=== PATIENT | female | born 1935 | race Caucasian/White ===

== ENCOUNTER 2017-03-23 10:01 | Inpatient (IN) | payer MEDICARE, BC ==
[~2017-03-23] VITALS: Ht 152.4 cm; Wt 83.0 kg
[~2017-03-23 10:01] MED LIST: ACAI PO; ACET325 PO; ALBU90OI INH; ALBU90OI6; ALBU90OI6 INH; ALBU90OI61 INH; ALBUIS INH; ALLO100; ALLO100 PO; AMLO5 PO; ASPI325 PO; ASPI81CH; ASPI81EC PO; ATOR10 PO; AZTREONAM IV; BENA20; BENHYD1012 PO; BUME2 PO; CALCA500CH PO; CEPH250A PO; CEPH500 PO; CHOL10002 PO; CIPR500; CPAP; CRANBERRY PO; CYAN1000 PO; CYAN500 PO; CYCL10; CYCL10 PO; DESL5 PO; DOCU100 PO; DULO30 PO; DULO60 PO; ENDOCET; ERGO400 PO; ESTR1; Estrace PO; Estrace Vagin42.5 GM; FAMO20 PO; FEBU40TA PO; FEXO60; FEXO60 PO; FEXPSEER PO; FISH1000 PO; FLUC100 PO; FOLI400 PO; FURO20 PO; GABA100 PO; GABA300 PO; GABA300T24 PO; GABA600 PO; GAVILAX17 GM PO; GEMF600 PO; GLIM2 PO; GLIM4; Gas Relief 8080 MG PO; HYDACE5 PO; HYDACE5325 PO; HYDCHL12.5; INSUGL100V SC; INSULANI SC; INSULANPEN SC; IRON150C PO; LAVAP17G PO; LEVEMIR FL100 UNIT/1 SC; LIDO700A20 TOP; LINZESS145 MCG PO; Levaquin750 MG PO; MECL12.5 PO; MENTAX PO; METO25ER; MULVITMINF PO; NAPR500; NEBI5 PO; NYST100SU MT; OLME20 PO; OLME5TAB PO; OMEG1CAP30 PO; OMEP20ER; OMEP20ER PO; ONDA4ODT MM; OXYACE5T PO; Omeprazole20 M1 PO; PARI1 PO; POLY-IRON; POTA10T PO; PRED10 PO; PRED20 PO; PROM25 PO; Pedi-Dri 100,0060 GM TOP; Percocet 5-3251 EACH; Polysaccharide150 MG PO; Prilosec Otc20 MG PO; Q-Tussin100 MG/5 M PO; QUALAQUIN PO; QUIN324 PO; ROSU5; ROSU5 PO; RXCYCL10 PO; SEVEC800 PO; SOLI5; SOLI5 PO; Senna8.6 MG; Senna8.6 MG PO; TOCO400 PO; TRIA55OI; TRIM100; Tylenol325 MG PO; VITAMIN D PO; Ventolin Soln3 ML INH; Vitamin D2000 UNIT PO; WARF5 PO; ZINC LOZENGES; [UNRECOGNIZED DRUG - OTHER]; [UNRECOGNIZED DRUG - OTHER]; [UNRECOGNIZED DRUG - OTHER]; [UNRECOGNIZED DRUG - OTHER]; [UNRECOGNIZED DRUG - OTHER] PO; [UNRECOGNIZED DRUG - OTHER] PO
[2017-03-23 10:47] LABS: Bilirubin, Urine Neg (Neg); Blood, Urine 4+ (Neg); Glucose Qualitative, Urine Neg (Neg); Ketones, Urine Neg (Neg); Leukocyte Esterase, Urine 3+ (Neg); Nitrite, Urine Neg (Neg); Protein, Urine 3+ (Neg); Specific Gravity, Urine 1.015 (1.003-1.022); Urobilinogen, Urine NORM (Normal)
[2017-03-23] MEDS ORDERED: CONEST.625 PO (11:09)
[2017-03-23] MEDS ORDERED: ENDOCET 2.5-321 EACH PO (11:10)
[2017-03-23 11:12] LABS: Appearance, Urine Hazy (Clear); Color, Urine Yellow (P-Yellow)
[2017-03-23 11:13] LABS: White Blood Cells, Urine TNTC /hpf (0-5)
[2017-03-23 11:14] LABS: Bacteria Many /hpf; Red Blood Cells, Urine 0-2 /hpf (0-2); Squamous Epithelial Cells Rare /hpf (Few)
[2017-03-23 12:14] LABS: Bun/Creatinine Ratio 29.4 (12.0-20.0); Calcium, Blood 7.7 mg/dL (8.5-10.1); Creatinine, Blood 3.67 mg/dL (0.40-1.00); Troponin I 0.028 ng/mL (0.000-0.040)
[2017-03-23 12:15] LABS: Hemoglobin 11.8 g/dL (11.5-16.0); Mean Corpuscular HGB 31.1 pg (26.0-34.0); Mean Corpuscular HGB Conc 33.7 g/dL (31.5-36.5); Mean Corpuscular Volume 92 fL (80-100); Mean Platelet Volume 12.5 fL (9.1-12.4); NRBC ABSOLUTE 0.06 K/mm3 (0.00-0.02); NRBC Auto 0.1 /100 WBC (0.0-0.2); Platelet Count 152 K/mm3 (150-400); RDW Coefficient Variation 20.4 % (11.7-14.2); RDW Standard Deviation 68.3 fL (35.1-46.3); White Blood Cell Count 41.55 K/mm3 (4.00-11.30)
[2017-03-23 12:29] LABS: BAND PERCENT MAN 11 % (0-8); BASOPHILS PERCENT MAN 0 % (0-2); EOSINOPHILS PERCENT MAN 0 % (0-6); LYMPHOCYTES ABSOLUTE MAN 1.24 K/mm3 (0.84-5.20); LYMPHOCYTES PERCENT MAN 3 % (21-46); METAMYELOCYTE ABSOLUTE MAN 1.66 K/mm3 (0.00-0.00); METAMYELOCYTE PERCENT MAN 4 % (0-0); MONOCYTES ABSOLUTE MAN 3.32 K/mm3 (0.16-1.47); MONOCYTES PERCENT MAN 8 % (4-13); MYELOCYTE ABSOLUTE MAN 0.41 K/mm3 (0.00-0.00); MYELOCYTE PERCENT MAN 1 % (0-0); SEG NEUTROPHILS PERCENT MAN 73 % (41-73); TOTAL CELLS COUNTED 100
[2017-03-23 12:52] LABS: Influenza A Negative (NEGATIVE); Influenza B Negative (NEGATIVE)
[2017-03-24 04:11] LABS: Hemoglobin 10.7 g/dL (11.5-16.0); Mean Corpuscular HGB 30.5 pg (26.0-34.0); Mean Corpuscular HGB Conc 32.4 g/dL (31.5-36.5); Mean Corpuscular Volume 94 fL (80-100); Mean Platelet Volume 11.7 fL (9.1-12.4); NRBC ABSOLUTE 0.02 K/mm3 (0.00-0.02); NRBC Auto 0.1 /100 WBC (0.0-0.2); Platelet Count 147 K/mm3 (150-400); RDW Coefficient Variation 20.7 % (11.7-14.2); RDW Standard Deviation 72.1 fL (35.1-46.3); Red Blood Cell Count 3.51 M/mm3 (3.80-5.20); White Blood Cell Count 38.17 K/mm3 (4.00-11.30)
[2017-03-24 04:18] LABS: Albumin, Blood 2.7 g/dL (3.4-5.0); Anion Gap 15 mmol/L (6-16); Blood Urea Nitrogen 120 mg/dL (8-24); CO2, Blood 14 mmol/L (21-32); Calcium, Blood 7.1 mg/dL (8.5-10.1); Chloride, Blood 106 mmol/L (98-108); Creatinine, Blood 3.87 mg/dL (0.40-1.00); Glomerular Filtration Rate 12 (60-); Glucose, Blood 89 mg/dL (70-99); Magnesium, Blood 1.6 mg/dL (1.6-2.4); Phosphorus, Blood 7.2 mg/dL (2.5-4.9); Potassium, Blood 3.7 mmol/L (3.5-5.5); Sodium, Blood 135 mmol/L (136-145)
[2017-03-24 04:40] LABS: BAND PERCENT MAN 3 % (0-8); BASOPHILS PERCENT MAN 0 % (0-2); EOSINOPHILS PERCENT MAN 0 % (0-6); LYMPHOCYTES ABSOLUTE MAN 2.29 K/mm3 (0.84-5.20); LYMPHOCYTES PERCENT MAN 6 % (21-46); MONOCYTES ABSOLUTE MAN 1.14 K/mm3 (0.16-1.47); MONOCYTES PERCENT MAN 3 % (4-13); NEUTROPHILS ABSOLUTE MAN 34.73 K/mm3 (1.96-9.15); SEG NEUTROPHILS PERCENT MAN 88 % (41-73); TOTAL CELLS COUNTED 100
[2017-03-25 04:16] LABS: Hematocrit 28.5 % (33.0-51.0); Hemoglobin 9.6 g/dL (11.5-16.0)
[2017-03-25 04:41] LABS: Albumin, Blood 2.2 g/dL (3.4-5.0); Anion Gap 18 mmol/L (6-16); Blood Urea Nitrogen 122 mg/dL (8-24); Bun/Creatinine Ratio 30.7 (12.0-20.0); CO2, Blood 15 mmol/L (21-32); Calcium, Blood 6.7 mg/dL (8.5-10.1); Chloride, Blood 104 mmol/L (98-108); Creatinine, Blood 3.98 mg/dL (0.40-1.00); Glomerular Filtration Rate 11 (60-); Glucose, Blood 131 mg/dL (70-99); Magnesium, Blood 1.7 mg/dL (1.6-2.4); Potassium, Blood 3.6 mmol/L (3.5-5.5); Sodium, Blood 137 mmol/L (136-145)
[2017-03-25 05:19] LABS: Phosphorus, Blood 8.3 mg/dL (2.5-4.9)
[2017-03-25 15:30] LABS: BASOPHILS ABSOLUTE AUTO 0.01 K/mm3 (0.00-0.23); BASOPHILS PERCENT AUTO 0 % (0-2); EOSINOPHILS ABSOLUTE AUTO 0.02 K/mm3 (0.00-0.68); EOSINOPHILS PERCENT AUTO 0 % (0-6); Hematocrit 28.7 % (33.0-51.0); Hemoglobin 9.9 g/dL (11.5-16.0); IMMATURE GRAN ABSOLUTE AUTO 0.21 K/mm3 (0.00-0.10); IMMATURE GRAN PERCENT AUTO 1 % (0-1); LYMPHOCYTES ABSOLUTE AUTO 0.33 K/mm3 (0.84-5.20); LYMPHOCYTES PERCENT AUTO 1 % (21-46); MONOCYTES ABSOLUTE AUTO 0.57 K/mm3 (0.16-1.47); MONOCYTES PERCENT AUTO 2 % (4-13); Mean Corpuscular HGB 30.3 pg (26.0-34.0); Mean Corpuscular HGB Conc 34.5 g/dL (31.5-36.5); Mean Platelet Volume 11.5 fL (9.1-12.4); NEUTROPHILS ABSOLUTE AUTO 22.78 K/mm3 (1.96-9.15); NEUTROPHILS PERCENT AUTO 95 % (41-73); NRBC ABSOLUTE 0.04 K/mm3 (0.00-0.02); NRBC Auto 0.2 /100 WBC (0.0-0.2); Platelet Count 137 K/mm3 (150-400); RDW Coefficient Variation 19.9 % (11.7-14.2); RDW Standard Deviation 64.9 fL (35.1-46.3); Red Blood Cell Count 3.27 M/mm3 (3.80-5.20); White Blood Cell Count 23.92 K/mm3 (4.00-11.30)
[2017-03-25 15:42] LABS: Mean Corpuscular Volume 88 fL (80-100)
[2017-03-26 05:19] LABS: BASOPHILS ABSOLUTE AUTO 0.01 K/mm3 (0.00-0.23); BASOPHILS PERCENT AUTO 0 % (0-2); EOSINOPHILS ABSOLUTE AUTO 0.01 K/mm3 (0.00-0.68); EOSINOPHILS PERCENT AUTO 0 % (0-6); Hemoglobin 10.9 g/dL (11.5-16.0); IMMATURE GRAN PERCENT AUTO 1 % (0-1); LYMPHOCYTES PERCENT AUTO 1 % (21-46); MONOCYTES ABSOLUTE AUTO 0.56 K/mm3 (0.16-1.47); MONOCYTES PERCENT AUTO 3 % (4-13); Mean Corpuscular HGB 30.4 pg (26.0-34.0); Mean Corpuscular HGB Conc 34.1 g/dL (31.5-36.5); Mean Corpuscular Volume 89 fL (80-100); NEUTROPHILS ABSOLUTE AUTO 19.86 K/mm3 (1.96-9.15); NEUTROPHILS PERCENT AUTO 95 % (41-73); NRBC ABSOLUTE 0.04 K/mm3 (0.00-0.02); NRBC Auto 0.2 /100 WBC (0.0-0.2); Platelet Count 118 K/mm3 (150-400); RDW Coefficient Variation 20.3 % (11.7-14.2); RDW Standard Deviation 66.9 fL (35.1-46.3); Red Blood Cell Count 3.58 M/mm3 (3.80-5.20); White Blood Cell Count 20.94 K/mm3 (4.00-11.30)
[2017-03-26 05:54] LABS: Magnesium, Blood 1.8 mg/dL (1.6-2.4)
[2017-03-26 06:01] LABS: Alanine Aminotransfer (ALT/SGP 12 U/L (12-78); Albumin, Blood 2.3 g/dL (3.4-5.0); Albumin/Globulin Ratio 0.7 (0.8-1.8); Alk Phos 103 U/L (50-136); Anion Gap 14 mmol/L (6-16); Aspartate Aminotrans (AST/SGOT 11 U/L (12-37); Bilirubin, Total 0.4 mg/dL (0.1-1.0); Blood Urea Nitrogen 127 mg/dL (8-24); Bun/Creatinine Ratio 32.5 (12.0-20.0); CO2, Blood 21 mmol/L (21-32); Calcium, Blood 7.2 mg/dL (8.5-10.1); Chloride, Blood 106 mmol/L (98-108); Creatinine, Blood 3.91 mg/dL (0.40-1.00); Globulin, Blood 3.3 g/dL (2.2-4.0); Glomerular Filtration Rate 12 (60-); Glucose, Blood 195 mg/dL (70-99); Potassium, Blood 3.3 mmol/L (3.5-5.5); Sodium, Blood 141 mmol/L (136-145); Total Protein, Blood 5.6 g/dL (6.4-8.2)
[2017-03-26 06:27] LABS: Phosphorus, Blood 8.7 mg/dL (2.5-4.9)
[2017-03-26] MEDS ORDERED: Oxycodone-Apap1 EAC3 PO (13:48)
[2017-03-27 05:11] LABS: BASOPHILS ABSOLUTE AUTO 0.01 K/mm3 (0.00-0.23); BASOPHILS PERCENT AUTO 0 % (0-2); EOSINOPHILS PERCENT AUTO 1 % (0-6); Hematocrit 29.9 % (33.0-51.0); Hemoglobin 10.2 g/dL (11.5-16.0); IMMATURE GRAN ABSOLUTE AUTO 0.21 K/mm3 (0.00-0.10); IMMATURE GRAN PERCENT AUTO 1 % (0-1); LYMPHOCYTES ABSOLUTE AUTO 0.39 K/mm3 (0.84-5.20); LYMPHOCYTES PERCENT AUTO 3 % (21-46); MONOCYTES ABSOLUTE AUTO 0.64 K/mm3 (0.16-1.47); MONOCYTES PERCENT AUTO 4 % (4-13); Mean Corpuscular HGB 30.5 pg (26.0-34.0); Mean Corpuscular HGB Conc 34.1 g/dL (31.5-36.5); Mean Corpuscular Volume 90 fL (80-100); Mean Platelet Volume 12.3 fL (9.1-12.4); NEUTROPHILS ABSOLUTE AUTO 13.44 K/mm3 (1.96-9.15); NEUTROPHILS PERCENT AUTO 91 % (41-73); NRBC ABSOLUTE 0.06 K/mm3 (0.00-0.02); NRBC Auto 0.4 /100 WBC (0.0-0.2); Platelet Count 132 K/mm3 (150-400); RDW Coefficient Variation 20.4 % (11.7-14.2); RDW Standard Deviation 67.6 fL (35.1-46.3); Red Blood Cell Count 3.34 M/mm3 (3.80-5.20); White Blood Cell Count 14.79 K/mm3 (4.00-11.30)
[2017-03-27 05:40] LABS: Albumin, Blood 2.3 g/dL (3.4-5.0); Anion Gap 14 mmol/L (6-16); Blood Urea Nitrogen 118 mg/dL (8-24); Bun/Creatinine Ratio 34.7 (12.0-20.0); CO2, Blood 22 mmol/L (21-32); Calcium, Blood 7.8 mg/dL (8.5-10.1); Chloride, Blood 110 mmol/L (98-108); Glomerular Filtration Rate 14 (60-); Glucose, Blood 131 mg/dL (70-99); Magnesium, Blood 1.7 mg/dL (1.6-2.4); Phosphorus, Blood 6.3 mg/dL (2.5-4.9); Potassium, Blood 3.3 mmol/L (3.5-5.5); Sodium, Blood 146 mmol/L (136-145)
[2017-03-28 04:58] LABS: BASOPHILS ABSOLUTE AUTO 0.01 K/mm3 (0.00-0.23); BASOPHILS PERCENT AUTO 0 % (0-2); EOSINOPHILS ABSOLUTE AUTO 0.09 K/mm3 (0.00-0.68); EOSINOPHILS PERCENT AUTO 1 % (0-6); Hematocrit 27.3 % (33.0-51.0); Hemoglobin 9.3 g/dL (11.5-16.0); IMMATURE GRAN ABSOLUTE AUTO 0.26 K/mm3 (0.00-0.10); IMMATURE GRAN PERCENT AUTO 2 % (0-1); LYMPHOCYTES ABSOLUTE AUTO 0.47 K/mm3 (0.84-5.20); LYMPHOCYTES PERCENT AUTO 4 % (21-46); MONOCYTES ABSOLUTE AUTO 0.69 K/mm3 (0.16-1.47); MONOCYTES PERCENT AUTO 6 % (4-13); Mean Corpuscular HGB 30.1 pg (26.0-34.0); Mean Corpuscular HGB Conc 34.1 g/dL (31.5-36.5); Mean Corpuscular Volume 88 fL (80-100); Mean Platelet Volume 11.6 fL (9.1-12.4); NEUTROPHILS ABSOLUTE AUTO 10.54 K/mm3 (1.96-9.15); NEUTROPHILS PERCENT AUTO 87 % (41-73); NRBC ABSOLUTE 0.03 K/mm3 (0.00-0.02); NRBC Auto 0.3 /100 WBC (0.0-0.2); Platelet Count 122 K/mm3 (150-400); RDW Coefficient Variation 19.8 % (11.7-14.2); Red Blood Cell Count 3.09 M/mm3 (3.80-5.20); White Blood Cell Count 12.06 K/mm3 (4.00-11.30)
[2017-03-28 05:47] LABS: Albumin, Blood 2.1 g/dL (3.4-5.0); Anion Gap 9 mmol/L (6-16); Blood Urea Nitrogen 102 mg/dL (8-24); Bun/Creatinine Ratio 35.1 (12.0-20.0); CO2, Blood 26 mmol/L (21-32); Calcium, Blood 7.7 mg/dL (8.5-10.1); Chloride, Blood 113 mmol/L (98-108); Creatinine, Blood 2.91 mg/dL (0.40-1.00); Glomerular Filtration Rate 16 (60-); Glucose, Blood 145 mg/dL (70-99); Magnesium, Blood 1.5 mg/dL (1.6-2.4); Phosphorus, Blood 5.1 mg/dL (2.5-4.9); Potassium, Blood 3.3 mmol/L (3.5-5.5); Sodium, Blood 148 mmol/L (136-145)
[2017-03-29 08:30] LABS: BASOPHILS ABSOLUTE AUTO 0.01 K/mm3 (0.00-0.23); BASOPHILS PERCENT AUTO 0 % (0-2); EOSINOPHILS ABSOLUTE AUTO 0.24 K/mm3 (0.00-0.68); EOSINOPHILS PERCENT AUTO 2 % (0-6); Hematocrit 28.4 % (33.0-51.0); Hemoglobin 9.5 g/dL (11.5-16.0); IMMATURE GRAN ABSOLUTE AUTO 0.33 K/mm3 (0.00-0.10); IMMATURE GRAN PERCENT AUTO 2 % (0-1); LYMPHOCYTES ABSOLUTE AUTO 0.82 K/mm3 (0.84-5.20); LYMPHOCYTES PERCENT AUTO 6 % (21-46); MONOCYTES ABSOLUTE AUTO 0.88 K/mm3 (0.16-1.47); MONOCYTES PERCENT AUTO 6 % (4-13); Mean Corpuscular HGB 30.6 pg (26.0-34.0); Mean Corpuscular HGB Conc 33.5 g/dL (31.5-36.5); Mean Platelet Volume 11.8 fL (9.1-12.4); NEUTROPHILS ABSOLUTE AUTO 11.76 K/mm3 (1.96-9.15); NEUTROPHILS PERCENT AUTO 84 % (41-73); NRBC ABSOLUTE 0.02 K/mm3 (0.00-0.02); NRBC Auto 0.2 /100 WBC (0.0-0.2); Platelet Count 155 K/mm3 (150-400); RDW Coefficient Variation 19.8 % (11.7-14.2); RDW Standard Deviation 65.5 fL (35.1-46.3); White Blood Cell Count 14.04 K/mm3 (4.00-11.30)
[2017-03-29 08:31] LABS: Mean Corpuscular Volume 92 fL (80-100)
[2017-03-29 08:49] LABS: Albumin, Blood 2.1 g/dL (3.4-5.0); Anion Gap 7 mmol/L (6-16); Blood Urea Nitrogen 88 mg/dL (8-24); Bun/Creatinine Ratio 34.1 (12.0-20.0); CO2, Blood 27 mmol/L (21-32); Calcium, Blood 7.6 mg/dL (8.5-10.1); Chloride, Blood 110 mmol/L (98-108); Creatinine, Blood 2.58 mg/dL (0.40-1.00); Glomerular Filtration Rate 19 (60-); Glucose, Blood 188 mg/dL (70-99); Magnesium, Blood 1.3 mg/dL (1.6-2.4); Phosphorus, Blood 3.5 mg/dL (2.5-4.9); Potassium, Blood 3.1 mmol/L (3.5-5.5); Sodium, Blood 144 mmol/L (136-145)
[2017-03-29 18:38] LABS: Magnesium, Blood 1.6 mg/dL (1.6-2.4); Potassium, Blood 3.7 mmol/L (3.5-5.5)
[2017-03-30 04:17] LABS: Hematocrit 26.6 % (33.0-51.0)
[2017-03-30 04:37] LABS: Albumin, Blood 2.1 g/dL (3.4-5.0); Anion Gap 7 mmol/L (6-16); Blood Urea Nitrogen 87 mg/dL (8-24); Bun/Creatinine Ratio 35.8 (12.0-20.0); CO2, Blood 27 mmol/L (21-32); Calcium, Blood 7.9 mg/dL (8.5-10.1); Chloride, Blood 114 mmol/L (98-108); Creatinine, Blood 2.43 mg/dL (0.40-1.00); Glomerular Filtration Rate 20 (60-); Glucose, Blood 124 mg/dL (70-99); Magnesium, Blood 1.6 mg/dL (1.6-2.4); Phosphorus, Blood 2.8 mg/dL (2.5-4.9); Potassium, Blood 3.4 mmol/L (3.5-5.5); Sodium, Blood 148 mmol/L (136-145)
[2017-03-30] MEDS ORDERED: CLOT10 SS (11:53)
[2017-03-30] MEDS ORDERED: CEFU50SU PO (11:55)
== END 2017-03-30 13:14 | disposition home health service (06) | DRG 871 ==
LOC: ER 10:01 → PCU 12:52
PROVIDERS: Emergency Medicine; Hospitalist; Internal Medicine; Internal Medicine Nephrology
PROC: 02HV33Z Insertion of Infusion Device into Superior Vena Cava, Percutaneous Approach (ICD-10-PCS; principal; 2017-03-24)
DX: A41.51 Sepsis due to Escherichia coli [E. coli] (principal); G93.41 Metabolic encephalopathy; I95.9 Hypotension, unspecified; E11.22 Type 2 diabetes mellitus with diabetic chronic kidney disease; E11.40 Type 2 diabetes mellitus with diabetic neuropathy, unspecified; N17.9 Acute kidney failure, unspecified; E87.2 Acidosis; N18.4 Chronic kidney disease, stage 4 (severe); E88.09 Other disorders of plasma-protein metabolism, not elsewhere classified; E83.42 Hypomagnesemia; E87.1 Hypo-osmolality and hyponatremia; N39.0 Urinary tract infection, site not specified; D64.9 Anemia, unspecified; J44.9 Chronic obstructive pulmonary disease, unspecified; I12.9 Hypertensive chronic kidney disease with stage 1 through stage 4 chronic kidney disease, or unspecified chronic kidney disease; R65.20 Severe sepsis without septic shock; Z79.4 Long term (current) use of insulin; K21.9 Gastro-esophageal reflux disease without esophagitis; K59.09 Other constipation; E66.9 Obesity, unspecified; Z68.36 Body mass index [BMI] 36.0-36.9, adult; Z86.718 Personal history of other venous thrombosis and embolism; Z87.891 Personal history of nicotine dependence; Z90.710 Acquired absence of both cervix and uterus; Z96.653 Presence of artificial knee joint, bilateral; G47.33 Obstructive sleep apnea (adult) (pediatric); Z79.01 Long term (current) use of anticoagulants
CPT/HCPCS: 36415; 51702; 70450; 71045; 74220; 76770; 80048; 80053; 80069; 81001; 82947; 83605; 83735; 84100; 84132; 84484; 85014; 85018; 85025; 87040; 87077; 87086; 87186; 87804; 92610; 93005; 93010; 96361; 96365; 97110; 97116; 97162; 97530; 99285; C9113; G8978; G8979; G8996; G8997; J0696; J1815; J1956; J2001; J2185; J2405; J3475; J3480; J7030; J7050; J7070

== ENCOUNTER → 2017-04-01 | Outpatient (CLI) | payer MEDICARE, BC ==
[~2017-04-01] MED LIST changes: +ALBU2.5V5 INH; +ALBU3IS INH; +CEFEPIME 11 GM/50 ML IV; +CEFU50SU PO; +CLOT10 SS; +CONEST.625 PO; +CUBICIN500 MG IV; +ENDOCET 2.5-321 EACH PO; +ESTRACE CREAM; +Estrace Vagin42.5 GM TOP; +Estrace Vagin42.5 GM VAG; +FISH OIL 1,0001 EAC1 PO; +Invanz1 GM IV; +LINE600 PO; +LINZESS72 MCG PO; +NITR100 PO; +Neurontin 300300 MG PO; +OMEPRAZOLE MAGN20 MG PO; +ONDA4ODT SL; +Oxycodone-Apap1 EAC3 PO; +Pepcid20 MG PO; +Renvela800 MG PO; +SACC250C PO; +TRAM50 PO; +TRIM100 PO; +VITAMIN D31000 UNIT PO
[2017-04-01 14:34] LABS: BASOPHILS ABSOLUTE AUTO 0.07 K/mm3 (0.00-0.23); BASOPHILS PERCENT AUTO 0 % (0-2); EOSINOPHILS ABSOLUTE AUTO 0.26 K/mm3 (0.00-0.68); EOSINOPHILS PERCENT AUTO 1 % (0-6); Hematocrit 30.9 % (33.0-51.0); Hemoglobin 10.3 g/dL (11.5-16.0); IMMATURE GRAN ABSOLUTE AUTO 0.84 K/mm3 (0.00-0.10); IMMATURE GRAN PERCENT AUTO 4 % (0-1); LYMPHOCYTES ABSOLUTE AUTO 1.49 K/mm3 (0.84-5.20); LYMPHOCYTES PERCENT AUTO 7 % (21-46); MONOCYTES ABSOLUTE AUTO 0.73 K/mm3 (0.16-1.47); MONOCYTES PERCENT AUTO 3 % (4-13); Mean Corpuscular HGB Conc 33.3 g/dL (31.5-36.5); Mean Corpuscular Volume 90 fL (80-100); Mean Platelet Volume 12.9 fL (9.1-12.4); NEUTROPHILS ABSOLUTE AUTO 19.12 K/mm3 (1.96-9.15); NEUTROPHILS PERCENT AUTO 85 % (41-73); NRBC ABSOLUTE 0.02 K/mm3 (0.00-0.02); NRBC Auto 0.1 /100 WBC (0.0-0.2); Platelet Count 305 K/mm3 (150-400); RDW Coefficient Variation 18.3 % (11.7-14.2); RDW Standard Deviation 59.4 fL (35.1-46.3); Red Blood Cell Count 3.43 M/mm3 (3.80-5.20); White Blood Cell Count 22.51 K/mm3 (4.00-11.30)
[2017-04-01 15:49] LABS: Alanine Aminotransfer (ALT/SGP 13 U/L (12-78); Albumin, Blood 2.9 g/dL (3.4-5.0); Albumin/Globulin Ratio 0.7 (0.8-1.8); Alk Phos 111 U/L (50-136); Anion Gap 13 mmol/L (6-16); Aspartate Aminotrans (AST/SGOT 16 U/L (12-37); Bilirubin, Total 0.4 mg/dL (0.1-1.0); Blood Urea Nitrogen 71 mg/dL (8-24); Bun/Creatinine Ratio 29.5 (12.0-20.0); CHOL/HDL RATIO 2.2; CO2, Blood 20 mmol/L (21-32); Calcium, Blood 8.5 mg/dL (8.5-10.1); Chloride, Blood 105 mmol/L (98-108); Cholesterol 104 mg/dL (50-200); Creatinine, Blood 2.41 mg/dL (0.40-1.00); Globulin, Blood 3.9 g/dL (2.2-4.0); Glomerular Filtration Rate 20 (60-); Glucose, Blood 140 mg/dL (70-99); HDL Cholesterol 48 mg/dL (>39); LDL/HDL RATIO 0.3; Low Density Lipoprotein Chol 13 mg/dL (0-110); Potassium, Blood 4.2 mmol/L (3.5-5.5); Sodium, Blood 138 mmol/L (136-145); Total Protein, Blood 6.8 g/dL (6.4-8.2); Triglycerides 215 mg/dL (30-160); Very Low Density Lipoprot Chol 43 mg/dL (6-32)
== END | disposition home or self-care (01) ==
LOC: LAB 14:18
DX: N39.0 Urinary tract infection, site not specified (principal); E11.42 Type 2 diabetes mellitus with diabetic polyneuropathy; I10 Essential (primary) hypertension
CPT/HCPCS: 80053; 80061; 83036; 85025

== ENCOUNTER → 2017-04-02 | Outpatient (CLI) | payer MEDICARE, BC | END | disposition home or self-care (01) | LOC: LAB 16:55 | DX: R33.9 Retention of urine, unspecified (principal) | CPT/HCPCS: 87077; 87086; 87186 ==

== ENCOUNTER 2017-04-05 11:31 | Emergency (ER) | payer MEDICARE, BC ==
[~2017-04-05] VITALS: Ht 152.4 cm; Wt 82.1 kg
[~2017-04-05 11:31] MED LIST changes: -ALBU2.5V5 INH; -ALBU3IS INH; -CEFEPIME 11 GM/50 ML IV; -CUBICIN500 MG IV; -ESTRACE CREAM; -Estrace Vagin42.5 GM TOP; -Estrace Vagin42.5 GM VAG; -FISH OIL 1,0001 EAC1 PO; -Invanz1 GM IV; -LINE600 PO; -LINZESS72 MCG PO; -NITR100 PO; -Neurontin 300300 MG PO; -OMEPRAZOLE MAGN20 MG PO; -ONDA4ODT SL; -Pepcid20 MG PO; -Renvela800 MG PO; -SACC250C PO; -TRAM50 PO; -TRIM100 PO; -VITAMIN D31000 UNIT PO
[2017-04-05 12:53] LABS: Source, Urine Catheter
[2017-04-05 12:57] LABS: BASOPHILS ABSOLUTE AUTO 0.13 K/mm3 (0.00-0.23); BASOPHILS PERCENT AUTO 1 % (0-2); EOSINOPHILS ABSOLUTE AUTO 0.34 K/mm3 (0.00-0.68); EOSINOPHILS PERCENT AUTO 2 % (0-6); Hematocrit 27.3 % (33.0-51.0); IMMATURE GRAN ABSOLUTE AUTO 0.35 K/mm3 (0.00-0.10); IMMATURE GRAN PERCENT AUTO 2 % (0-1); LYMPHOCYTES ABSOLUTE AUTO 1.35 K/mm3 (0.84-5.20); LYMPHOCYTES PERCENT AUTO 8 % (21-46); MONOCYTES ABSOLUTE AUTO 1.04 K/mm3 (0.16-1.47); MONOCYTES PERCENT AUTO 6 % (4-13); Mean Corpuscular HGB 30.8 pg (26.0-34.0); Mean Platelet Volume 11.3 fL (9.1-12.4); NEUTROPHILS ABSOLUTE AUTO 13.96 K/mm3 (1.96-9.15); NEUTROPHILS PERCENT AUTO 81 % (41-73); NRBC ABSOLUTE 0.15 K/mm3 (0.00-0.02); NRBC Auto 0.9 /100 WBC (0.0-0.2); Platelet Count 411 K/mm3 (150-400); RDW Coefficient Variation 19.2 % (11.7-14.2); RDW Standard Deviation 63.8 fL (35.1-46.3); Red Blood Cell Count 2.92 M/mm3 (3.80-5.20); White Blood Cell Count 17.17 K/mm3 (4.00-11.30)
[2017-04-05 12:59] LABS: Mean Corpuscular Volume 94 fL (80-100)
[2017-04-05 13:07] LABS: Appearance, Urine Clear (Clear); Bilirubin, Urine Neg (Neg); Blood, Urine 1+ (Neg); Color, Urine Yellow (P-Yellow); Glucose Qualitative, Urine Neg (Neg); Ketones, Urine Neg (Neg); Leukocyte Esterase, Urine 1+ (Neg); Nitrite, Urine Neg (Neg); Protein, Urine 1+ (Neg); Specific Gravity, Urine 1.015 (1.003-1.022); Urobilinogen, Urine NORM (Normal)
[2017-04-05 13:15] LABS: Albumin, Blood 2.7 g/dL (3.4-5.0); Albumin/Globulin Ratio 0.8 (0.8-1.8); Bilirubin, Total 0.4 mg/dL (0.1-1.0); Bun/Creatinine Ratio 22.9 (12.0-20.0); Calcium, Blood 8.2 mg/dL (8.5-10.1); Creatinine, Blood 3.41 mg/dL (0.40-1.00); Globulin, Blood 3.6 g/dL (2.2-4.0); Potassium, Blood 5.4 mmol/L (3.5-5.5); Total Protein, Blood 6.3 g/dL (6.4-8.2)
[2017-04-05 14:08] LABS: Bacteria Rare /hpf; Red Blood Cells, Urine 0-2 /hpf (0-2); Squamous Epithelial Cells Rare /hpf (Few)
== END 2017-04-05 15:00 | disposition home or self-care (01) ==
LOC: ER 11:31
PROVIDERS: Emergency Medicine
DX: R25.1 Tremor, unspecified (principal); R53.1 Weakness; E11.40 Type 2 diabetes mellitus with diabetic neuropathy, unspecified; N18.9 Chronic kidney disease, unspecified; D63.1 Anemia in chronic kidney disease; J44.9 Chronic obstructive pulmonary disease, unspecified; Z88.8 Allergy status to other drugs, medicaments and biological substances; Z88.0 Allergy status to penicillin; Z88.5 Allergy status to narcotic agent; Z79.899 Other long term (current) drug therapy; Z79.82 Long term (current) use of aspirin; Z79.4 Long term (current) use of insulin; Z86.718 Personal history of other venous thrombosis and embolism; Z90.710 Acquired absence of both cervix and uterus; Z90.49 Acquired absence of other specified parts of digestive tract; Z96.653 Presence of artificial knee joint, bilateral; Z87.891 Personal history of nicotine dependence
CPT/HCPCS: 36415; 71045; 80053; 81001; 82947; 85025; 87077; 87086; 87186; 99283

== ENCOUNTER 2017-04-11 19:16 | Inpatient (IN) | payer MEDICARE, BC ==
[~2017-04-11] VITALS: Ht 152.4 cm; Wt 84.1 kg
[2017-04-11 20:38] LABS: Source, Urine Catheter
[2017-04-11 20:42] LABS: Bilirubin, Urine Neg (Neg); Blood, Urine Neg (Neg); Glucose Qualitative, Urine Neg (Neg); Ketones, Urine Neg (Neg); Leukocyte Esterase, Urine 1+ (Neg); Nitrite, Urine Neg (Neg); Protein, Urine 2+ (Neg); Specific Gravity, Urine 1.015 (1.003-1.022); Urobilinogen, Urine NORM (Normal)
[2017-04-11 20:45] LABS: Appearance, Urine Hazy (Clear); Color, Urine Yellow (P-Yellow)
[2017-04-11 20:48] LABS: Amorphous Mod (0-Heavy); Bacteria Few /hpf; Red Blood Cells, Urine Not Seen /hpf (0-2); Squamous Epithelial Cells Few /hpf (Few); White Blood Cells, Urine 0-2 /hpf (0-5)
[2017-04-11 20:48] LABS: Albumin, Blood 3.2 g/dL (3.4-5.0); Albumin/Globulin Ratio 0.7 (0.8-1.8); Bilirubin, Total 0.4 mg/dL (0.1-1.0); Bun/Creatinine Ratio 19.8 (12.0-20.0); Calcium, Blood 8.4 mg/dL (8.5-10.1); Creatinine, Blood 3.28 mg/dL (0.40-1.00); Globulin, Blood 4.6 g/dL (2.2-4.0); Potassium, Blood 4.5 mmol/L (3.5-5.5); Total Protein, Blood 7.8 g/dL (6.4-8.2)
[2017-04-11 20:58] LABS: Influenza A Negative (NEGATIVE); Influenza B Negative (NEGATIVE)
[2017-04-12 00:10] LABS: Hematocrit 32.5 % (33.0-51.0); Hemoglobin 10.4 g/dL (11.5-16.0); Mean Platelet Volume 10.8 fL (9.1-12.4); NRBC Auto 2.3 /100 WBC (0.0-0.2); Platelet Count 287 K/mm3 (150-400); RDW Coefficient Variation 21.9 % (11.7-14.2); RDW Standard Deviation 70.5 fL (35.1-46.3); Red Blood Cell Count 3.35 M/mm3 (3.80-5.20); White Blood Cell Count 21.75 K/mm3 (4.00-11.30)
[2017-04-12 00:12] LABS: Mean Corpuscular Volume 97 fL (80-100)
[2017-04-12 00:28] LABS: BAND PERCENT MAN 21 % (0-8); BASOPHILS ABSOLUTE MAN 0.43 K/mm3 (0.00-0.23); BASOPHILS PERCENT MAN 2 % (0-2); EOSINOPHILS ABSOLUTE MAN 0.21 K/mm3 (0.00-0.68); EOSINOPHILS PERCENT MAN 1 % (0-6); LYMPHOCYTES ABSOLUTE MAN 0.65 K/mm3 (0.84-5.20); LYMPHOCYTES PERCENT MAN 3 % (21-46); MONOCYTES PERCENT MAN 0 % (4-13); MYELOCYTE ABSOLUTE MAN 0.21 K/mm3 (0.00-0.00); MYELOCYTE PERCENT MAN 1 % (0-0); NEUTROPHILS ABSOLUTE MAN 20.22 K/mm3 (1.96-9.15); SEG NEUTROPHILS PERCENT MAN 72 % (41-73); TOTAL CELLS COUNTED 100
[2017-04-12 04:23] LABS: BASOPHILS ABSOLUTE AUTO 0.08 K/mm3 (0.00-0.23); BASOPHILS PERCENT AUTO 0 % (0-2); EOSINOPHILS ABSOLUTE AUTO 0.03 K/mm3 (0.00-0.68); EOSINOPHILS PERCENT AUTO 0 % (0-6); Hematocrit 28.6 % (33.0-51.0); Hemoglobin 9.2 g/dL (11.5-16.0); IMMATURE GRAN ABSOLUTE AUTO 0.38 K/mm3 (0.00-0.10); IMMATURE GRAN PERCENT AUTO 2 % (0-1); LYMPHOCYTES ABSOLUTE AUTO 0.52 K/mm3 (0.84-5.20); LYMPHOCYTES PERCENT AUTO 2 % (21-46); MONOCYTES PERCENT AUTO 3 % (4-13); Mean Corpuscular HGB 31.1 pg (26.0-34.0); Mean Corpuscular HGB Conc 32.2 g/dL (31.5-36.5); Mean Corpuscular Volume 97 fL (80-100); Mean Platelet Volume 11.4 fL (9.1-12.4); NEUTROPHILS ABSOLUTE AUTO 22.41 K/mm3 (1.96-9.15); NEUTROPHILS PERCENT AUTO 93 % (41-73); NRBC ABSOLUTE 0.22 K/mm3 (0.00-0.02); NRBC Auto 0.9 /100 WBC (0.0-0.2); Platelet Count 272 K/mm3 (150-400); RDW Coefficient Variation 21.7 % (11.7-14.2); RDW Standard Deviation 70.4 fL (35.1-46.3); Red Blood Cell Count 2.96 M/mm3 (3.80-5.20); White Blood Cell Count 24.02 K/mm3 (4.00-11.30)
[2017-04-12 04:46] LABS: Albumin, Blood 2.5 g/dL (3.4-5.0); Albumin/Globulin Ratio 0.7 (0.8-1.8); Bilirubin, Total 0.3 mg/dL (0.1-1.0); Bun/Creatinine Ratio 19.6 (12.0-20.0); Calcium, Blood 7.6 mg/dL (8.5-10.1); Creatinine, Blood 3.47 mg/dL (0.40-1.00); Globulin, Blood 3.5 g/dL (2.2-4.0); Potassium, Blood 4.1 mmol/L (3.5-5.5)
[2017-04-13 03:41] LABS: BASOPHILS ABSOLUTE AUTO 0.04 K/mm3 (0.00-0.23); BASOPHILS PERCENT AUTO 0 % (0-2); EOSINOPHILS PERCENT AUTO 1 % (0-6); Hematocrit 26.2 % (33.0-51.0); Hemoglobin 8.3 g/dL (11.5-16.0); IMMATURE GRAN ABSOLUTE AUTO 0.15 K/mm3 (0.00-0.10); IMMATURE GRAN PERCENT AUTO 1 % (0-1); LYMPHOCYTES PERCENT AUTO 9 % (21-46); MONOCYTES ABSOLUTE AUTO 0.63 K/mm3 (0.16-1.47); MONOCYTES PERCENT AUTO 4 % (4-13); Mean Corpuscular HGB 30.7 pg (26.0-34.0); Mean Corpuscular HGB Conc 31.7 g/dL (31.5-36.5); Mean Corpuscular Volume 97 fL (80-100); NEUTROPHILS ABSOLUTE AUTO 13.51 K/mm3 (1.96-9.15); NEUTROPHILS PERCENT AUTO 85 % (41-73); NRBC ABSOLUTE 0.09 K/mm3 (0.00-0.02); NRBC Auto 0.6 /100 WBC (0.0-0.2); Platelet Count 237 K/mm3 (150-400); RDW Coefficient Variation 22.2 % (11.7-14.2); RDW Standard Deviation 73.4 fL (35.1-46.3); White Blood Cell Count 15.93 K/mm3 (4.00-11.30)
[2017-04-13 03:56] LABS: Bun/Creatinine Ratio 19.3 (12.0-20.0); Calcium, Blood 7.1 mg/dL (8.5-10.1); Creatinine, Blood 3.79 mg/dL (0.40-1.00)
[2017-04-14 05:31] LABS: BASOPHILS ABSOLUTE AUTO 0.05 K/mm3 (0.00-0.23); BASOPHILS PERCENT AUTO 1 % (0-2); EOSINOPHILS ABSOLUTE AUTO 0.29 K/mm3 (0.00-0.68); EOSINOPHILS PERCENT AUTO 3 % (0-6); Hematocrit 26.3 % (33.0-51.0); Hemoglobin 8.2 g/dL (11.5-16.0); IMMATURE GRAN ABSOLUTE AUTO 0.06 K/mm3 (0.00-0.10); IMMATURE GRAN PERCENT AUTO 1 % (0-1); LYMPHOCYTES ABSOLUTE AUTO 1.49 K/mm3 (0.84-5.20); LYMPHOCYTES PERCENT AUTO 14 % (21-46); MONOCYTES ABSOLUTE AUTO 0.55 K/mm3 (0.16-1.47); MONOCYTES PERCENT AUTO 5 % (4-13); Mean Corpuscular HGB 30.3 pg (26.0-34.0); Mean Corpuscular HGB Conc 31.2 g/dL (31.5-36.5); Mean Corpuscular Volume 97 fL (80-100); Mean Platelet Volume 10.6 fL (9.1-12.4); NEUTROPHILS ABSOLUTE AUTO 8.63 K/mm3 (1.96-9.15); NEUTROPHILS PERCENT AUTO 78 % (41-73); NRBC ABSOLUTE 0.08 K/mm3 (0.00-0.02); NRBC Auto 0.7 /100 WBC (0.0-0.2); Platelet Count 199 K/mm3 (150-400); RDW Coefficient Variation 21.9 % (11.7-14.2); RDW Standard Deviation 75.7 fL (35.1-46.3); Red Blood Cell Count 2.71 M/mm3 (3.80-5.20); White Blood Cell Count 11.07 K/mm3 (4.00-11.30)
[2017-04-14 05:57] LABS: Albumin, Blood 2.3 g/dL (3.4-5.0); Anion Gap 12 mmol/L (6-16); Blood Urea Nitrogen 72 mg/dL (8-24); Bun/Creatinine Ratio 18.4 (12.0-20.0); CO2, Blood 19 mmol/L (21-32); Calcium, Blood 7.2 mg/dL (8.5-10.1); Chloride, Blood 109 mmol/L (98-108); Creatinine, Blood 3.91 mg/dL (0.40-1.00); Glomerular Filtration Rate 12 (60-); Glucose, Blood 97 mg/dL (70-99); Magnesium, Blood 1.5 mg/dL (1.6-2.4); Potassium, Blood 3.8 mmol/L (3.5-5.5); Sodium, Blood 140 mmol/L (136-145)
[2017-04-14 06:04] LABS: Phosphorus, Blood 8.4 mg/dL (2.5-4.9)
[2017-04-14 20:57] LABS: Source, Urine Catheter
[2017-04-14 20:59] LABS: Bilirubin, Urine Neg (Neg); Blood, Urine Neg (Neg); Glucose Qualitative, Urine Neg (Neg); Ketones, Urine Neg (Neg); Leukocyte Esterase, Urine 1+ (Neg); Nitrite, Urine Neg (Neg); Protein, Urine 1+ (Neg); Urobilinogen, Urine NORM (Normal)
[2017-04-14 21:00] LABS: Appearance, Urine Clear (Clear); Color, Urine Yellow (P-Yellow)
[2017-04-14 21:06] LABS: Bacteria Few /hpf; Red Blood Cells, Urine Not Seen /hpf (0-2); Squamous Epithelial Cells Rare /hpf (Few)
[2017-04-15 03:52] LABS: Hematocrit 25.9 % (33.0-51.0); Hemoglobin 8.1 g/dL (11.5-16.0)
[2017-04-15 04:14] LABS: Albumin, Blood 2.2 g/dL (3.4-5.0); Anion Gap 11 mmol/L (6-16); Blood Urea Nitrogen 71 mg/dL (8-24); Bun/Creatinine Ratio 18.7 (12.0-20.0); CO2, Blood 20 mmol/L (21-32); Calcium, Blood 7.4 mg/dL (8.5-10.1); Chloride, Blood 111 mmol/L (98-108); Creatinine, Blood 3.79 mg/dL (0.40-1.00); Glomerular Filtration Rate 12 (60-); Glucose, Blood 95 mg/dL (70-99); Potassium, Blood 3.9 mmol/L (3.5-5.5); Sodium, Blood 142 mmol/L (136-145)
[2017-04-15 04:22] LABS: Phosphorus, Blood 8.5 mg/dL (2.5-4.9)
[2017-04-16 04:39] LABS: Hematocrit 26.5 % (33.0-51.0); Hemoglobin 8.4 g/dL (11.5-16.0)
[2017-04-16 05:03] LABS: Albumin, Blood 2.2 g/dL (3.4-5.0); Anion Gap 9 mmol/L (6-16); Blood Urea Nitrogen 71 mg/dL (8-24); CO2, Blood 20 mmol/L (21-32); Calcium, Blood 7.6 mg/dL (8.5-10.1); Chloride, Blood 115 mmol/L (98-108); Creatinine, Blood 3.23 mg/dL (0.40-1.00); Glomerular Filtration Rate 15 (60-); Glucose, Blood 144 mg/dL (70-99); Magnesium, Blood 1.9 mg/dL (1.6-2.4); Sodium, Blood 144 mmol/L (136-145)
[2017-04-17 05:46] LABS: BASOPHILS ABSOLUTE AUTO 0.03 K/mm3 (0.00-0.23); BASOPHILS PERCENT AUTO 1 % (0-2); EOSINOPHILS ABSOLUTE AUTO 0.15 K/mm3 (0.00-0.68); EOSINOPHILS PERCENT AUTO 3 % (0-6); Hematocrit 26.1 % (33.0-51.0); Hemoglobin 8.2 g/dL (11.5-16.0); IMMATURE GRAN ABSOLUTE AUTO 0.02 K/mm3 (0.00-0.10); IMMATURE GRAN PERCENT AUTO 0 % (0-1); LYMPHOCYTES ABSOLUTE AUTO 1.48 K/mm3 (0.84-5.20); LYMPHOCYTES PERCENT AUTO 28 % (21-46); MONOCYTES ABSOLUTE AUTO 0.37 K/mm3 (0.16-1.47); MONOCYTES PERCENT AUTO 7 % (4-13); Mean Corpuscular HGB 29.9 pg (26.0-34.0); Mean Corpuscular HGB Conc 31.4 g/dL (31.5-36.5); Mean Corpuscular Volume 95 fL (80-100); Mean Platelet Volume 11.6 fL (9.1-12.4); NEUTROPHILS ABSOLUTE AUTO 3.17 K/mm3 (1.96-9.15); NEUTROPHILS PERCENT AUTO 61 % (41-73); NRBC ABSOLUTE 0.04 K/mm3 (0.00-0.02); NRBC Auto 0.8 /100 WBC (0.0-0.2); Platelet Count 176 K/mm3 (150-400); RDW Coefficient Variation 20.7 % (11.7-14.2); RDW Standard Deviation 70.6 fL (35.1-46.3); Red Blood Cell Count 2.74 M/mm3 (3.80-5.20); White Blood Cell Count 5.22 K/mm3 (4.00-11.30)
[2017-04-17 06:04] LABS: Albumin, Blood 2.3 g/dL (3.4-5.0); Anion Gap 7 mmol/L (6-16); Blood Urea Nitrogen 70 mg/dL (8-24); Bun/Creatinine Ratio 25.7 (12.0-20.0); CO2, Blood 20 mmol/L (21-32); Calcium, Blood 7.9 mg/dL (8.5-10.1); Chloride, Blood 117 mmol/L (98-108); Creatinine, Blood 2.72 mg/dL (0.40-1.00); Glomerular Filtration Rate 18 (60-); Glucose, Blood 97 mg/dL (70-99); Magnesium, Blood 1.7 mg/dL (1.6-2.4); Phosphorus, Blood 6.4 mg/dL (2.5-4.9); Potassium, Blood 3.4 mmol/L (3.5-5.5); Sodium, Blood 144 mmol/L (136-145)
[2017-04-17] MEDS ORDERED: GABA100 PO (11:45)
[2017-04-17] MEDS ORDERED: CEPH250A PO (11:46)
[2017-04-17] MEDS ORDERED: SACC250C PO (11:46)
== END 2017-04-17 14:56 | disposition home or self-care (01) | DRG 871 ==
LOC: ER 19:16 → MEDS 23:15 → ICUW 23:15 → ICUE 23:15 → ICUW 04-13 18:55 → MEDS 04-16 18:24 → ENPENDDIS 04-17 10:00 → MEDS 04-17 14:56
PROVIDERS: Internal Medicine; Internal Medicine Nephrology; Physician Assistant; Urology
PROC: 02HV33Z Insertion of Infusion Device into Superior Vena Cava, Percutaneous Approach (ICD-10-PCS; 2017-04-12)
PROC: 0T778DZ Dilation of Left Ureter with Intraluminal Device, Via Natural or Artificial Opening Endoscopic (ICD-10-PCS; principal; 2017-04-15 07:30)
DX: A41.51 Sepsis due to Escherichia coli [E. coli] (principal); G93.41 Metabolic encephalopathy; N17.0 Acute kidney failure with tubular necrosis; I13.2 Hypertensive heart and chronic kidney disease with heart failure and with stage 5 chronic kidney disease, or end stage renal disease; E87.2 Acidosis; N18.5 Chronic kidney disease, stage 5; N13.6 Pyonephrosis; E88.09 Other disorders of plasma-protein metabolism, not elsewhere classified; E11.22 Type 2 diabetes mellitus with diabetic chronic kidney disease; E11.21 Type 2 diabetes mellitus with diabetic nephropathy; J44.9 Chronic obstructive pulmonary disease, unspecified; R65.20 Severe sepsis without septic shock; G47.33 Obstructive sleep apnea (adult) (pediatric); B96.20 Unspecified Escherichia coli [E. coli] as the cause of diseases classified elsewhere; E86.0 Dehydration; E21.3 Hyperparathyroidism, unspecified; Z16.23 Resistance to quinolones and fluoroquinolones; E83.39 Other disorders of phosphorus metabolism; I50.9 Heart failure, unspecified; I05.0 Rheumatic mitral stenosis; E87.6 Hypokalemia; Z16.29 Resistance to other single specified antibiotic; Z79.82 Long term (current) use of aspirin; Z79.890 Hormone replacement therapy; Z79.4 Long term (current) use of insulin; Z79.899 Other long term (current) drug therapy; Z88.5 Allergy status to narcotic agent; Z91.09 Other allergy status, other than to drugs and biological substances; Z88.0 Allergy status to penicillin; Z87.440 Personal history of urinary (tract) infections
CPT/HCPCS: 36415; 36556; 71046; 74176; 80048; 80053; 80069; 81001; 82947; 83605; 83735; 83880; 85014; 85018; 85025; 87040; 87077; 87086; 87186; 87493; 87804; 92610; 94660; 94762; 96361; 96374; 96375; 97162; 97165; 97530; 99285; C1751; C1769; C2617; G8978; G8979; G8987; G8988; G8996; G8997; G8998; J0696; J0881; J1100; J1644; J1815; J2001; J2020; J2185; J2405; J3475; J3480; J7030; J7042; J7050; J7120; P9041; P9612

== ENCOUNTER → 2017-04-30 | Outpatient (CLI) | payer MEDICARE, BC ==
[~2017-04-30] MED LIST changes: +ALBU2.5V5 INH; +ALBU3IS INH; +CEFEPIME 11 GM/50 ML IV; +CUBICIN500 MG IV; +ESTRACE CREAM; +Estrace Vagin42.5 GM TOP; +Estrace Vagin42.5 GM VAG; +FISH OIL 1,0001 EAC1 PO; +Invanz1 GM IV; +LINE600 PO; +LINZESS72 MCG PO; +NITR100 PO; +Neurontin 300300 MG PO; +OMEPRAZOLE MAGN20 MG PO; +ONDA4ODT SL; +Pepcid20 MG PO; +Renvela800 MG PO; +SACC250C PO; +TRAM50 PO; +TRIM100 PO; +VITAMIN D31000 UNIT PO
== END | disposition home or self-care (01) ==
LOC: LAB 17:31
DX: N39.0 Urinary tract infection, site not specified (principal); R33.9 Retention of urine, unspecified; R10.9 Unspecified abdominal pain
CPT/HCPCS: 87077; 87086; 87186

== ENCOUNTER 2017-05-01 19:56 | Observation (INO) | payer MEDICARE, BC ==
[~2017-05-01] VITALS: Ht 152.4 cm; Wt 79.0 kg
[~2017-05-01 19:56] MED LIST changes: -ALBU2.5V5 INH; -ALBU3IS INH; -CEFEPIME 11 GM/50 ML IV; -CUBICIN500 MG IV; -ESTRACE CREAM; -Estrace Vagin42.5 GM TOP; -Estrace Vagin42.5 GM VAG; -FISH OIL 1,0001 EAC1 PO; -Invanz1 GM IV; -LINE600 PO; -LINZESS72 MCG PO; -NITR100 PO; -Neurontin 300300 MG PO; -OMEPRAZOLE MAGN20 MG PO; -ONDA4ODT SL; -Pepcid20 MG PO; -Renvela800 MG PO; -TRAM50 PO; -TRIM100 PO; -VITAMIN D31000 UNIT PO
[2017-05-01 21:59] LABS: BASOPHILS PERCENT AUTO 1 % (0-2); EOSINOPHILS ABSOLUTE AUTO 0.29 K/mm3 (0.00-0.68); EOSINOPHILS PERCENT AUTO 3 % (0-6); Hematocrit 32.5 % (33.0-51.0); Hemoglobin 9.9 g/dL (11.5-16.0); IMMATURE GRAN ABSOLUTE AUTO 0.04 K/mm3 (0.00-0.10); IMMATURE GRAN PERCENT AUTO 1 % (0-1); LYMPHOCYTES PERCENT AUTO 14 % (21-46); MONOCYTES PERCENT AUTO 9 % (4-13); Mean Corpuscular HGB 29.6 pg (26.0-34.0); Mean Corpuscular HGB Conc 30.5 g/dL (31.5-36.5); Mean Corpuscular Volume 97 fL (80-100); Mean Platelet Volume 11.2 fL (9.1-12.4); NEUTROPHILS ABSOLUTE AUTO 6.34 K/mm3 (1.96-9.15); NEUTROPHILS PERCENT AUTO 72 % (41-73); NRBC ABSOLUTE 0.02 K/mm3 (0.00-0.02); NRBC Auto 0.2 /100 WBC (0.0-0.2); Platelet Count 402 K/mm3 (150-400); RDW Coefficient Variation 18.9 % (11.7-14.2); RDW Standard Deviation 67.7 fL (35.1-46.3); Red Blood Cell Count 3.34 M/mm3 (3.80-5.20); White Blood Cell Count 8.77 K/mm3 (4.00-11.30)
[2017-05-01 22:18] LABS: Albumin, Blood 3.2 g/dL (3.4-5.0); Albumin/Globulin Ratio 0.8 (0.8-1.8); Bilirubin, Total 0.2 mg/dL (0.1-1.0); Bun/Creatinine Ratio 34.4 (12.0-20.0); Calcium, Blood 8.6 mg/dL (8.5-10.1); Creatinine, Blood 2.99 mg/dL (0.40-1.00); Potassium, Blood 5.1 mmol/L (3.5-5.5); Total Protein, Blood 7.2 g/dL (6.4-8.2)
[2017-05-01 23:14] LABS: Source, Urine Clean Catch
[2017-05-01 23:17] LABS: Bilirubin, Urine Neg (Neg); Blood, Urine 5+ (Neg); Glucose Qualitative, Urine Neg (Neg); Ketones, Urine Neg (Neg); Leukocyte Esterase, Urine 3+ (Neg); Nitrite, Urine Neg (Neg); Protein, Urine 3+ (Neg); Specific Gravity, Urine 1.015 (1.003-1.022); Urobilinogen, Urine NORM (Normal)
[2017-05-01 23:22] LABS: Appearance, Urine Cloudy (Clear); Color, Urine Yellow (P-Yellow)
[2017-05-01 23:27] LABS: Bacteria Many /hpf; Squamous Epithelial Cells Not Seen /hpf (Few); White Blood Cells, Urine TNTC /hpf (0-5)
[2017-05-02] MEDS ORDERED: ASPI325 PO (00:23)
[2017-05-02] MEDS ORDERED: DULO30 PO (00:24)
[2017-05-02] MEDS ORDERED: Polysaccharide150 MG PO (00:26)
[2017-05-02] MEDS ORDERED: BUME2 PO (00:27)
[2017-05-02] MEDS ORDERED: ATOR10 PO (00:27)
[2017-05-02] MEDS ORDERED: FISH OIL 1,0001 EAC1 PO (00:28)
[2017-05-02] MEDS ORDERED: ALBU2.5V5 INH (00:29)
[2017-05-02] MEDS ORDERED: LINZESS72 MCG PO (00:30)
[2017-05-02] MEDS ORDERED: Oxycodone-Apap1 EAC3 PO (00:31)
[2017-05-02] MEDS ORDERED: ALBU90OI INH (00:32)
[2017-05-02] MEDS ORDERED: TRIM100 PO (00:33)
[2017-05-02] MEDS ORDERED: GEMF600 PO (00:33)
[2017-05-02] MEDS ORDERED: ESTRACE CREAM (00:36)
[2017-05-02] MEDS ORDERED: CEFU50SU PO (00:37)
[2017-05-02] MEDS ORDERED: CLOT10 SS (00:38)
[2017-05-02] MEDS ORDERED: DESL5 PO (00:38)
[2017-05-02] MEDS ORDERED: OMEPRAZOLE MAGN20 MG PO (05:12)
[2017-05-02 05:48] LABS: BASOPHILS PERCENT AUTO 1 % (0-2); EOSINOPHILS ABSOLUTE AUTO 0.27 K/mm3 (0.00-0.68); EOSINOPHILS PERCENT AUTO 4 % (0-6); Hematocrit 28.5 % (33.0-51.0); Hemoglobin 8.7 g/dL (11.5-16.0); IMMATURE GRAN ABSOLUTE AUTO 0.04 K/mm3 (0.00-0.10); IMMATURE GRAN PERCENT AUTO 1 % (0-1); LYMPHOCYTES ABSOLUTE AUTO 1.36 K/mm3 (0.84-5.20); LYMPHOCYTES PERCENT AUTO 19 % (21-46); MONOCYTES PERCENT AUTO 13 % (4-13); Mean Corpuscular HGB 29.8 pg (26.0-34.0); Mean Corpuscular HGB Conc 30.5 g/dL (31.5-36.5); Mean Corpuscular Volume 98 fL (80-100); Mean Platelet Volume 11.5 fL (9.1-12.4); NEUTROPHILS ABSOLUTE AUTO 4.35 K/mm3 (1.96-9.15); NEUTROPHILS PERCENT AUTO 62 % (41-73); NRBC ABSOLUTE 0.03 K/mm3 (0.00-0.02); NRBC Auto 0.4 /100 WBC (0.0-0.2); Platelet Count 343 K/mm3 (150-400); RDW Coefficient Variation 18.8 % (11.7-14.2); RDW Standard Deviation 65.9 fL (35.1-46.3); Red Blood Cell Count 2.92 M/mm3 (3.80-5.20); White Blood Cell Count 7.02 K/mm3 (4.00-11.30)
[2017-05-02 06:14] LABS: Albumin, Blood 2.6 g/dL (3.4-5.0); Anion Gap 12 mmol/L (6-16); Blood Urea Nitrogen 98 mg/dL (8-24); Bun/Creatinine Ratio 33.9 (12.0-20.0); CO2, Blood 19 mmol/L (21-32); Calcium, Blood 7.8 mg/dL (8.5-10.1); Chloride, Blood 108 mmol/L (98-108); Creatinine, Blood 2.89 mg/dL (0.40-1.00); Glomerular Filtration Rate 16 (60-); Glucose, Blood 141 mg/dL (70-99); Phosphorus, Blood 6.3 mg/dL (2.5-4.9); Potassium, Blood 4.7 mmol/L (3.5-5.5); Sodium, Blood 139 mmol/L (136-145)
[2017-05-03 05:24] LABS: BASOPHILS ABSOLUTE AUTO 0.08 K/mm3 (0.00-0.23); BASOPHILS PERCENT AUTO 1 % (0-2); EOSINOPHILS ABSOLUTE AUTO 0.24 K/mm3 (0.00-0.68); EOSINOPHILS PERCENT AUTO 4 % (0-6); Hematocrit 29.2 % (33.0-51.0); Hemoglobin 8.7 g/dL (11.5-16.0); IMMATURE GRAN ABSOLUTE AUTO 0.04 K/mm3 (0.00-0.10); IMMATURE GRAN PERCENT AUTO 1 % (0-1); LYMPHOCYTES ABSOLUTE AUTO 1.53 K/mm3 (0.84-5.20); LYMPHOCYTES PERCENT AUTO 23 % (21-46); MONOCYTES ABSOLUTE AUTO 0.72 K/mm3 (0.16-1.47); MONOCYTES PERCENT AUTO 11 % (4-13); Mean Corpuscular HGB 29.3 pg (26.0-34.0); Mean Corpuscular HGB Conc 29.8 g/dL (31.5-36.5); Mean Corpuscular Volume 98 fL (80-100); Mean Platelet Volume 11.7 fL (9.1-12.4); NEUTROPHILS ABSOLUTE AUTO 4.07 K/mm3 (1.96-9.15); NEUTROPHILS PERCENT AUTO 61 % (41-73); NRBC ABSOLUTE 0.05 K/mm3 (0.00-0.02); NRBC Auto 0.7 /100 WBC (0.0-0.2); Platelet Count 334 K/mm3 (150-400); RDW Coefficient Variation 19.2 % (11.7-14.2); Red Blood Cell Count 2.97 M/mm3 (3.80-5.20); White Blood Cell Count 6.68 K/mm3 (4.00-11.30)
[2017-05-03 05:47] LABS: Alanine Aminotransfer (ALT/SGP 9 U/L (12-78); Albumin, Blood 2.5 g/dL (3.4-5.0); Anion Gap 12 mmol/L (6-16); Aspartate Aminotrans (AST/SGOT 10 U/L (12-37); Blood Urea Nitrogen 94 mg/dL (8-24); Bun/Creatinine Ratio 32.4 (12.0-20.0); CO2, Blood 19 mmol/L (21-32); Calcium, Blood 8.4 mg/dL (8.5-10.1); Chloride, Blood 110 mmol/L (98-108); Glomerular Filtration Rate 16 (60-); Glucose, Blood 114 mg/dL (70-99); Magnesium, Blood 1.7 mg/dL (1.6-2.4); Phosphorus, Blood 7.1 mg/dL (2.5-4.9); Potassium, Blood 4.8 mmol/L (3.5-5.5); Sodium, Blood 141 mmol/L (136-145)
[2017-05-03 05:49] LABS: Albumin/Globulin Ratio 0.7 (0.8-1.8); Alk Phos 66 U/L (50-136); Bilirubin, Total 0.4 mg/dL (0.1-1.0); Globulin, Blood 3.6 g/dL (2.2-4.0); Total Protein, Blood 6.1 g/dL (6.4-8.2)
[2017-05-04 05:23] LABS: Hematocrit 28.7 % (33.0-51.0); Hemoglobin 8.6 g/dL (11.5-16.0)
[2017-05-04 06:06] LABS: Albumin, Blood 2.4 g/dL (3.4-5.0); Anion Gap 12 mmol/L (6-16); Blood Urea Nitrogen 89 mg/dL (8-24); Bun/Creatinine Ratio 33.7 (12.0-20.0); CO2, Blood 18 mmol/L (21-32); Calcium, Blood 8.5 mg/dL (8.5-10.1); Chloride, Blood 110 mmol/L (98-108); Creatinine, Blood 2.64 mg/dL (0.40-1.00); Glomerular Filtration Rate 18 (60-); Glucose, Blood 138 mg/dL (70-99); Magnesium, Blood 1.7 mg/dL (1.6-2.4); Potassium, Blood 5.1 mmol/L (3.5-5.5); Sodium, Blood 140 mmol/L (136-145)
[2017-05-04] MEDS ORDERED: DULO30 PO (14:46)
[2017-05-04] MEDS ORDERED: VITAMIN D31000 UNIT PO (14:48)
[2017-05-04] MEDS ORDERED: Estrace Vagin42.5 GM VAG (14:51)
[2017-05-04] MEDS ORDERED: ALBU2.5V5 INH (14:55)
[2017-05-04] MEDS ORDERED: Renvela800 MG PO (14:56)
[2017-05-04] MEDS ORDERED: LINE600 PO (14:58)
[2017-05-04] MEDS ORDERED: Pedi-Dri 100,0060 GM TOP (15:02)
[2017-05-04] MEDS ORDERED: Neurontin 300300 MG PO (15:04)
[2017-05-05 05:17] LABS: Hematocrit 30.7 % (33.0-51.0); Hemoglobin 9.3 g/dL (11.5-16.0)
[2017-05-05 05:34] LABS: Albumin, Blood 2.6 g/dL (3.4-5.0); Anion Gap 9 mmol/L (6-16); Blood Urea Nitrogen 79 mg/dL (8-24); Bun/Creatinine Ratio 32.6 (12.0-20.0); CO2, Blood 24 mmol/L (21-32); Calcium, Blood 8.7 mg/dL (8.5-10.1); Chloride, Blood 108 mmol/L (98-108); Creatinine, Blood 2.42 mg/dL (0.40-1.00); Glomerular Filtration Rate 20 (60-); Glucose, Blood 122 mg/dL (70-99); Magnesium, Blood 1.7 mg/dL (1.6-2.4); Phosphorus, Blood 3.7 mg/dL (2.5-4.9); Potassium, Blood 5.1 mmol/L (3.5-5.5); Sodium, Blood 141 mmol/L (136-145)
== END 2017-05-05 10:20 | disposition home or self-care (01) ==
LOC: ER 19:56 → MEDS 19:57 → ENPENDDIS 05-04 13:11 → EDPENDDIS 05-04 13:11 → MEDS 05-05 10:20
PROVIDERS: Emergency Medicine; Family Medicine; Internal Medicine Nephrology; Physician Assistant
DX: N17.9 Acute kidney failure, unspecified (principal); E11.22 Type 2 diabetes mellitus with diabetic chronic kidney disease; N18.4 Chronic kidney disease, stage 4 (severe); D63.1 Anemia in chronic kidney disease; J44.1 Chronic obstructive pulmonary disease with (acute) exacerbation; K21.9 Gastro-esophageal reflux disease without esophagitis; G47.33 Obstructive sleep apnea (adult) (pediatric); N20.1 Calculus of ureter; N39.0 Urinary tract infection, site not specified; E11.40 Type 2 diabetes mellitus with diabetic neuropathy, unspecified; N13.9 Obstructive and reflux uropathy, unspecified; N20.0 Calculus of kidney; D47.3 Essential (hemorrhagic) thrombocythemia; N25.81 Secondary hyperparathyroidism of renal origin; E21.3 Hyperparathyroidism, unspecified; E87.2 Acidosis; E88.09 Other disorders of plasma-protein metabolism, not elsewhere classified; Z86.19 Personal history of other infectious and parasitic diseases; Z79.82 Long term (current) use of aspirin; Z79.899 Other long term (current) drug therapy; Z88.0 Allergy status to penicillin; Z88.5 Allergy status to narcotic agent; Z88.8 Allergy status to other drugs, medicaments and biological substances; Z90.710 Acquired absence of both cervix and uterus; Z96.653 Presence of artificial knee joint, bilateral; Z90.722 Acquired absence of ovaries, bilateral; Z90.79 Acquired absence of other genital organ(s); Z98.49 Cataract extraction status, unspecified eye; Z98.890 Other specified postprocedural states; Z96.0 Presence of urogenital implants
CPT/HCPCS: 36415; 80053; 80069; 81001; 82947; 83735; 83970; 84100; 85014; 85018; 85025; 86850; 86900; 86901; 86923; 87077; 87086; 87186; 94660; 94762; 96361; 96372; 96374; 96375; 99285; G0378; J0696; J0881; J1815; J7030

== ENCOUNTER → 2017-05-06 | Outpatient (CLI) | payer MEDICARE, BC ==
[~2017-05-06] MED LIST changes: +ALBU2.5V5 INH; +ALBU3IS INH; +CEFEPIME 11 GM/50 ML IV; +CUBICIN500 MG IV; +ESTRACE CREAM; +Estrace Vagin42.5 GM TOP; +Estrace Vagin42.5 GM VAG; +FISH OIL 1,0001 EAC1 PO; +Invanz1 GM IV; +LINE600 PO; +LINZESS72 MCG PO; +NITR100 PO; +Neurontin 300300 MG PO; +OMEPRAZOLE MAGN20 MG PO; +ONDA4ODT SL; +Pepcid20 MG PO; +Renvela800 MG PO; +TRAM50 PO; +TRIM100 PO; +VITAMIN D31000 UNIT PO
== END | disposition home or self-care (01) ==
LOC: LAB 17:37
DX: Z53.8 Procedure and treatment not carried out for other reasons (principal)
CPT/HCPCS: 87077; 87086; 87186

== ENCOUNTER → 2017-05-07 | Outpatient (CLI) | payer MEDICARE, BC ==
[~2017-05-07] MED LIST changes: -TRAM50 PO
== END ==
LOC: LAB 12:49 → LAB SHORT 12:49
PROVIDERS: Internal Medicine Hematology & Oncology
DX: N18.4 Chronic kidney disease, stage 4 (severe) (principal); D63.1 Anemia in chronic kidney disease
CPT/HCPCS: 82728; 83540; 83550

== ENCOUNTER 2017-05-08 11:00 | Day surgery (SDC) | payer MEDICARE, BC ==
[~2017-05-08] VITALS: Ht 152.4 cm; Wt 79.7 kg
[~2017-05-08 11:00] MED LIST changes: -ALBU3IS INH; -CEFEPIME 11 GM/50 ML IV; -CUBICIN500 MG IV; -Estrace Vagin42.5 GM TOP; -Invanz1 GM IV; -NITR100 PO; -ONDA4ODT SL; -Pepcid20 MG PO
[2017-05-08] MEDS ORDERED: BUME2 PO (11:48)
[2017-05-08] MEDS ORDERED: NITR100 PO (17:08)
== END 2017-05-08 14:44 | disposition home or self-care (01) ==
LOC: ORSCSDS 11:00
PROVIDERS: Urology
PROC: 0TF78ZZ Fragmentation in Left Ureter, Via Natural or Artificial Opening Endoscopic (ICD-10-PCS; principal; 2017-05-08 15:15)
DX: N20.1 Calculus of ureter (principal); F41.9 Anxiety disorder, unspecified; E11.22 Type 2 diabetes mellitus with diabetic chronic kidney disease; I12.9 Hypertensive chronic kidney disease with stage 1 through stage 4 chronic kidney disease, or unspecified chronic kidney disease; N18.9 Chronic kidney disease, unspecified; J44.9 Chronic obstructive pulmonary disease, unspecified; G47.33 Obstructive sleep apnea (adult) (pediatric); I25.2 Old myocardial infarction; E66.01 Morbid (severe) obesity due to excess calories; Z68.34 Body mass index [BMI] 34.0-34.9, adult; Z87.891 Personal history of nicotine dependence; Z79.82 Long term (current) use of aspirin; Z79.4 Long term (current) use of insulin; Z79.899 Other long term (current) drug therapy
CPT/HCPCS: 82360; 82947; C1769; C1889; J0744; J3010; J7120

== ENCOUNTER 2017-05-08 16:08 | Emergency (ER) | payer MEDICARE, BC ==
[~2017-05-08] VITALS: Ht 152.4 cm; Wt 76.2 kg
[2017-05-08] MEDS ORDERED: NITR100 PO (17:08)
[2017-05-08 17:20] LABS: BASOPHILS ABSOLUTE AUTO 0.03 K/mm3 (0.00-0.23); BASOPHILS PERCENT AUTO 0 % (0-2); EOSINOPHILS ABSOLUTE AUTO 0.13 K/mm3 (0.00-0.68); EOSINOPHILS PERCENT AUTO 1 % (0-6); Hematocrit 34.8 % (33.0-51.0); Hemoglobin 10.5 g/dL (11.5-16.0); IMMATURE GRAN PERCENT AUTO 1 % (0-1); LYMPHOCYTES ABSOLUTE AUTO 1.17 K/mm3 (0.84-5.20); LYMPHOCYTES PERCENT AUTO 9 % (21-46); MONOCYTES ABSOLUTE AUTO 0.24 K/mm3 (0.16-1.47); MONOCYTES PERCENT AUTO 2 % (4-13); Mean Corpuscular HGB 29.4 pg (26.0-34.0); Mean Corpuscular HGB Conc 30.2 g/dL (31.5-36.5); Mean Corpuscular Volume 98 fL (80-100); Mean Platelet Volume 10.9 fL (9.1-12.4); NEUTROPHILS ABSOLUTE AUTO 11.36 K/mm3 (1.96-9.15); NEUTROPHILS PERCENT AUTO 87 % (41-73); NRBC ABSOLUTE 0.12 K/mm3 (0.00-0.02); NRBC Auto 0.9 /100 WBC (0.0-0.2); Platelet Count 288 K/mm3 (150-400); RDW Coefficient Variation 18.3 % (11.7-14.2); RDW Standard Deviation 65.7 fL (35.1-46.3); Red Blood Cell Count 3.57 M/mm3 (3.80-5.20); White Blood Cell Count 13.03 K/mm3 (4.00-11.30)
[2017-05-08 17:49] LABS: Albumin/Globulin Ratio 0.7 (0.8-1.8); Bilirubin, Total 0.3 mg/dL (0.1-1.0); Bun/Creatinine Ratio 29.9 (12.0-20.0); Calcium, Blood 9.2 mg/dL (8.5-10.1); Creatinine, Blood 2.21 mg/dL (0.40-1.00); Globulin, Blood 4.4 g/dL (2.2-4.0); Potassium, Blood 5.4 mmol/L (3.5-5.5); Total Protein, Blood 7.4 g/dL (6.4-8.2)
[2017-05-08 18:54] LABS: Influenza A Negative (NEGATIVE); Influenza B Negative (NEGATIVE)
== END 2017-05-08 19:04 | disposition home or self-care (01) ==
LOC: ER 16:08
PROVIDERS: Emergency Medicine
DX: R10.13 Epigastric pain (principal); R50.9 Fever, unspecified; R11.0 Nausea; Z88.8 Allergy status to other drugs, medicaments and biological substances; Z88.0 Allergy status to penicillin; Z88.5 Allergy status to narcotic agent; Z79.899 Other long term (current) drug therapy; Z79.4 Long term (current) use of insulin; Z79.82 Long term (current) use of aspirin; Z79.891 Long term (current) use of opiate analgesic; E11.40 Type 2 diabetes mellitus with diabetic neuropathy, unspecified; E11.22 Type 2 diabetes mellitus with diabetic chronic kidney disease; N18.9 Chronic kidney disease, unspecified; K21.9 Gastro-esophageal reflux disease without esophagitis; J44.9 Chronic obstructive pulmonary disease, unspecified
CPT/HCPCS: 36415; 71046; 74176; 80053; 83690; 85025; 87804; 93005; 93010; 96374; 99284; J2405

== ENCOUNTER 2017-05-09 12:04 | Inpatient (IN) | payer MEDICARE, BC ==
[~2017-05-09] VITALS: Ht 152.4 cm; Wt 98.7 kg
[~2017-05-09 12:04] MED LIST changes: +NITR100 PO
[2017-05-09 12:34] LABS: BASOPHILS ABSOLUTE AUTO 0.09 K/mm3 (0.00-0.23); BASOPHILS PERCENT AUTO 0 % (0-2); EOSINOPHILS ABSOLUTE AUTO 0.05 K/mm3 (0.00-0.68); EOSINOPHILS PERCENT AUTO 0 % (0-6); Hematocrit 28.4 % (33.0-51.0); Hemoglobin 8.8 g/dL (11.5-16.0); IMMATURE GRAN ABSOLUTE AUTO 0.31 K/mm3 (0.00-0.10); IMMATURE GRAN PERCENT AUTO 1 % (0-1); LYMPHOCYTES ABSOLUTE AUTO 0.27 K/mm3 (0.84-5.20); LYMPHOCYTES PERCENT AUTO 1 % (21-46); MONOCYTES ABSOLUTE AUTO 0.56 K/mm3 (0.16-1.47); MONOCYTES PERCENT AUTO 2 % (4-13); Mean Corpuscular HGB 29.5 pg (26.0-34.0); Mean Platelet Volume 11.5 fL (9.1-12.4); NEUTROPHILS ABSOLUTE AUTO 23.09 K/mm3 (1.96-9.15); NEUTROPHILS PERCENT AUTO 95 % (41-73); NRBC ABSOLUTE 0.06 K/mm3 (0.00-0.02); NRBC Auto 0.2 /100 WBC (0.0-0.2); Platelet Count 230 K/mm3 (150-400); RDW Standard Deviation 62.1 fL (35.1-46.3); Red Blood Cell Count 2.98 M/mm3 (3.80-5.20); White Blood Cell Count 24.37 K/mm3 (4.00-11.30)
[2017-05-09 12:40] LABS: Mean Corpuscular Volume 95 fL (80-100)
[2017-05-09 12:57] LABS: Albumin, Blood 2.4 g/dL (3.4-5.0); Albumin/Globulin Ratio 0.7 (0.8-1.8); Bilirubin, Total 0.3 mg/dL (0.1-1.0); Bun/Creatinine Ratio 25.1 (12.0-20.0); Calcium, Blood 7.9 mg/dL (8.5-10.1); Creatinine, Blood 2.95 mg/dL (0.40-1.00); Globulin, Blood 3.6 g/dL (2.2-4.0)
[2017-05-10 02:14] LABS: BASOPHILS ABSOLUTE AUTO 0.06 K/mm3 (0.00-0.23); BASOPHILS PERCENT AUTO 0 % (0-2); EOSINOPHILS ABSOLUTE AUTO 0.02 K/mm3 (0.00-0.68); EOSINOPHILS PERCENT AUTO 0 % (0-6); Hematocrit 25.7 % (33.0-51.0); Hemoglobin 7.9 g/dL (11.5-16.0); IMMATURE GRAN ABSOLUTE AUTO 0.24 K/mm3 (0.00-0.10); IMMATURE GRAN PERCENT AUTO 1 % (0-1); LYMPHOCYTES ABSOLUTE AUTO 0.64 K/mm3 (0.84-5.20); LYMPHOCYTES PERCENT AUTO 4 % (21-46); MONOCYTES PERCENT AUTO 2 % (4-13); Mean Corpuscular HGB 29.5 pg (26.0-34.0); Mean Corpuscular HGB Conc 30.7 g/dL (31.5-36.5); Mean Corpuscular Volume 96 fL (80-100); Mean Platelet Volume 11.1 fL (9.1-12.4); NEUTROPHILS PERCENT AUTO 93 % (41-73); NRBC ABSOLUTE 0.03 K/mm3 (0.00-0.02); NRBC Auto 0.2 /100 WBC (0.0-0.2); Platelet Count 182 K/mm3 (150-400); RDW Coefficient Variation 18.1 % (11.7-14.2); RDW Standard Deviation 63.3 fL (35.1-46.3); Red Blood Cell Count 2.68 M/mm3 (3.80-5.20); White Blood Cell Count 18.06 K/mm3 (4.00-11.30)
[2017-05-10 02:32] LABS: Alanine Aminotransfer (ALT/SGP 14 U/L (12-78); Albumin, Blood 2.1 g/dL (3.4-5.0); Albumin/Globulin Ratio 0.7 (0.8-1.8); Alk Phos 53 U/L (50-136); Anion Gap 10 mmol/L (6-16); Aspartate Aminotrans (AST/SGOT 23 U/L (12-37); Bilirubin, Total 0.2 mg/dL (0.1-1.0); Blood Urea Nitrogen 67 mg/dL (8-24); Bun/Creatinine Ratio 24.7 (12.0-20.0); CO2, Blood 19 mmol/L (21-32); Chloride, Blood 110 mmol/L (98-108); Creatinine, Blood 2.71 mg/dL (0.40-1.00); Globulin, Blood 3.1 g/dL (2.2-4.0); Glomerular Filtration Rate 18 (60-); Glucose, Blood 107 mg/dL (70-99); Magnesium, Blood 1.7 mg/dL (1.6-2.4); Phosphorus, Blood 4.3 mg/dL (2.5-4.9); Potassium, Blood 5.4 mmol/L (3.5-5.5); Sodium, Blood 139 mmol/L (136-145); Total Protein, Blood 5.2 g/dL (6.4-8.2)
[2017-05-11 04:21] LABS: Hematocrit 27.3 % (33.0-51.0); Hemoglobin 8.2 g/dL (11.5-16.0)
[2017-05-11 04:42] LABS: Albumin, Blood 2.1 g/dL (3.4-5.0); Anion Gap 9 mmol/L (6-16); Blood Urea Nitrogen 69 mg/dL (8-24); Bun/Creatinine Ratio 23.2 (12.0-20.0); CO2, Blood 24 mmol/L (21-32); Calcium, Blood 7.5 mg/dL (8.5-10.1); Chloride, Blood 102 mmol/L (98-108); Creatinine, Blood 2.98 mg/dL (0.40-1.00); Glomerular Filtration Rate 16 (60-); Glucose, Blood 122 mg/dL (70-99); Magnesium, Blood 1.9 mg/dL (1.6-2.4); Phosphorus, Blood 5.1 mg/dL (2.5-4.9); Potassium, Blood 4.8 mmol/L (3.5-5.5); Sodium, Blood 135 mmol/L (136-145)
[2017-05-12 05:46] LABS: BASOPHILS ABSOLUTE AUTO 0.04 K/mm3 (0.00-0.23); BASOPHILS PERCENT AUTO 0 % (0-2); EOSINOPHILS PERCENT AUTO 3 % (0-6); Hematocrit 28.5 % (33.0-51.0); Hemoglobin 8.8 g/dL (11.5-16.0); IMMATURE GRAN ABSOLUTE AUTO 0.05 K/mm3 (0.00-0.10); IMMATURE GRAN PERCENT AUTO 1 % (0-1); LYMPHOCYTES ABSOLUTE AUTO 0.96 K/mm3 (0.84-5.20); LYMPHOCYTES PERCENT AUTO 10 % (21-46); MONOCYTES ABSOLUTE AUTO 0.55 K/mm3 (0.16-1.47); MONOCYTES PERCENT AUTO 6 % (4-13); Mean Corpuscular HGB 28.9 pg (26.0-34.0); Mean Corpuscular HGB Conc 30.9 g/dL (31.5-36.5); Mean Corpuscular Volume 94 fL (80-100); Mean Platelet Volume 11.2 fL (9.1-12.4); NEUTROPHILS PERCENT AUTO 79 % (41-73); NRBC ABSOLUTE 0.04 K/mm3 (0.00-0.02); NRBC Auto 0.4 /100 WBC (0.0-0.2); Platelet Count 158 K/mm3 (150-400); RDW Coefficient Variation 18.2 % (11.7-14.2); RDW Standard Deviation 62.7 fL (35.1-46.3); Red Blood Cell Count 3.04 M/mm3 (3.80-5.20)
[2017-05-12 06:04] LABS: Albumin, Blood 2.4 g/dL (3.4-5.0); Anion Gap 11 mmol/L (6-16); Blood Urea Nitrogen 64 mg/dL (8-24); Bun/Creatinine Ratio 22.9 (12.0-20.0); CO2, Blood 22 mmol/L (21-32); Calcium, Blood 8.1 mg/dL (8.5-10.1); Chloride, Blood 104 mmol/L (98-108); Creatinine, Blood 2.79 mg/dL (0.40-1.00); Glomerular Filtration Rate 17 (60-); Glucose, Blood 126 mg/dL (70-99); Magnesium, Blood 1.8 mg/dL (1.6-2.4); Potassium, Blood 4.4 mmol/L (3.5-5.5); Sodium, Blood 137 mmol/L (136-145)
[2017-05-12 18:21] LABS: Source, Urine Clean Catch
[2017-05-12 18:50] LABS: Bilirubin, Urine Neg (Neg); Blood, Urine 3+ (Neg); Glucose Qualitative, Urine Neg (Neg); Ketones, Urine Neg (Neg); Leukocyte Esterase, Urine 3+ (Neg); Nitrite, Urine Neg (Neg); Protein, Urine 2+ (Neg); Urobilinogen, Urine NORM (Normal)
[2017-05-12 19:06] LABS: Appearance, Urine Hazy (Clear); Color, Urine No Color (P-Yellow)
[2017-05-12 19:07] LABS: Bacteria Mod /hpf; Red Blood Cells, Urine 0-2 /hpf (0-2); Squamous Epithelial Cells Not Seen /hpf (Few); White Blood Cells, Urine 25-50 /hpf (0-5)
[2017-05-13 04:50] LABS: Hematocrit 26.7 % (33.0-51.0); Hemoglobin 8.2 g/dL (11.5-16.0)
[2017-05-13 05:07] LABS: Albumin, Blood 2.2 g/dL (3.4-5.0); Anion Gap 10 mmol/L (6-16); Blood Urea Nitrogen 64 mg/dL (8-24); Bun/Creatinine Ratio 22.3 (12.0-20.0); CO2, Blood 23 mmol/L (21-32); Chloride, Blood 105 mmol/L (98-108); Creatinine, Blood 2.87 mg/dL (0.40-1.00); Glomerular Filtration Rate 17 (60-); Glucose, Blood 115 mg/dL (70-99); Magnesium, Blood 1.6 mg/dL (1.6-2.4); Phosphorus, Blood 5.2 mg/dL (2.5-4.9); Potassium, Blood 4.3 mmol/L (3.5-5.5); Sodium, Blood 138 mmol/L (136-145)
[2017-05-14 05:29] LABS: Hematocrit 25.5 % (33.0-51.0)
[2017-05-14 05:52] LABS: Albumin, Blood 2.1 g/dL (3.4-5.0); Anion Gap 8 mmol/L (6-16); Blood Urea Nitrogen 65 mg/dL (8-24); Bun/Creatinine Ratio 22.6 (12.0-20.0); CO2, Blood 25 mmol/L (21-32); Calcium, Blood 8.2 mg/dL (8.5-10.1); Chloride, Blood 105 mmol/L (98-108); Creatinine, Blood 2.87 mg/dL (0.40-1.00); Glomerular Filtration Rate 17 (60-); Glucose, Blood 114 mg/dL (70-99); Magnesium, Blood 1.7 mg/dL (1.6-2.4); Phosphorus, Blood 5.9 mg/dL (2.5-4.9); Potassium, Blood 4.4 mmol/L (3.5-5.5); Sodium, Blood 138 mmol/L (136-145)
[2017-05-15 05:21] LABS: Hematocrit 26.4 % (33.0-51.0)
[2017-05-15 05:48] LABS: Albumin, Blood 2.2 g/dL (3.4-5.0); Anion Gap 10 mmol/L (6-16); Blood Urea Nitrogen 64 mg/dL (8-24); Bun/Creatinine Ratio 23.8 (12.0-20.0); CO2, Blood 25 mmol/L (21-32); Calcium, Blood 8.3 mg/dL (8.5-10.1); Chloride, Blood 106 mmol/L (98-108); Creatinine, Blood 2.69 mg/dL (0.40-1.00); Glomerular Filtration Rate 18 (60-); Glucose, Blood 111 mg/dL (70-99); Magnesium, Blood 1.6 mg/dL (1.6-2.4); Phosphorus, Blood 5.2 mg/dL (2.5-4.9); Potassium, Blood 4.6 mmol/L (3.5-5.5); Sodium, Blood 141 mmol/L (136-145)
[2017-05-15] MEDS ORDERED: CUBICIN500 MG IV (11:31)
[2017-05-16 05:31] LABS: Hematocrit 29.2 % (33.0-51.0); Hemoglobin 8.9 g/dL (11.5-16.0)
[2017-05-16 05:58] LABS: Albumin, Blood 2.6 g/dL (3.4-5.0); Anion Gap 9 mmol/L (6-16); Blood Urea Nitrogen 63 mg/dL (8-24); Bun/Creatinine Ratio 25.2 (12.0-20.0); CO2, Blood 26 mmol/L (21-32); Calcium, Blood 8.7 mg/dL (8.5-10.1); Chloride, Blood 105 mmol/L (98-108); Glomerular Filtration Rate 19 (60-); Glucose, Blood 103 mg/dL (70-99); Magnesium, Blood 1.7 mg/dL (1.6-2.4); Potassium, Blood 4.9 mmol/L (3.5-5.5); Sodium, Blood 140 mmol/L (136-145)
== END 2017-05-16 14:48 | disposition home health service (06) | DRG 871 ==
LOC: DELPENDDIS → ER 12:04 → ICUW 12:54 → MEDS 12:54 → PCU 12:54 → ICUW 15:30 → PCU 05-10 16:00 → MEDS 05-11 12:44 → ENPENDDIS 05-15 09:30 → MEDS 05-16 14:48
PROVIDERS: Emergency Medicine; Internal Medicine; Internal Medicine Infectious Disease; Internal Medicine Nephrology
PROC: 02HV33Z Insertion of Infusion Device into Superior Vena Cava, Percutaneous Approach (ICD-10-PCS; principal; 2017-05-09)
PROC: 5A09357 Assistance with Respiratory Ventilation, Less than 24 Consecutive Hours, Continuous Positive Airway Pressure (ICD-10-PCS; 2017-05-11)
DX: A41.81 Sepsis due to Enterococcus (principal); R65.21 Severe sepsis with septic shock; G93.41 Metabolic encephalopathy; N17.9 Acute kidney failure, unspecified; K22.2 Esophageal obstruction; N39.0 Urinary tract infection, site not specified; E87.2 Acidosis; N13.30 Unspecified hydronephrosis; E87.1 Hypo-osmolality and hyponatremia; I13.0 Hypertensive heart and chronic kidney disease with heart failure and stage 1 through stage 4 chronic kidney disease, or unspecified chronic kidney disease; Z16.21 Resistance to vancomycin; M54.5 Low back pain; G89.29 Other chronic pain; N31.9 Neuromuscular dysfunction of bladder, unspecified; E21.3 Hyperparathyroidism, unspecified; F41.9 Anxiety disorder, unspecified; I05.0 Rheumatic mitral stenosis; E87.5 Hyperkalemia; N20.0 Calculus of kidney; M19.90 Unspecified osteoarthritis, unspecified site; M48.00 Spinal stenosis, site unspecified; N18.3 Chronic kidney disease, stage 3 (moderate); D63.1 Anemia in chronic kidney disease; E83.39 Other disorders of phosphorus metabolism; H40.9 Unspecified glaucoma; I25.10 Atherosclerotic heart disease of native coronary artery without angina pectoris; E86.9 Volume depletion, unspecified; E87.70 Fluid overload, unspecified; K57.90 Diverticulosis of intestine, part unspecified, without perforation or abscess without bleeding; E88.09 Other disorders of plasma-protein metabolism, not elsewhere classified; R13.10 Dysphagia, unspecified; E78.5 Hyperlipidemia, unspecified; I25.2 Old myocardial infarction; G47.33 Obstructive sleep apnea (adult) (pediatric); M10.9 Gout, unspecified; F32.9 Major depressive disorder, single episode, unspecified; K21.9 Gastro-esophageal reflux disease without esophagitis; J44.9 Chronic obstructive pulmonary disease, unspecified; E11.42 Type 2 diabetes mellitus with diabetic polyneuropathy; I50.9 Heart failure, unspecified; E11.22 Type 2 diabetes mellitus with diabetic chronic kidney disease; E66.9 Obesity, unspecified; I77.89 Other specified disorders of arteries and arterioles; Z86.718 Personal history of other venous thrombosis and embolism; Z79.2 Long term (current) use of antibiotics; Z79.82 Long term (current) use of aspirin; Z88.5 Allergy status to narcotic agent; Z88.0 Allergy status to penicillin; Z88.8 Allergy status to other drugs, medicaments and biological substances; Z79.890 Hormone replacement therapy; Z79.4 Long term (current) use of insulin; Z99.81 Dependence on supplemental oxygen; Z87.891 Personal history of nicotine dependence; Z79.891 Long term (current) use of opiate analgesic; Z79.899 Other long term (current) drug therapy
CPT/HCPCS: 36415; 36569; 71046; 74176; 76770; 80053; 80069; 81001; 82360; 82550; 82728; 82947; 83540; 83550; 83605; 83690; 83735; 84100; 84132; 84145; 85014; 85018; 85025; 87040; 87077; 87086; 87186; 87804; 93005; 93010; 93308; 93321; 94660; 94664; 94667; 94760; 94761; 94762; 96361; 96365; 96374; 96375; 97110; 97116; 97162; 97530; 98960; 99284; 99285; C1751; C1769; C1889; C9113; G8978; G8979; J0696; J0744; J0878; J0881; J1170; J2020; J2248; J2405; J2997; J3010; J7030; J7060; J7120

== ENCOUNTER 2017-06-14 16:28 | Inpatient (IN) | payer MEDICARE, BC ==
[~2017-06-14] VITALS: Ht 154.9 cm; Wt 83.1 kg
[~2017-06-14 16:28] MED LIST changes: +CUBICIN500 MG IV
[2017-06-14 16:55] LABS: Source, Urine Catheter
[2017-06-14 17:01] LABS: Appearance, Urine Hazy (Clear); Bilirubin, Urine Neg (Neg); Blood, Urine 2+ (Neg); Color, Urine Yellow (P-Yellow); Glucose Qualitative, Urine Neg (Neg); Ketones, Urine Neg (Neg); Leukocyte Esterase, Urine 2+ (Neg); Nitrite, Urine Neg (Neg); Protein, Urine 2+ (Neg); Specific Gravity, Urine 1.015 (1.003-1.022); Urobilinogen, Urine NORM (Normal)
[2017-06-14 17:02] LABS: BASOPHILS ABSOLUTE AUTO 0.08 K/mm3 (0.00-0.23); BASOPHILS PERCENT AUTO 1 % (0-2); EOSINOPHILS ABSOLUTE AUTO 0.22 K/mm3 (0.00-0.68); EOSINOPHILS PERCENT AUTO 1 % (0-6); Hematocrit 37.1 % (33.0-51.0); Hemoglobin 10.9 g/dL (11.5-16.0); IMMATURE GRAN ABSOLUTE AUTO 0.11 K/mm3 (0.00-0.10); IMMATURE GRAN PERCENT AUTO 1 % (0-1); LYMPHOCYTES ABSOLUTE AUTO 1.25 K/mm3 (0.84-5.20); LYMPHOCYTES PERCENT AUTO 7 % (21-46); MONOCYTES ABSOLUTE AUTO 1.23 K/mm3 (0.16-1.47); MONOCYTES PERCENT AUTO 7 % (4-13); Mean Corpuscular HGB 28.2 pg (26.0-34.0); Mean Corpuscular HGB Conc 29.4 g/dL (31.5-36.5); Mean Corpuscular Volume 96 fL (80-100); NEUTROPHILS ABSOLUTE AUTO 14.58 K/mm3 (1.96-9.15); NEUTROPHILS PERCENT AUTO 83 % (41-73); NRBC ABSOLUTE 0.04 K/mm3 (0.00-0.02); NRBC Auto 0.2 /100 WBC (0.0-0.2); RDW Coefficient Variation 21.1 % (11.7-14.2); RDW Standard Deviation 72.6 fL (35.1-46.3); Red Blood Cell Count 3.87 M/mm3 (3.80-5.20); White Blood Cell Count 17.47 K/mm3 (4.00-11.30)
[2017-06-14 17:10] LABS: Mean Platelet Volume 11.9 fL (9.1-12.4); Platelet Count 204 K/mm3 (150-400)
[2017-06-14 17:13] LABS: Amorphous Heavy (0-Heavy); White Blood Cells, Urine 25-50 /hpf (0-5)
[2017-06-14 17:14] LABS: Bacteria Mod /hpf; Red Blood Cells, Urine 0-2 /hpf (0-2); Squamous Epithelial Cells Not Seen /hpf (Few)
[2017-06-14 17:19] LABS: Alanine Aminotransfer (ALT/SGP 11 U/L (12-78); Albumin, Blood 3.2 g/dL (3.4-5.0); Albumin/Globulin Ratio 0.8 (0.8-1.8); Alk Phos 74 U/L (50-136); Anion Gap 14 mmol/L (6-16); Aspartate Aminotrans (AST/SGOT 18 U/L (12-37); Bilirubin, Total 0.3 mg/dL (0.1-1.0); Blood Urea Nitrogen 92 mg/dL (8-24); Bun/Creatinine Ratio 25.1 (12.0-20.0); CO2, Blood 13 mmol/L (21-32); Calcium, Blood 8.6 mg/dL (8.5-10.1); Chloride, Blood 109 mmol/L (98-108); Creatinine, Blood 3.66 mg/dL (0.40-1.00); Globulin, Blood 3.8 g/dL (2.2-4.0); Glomerular Filtration Rate 13 (60-); Glucose, Blood 150 mg/dL (70-99); Potassium, Blood 4.8 mmol/L (3.5-5.5); Sodium, Blood 136 mmol/L (136-145)
[2017-06-14 18:32] LABS: PCO2 Arterial 36.1 mmHg (35-45); PO2 Arterial 67.1 mmHg (80-100); pH Blood Arterial 7.18 (7.35-7.45)
[2017-06-14 20:30] LABS: CPK Creatine Kinase 23 U/L (26-193); Creatine Kinase MB 0.6 ng/mL (0.0-3.6); Creatine Kinase MB Index 2.6 (0.0-4.0); Troponin I <0.015 ng/mL (0.000-0.040)
[2017-06-14 20:36] LABS: Albumin, Blood 2.6 g/dL (3.4-5.0); Anion Gap 12 mmol/L (6-16); Blood Urea Nitrogen 87 mg/dL (8-24); Bun/Creatinine Ratio 24.7 (12.0-20.0); CO2, Blood 13 mmol/L (21-32); Calcium, Blood 7.8 mg/dL (8.5-10.1); Chloride, Blood 114 mmol/L (98-108); Creatinine, Blood 3.52 mg/dL (0.40-1.00); Glomerular Filtration Rate 13 (60-); Glucose, Blood 121 mg/dL (70-99); Phosphorus, Blood 6.6 mg/dL (2.5-4.9); Potassium, Blood 4.3 mmol/L (3.5-5.5); Sodium, Blood 139 mmol/L (136-145)
[2017-06-14 21:10] LABS: U Amphetamine Screen Not Detected; U Barbituate Screen Not Detected; U Benzodiazapine Screen Not Detected; U Buprenorphine Screen Not Detected; U Cannabinoids Screen Not Detected; U Cocaine Screen Not Detected; U Methadone Screen Not Detected; U Methamphetamine Screen Not Detected; U Opiates Screen Not Detected; U Oxycodone Screen DETECTED; U Phencyclidine Screen Not Detected; U Propoxyphene Screen Not Detected
[2017-06-14 22:03] LABS: PCO2 Arterial 37.5 mmHg (35-45); PO2 Arterial 78.6 mmHg (80-100); pH Blood Arterial 7.17 (7.35-7.45)
[2017-06-15 02:56] LABS: BASOPHILS ABSOLUTE AUTO 0.07 K/mm3 (0.00-0.23); BASOPHILS PERCENT AUTO 0 % (0-2); EOSINOPHILS ABSOLUTE AUTO 0.25 K/mm3 (0.00-0.68); EOSINOPHILS PERCENT AUTO 2 % (0-6); Hematocrit 33.8 % (33.0-51.0); Hemoglobin 10.1 g/dL (11.5-16.0); IMMATURE GRAN ABSOLUTE AUTO 0.09 K/mm3 (0.00-0.10); IMMATURE GRAN PERCENT AUTO 1 % (0-1); LYMPHOCYTES ABSOLUTE AUTO 1.01 K/mm3 (0.84-5.20); LYMPHOCYTES PERCENT AUTO 6 % (21-46); MONOCYTES PERCENT AUTO 7 % (4-13); Mean Corpuscular HGB 27.9 pg (26.0-34.0); Mean Corpuscular HGB Conc 29.9 g/dL (31.5-36.5); Mean Platelet Volume 12.2 fL (9.1-12.4); NEUTROPHILS ABSOLUTE AUTO 13.78 K/mm3 (1.96-9.15); NEUTROPHILS PERCENT AUTO 84 % (41-73); NRBC ABSOLUTE 0.03 K/mm3 (0.00-0.02); NRBC Auto 0.2 /100 WBC (0.0-0.2); Platelet Count 229 K/mm3 (150-400); RDW Coefficient Variation 21.2 % (11.7-14.2); RDW Standard Deviation 70.5 fL (35.1-46.3); Red Blood Cell Count 3.62 M/mm3 (3.80-5.20)
[2017-06-15 02:58] LABS: Mean Corpuscular Volume 93 fL (80-100)
[2017-06-15 03:19] LABS: Alanine Aminotransfer (ALT/SGP 10 U/L (12-78); Albumin, Blood 2.8 g/dL (3.4-5.0); Albumin/Globulin Ratio 0.8 (0.8-1.8); Alk Phos 67 U/L (50-136); Anion Gap 13 mmol/L (6-16); Aspartate Aminotrans (AST/SGOT 14 U/L (12-37); Bilirubin, Total 0.3 mg/dL (0.1-1.0); Blood Urea Nitrogen 89 mg/dL (8-24); Bun/Creatinine Ratio 25.4 (12.0-20.0); CO2, Blood 16 mmol/L (21-32); Chloride, Blood 108 mmol/L (98-108); Creatinine, Blood 3.51 mg/dL (0.40-1.00); Globulin, Blood 3.6 g/dL (2.2-4.0); Glomerular Filtration Rate 13 (60-); Glucose, Blood 196 mg/dL (70-99); Magnesium, Blood 2.1 mg/dL (1.6-2.4); Phosphorus, Blood 6.8 mg/dL (2.5-4.9); Potassium, Blood 4.1 mmol/L (3.5-5.5); Sodium, Blood 137 mmol/L (136-145); Total Protein, Blood 6.4 g/dL (6.4-8.2)
[2017-06-15 03:22] LABS: CPK Creatine Kinase 21 U/L (26-193); Creatine Kinase MB 0.8 ng/mL (0.0-3.6); Creatine Kinase MB Index 3.8 (0.0-4.0); Troponin I <0.015 ng/mL (0.000-0.040)
[2017-06-15 05:13] LABS: PCO2 Arterial 37.5 mmHg (35-45); PO2 Arterial 72.2 mmHg (80-100); pH Blood Arterial 7.24 (7.35-7.45)
[2017-06-16 04:50] LABS: BASOPHILS ABSOLUTE AUTO 0.07 K/mm3 (0.00-0.23); BASOPHILS PERCENT AUTO 1 % (0-2); EOSINOPHILS ABSOLUTE AUTO 0.28 K/mm3 (0.00-0.68); EOSINOPHILS PERCENT AUTO 2 % (0-6); Hematocrit 29.8 % (33.0-51.0); Hemoglobin 9.5 g/dL (11.5-16.0); IMMATURE GRAN ABSOLUTE AUTO 0.06 K/mm3 (0.00-0.10); IMMATURE GRAN PERCENT AUTO 0 % (0-1); LYMPHOCYTES ABSOLUTE AUTO 0.97 K/mm3 (0.84-5.20); LYMPHOCYTES PERCENT AUTO 7 % (21-46); MONOCYTES ABSOLUTE AUTO 1.28 K/mm3 (0.16-1.47); MONOCYTES PERCENT AUTO 9 % (4-13); Mean Corpuscular HGB 27.9 pg (26.0-34.0); Mean Corpuscular HGB Conc 31.9 g/dL (31.5-36.5); Mean Platelet Volume 11.8 fL (9.1-12.4); NEUTROPHILS ABSOLUTE AUTO 11.86 K/mm3 (1.96-9.15); NEUTROPHILS PERCENT AUTO 82 % (41-73); Platelet Count 204 K/mm3 (150-400); RDW Coefficient Variation 20.8 % (11.7-14.2); RDW Standard Deviation 65.4 fL (35.1-46.3); White Blood Cell Count 14.52 K/mm3 (4.00-11.30)
[2017-06-16 04:52] LABS: Mean Corpuscular Volume 88 fL (80-100)
[2017-06-16 05:11] LABS: Albumin, Blood 2.4 g/dL (3.4-5.0); Anion Gap 11 mmol/L (6-16); Blood Urea Nitrogen 61 mg/dL (8-24); CO2, Blood 25 mmol/L (21-32); Calcium, Blood 7.8 mg/dL (8.5-10.1); Chloride, Blood 101 mmol/L (98-108); Creatinine, Blood 2.77 mg/dL (0.40-1.00); Glomerular Filtration Rate 17 (60-); Glucose, Blood 135 mg/dL (70-99); Magnesium, Blood 1.8 mg/dL (1.6-2.4); Phosphorus, Blood 4.1 mg/dL (2.5-4.9); Potassium, Blood 3.3 mmol/L (3.5-5.5); Sodium, Blood 137 mmol/L (136-145)
[2017-06-17 05:48] LABS: Hematocrit 28.7 % (33.0-51.0)
[2017-06-17 06:09] LABS: Albumin, Blood 2.1 g/dL (3.4-5.0); Anion Gap 10 mmol/L (6-16); Blood Urea Nitrogen 39 mg/dL (8-24); Bun/Creatinine Ratio 19.5 (12.0-20.0); CO2, Blood 26 mmol/L (21-32); Calcium, Blood 7.8 mg/dL (8.5-10.1); Chloride, Blood 100 mmol/L (98-108); Glomerular Filtration Rate 25 (60-); Glucose, Blood 102 mg/dL (70-99); Magnesium, Blood 1.8 mg/dL (1.6-2.4); Phosphorus, Blood 3.3 mg/dL (2.5-4.9); Potassium, Blood 3.6 mmol/L (3.5-5.5); Sodium, Blood 136 mmol/L (136-145)
[2017-06-18 05:26] LABS: BASOPHILS PERCENT AUTO 1 % (0-2); EOSINOPHILS ABSOLUTE AUTO 0.43 K/mm3 (0.00-0.68); EOSINOPHILS PERCENT AUTO 4 % (0-6); Hemoglobin 9.2 g/dL (11.5-16.0); IMMATURE GRAN ABSOLUTE AUTO 0.04 K/mm3 (0.00-0.10); IMMATURE GRAN PERCENT AUTO 0 % (0-1); LYMPHOCYTES ABSOLUTE AUTO 1.65 K/mm3 (0.84-5.20); LYMPHOCYTES PERCENT AUTO 17 % (21-46); MONOCYTES ABSOLUTE AUTO 0.84 K/mm3 (0.16-1.47); MONOCYTES PERCENT AUTO 9 % (4-13); Mean Corpuscular HGB 27.4 pg (26.0-34.0); Mean Corpuscular HGB Conc 30.7 g/dL (31.5-36.5); Mean Corpuscular Volume 89 fL (80-100); Mean Platelet Volume 12.4 fL (9.1-12.4); NEUTROPHILS ABSOLUTE AUTO 6.71 K/mm3 (1.96-9.15); NEUTROPHILS PERCENT AUTO 69 % (41-73); Platelet Count 202 K/mm3 (150-400); RDW Coefficient Variation 20.9 % (11.7-14.2); RDW Standard Deviation 67.3 fL (35.1-46.3); Red Blood Cell Count 3.36 M/mm3 (3.80-5.20); White Blood Cell Count 9.77 K/mm3 (4.00-11.30)
[2017-06-18 05:50] LABS: Albumin, Blood 2.1 g/dL (3.4-5.0); Anion Gap 7 mmol/L (6-16); Blood Urea Nitrogen 37 mg/dL (8-24); Bun/Creatinine Ratio 18.9 (12.0-20.0); CO2, Blood 29 mmol/L (21-32); Calcium, Blood 8.3 mg/dL (8.5-10.1); Chloride, Blood 101 mmol/L (98-108); Creatinine, Blood 1.96 mg/dL (0.40-1.00); Glomerular Filtration Rate 26 (60-); Glucose, Blood 100 mg/dL (70-99); Phosphorus, Blood 3.2 mg/dL (2.5-4.9); Potassium, Blood 3.9 mmol/L (3.5-5.5); Sodium, Blood 137 mmol/L (136-145)
[2017-06-18 09:25] LABS: HCV Non Reactive (NR)
[2017-06-19 05:56] LABS: Hematocrit 31.9 % (33.0-51.0); Hemoglobin 9.5 g/dL (11.5-16.0)
[2017-06-19 06:16] LABS: Albumin, Blood 2.4 g/dL (3.4-5.0); Anion Gap 8 mmol/L (6-16); Blood Urea Nitrogen 43 mg/dL (8-24); Bun/Creatinine Ratio 18.9 (12.0-20.0); CO2, Blood 28 mmol/L (21-32); Calcium, Blood 8.5 mg/dL (8.5-10.1); Chloride, Blood 101 mmol/L (98-108); Creatinine, Blood 2.27 mg/dL (0.40-1.00); Glomerular Filtration Rate 22 (60-); Glucose, Blood 131 mg/dL (70-99); Phosphorus, Blood 3.2 mg/dL (2.5-4.9); Potassium, Blood 4.2 mmol/L (3.5-5.5); Sodium, Blood 137 mmol/L (136-145)
[2017-06-20 06:06] LABS: Hemoglobin 8.8 g/dL (11.5-16.0)
[2017-06-20 06:28] LABS: Albumin, Blood 2.3 g/dL (3.4-5.0); Anion Gap 7 mmol/L (6-16); Blood Urea Nitrogen 53 mg/dL (8-24); CO2, Blood 28 mmol/L (21-32); Calcium, Blood 8.7 mg/dL (8.5-10.1); Chloride, Blood 98 mmol/L (98-108); Creatinine, Blood 2.79 mg/dL (0.40-1.00); Glomerular Filtration Rate 17 (60-); Glucose, Blood 110 mg/dL (70-99); Magnesium, Blood 1.8 mg/dL (1.6-2.4); Phosphorus, Blood 3.4 mg/dL (2.5-4.9); Potassium, Blood 5.1 mmol/L (3.5-5.5); Sodium, Blood 133 mmol/L (136-145)
[2017-06-21 05:46] LABS: BASOPHILS ABSOLUTE AUTO 0.08 K/mm3 (0.00-0.23); BASOPHILS PERCENT AUTO 1 % (0-2); EOSINOPHILS ABSOLUTE AUTO 0.32 K/mm3 (0.00-0.68); EOSINOPHILS PERCENT AUTO 3 % (0-6); Hematocrit 34.1 % (33.0-51.0); Hemoglobin 10.2 g/dL (11.5-16.0); IMMATURE GRAN ABSOLUTE AUTO 0.08 K/mm3 (0.00-0.10); IMMATURE GRAN PERCENT AUTO 1 % (0-1); LYMPHOCYTES ABSOLUTE AUTO 1.51 K/mm3 (0.84-5.20); LYMPHOCYTES PERCENT AUTO 14 % (21-46); MONOCYTES ABSOLUTE AUTO 1.28 K/mm3 (0.16-1.47); MONOCYTES PERCENT AUTO 12 % (4-13); Mean Corpuscular HGB 27.8 pg (26.0-34.0); Mean Corpuscular HGB Conc 29.9 g/dL (31.5-36.5); Mean Platelet Volume 10.7 fL (9.1-12.4); NEUTROPHILS ABSOLUTE AUTO 7.75 K/mm3 (1.96-9.15); NEUTROPHILS PERCENT AUTO 70 % (41-73); Platelet Count 200 K/mm3 (150-400); RDW Standard Deviation 67.7 fL (35.1-46.3); Red Blood Cell Count 3.67 M/mm3 (3.80-5.20); White Blood Cell Count 11.02 K/mm3 (4.00-11.30)
[2017-06-21 05:47] LABS: Mean Corpuscular Volume 93 fL (80-100)
[2017-06-21 06:03] LABS: Albumin, Blood 2.4 g/dL (3.4-5.0); Anion Gap 8 mmol/L (6-16); Blood Urea Nitrogen 57 mg/dL (8-24); Bun/Creatinine Ratio 19.7 (12.0-20.0); CO2, Blood 24 mmol/L (21-32); Calcium, Blood 8.8 mg/dL (8.5-10.1); Chloride, Blood 99 mmol/L (98-108); Creatinine, Blood 2.89 mg/dL (0.40-1.00); Glomerular Filtration Rate 16 (60-); Glucose, Blood 129 mg/dL (70-99); Magnesium, Blood 1.9 mg/dL (1.6-2.4); Phosphorus, Blood 3.9 mg/dL (2.5-4.9); Potassium, Blood 5.2 mmol/L (3.5-5.5); Sodium, Blood 131 mmol/L (136-145)
[2017-06-22 05:59] LABS: BASOPHILS ABSOLUTE AUTO 0.07 K/mm3 (0.00-0.23); BASOPHILS PERCENT AUTO 1 % (0-2); EOSINOPHILS ABSOLUTE AUTO 0.26 K/mm3 (0.00-0.68); EOSINOPHILS PERCENT AUTO 3 % (0-6); Hematocrit 30.9 % (33.0-51.0); Hemoglobin 9.4 g/dL (11.5-16.0); IMMATURE GRAN ABSOLUTE AUTO 0.07 K/mm3 (0.00-0.10); IMMATURE GRAN PERCENT AUTO 1 % (0-1); LYMPHOCYTES ABSOLUTE AUTO 1.32 K/mm3 (0.84-5.20); LYMPHOCYTES PERCENT AUTO 14 % (21-46); MONOCYTES ABSOLUTE AUTO 1.28 K/mm3 (0.16-1.47); MONOCYTES PERCENT AUTO 13 % (4-13); Mean Corpuscular HGB 27.8 pg (26.0-34.0); Mean Corpuscular HGB Conc 30.4 g/dL (31.5-36.5); Mean Corpuscular Volume 91 fL (80-100); Mean Platelet Volume 10.9 fL (9.1-12.4); NEUTROPHILS ABSOLUTE AUTO 6.75 K/mm3 (1.96-9.15); NEUTROPHILS PERCENT AUTO 69 % (41-73); Platelet Count 205 K/mm3 (150-400); RDW Coefficient Variation 19.7 % (11.7-14.2); RDW Standard Deviation 64.9 fL (35.1-46.3); Red Blood Cell Count 3.38 M/mm3 (3.80-5.20); White Blood Cell Count 9.75 K/mm3 (4.00-11.30)
[2017-06-22 06:19] LABS: Albumin, Blood 2.3 g/dL (3.4-5.0); Anion Gap 10 mmol/L (6-16); Blood Urea Nitrogen 63 mg/dL (8-24); Bun/Creatinine Ratio 20.5 (12.0-20.0); CO2, Blood 25 mmol/L (21-32); Calcium, Blood 8.7 mg/dL (8.5-10.1); Chloride, Blood 97 mmol/L (98-108); Creatinine, Blood 3.08 mg/dL (0.40-1.00); Glomerular Filtration Rate 15 (60-); Glucose, Blood 123 mg/dL (70-99); Magnesium, Blood 1.9 mg/dL (1.6-2.4); Phosphorus, Blood 4.7 mg/dL (2.5-4.9); Potassium, Blood 5.6 mmol/L (3.5-5.5); Sodium, Blood 132 mmol/L (136-145)
[2017-06-23 05:59] LABS: BASOPHILS ABSOLUTE AUTO 0.09 K/mm3 (0.00-0.23); BASOPHILS PERCENT AUTO 1 % (0-2); EOSINOPHILS ABSOLUTE AUTO 0.26 K/mm3 (0.00-0.68); EOSINOPHILS PERCENT AUTO 4 % (0-6); Hemoglobin 9.4 g/dL (11.5-16.0); IMMATURE GRAN ABSOLUTE AUTO 0.05 K/mm3 (0.00-0.10); IMMATURE GRAN PERCENT AUTO 1 % (0-1); LYMPHOCYTES ABSOLUTE AUTO 1.54 K/mm3 (0.84-5.20); LYMPHOCYTES PERCENT AUTO 21 % (21-46); MONOCYTES ABSOLUTE AUTO 0.87 K/mm3 (0.16-1.47); MONOCYTES PERCENT AUTO 12 % (4-13); Mean Corpuscular HGB 27.4 pg (26.0-34.0); Mean Corpuscular HGB Conc 30.3 g/dL (31.5-36.5); Mean Corpuscular Volume 90 fL (80-100); Mean Platelet Volume 10.1 fL (9.1-12.4); NEUTROPHILS ABSOLUTE AUTO 4.46 K/mm3 (1.96-9.15); NEUTROPHILS PERCENT AUTO 61 % (41-73); Platelet Count 220 K/mm3 (150-400); RDW Coefficient Variation 19.4 % (11.7-14.2); RDW Standard Deviation 63.8 fL (35.1-46.3); Red Blood Cell Count 3.43 M/mm3 (3.80-5.20); White Blood Cell Count 7.27 K/mm3 (4.00-11.30)
[2017-06-23 06:14] LABS: Albumin, Blood 2.4 g/dL (3.4-5.0); Anion Gap 8 mmol/L (6-16); Blood Urea Nitrogen 50 mg/dL (8-24); Bun/Creatinine Ratio 18.9 (12.0-20.0); CO2, Blood 27 mmol/L (21-32); Calcium, Blood 8.5 mg/dL (8.5-10.1); Chloride, Blood 97 mmol/L (98-108); Creatinine, Blood 2.65 mg/dL (0.40-1.00); Glomerular Filtration Rate 18 (60-); Glucose, Blood 120 mg/dL (70-99); Magnesium, Blood 2.1 mg/dL (1.6-2.4); Phosphorus, Blood 5.1 mg/dL (2.5-4.9); Potassium, Blood 4.8 mmol/L (3.5-5.5); Sodium, Blood 132 mmol/L (136-145)
[2017-06-24 05:47] LABS: BASOPHILS ABSOLUTE AUTO 0.06 K/mm3 (0.00-0.23); BASOPHILS PERCENT AUTO 1 % (0-2); EOSINOPHILS ABSOLUTE AUTO 0.14 K/mm3 (0.00-0.68); EOSINOPHILS PERCENT AUTO 2 % (0-6); Hematocrit 30.7 % (33.0-51.0); Hemoglobin 9.2 g/dL (11.5-16.0); IMMATURE GRAN ABSOLUTE AUTO 0.03 K/mm3 (0.00-0.10); IMMATURE GRAN PERCENT AUTO 1 % (0-1); LYMPHOCYTES ABSOLUTE AUTO 1.55 K/mm3 (0.84-5.20); LYMPHOCYTES PERCENT AUTO 24 % (21-46); MONOCYTES ABSOLUTE AUTO 0.59 K/mm3 (0.16-1.47); MONOCYTES PERCENT AUTO 9 % (4-13); Mean Corpuscular HGB 27.5 pg (26.0-34.0); Mean Corpuscular Volume 92 fL (80-100); Mean Platelet Volume 10.2 fL (9.1-12.4); NEUTROPHILS PERCENT AUTO 64 % (41-73); Platelet Count 218 K/mm3 (150-400); RDW Coefficient Variation 19.3 % (11.7-14.2); RDW Standard Deviation 63.9 fL (35.1-46.3); Red Blood Cell Count 3.35 M/mm3 (3.80-5.20); White Blood Cell Count 6.57 K/mm3 (4.00-11.30)
[2017-06-24 06:00] LABS: Albumin, Blood 2.2 g/dL (3.4-5.0); Anion Gap 7 mmol/L (6-16); Blood Urea Nitrogen 39 mg/dL (8-24); Bun/Creatinine Ratio 17.3 (12.0-20.0); CO2, Blood 31 mmol/L (21-32); Calcium, Blood 8.3 mg/dL (8.5-10.1); Chloride, Blood 98 mmol/L (98-108); Creatinine, Blood 2.25 mg/dL (0.40-1.00); Glomerular Filtration Rate 22 (60-); Glucose, Blood 111 mg/dL (70-99); Phosphorus, Blood 3.8 mg/dL (2.5-4.9); Potassium, Blood 4.5 mmol/L (3.5-5.5); Sodium, Blood 136 mmol/L (136-145)
[2017-06-24] MEDS ORDERED: SACC250C PO (13:21)
[2017-06-24] MEDS ORDERED: ONDA4ODT SL (13:22)
[2017-06-24] MEDS ORDERED: FLUC100 PO (13:23)
[2017-06-24] MEDS ORDERED: LINE600 PO (13:24)
== END 2017-06-24 14:45 | disposition home health service (06) | DRG 871 ==
LOC: DELPENDDIS → ER 16:28 → MEDS 19:37 → ICUE 19:37 → ICUW 19:37 → ICUE 20:04 → MEDS 06-17 05:54 → EDPENDDIS 06-20 10:53 → ENPENDDIS 06-20 10:53 → MEDS 06-22 10:30
PROVIDERS: Emergency Medicine; Family Medicine; Internal Medicine; Internal Medicine Critical Care Medicine; Internal Medicine Nephrology
PROC: 5A1D70Z Performance of Urinary Filtration, Intermittent, Less than 6 Hours Per Day (ICD-10-PCS; principal; 2017-06-15)
PROC: 02HV33Z Insertion of Infusion Device into Superior Vena Cava, Percutaneous Approach (ICD-10-PCS; 2017-06-15)
PROC: 5A1D70Z Performance of Urinary Filtration, Intermittent, Less than 6 Hours Per Day (ICD-10-PCS; 2017-06-16)
PROC: 5A1D70Z Performance of Urinary Filtration, Intermittent, Less than 6 Hours Per Day (ICD-10-PCS; 2017-06-17)
PROC: 5A1D70Z Performance of Urinary Filtration, Intermittent, Less than 6 Hours Per Day (ICD-10-PCS; 2017-06-20)
PROC: 5A1D70Z Performance of Urinary Filtration, Intermittent, Less than 6 Hours Per Day (ICD-10-PCS; 2017-06-21)
PROC: 5A1D70Z Performance of Urinary Filtration, Intermittent, Less than 6 Hours Per Day (ICD-10-PCS; 2017-06-22)
PROC: 5A1D70Z Performance of Urinary Filtration, Intermittent, Less than 6 Hours Per Day (ICD-10-PCS; 2017-06-23)
PROC: 02HV33Z Insertion of Infusion Device into Superior Vena Cava, Percutaneous Approach (ICD-10-PCS; 2017-06-23)
DX: A41.9 Sepsis, unspecified organism (principal); G92 Toxic encephalopathy; N17.0 Acute kidney failure with tubular necrosis; N39.0 Urinary tract infection, site not specified; E87.2 Acidosis; N18.4 Chronic kidney disease, stage 4 (severe); N25.81 Secondary hyperparathyroidism of renal origin; E87.1 Hypo-osmolality and hyponatremia; B95.2 Enterococcus as the cause of diseases classified elsewhere; Z16.21 Resistance to vancomycin; E83.39 Other disorders of phosphorus metabolism; E87.70 Fluid overload, unspecified; E11.42 Type 2 diabetes mellitus with diabetic polyneuropathy; E11.22 Type 2 diabetes mellitus with diabetic chronic kidney disease; I12.9 Hypertensive chronic kidney disease with stage 1 through stage 4 chronic kidney disease, or unspecified chronic kidney disease; Z99.2 Dependence on renal dialysis; J44.9 Chronic obstructive pulmonary disease, unspecified; K21.9 Gastro-esophageal reflux disease without esophagitis; G47.33 Obstructive sleep apnea (adult) (pediatric); D63.1 Anemia in chronic kidney disease; G89.29 Other chronic pain; M48.00 Spinal stenosis, site unspecified; M10.9 Gout, unspecified; M19.90 Unspecified osteoarthritis, unspecified site; Z99.81 Dependence on supplemental oxygen; I05.2 Rheumatic mitral stenosis with insufficiency; N13.9 Obstructive and reflux uropathy, unspecified; E87.6 Hypokalemia; B37.3 Candidiasis of vulva and vagina; T36.95XA Adverse effect of unspecified systemic antibiotic, initial encounter; E88.09 Other disorders of plasma-protein metabolism, not elsewhere classified; N31.9 Neuromuscular dysfunction of bladder, unspecified; K22.2 Esophageal obstruction; E78.5 Hyperlipidemia, unspecified; E86.1 Hypovolemia; E66.9 Obesity, unspecified; I25.10 Atherosclerotic heart disease of native coronary artery without angina pectoris; I25.2 Old myocardial infarction; E87.5 Hyperkalemia; M62.81 Muscle weakness (generalized); N20.0 Calculus of kidney; Y92.239 Unspecified place in hospital as the place of occurrence of the external cause; Z87.442 Personal history of urinary calculi; Z79.82 Long term (current) use of aspirin; Z79.890 Hormone replacement therapy; Z87.891 Personal history of nicotine dependence; Z79.4 Long term (current) use of insulin; Z68.31 Body mass index [BMI] 31.0-31.9, adult; Z79.891 Long term (current) use of opiate analgesic; Z79.899 Other long term (current) drug therapy; Z86.718 Personal history of other venous thrombosis and embolism; Z88.5 Allergy status to narcotic agent; Z88.0 Allergy status to penicillin; Z88.8 Allergy status to other drugs, medicaments and biological substances
CPT/HCPCS: 36415; 36430; 36556; 36593; 36600; 51702; 70450; 71046; 74018; 74176; 76770; 77001; 80053; 80069; 80074; 81001; 82140; 82550; 82553; 82803; 82947; 83605; 83735; 84100; 84484; 85014; 85018; 85025; 86706; 86850; 86900; 86901; 86923; 87040; 87077; 87086; 87186; 92610; 93005; 93010; 94010; 94664; 94667; 94760; 96374; 97162; 97165; 97530; 98960; 99285; C1750; C1751; C1752; C9113; G8978; G8979; G8980; G8987; G8988; G8989; G8996; G8997; G8998; J0360; J0692; J0878; J0881; J1644; J2001; J2020; J2370; J2405; J2997; J3010; J3480; J7030; J7050; J7070; J7120; P9016; P9612

== ENCOUNTER 2017-07-04 12:00 | Day surgery (SDC) | payer MEDICARE, BC ==
[~2017-07-04 12:00] MED LIST changes: +ONDA4ODT SL
[2017-07-04] MEDS ORDERED: Invanz1 GM IV (15:46)
== END 2017-07-04 16:06 | disposition home or self-care (01) ==
LOC: ATC 12:00
DX: A41.9 Sepsis, unspecified organism (principal); N39.0 Urinary tract infection, site not specified; N17.9 Acute kidney failure, unspecified; I25.2 Old myocardial infarction; G47.33 Obstructive sleep apnea (adult) (pediatric); E11.22 Type 2 diabetes mellitus with diabetic chronic kidney disease; I12.9 Hypertensive chronic kidney disease with stage 1 through stage 4 chronic kidney disease, or unspecified chronic kidney disease; N18.4 Chronic kidney disease, stage 4 (severe); J44.9 Chronic obstructive pulmonary disease, unspecified; E11.42 Type 2 diabetes mellitus with diabetic polyneuropathy; J45.909 Unspecified asthma, uncomplicated
CPT/HCPCS: 96374; J1335

== ENCOUNTER 2017-07-08 00:30 | Day surgery (SDC) | payer MEDICARE, BC ==
[~2017-07-08 00:30] MED LIST changes: +Invanz1 GM IV
[2017-07-08] MEDS ORDERED: ATOR10 PO (11:39)
[2017-07-08] MEDS ORDERED: Estrace Vagin42.5 GM TOP (11:41)
[2017-07-08] MEDS ORDERED: GEMF600 PO (11:42)
[2017-07-08] MEDS ORDERED: Polysaccharide150 MG PO (11:43)
[2017-07-08] MEDS ORDERED: LINZESS72 MCG PO (11:44)
[2017-07-08] MEDS ORDERED: NEBI5 PO (11:45)
[2017-07-08] MEDS ORDERED: SACC250C PO (11:46)
== END 2017-07-08 22:57 | disposition home or self-care (01) ==
LOC: ATC 00:30
DX: A41.9 Sepsis, unspecified organism (principal); N39.0 Urinary tract infection, site not specified; G93.40 Encephalopathy, unspecified; N17.9 Acute kidney failure, unspecified
CPT/HCPCS: J1335

== ENCOUNTER 2017-07-08 09:29 | Inpatient (IN) | payer MEDICARE, BC ==
[~2017-07-08] VITALS: Ht 162.6 cm; Wt 74.8 kg
[2017-07-08] MEDS ORDERED: ATOR10 PO (11:39)
[2017-07-08 11:40] LABS: BASOPHILS ABSOLUTE AUTO 0.04 K/mm3 (0.00-0.23); BASOPHILS PERCENT AUTO 1 % (0-2); EOSINOPHILS ABSOLUTE AUTO 0.06 K/mm3 (0.00-0.68); EOSINOPHILS PERCENT AUTO 1 % (0-6); Hematocrit 28.1 % (33.0-51.0); Hemoglobin 8.6 g/dL (11.5-16.0); IMMATURE GRAN ABSOLUTE AUTO 0.02 K/mm3 (0.00-0.10); IMMATURE GRAN PERCENT AUTO 0 % (0-1); LYMPHOCYTES ABSOLUTE AUTO 0.96 K/mm3 (0.84-5.20); LYMPHOCYTES PERCENT AUTO 20 % (21-46); MONOCYTES ABSOLUTE AUTO 0.61 K/mm3 (0.16-1.47); MONOCYTES PERCENT AUTO 13 % (4-13); Mean Corpuscular HGB 27.8 pg (26.0-34.0); Mean Corpuscular HGB Conc 30.6 g/dL (31.5-36.5); Mean Corpuscular Volume 91 fL (80-100); Mean Platelet Volume 11.9 fL (9.1-12.4); NEUTROPHILS ABSOLUTE AUTO 3.15 K/mm3 (1.96-9.15); NEUTROPHILS PERCENT AUTO 65 % (41-73); Platelet Count 161 K/mm3 (150-400); RDW Coefficient Variation 20.5 % (11.7-14.2); RDW Standard Deviation 65.9 fL (35.1-46.3); Red Blood Cell Count 3.09 M/mm3 (3.80-5.20); White Blood Cell Count 4.84 K/mm3 (4.00-11.30)
[2017-07-08] MEDS ORDERED: Estrace Vagin42.5 GM TOP (11:41)
[2017-07-08] MEDS ORDERED: GEMF600 PO (11:42)
[2017-07-08] MEDS ORDERED: Polysaccharide150 MG PO (11:43)
[2017-07-08] MEDS ORDERED: LINZESS72 MCG PO (11:44)
[2017-07-08] MEDS ORDERED: NEBI5 PO (11:45)
[2017-07-08] MEDS ORDERED: SACC250C PO (11:46)
[2017-07-08 11:54] LABS: Albumin, Blood 2.7 g/dL (3.4-5.0); Albumin/Globulin Ratio 0.7 (0.8-1.8); Bilirubin, Total 0.2 mg/dL (0.1-1.0); Bun/Creatinine Ratio 16.6 (12.0-20.0); Calcium, Blood 8.4 mg/dL (8.5-10.1); Creatinine, Blood 2.41 mg/dL (0.40-1.00); Globulin, Blood 3.8 g/dL (2.2-4.0); Potassium, Blood 3.9 mmol/L (3.5-5.5); Total Protein, Blood 6.5 g/dL (6.4-8.2)
[2017-07-09 05:28] LABS: BASOPHILS ABSOLUTE AUTO 0.06 K/mm3 (0.00-0.23); BASOPHILS PERCENT AUTO 1 % (0-2); EOSINOPHILS ABSOLUTE AUTO 0.04 K/mm3 (0.00-0.68); EOSINOPHILS PERCENT AUTO 1 % (0-6); Hematocrit 30.4 % (33.0-51.0); Hemoglobin 9.3 g/dL (11.5-16.0); IMMATURE GRAN ABSOLUTE AUTO 0.04 K/mm3 (0.00-0.10); IMMATURE GRAN PERCENT AUTO 1 % (0-1); LYMPHOCYTES ABSOLUTE AUTO 1.11 K/mm3 (0.84-5.20); LYMPHOCYTES PERCENT AUTO 17 % (21-46); MONOCYTES ABSOLUTE AUTO 0.59 K/mm3 (0.16-1.47); MONOCYTES PERCENT AUTO 9 % (4-13); Mean Corpuscular HGB 27.8 pg (26.0-34.0); Mean Corpuscular HGB Conc 30.6 g/dL (31.5-36.5); Mean Corpuscular Volume 91 fL (80-100); Mean Platelet Volume 11.1 fL (9.1-12.4); NEUTROPHILS ABSOLUTE AUTO 4.84 K/mm3 (1.96-9.15); NEUTROPHILS PERCENT AUTO 73 % (41-73); Platelet Count 175 K/mm3 (150-400); RDW Coefficient Variation 20.6 % (11.7-14.2); RDW Standard Deviation 66.6 fL (35.1-46.3); Red Blood Cell Count 3.34 M/mm3 (3.80-5.20); White Blood Cell Count 6.68 K/mm3 (4.00-11.30)
[2017-07-09 05:53] LABS: Alanine Aminotransfer (ALT/SGP 13 U/L (12-78); Albumin, Blood 2.8 g/dL (3.4-5.0); Albumin/Globulin Ratio 0.7 (0.8-1.8); Alk Phos 66 U/L (50-136); Anion Gap 7 mmol/L (6-16); Aspartate Aminotrans (AST/SGOT 19 U/L (12-37); Bilirubin, Total 0.3 mg/dL (0.1-1.0); Blood Urea Nitrogen 26 mg/dL (8-24); Bun/Creatinine Ratio 13.8 (12.0-20.0); CO2, Blood 31 mmol/L (21-32); Calcium, Blood 8.4 mg/dL (8.5-10.1); Chloride, Blood 98 mmol/L (98-108); Creatinine, Blood 1.88 mg/dL (0.40-1.00); Glomerular Filtration Rate 27 (60-); Glucose, Blood 136 mg/dL (70-99); Phosphorus, Blood 3.9 mg/dL (2.5-4.9); Sodium, Blood 136 mmol/L (136-145); Total Protein, Blood 6.8 g/dL (6.4-8.2)
[2017-07-10 06:58] LABS: Albumin, Blood 3.3 g/dL (3.4-5.0); Anion Gap 10 mmol/L (6-16); Blood Urea Nitrogen 45 mg/dL (8-24); Bun/Creatinine Ratio 15.7 (12.0-20.0); CO2, Blood 27 mmol/L (21-32); Calcium, Blood 8.6 mg/dL (8.5-10.1); Chloride, Blood 97 mmol/L (98-108); Creatinine, Blood 2.87 mg/dL (0.40-1.00); Glomerular Filtration Rate 17 (60-); Glucose, Blood 200 mg/dL (70-99); Magnesium, Blood 2.1 mg/dL (1.6-2.4); Phosphorus, Blood 5.9 mg/dL (2.5-4.9); Sodium, Blood 134 mmol/L (136-145)
[2017-07-11 05:01] LABS: Mean Corpuscular HGB 27.2 pg (26.0-34.0); Mean Corpuscular HGB Conc 31.3 g/dL (31.5-36.5); Mean Corpuscular Volume 87 fL (80-100); Mean Platelet Volume 11.9 fL (9.1-12.4); Platelet Count 233 K/mm3 (150-400); RDW Coefficient Variation 20.6 % (11.7-14.2); RDW Standard Deviation 63.1 fL (35.1-46.3); Red Blood Cell Count 3.68 M/mm3 (3.80-5.20); White Blood Cell Count 6.62 K/mm3 (4.00-11.30)
[2017-07-11 05:25] LABS: Albumin, Blood 3.1 g/dL (3.4-5.0); Anion Gap 7 mmol/L (6-16); Blood Urea Nitrogen 45 mg/dL (8-24); Bun/Creatinine Ratio 17.5 (12.0-20.0); CO2, Blood 30 mmol/L (21-32); Calcium, Blood 8.6 mg/dL (8.5-10.1); Chloride, Blood 97 mmol/L (98-108); Creatinine, Blood 2.57 mg/dL (0.40-1.00); Glomerular Filtration Rate 19 (60-); Glucose, Blood 139 mg/dL (70-99); Phosphorus, Blood 3.5 mg/dL (2.5-4.9); Potassium, Blood 3.8 mmol/L (3.5-5.5); Sodium, Blood 134 mmol/L (136-145)
[2017-07-12 07:05] LABS: Anion Gap 9 mmol/L (6-16); Blood Urea Nitrogen 56 mg/dL (8-24); Bun/Creatinine Ratio 20.9 (12.0-20.0); CO2, Blood 31 mmol/L (21-32); Calcium, Blood 8.9 mg/dL (8.5-10.1); Chloride, Blood 97 mmol/L (98-108); Creatinine, Blood 2.68 mg/dL (0.40-1.00); Glomerular Filtration Rate 18 (60-); Glucose, Blood 133 mg/dL (70-99); Magnesium, Blood 2.2 mg/dL (1.6-2.4); Phosphorus, Blood 4.3 mg/dL (2.5-4.9); Potassium, Blood 3.9 mmol/L (3.5-5.5); Sodium, Blood 137 mmol/L (136-145)
[2017-07-13 04:01] LABS: Hematocrit 33.7 % (33.0-51.0); Hemoglobin 10.7 g/dL (11.5-16.0)
[2017-07-13 04:21] LABS: Albumin, Blood 3.1 g/dL (3.4-5.0); Anion Gap 11 mmol/L (6-16); Blood Urea Nitrogen 80 mg/dL (8-24); Bun/Creatinine Ratio 26.8 (12.0-20.0); CO2, Blood 25 mmol/L (21-32); Calcium, Blood 8.8 mg/dL (8.5-10.1); Chloride, Blood 97 mmol/L (98-108); Creatinine, Blood 2.99 mg/dL (0.40-1.00); Glomerular Filtration Rate 16 (60-); Glucose, Blood 168 mg/dL (70-99); Phosphorus, Blood 4.9 mg/dL (2.5-4.9); Sodium, Blood 133 mmol/L (136-145)
[2017-07-14 05:10] LABS: Hematocrit 34.8 % (33.0-51.0); Hemoglobin 10.9 g/dL (11.5-16.0)
[2017-07-14 05:29] LABS: Albumin, Blood 3.3 g/dL (3.4-5.0); Anion Gap 8 mmol/L (6-16); Blood Urea Nitrogen 54 mg/dL (8-24); CO2, Blood 30 mmol/L (21-32); Chloride, Blood 98 mmol/L (98-108); Creatinine, Blood 2.35 mg/dL (0.40-1.00); Glomerular Filtration Rate 21 (60-); Glucose, Blood 136 mg/dL (70-99); Magnesium, Blood 2.3 mg/dL (1.6-2.4); Phosphorus, Blood 5.2 mg/dL (2.5-4.9); Potassium, Blood 5.8 mmol/L (3.5-5.5); Sodium, Blood 136 mmol/L (136-145)
[2017-07-14] MEDS ORDERED: ALBU3IS INH (12:20)
[2017-07-14] MEDS ORDERED: PRED20 PO (12:23)
[2017-07-15 05:21] LABS: Hemoglobin 11.8 g/dL (11.5-16.0)
[2017-07-15 05:37] LABS: Albumin, Blood 3.3 g/dL (3.4-5.0); Anion Gap 11 mmol/L (6-16); Blood Urea Nitrogen 59 mg/dL (8-24); CO2, Blood 26 mmol/L (21-32); Calcium, Blood 8.7 mg/dL (8.5-10.1); Chloride, Blood 99 mmol/L (98-108); Creatinine, Blood 2.46 mg/dL (0.40-1.00); Glomerular Filtration Rate 20 (60-); Glucose, Blood 113 mg/dL (70-99); Magnesium, Blood 2.2 mg/dL (1.6-2.4); Phosphorus, Blood 5.4 mg/dL (2.5-4.9); Potassium, Blood 4.5 mmol/L (3.5-5.5); Sodium, Blood 136 mmol/L (136-145)
[2017-07-15] MEDS ORDERED: CEFEPIME 11 GM/50 ML IV (11:56)
[2017-07-15] MEDS ORDERED: Pepcid20 MG PO (11:57)
== END 2017-07-15 14:07 | disposition home health service (06) | DRG 177 ==
LOC: ER 09:29 → MEDS 13:51 → PCU 13:51 → MEDS 14:58 → PCU 07-09 08:13 → MEDS 07-09 08:13 → PCU 07-12 17:22 → MEDS 07-13 14:00 → ENPENDDIS 07-14 10:00 → MEDS 07-15 14:07
PROVIDERS: Emergency Medicine; Internal Medicine; Internal Medicine Nephrology
PROC: 5A1D70Z Performance of Urinary Filtration, Intermittent, Less than 6 Hours Per Day (ICD-10-PCS; principal; 2017-07-09)
PROC: 5A1D70Z Performance of Urinary Filtration, Intermittent, Less than 6 Hours Per Day (ICD-10-PCS; 2017-07-10)
PROC: 5A1D70Z Performance of Urinary Filtration, Intermittent, Less than 6 Hours Per Day (ICD-10-PCS; 2017-07-12)
PROC: 30233N1 Transfusion of Nonautologous Red Blood Cells into Peripheral Vein, Percutaneous Approach (ICD-10-PCS; 2017-07-12)
DX: J15.1 Pneumonia due to Pseudomonas (principal); N18.6 End stage renal disease; J96.21 Acute and chronic respiratory failure with hypoxia; I12.0 Hypertensive chronic kidney disease with stage 5 chronic kidney disease or end stage renal disease; J44.1 Chronic obstructive pulmonary disease with (acute) exacerbation; E87.1 Hypo-osmolality and hyponatremia; Z99.2 Dependence on renal dialysis; G47.33 Obstructive sleep apnea (adult) (pediatric); Z87.440 Personal history of urinary (tract) infections; E11.42 Type 2 diabetes mellitus with diabetic polyneuropathy; K21.9 Gastro-esophageal reflux disease without esophagitis; M54.5 Low back pain; K58.9 Irritable bowel syndrome, unspecified; D63.1 Anemia in chronic kidney disease
CPT/HCPCS: 36415; 36430; 71045; 71046; 74176; 80053; 80069; 82947; 83605; 83735; 84100; 84145; 85014; 85018; 85025; 85027; 86850; 86900; 86901; 86923; 87040; 87070; 87077; 87186; 87205; 87449; 87493; 93005; 93010; 94640; 94660; 94664; 94667; 94762; 96365; 97110; 97116; 97162; 97166; 97530; 97535; 98960; 99285; G8978; G8979; G8987; G8988; J0456; J0692; J0881; J1335; J1940; J2920; J2930; J7050; P9016; P9041

== ENCOUNTER 2017-07-19 17:10 | Inpatient (IN) | payer MEDICARE, BC ==
[~2017-07-19] VITALS: Ht 152.4 cm; Wt 68.2 kg
[~2017-07-19 17:10] MED LIST changes: +ALBU3IS INH; +CEFEPIME 11 GM/50 ML IV; +Estrace Vagin42.5 GM TOP; +Pepcid20 MG PO
[2017-07-19 17:34] LABS: BASOPHILS ABSOLUTE AUTO 0.01 K/mm3 (0.00-0.23); BASOPHILS PERCENT AUTO 0 % (0-2); EOSINOPHILS ABSOLUTE AUTO 0.01 K/mm3 (0.00-0.68); EOSINOPHILS PERCENT AUTO 0 % (0-6); Hematocrit 38.4 % (33.0-51.0); Hemoglobin 12.4 g/dL (11.5-16.0); IMMATURE GRAN ABSOLUTE AUTO 0.11 K/mm3 (0.00-0.10); IMMATURE GRAN PERCENT AUTO 1 % (0-1); LYMPHOCYTES ABSOLUTE AUTO 0.52 K/mm3 (0.84-5.20); LYMPHOCYTES PERCENT AUTO 5 % (21-46); MONOCYTES ABSOLUTE AUTO 0.43 K/mm3 (0.16-1.47); MONOCYTES PERCENT AUTO 4 % (4-13); Mean Corpuscular HGB Conc 32.3 g/dL (31.5-36.5); Mean Corpuscular Volume 87 fL (80-100); Mean Platelet Volume 10.6 fL (9.1-12.4); NEUTROPHILS ABSOLUTE AUTO 9.74 K/mm3 (1.96-9.15); NEUTROPHILS PERCENT AUTO 90 % (41-73); NRBC ABSOLUTE 0.02 K/mm3 (0.00-0.02); NRBC Auto 0.2 /100 WBC (0.0-0.2); Platelet Count 260 K/mm3 (150-400); RDW Coefficient Variation 21.1 % (11.7-14.2); Red Blood Cell Count 4.43 M/mm3 (3.80-5.20); White Blood Cell Count 10.82 K/mm3 (4.00-11.30)
[2017-07-19] MEDS ORDERED: FLUC100 PO (17:39)
[2017-07-19] MEDS ORDERED: ATOR10 PO (17:39)
[2017-07-19] MEDS ORDERED: LINE600 PO (17:40)
[2017-07-19 18:09] LABS: Alanine Aminotransfer (ALT/SGP 9 U/L (12-78); Albumin, Blood 3.7 g/dL (3.4-5.0); Alk Phos 80 U/L (50-136); Anion Gap 11 mmol/L (6-16); Aspartate Aminotrans (AST/SGOT 17 U/L (12-37); Bilirubin, Total 0.8 mg/dL (0.1-1.0); Blood Urea Nitrogen 45 mg/dL (8-24); CO2, Blood 31 mmol/L (21-32); Calcium, Blood 9.1 mg/dL (8.5-10.1); Chloride, Blood 95 mmol/L (98-108); Globulin, Blood 3.8 g/dL (2.2-4.0); Glomerular Filtration Rate 35 (60-); Glucose, Blood 142 mg/dL (70-99); Magnesium, Blood 2.2 mg/dL (1.6-2.4); Phosphorus, Blood 3.4 mg/dL (2.5-4.9); Potassium, Blood 3.9 mmol/L (3.5-5.5); Sodium, Blood 137 mmol/L (136-145); Total Protein, Blood 7.5 g/dL (6.4-8.2); Troponin I <0.015 ng/mL (0.000-0.040)
[2017-07-19 18:26] LABS: Source, Urine Catheter
[2017-07-19 18:29] LABS: Appearance, Urine Cloudy (Clear); Bilirubin, Urine Neg (Neg); Blood, Urine 4+ (Neg); Color, Urine Yellow (P-Yellow); Glucose Qualitative, Urine Neg (Neg); Ketones, Urine Neg (Neg); Leukocyte Esterase, Urine 3+ (Neg); Nitrite, Urine Neg (Neg); Protein, Urine 3+ (Neg); Specific Gravity, Urine 1.015 (1.003-1.022); Urobilinogen, Urine NORM (Normal)
[2017-07-19 18:38] LABS: White Blood Cells, Urine TNTC /hpf (0-5)
[2017-07-19 18:39] LABS: Transitional Epithelial Cells Few /hpf (0-Rare); Yeast/Fungi Urine Few /hpf
[2017-07-19 18:40] LABS: Bacteria Few /hpf; Squamous Epithelial Cells Rare /hpf (Few)
[2017-07-19 18:56] LABS: Base Excess Venous 6.8 mmol/L; Bicarbonate Venous 29.5 mmol/L (24.0-30.0); PO2 Venous 60.6 mmHg (38-42); pH Blood Venous 7.42 (7.34-7.37)
[2017-07-20 05:13] LABS: Hematocrit 37.6 % (33.0-51.0); Hemoglobin 11.9 g/dL (11.5-16.0); Mean Corpuscular HGB 27.9 pg (26.0-34.0); Mean Corpuscular HGB Conc 31.6 g/dL (31.5-36.5); Mean Corpuscular Volume 88 fL (80-100); Mean Platelet Volume 10.6 fL (9.1-12.4); Platelet Count 243 K/mm3 (150-400); RDW Coefficient Variation 21.1 % (11.7-14.2); RDW Standard Deviation 63.8 fL (35.1-46.3); Red Blood Cell Count 4.27 M/mm3 (3.80-5.20); White Blood Cell Count 8.86 K/mm3 (4.00-11.30)
[2017-07-20 05:33] LABS: Bun/Creatinine Ratio 24.3 (12.0-20.0); Calcium, Blood 8.8 mg/dL (8.5-10.1); Creatinine, Blood 2.22 mg/dL (0.40-1.00); Potassium, Blood 4.1 mmol/L (3.5-5.5)
[2017-07-21 05:01] LABS: BASOPHILS ABSOLUTE AUTO 0.02 K/mm3 (0.00-0.23); BASOPHILS PERCENT AUTO 0 % (0-2); EOSINOPHILS ABSOLUTE AUTO 0.12 K/mm3 (0.00-0.68); EOSINOPHILS PERCENT AUTO 1 % (0-6); Hematocrit 34.1 % (33.0-51.0); Hemoglobin 10.9 g/dL (11.5-16.0); IMMATURE GRAN ABSOLUTE AUTO 0.06 K/mm3 (0.00-0.10); IMMATURE GRAN PERCENT AUTO 1 % (0-1); LYMPHOCYTES PERCENT AUTO 15 % (21-46); MONOCYTES ABSOLUTE AUTO 1.13 K/mm3 (0.16-1.47); MONOCYTES PERCENT AUTO 13 % (4-13); Mean Corpuscular HGB 28.1 pg (26.0-34.0); Mean Corpuscular Volume 88 fL (80-100); NEUTROPHILS ABSOLUTE AUTO 6.13 K/mm3 (1.96-9.15); NEUTROPHILS PERCENT AUTO 70 % (41-73); Platelet Count 202 K/mm3 (150-400); RDW Standard Deviation 64.8 fL (35.1-46.3); Red Blood Cell Count 3.88 M/mm3 (3.80-5.20); White Blood Cell Count 8.76 K/mm3 (4.00-11.30)
[2017-07-21 05:22] LABS: Albumin, Blood 2.9 g/dL (3.4-5.0); Anion Gap 10 mmol/L (6-16); Blood Urea Nitrogen 63 mg/dL (8-24); CO2, Blood 28 mmol/L (21-32); Calcium, Blood 8.5 mg/dL (8.5-10.1); Chloride, Blood 94 mmol/L (98-108); Glomerular Filtration Rate 16 (60-); Glucose, Blood 115 mg/dL (70-99); Magnesium, Blood 2.1 mg/dL (1.6-2.4); Potassium, Blood 4.1 mmol/L (3.5-5.5); Sodium, Blood 132 mmol/L (136-145)
[2017-07-21 05:25] LABS: Phosphorus, Blood 7.5 mg/dL (2.5-4.9)
[2017-07-22 02:00] LABS: Source, Urine Catheter
[2017-07-22 02:02] LABS: Appearance, Urine Hazy (Clear); Bilirubin, Urine Neg (Neg); Blood, Urine 4+ (Neg); Color, Urine Yellow (P-Yellow); Glucose Qualitative, Urine Neg (Neg); Ketones, Urine 1+ (Neg); Leukocyte Esterase, Urine 3+ (Neg); Nitrite, Urine Neg (Neg); Protein, Urine 3+ (Neg); Specific Gravity, Urine 1.015 (1.003-1.022); Urobilinogen, Urine NORM (Normal)
[2017-07-22 02:09] LABS: Bacteria Many /hpf; Red Blood Cells, Urine 0-2 /hpf (0-2); Squamous Epithelial Cells Not Seen /hpf (Few); White Blood Cells, Urine TNTC /hpf (0-5)
[2017-07-22 02:10] LABS: Transitional Epithelial Cells Few /hpf (0-Rare); Yeast/Fungi Urine Few /hpf
[2017-07-22 05:00] LABS: BASOPHILS ABSOLUTE AUTO 0.03 K/mm3 (0.00-0.23); BASOPHILS PERCENT AUTO 0 % (0-2); EOSINOPHILS ABSOLUTE AUTO 0.12 K/mm3 (0.00-0.68); EOSINOPHILS PERCENT AUTO 1 % (0-6); Hematocrit 38.3 % (33.0-51.0); IMMATURE GRAN ABSOLUTE AUTO 0.09 K/mm3 (0.00-0.10); IMMATURE GRAN PERCENT AUTO 1 % (0-1); LYMPHOCYTES PERCENT AUTO 10 % (21-46); MONOCYTES ABSOLUTE AUTO 1.35 K/mm3 (0.16-1.47); MONOCYTES PERCENT AUTO 12 % (4-13); Mean Corpuscular HGB 27.4 pg (26.0-34.0); Mean Corpuscular HGB Conc 31.3 g/dL (31.5-36.5); Mean Corpuscular Volume 87 fL (80-100); Mean Platelet Volume 11.1 fL (9.1-12.4); NEUTROPHILS ABSOLUTE AUTO 8.81 K/mm3 (1.96-9.15); NEUTROPHILS PERCENT AUTO 76 % (41-73); Platelet Count 227 K/mm3 (150-400); RDW Standard Deviation 64.6 fL (35.1-46.3); Red Blood Cell Count 4.38 M/mm3 (3.80-5.20)
[2017-07-22 05:16] LABS: Albumin, Blood 3.1 g/dL (3.4-5.0); Anion Gap 11 mmol/L (6-16); Blood Urea Nitrogen 37 mg/dL (8-24); Bun/Creatinine Ratio 14.7 (12.0-20.0); CO2, Blood 25 mmol/L (21-32); Calcium, Blood 9.1 mg/dL (8.5-10.1); Chloride, Blood 98 mmol/L (98-108); Creatinine, Blood 2.52 mg/dL (0.40-1.00); Glomerular Filtration Rate 19 (60-); Glucose, Blood 140 mg/dL (70-99); Magnesium, Blood 2.2 mg/dL (1.6-2.4); Phosphorus, Blood 5.1 mg/dL (2.5-4.9); Potassium, Blood 3.8 mmol/L (3.5-5.5); Sodium, Blood 134 mmol/L (136-145)
[2017-07-23 05:23] LABS: BASOPHILS ABSOLUTE AUTO 0.05 K/mm3 (0.00-0.23); BASOPHILS PERCENT AUTO 1 % (0-2); EOSINOPHILS ABSOLUTE AUTO 0.14 K/mm3 (0.00-0.68); EOSINOPHILS PERCENT AUTO 1 % (0-6); Hematocrit 37.4 % (33.0-51.0); Hemoglobin 11.6 g/dL (11.5-16.0); IMMATURE GRAN ABSOLUTE AUTO 0.08 K/mm3 (0.00-0.10); IMMATURE GRAN PERCENT AUTO 1 % (0-1); LYMPHOCYTES ABSOLUTE AUTO 1.01 K/mm3 (0.84-5.20); LYMPHOCYTES PERCENT AUTO 9 % (21-46); MONOCYTES ABSOLUTE AUTO 1.21 K/mm3 (0.16-1.47); MONOCYTES PERCENT AUTO 11 % (4-13); Mean Corpuscular HGB 27.8 pg (26.0-34.0); Mean Platelet Volume 12.1 fL (9.1-12.4); NEUTROPHILS ABSOLUTE AUTO 8.56 K/mm3 (1.96-9.15); NEUTROPHILS PERCENT AUTO 77 % (41-73); Platelet Count 218 K/mm3 (150-400); RDW Coefficient Variation 22.1 % (11.7-14.2); RDW Standard Deviation 66.7 fL (35.1-46.3); Red Blood Cell Count 4.17 M/mm3 (3.80-5.20); White Blood Cell Count 11.05 K/mm3 (4.00-11.30)
[2017-07-23 05:27] LABS: Mean Corpuscular Volume 90 fL (80-100)
[2017-07-23 05:38] LABS: Albumin, Blood 2.9 g/dL (3.4-5.0); Anion Gap 9 mmol/L (6-16); Blood Urea Nitrogen 36 mg/dL (8-24); CO2, Blood 27 mmol/L (21-32); Calcium, Blood 8.8 mg/dL (8.5-10.1); Chloride, Blood 102 mmol/L (98-108); Creatinine, Blood 2.58 mg/dL (0.40-1.00); Glomerular Filtration Rate 19 (60-); Glucose, Blood 158 mg/dL (70-99); Magnesium, Blood 2.3 mg/dL (1.6-2.4); Phosphorus, Blood 4.2 mg/dL (2.5-4.9); Sodium, Blood 138 mmol/L (136-145)
[2017-07-24 05:58] LABS: BASOPHILS ABSOLUTE AUTO 0.08 K/mm3 (0.00-0.23); BASOPHILS PERCENT AUTO 1 % (0-2); EOSINOPHILS ABSOLUTE AUTO 0.31 K/mm3 (0.00-0.68); EOSINOPHILS PERCENT AUTO 3 % (0-6); Hematocrit 37.7 % (33.0-51.0); Hemoglobin 11.6 g/dL (11.5-16.0); IMMATURE GRAN ABSOLUTE AUTO 0.08 K/mm3 (0.00-0.10); IMMATURE GRAN PERCENT AUTO 1 % (0-1); LYMPHOCYTES ABSOLUTE AUTO 1.43 K/mm3 (0.84-5.20); LYMPHOCYTES PERCENT AUTO 13 % (21-46); MONOCYTES ABSOLUTE AUTO 1.13 K/mm3 (0.16-1.47); MONOCYTES PERCENT AUTO 10 % (4-13); Mean Corpuscular HGB 28.2 pg (26.0-34.0); Mean Corpuscular HGB Conc 30.8 g/dL (31.5-36.5); Mean Corpuscular Volume 92 fL (80-100); Mean Platelet Volume 12.1 fL (9.1-12.4); NEUTROPHILS ABSOLUTE AUTO 7.81 K/mm3 (1.96-9.15); NEUTROPHILS PERCENT AUTO 72 % (41-73); Platelet Count 218 K/mm3 (150-400); RDW Coefficient Variation 22.7 % (11.7-14.2); Red Blood Cell Count 4.11 M/mm3 (3.80-5.20); White Blood Cell Count 10.84 K/mm3 (4.00-11.30)
[2017-07-24 06:23] LABS: Anion Gap 9 mmol/L (6-16); Blood Urea Nitrogen 34 mg/dL (8-24); Bun/Creatinine Ratio 12.4 (12.0-20.0); CO2, Blood 28 mmol/L (21-32); Calcium, Blood 8.9 mg/dL (8.5-10.1); Chloride, Blood 101 mmol/L (98-108); Creatinine, Blood 2.75 mg/dL (0.40-1.00); Glomerular Filtration Rate 17 (60-); Glucose, Blood 124 mg/dL (70-99); Phosphorus, Blood 3.5 mg/dL (2.5-4.9); Potassium, Blood 4.8 mmol/L (3.5-5.5); Sodium, Blood 138 mmol/L (136-145)
[2017-07-24] MEDS ORDERED: FLUC100 PO (13:58)
[2017-07-24] MEDS ORDERED: TRAM50 PO (13:59)
== END 2017-07-24 15:53 | disposition home or self-care (01) | DRG 70 ==
LOC: ER 17:10 → MEDS 19:52
PROVIDERS: Emergency Medicine; Family Medicine; Internal Medicine; Internal Medicine Nephrology
PROC: 5A1D70Z Performance of Urinary Filtration, Intermittent, Less than 6 Hours Per Day (ICD-10-PCS; principal; 2017-07-21)
PROC: 5A1D70Z Performance of Urinary Filtration, Intermittent, Less than 6 Hours Per Day (ICD-10-PCS; 2017-07-22)
PROC: 5A1D70Z Performance of Urinary Filtration, Intermittent, Less than 6 Hours Per Day (ICD-10-PCS; 2017-07-23)
PROC: 5A1D70Z Performance of Urinary Filtration, Intermittent, Less than 6 Hours Per Day (ICD-10-PCS; 2017-07-24)
DX: G93.40 Encephalopathy, unspecified (principal); N18.6 End stage renal disease; J15.1 Pneumonia due to Pseudomonas; E87.1 Hypo-osmolality and hyponatremia; I12.0 Hypertensive chronic kidney disease with stage 5 chronic kidney disease or end stage renal disease; B37.49 Other urogenital candidiasis; J44.0 Chronic obstructive pulmonary disease with (acute) lower respiratory infection; N25.81 Secondary hyperparathyroidism of renal origin; E11.22 Type 2 diabetes mellitus with diabetic chronic kidney disease; Z99.2 Dependence on renal dialysis; G47.33 Obstructive sleep apnea (adult) (pediatric); G92 Toxic encephalopathy; K21.9 Gastro-esophageal reflux disease without esophagitis; E11.42 Type 2 diabetes mellitus with diabetic polyneuropathy; Z99.81 Dependence on supplemental oxygen; I25.10 Atherosclerotic heart disease of native coronary artery without angina pectoris
CPT/HCPCS: 36415; 51702; 70450; 70551; 71045; 80048; 80053; 80069; 81001; 82140; 82803; 82947; 83735; 84100; 84443; 84484; 85014; 85018; 85025; 85027; 87086; 92526; 92610; 93005; 93010; 94640; 94660; 94760; 94762; 95819; 96365; 97162; 97166; 97530; 97535; 99285; C1751; G8978; G8979; G8987; G8988; G8989; G8996; G8997; G8998; J0692; J2020; J2060; J2405; J3010; J7030; J7070; J7131; P9612

== ENCOUNTER → 2017-08-10 | Outpatient (CLI) | payer MEDICARE, BC ==
[~2017-08-10] MED LIST changes: +TRAM50 PO
[2017-08-10 12:05] LABS: Bilirubin, Urine Neg (Neg); Blood, Urine 3+ (Neg); Glucose Qualitative, Urine Neg (Neg); Ketones, Urine Neg (Neg); Leukocyte Esterase, Urine 3+ (Neg); Nitrite, Urine Neg (Neg); Protein, Urine 3+ (Neg); Specific Gravity, Urine 1.005 (1.003-1.022); Urobilinogen, Urine NORM (Normal)
[2017-08-10 12:16] LABS: Appearance, Urine Turbid (Clear); Color, Urine Yellow (P-Yellow)
[2017-08-10 12:21] LABS: Red Blood Cells, Urine TNTC /hpf (0-2)
[2017-08-10 12:22] LABS: Bacteria Many /hpf; Squamous Epithelial Cells Few /hpf (Few); White Blood Cells, Urine 25-50 /hpf (0-5)
[2017-08-10 12:23] LABS: Renal Epithelial Few /hpf (0-Rare)
== END | disposition home or self-care (01) ==
LOC: LAB 11:46
PROVIDERS: Internal Medicine Nephrology
DX: N39.0 Urinary tract infection, site not specified (principal)
CPT/HCPCS: 81001; 87077; 87086; 87186

== ENCOUNTER → 2017-11-25 | Outpatient (CLI) | payer MEDICARE, BC | LOC: LAB SHORT 07:52 → PLD 07:52 | DX: D04.39 Carcinoma in situ of skin of other parts of face (principal) | CPT/HCPCS: 88305 ==

== ENCOUNTER → 2018-03-11 | Outpatient (CLI) | payer MEDICARE, BC ==
[2018-03-11 15:49] LABS: Hematocrit 28.4 % (33.0-51.0); Hemoglobin 9.4 g/dL (11.5-16.0)
== END | disposition home or self-care (01) ==
LOC: LAB DAV 15:41
PROVIDERS: Internal Medicine Nephrology
DX: N18.6 End stage renal disease (principal); D63.1 Anemia in chronic kidney disease
CPT/HCPCS: 85014; 85018

== ENCOUNTER → 2018-03-12 | Outpatient (CLI) | payer MEDICARE, BC ==
[2018-03-13 13:35] LABS: Stool Occult Bld Immuno 1 Positive (NEGATIVE)
== END | disposition home or self-care (01) ==
LOC: LAB 09:14 → LAB SHORT 09:14
PROVIDERS: Internal Medicine Nephrology
DX: D64.9 Anemia, unspecified (principal)
CPT/HCPCS: 82274

== ENCOUNTER 2018-03-18 15:11 | Inpatient (IN) | payer MEDICARE, BC ==
[~2018-03-18] VITALS: Ht 149.9 cm; Wt 75.0 kg
[2018-03-18] MEDS ORDERED: Midodrine HCl5 MG PO (16:15)
[2018-03-18] MEDS ORDERED: ATORVASTATIN CA10 MG PO (16:15)
[2018-03-18 16:35] LABS: BASOPHILS ABSOLUTE AUTO 0.06 K/mm3 (0.00-0.23); BASOPHILS PERCENT AUTO 1 % (0-2); EOSINOPHILS ABSOLUTE AUTO 0.33 K/mm3 (0.00-0.68); EOSINOPHILS PERCENT AUTO 5 % (0-6); Hematocrit 24.7 % (33.0-51.0); IMMATURE GRAN ABSOLUTE AUTO 0.04 K/mm3 (0.00-0.10); IMMATURE GRAN PERCENT AUTO 1 % (0-1); LYMPHOCYTES ABSOLUTE AUTO 1.34 K/mm3 (0.84-5.20); LYMPHOCYTES PERCENT AUTO 20 % (21-46); MONOCYTES ABSOLUTE AUTO 0.38 K/mm3 (0.16-1.47); MONOCYTES PERCENT AUTO 6 % (4-13); Mean Corpuscular HGB 35.4 pg (26.0-34.0); Mean Corpuscular HGB Conc 32.4 g/dL (31.5-36.5); Mean Corpuscular Volume 109 fL (80-100); Mean Platelet Volume 11.2 fL (9.1-12.4); NEUTROPHILS ABSOLUTE AUTO 4.41 K/mm3 (1.96-9.15); NEUTROPHILS PERCENT AUTO 67 % (41-73); Platelet Count 306 K/mm3 (150-400); RDW Standard Deviation 63.2 fL (35.1-46.3); Red Blood Cell Count 2.26 M/mm3 (3.80-5.20); White Blood Cell Count 6.56 K/mm3 (4.00-11.30)
[2018-03-18 16:53] LABS: Percent Saturation 31.6 % (15.0-50.0)
[2018-03-18 16:55] LABS: International Normalized Ratio 0.96; Prothrombin Time Results 9.9 Sec (9.7-11.5)
[2018-03-18 17:04] LABS: Albumin, Blood 4.1 g/dL (3.4-5.0); Albumin/Globulin Ratio 1.1 (0.8-1.8); Bilirubin, Total 0.2 mg/dL (0.1-1.0); Bun/Creatinine Ratio 9.4 (12.0-20.0); Calcium, Blood 8.8 mg/dL (8.5-10.1); Creatinine, Blood 1.71 mg/dL (0.40-1.00); Globulin, Blood 3.6 g/dL (2.2-4.0); Potassium, Blood 3.2 mmol/L (3.5-5.5); Total Protein, Blood 7.7 g/dL (6.4-8.2)
[2018-03-18 17:12] LABS: Magnesium, Blood 1.8 mg/dL (1.6-2.4); Phosphorus, Blood 2.8 mg/dL (2.5-4.9)
--- NOTE | 2018-03-18 19:12 | NUR ---
SHIFT SUMMARY PT ARRIVED TO UNIT APPROX. 181. A&OX4, ASSESSMENT COMPLETED. VITAL SIGNS STABLE. PT ORIENTED TO ROOM, UNIT AND PROTOCOLS. PT ABLE TO TRANSFER FROM GURNEY TO BED WITH USE OF CANE AND TOLERATED WELL. PRB'S CURRENLTY RUNNING AT THIS TIME. MEDICATIONS REVIEWED WITH PT. FAMILY AT BEDSIDE AT THIS TIME. BED IN LOW POSITION, CALL LIGHT IN REACH AND PT DENIES ANY NEEDS AT THIS TIME. WILL CONTINUE TO MONITOR UNTIL HANDOFF TO NIGHTSHIFT RN.
--- NOTE | 2018-03-18 22:24 | NUR ---
DR. VERA IN ROOM.
--- NOTE | 2018-03-19 00:01 | NUR ---
PT SLEEPING, CPAP IN PLACE WITH 2L O2 PLUMBED IN. SATS WNL ON CONTINOUS BIOX. CALL LIGHT WITHIN REACH. BED IN LOW POSITION. FLUIDS AT BEDSIDE. SON SLEEPING OVER TONIGHT. HELD MIDNIGHT CBG CHECK - PT HAD STATED EARLIER SHE WAS CONCERNED BECAUSE OF MINIMAL INTAKE DURING THE DAY TODAY, HOWEVER DR. GRIMES CAME IN, AND ORDERS WERE CHANGED TO FULL LIQUID DIET - PT ATE TWO YOGURTS. I CALLED AND ASKED FOR A CBG ORDER EARLIER, DUE TO PT'S CONCERN OF POOR PO INTAKE.
--- NOTE | 2018-03-19 00:26 | NUR ---
LAB IN DRAWING 0500 LABS NOW - REVIEWED ALL AM LABS WITH ELISE REED - KEEPING 0900 [facility] LAB.
[2018-03-19 00:50] LABS: Hematocrit 27.6 % (33.0-51.0); Mean Corpuscular HGB 34.4 pg (26.0-34.0); Mean Corpuscular HGB Conc 32.6 g/dL (31.5-36.5); Mean Corpuscular Volume 105 fL (80-100); Mean Platelet Volume 10.6 fL (9.1-12.4); Platelet Count 231 K/mm3 (150-400); RDW Coefficient Variation 17.2 % (11.7-14.2); RDW Standard Deviation 64.6 fL (35.1-46.3); Red Blood Cell Count 2.62 M/mm3 (3.80-5.20); White Blood Cell Count 5.06 K/mm3 (4.00-11.30)
--- NOTE | 2018-03-19 00:56 | NUR ---
PT HAS AN ADVANCE DIRECTIVE ON FILE, BUT NO POLST ON FILE.
[2018-03-19 01:05] LABS: Albumin, Blood 3.3 g/dL (3.4-5.0); Anion Gap 11 mmol/L (6-16); Blood Urea Nitrogen 24 mg/dL (8-24); Bun/Creatinine Ratio 9.5 (12.0-20.0); CO2, Blood 32 mmol/L (21-32); Calcium, Blood 8.3 mg/dL (8.5-10.1); Chloride, Blood 96 mmol/L (98-108); Creatinine, Blood 2.52 mg/dL (0.40-1.00); Glomerular Filtration Rate 19 (60-); Glucose, Blood 206 mg/dL (70-99); Magnesium, Blood 1.7 mg/dL (1.6-2.4); Phosphorus, Blood 5.1 mg/dL (2.5-4.9); Potassium, Blood 3.3 mmol/L (3.5-5.5); Sodium, Blood 139 mmol/L (136-145)
--- NOTE | 2018-03-19 04:53 | NUR ---
SHIFT SUMMARY - NO ACUTE CHANGES THROUGHOUT THE NIGHT. PT RECEIVED 2 UNITS PRBC'S WITHOUT COMPLICATIONS. PROTONIX DRIP CONTINUES INFUSING. PT UP TO BSC WITH SBA - MEDIUM FORMED BM THIS AM - MOSTLY [place] IN COLOR WITH SMALL AMOUNT OF BLACK MIXED IN. PT DENIED FEELING DIZZY OR LIGHTHEADED WITH AMBULATION TO BSC. FLUIDS AT BEDSIDE. CALL LIGHT WITHIN REACH. BED IN LOW POSITION. WILL CONTINUE TO MONITOR UNTIL AM SHIFT.
--- NOTE | 2018-03-19 06:13 | NUR ---
POTASSIUM INFUSING, SLOWED INFUSION DOWN, DUE TO PT COMPLAINING OF RIGHT ARM PAIN.
--- NOTE | 2018-03-19 07:44 | NUR ---
PCU DAYSHIFT ASSUMED CARE OF PT APPROX 0700. PT A&O X4. ASSESSMENT COMPLETED. VITAL SIGNS STABLE. OXYGEN IN 90'S ON ROOM AIR. PT REPORTS WEARING CPAP AT NIGHT WHILE SLEEPING. DIALYSIS PORT ON RIGHT UPPER CHEST. DRESSING CLEAN, DRY AND INTACT. TELEMETRY IN PLACE. PT CURRENLTY LAYING IN BED RESTING AT THIS TIME. BED IN LOW POSTION, BED ALARM ON, CALL LIGHT IN REACH AND PT DENIES ANY NEEDS AT THIS TIME.
[2018-03-19 09:19] LABS: Hematocrit 27.4 % (33.0-51.0)
--- NOTE | 2018-03-19 10:39 | NUR ---
ESCORTED PT VIA WHEELCHAIR TO DIALYSIS APPROX. 929. JERONIMO MILLER TO COMPLETED DIALYSIS ON PT.
--- NOTE | 2018-03-19 12:41 | NUR ---
ESCORTED PT VIA WHEEL CHAIR BACK TO UNIT FROM DIALYSIS. NO S/SX OF ACUTE DISTERSS. VITAL SIGNS STABLE UPON RETURN TO UNIT.
--- NOTE | 2018-03-19 14:55 | NUR ---
I ask permission to come into see the patient and it was granted. Patient's room was full of family and friends. Everyone, including the patient was warm and welcoming. Patient stated an uneasiness over her possible diagnosis and was eager to complete all the tests that would determine the cause of the internal bleeding. I normalized her experince and provided anxiety containment. I also reaffirmed her arlin and God's care over her. Patient expressed that she had a reduction in stress and a taoist in her arlin. She said I would be welcomed to come visit any time.
--- NOTE | 2018-03-19 15:19 | NUR ---
APPROX 1500 PT TRANSFERS TO [facility] FROM BED. PT TRANSPORTED FROM UNIT BY PEER STAFF MEMBER FOR EGD.
--- NOTE | 2018-03-19 15:22 | NUR ---
UP TO SAMANTHA, WEAK, NEEDS STANDBY ASSIST. History, Chart, Medications and Allergies reviewed before start of procedure.Lungs clear T/O to Auscultation. Patient confirms NPO status and agrees with scheduled surgery. FAMILY AT BEDSIDE.
--- NOTE | 2018-03-19 16:24 | NUR ---
PT ARRIVED BACK TO UNIT FROM EGD PROCEDURE APPROX 1605. PT AWAKE AND ALERT AND ORIENTED AT THIS TIME. PT SLID OVER FROM GURNERY TO BED. VITAL SIGNS DONE AND STABLE AT THIS TIME. WILL CONTINUE TO MONITOR PT PER POST OP PROTOCOLS.
--- NOTE | 2018-03-19 17:52 | NUR ---
SHIFT SUMMARY PT PLEASANT, COOEPRATIVE AND USES CALL LIGHT APPROPRIATELY. CONTINUING TO MONITOR PT PER POST OP PROTOCOL. BLOOD PRESSURE SLIGHTLY ELEVATED UPON RETURN TO UNIT BUT HAS BEEN TRENDING DOWN SINCE THEN. ALL OTHER VITAL SIGNS STABLE. PT REPORTS THROAT SORE, OTHERWISE NO S/SX OF ACUTE DISTRESS. PT ADVANCING DIET TOLERATED AT THIS TIME. ALL OTHER ASSESSMENT FINDINGS REMAIN UNCHANGED. FAMILY AT BEDSIDE. BED IN LOW POSITION, BED ALARM ON, CALL LIGHT IN REACH AND PT DENIES ANY NEEDS AT THIS TIME. WILL CONTINUE TO MONITOR UNTIL HANDOFF TO NIGHTSHIFT RN.
--- NOTE | 2018-03-20 05:06 | NUR ---
SHIFT SUMMARY - NO ACUTE CHANGES THROUGHOUT THIS SHIFT. PT HAS OCCASIONALLY BEEN ON THE NEEDY SIDE, BUT HAS BEEN PLEASANT AND COOPERATIVE WITH CARE. PT HASN'T COMPLAINED OF ANY ABDOMINAL COMFORT THROUGHOUT THE NIGHT. PT DID REPORT HER THROAT BEING SORE - PT HAS HARD CANDY AT BEDSIDE TO HELP WITH THIS - PT HAD AN UPPER ENDOSCOPY YESTERDAY. PT TOLERATED PO FOOD/FLUIDS DURING THE NIGHT. PT HAS BEEN SLEEPING THE LAST SEVERAL HOURS WITH HER HOME CPAP IN PLACE - CONTINUOUS BIOX ON - SATS WNL. FLUIDS AT BEDSIDE. BED IN LOW POSITION. CALL LIGHT WITHIN REACH. PT HAS BEEN APPROPRIATE WITH USE OF THE CALL LIGHT THROUGHOUT THE NIGHT.
[2018-03-20 05:53] LABS: Hematocrit 28.1 % (33.0-51.0); Hemoglobin 9.1 g/dL (11.5-16.0)
[2018-03-20 06:18] LABS: Albumin, Blood 3.3 g/dL (3.4-5.0); Anion Gap 10 mmol/L (6-16); Blood Urea Nitrogen 26 mg/dL (8-24); CO2, Blood 30 mmol/L (21-32); Calcium, Blood 8.7 mg/dL (8.5-10.1); Chloride, Blood 93 mmol/L (98-108); Creatinine, Blood 2.89 mg/dL (0.40-1.00); Glomerular Filtration Rate 16 (60-); Glucose, Blood 104 mg/dL (70-99); Magnesium, Blood 1.9 mg/dL (1.6-2.4); Phosphorus, Blood 7.3 mg/dL (2.5-4.9); Potassium, Blood 3.8 mmol/L (3.5-5.5); Sodium, Blood 133 mmol/L (136-145)
--- NOTE | 2018-03-20 11:03 | NUR ---
Assumed Care: Assumed care of pt at approx 0700. VSS. In no apparent sign of distress. Pt is A&Ox4. Calls appropriately and repositions self. C/o pain - medicated per emar. Pt states that she also takes 300mg gabapentin bid - will update Dr. Killian. Pt due for dialysis at 0915 this AM. Likely will DC home today. Pt denies any acute complaints or questions at this time. Will continue to thea.
--- NOTE | 2018-03-20 11:56 | NUR ---
PATIENT FINISHED DIALYSIS. TRANSPORTED BACK TO ROOM PCU 11 IN HER BED.
[2018-03-20] MEDS ORDERED: ATORVASTATIN CA10 MG PO (12:54)
--- NOTE | 2018-03-20 13:43 | NUR ---
Discharge Pt being discharged at this time. Accompanied by family and PCU GROCERY STORE BAGGER via wheelchair and belongings in hand. Educated and provided with DC instructions. Pt in no apparent sign of distress at time of transfer. Pt denies any further questions, complaints or requests at this time.
--- NOTE | 2018-03-20 16:35 | NUR ---
Deena was checking out but stopped me and ask for a few minutes. I listened empthically as the patient shared family unit complications. I gave pastoral aids counselor and agreed to follow up on giving spiritual care to a family member who was visiting with her. Patient thanked me repeatedly.
[2018-05-05] MEDS ORDERED: CVS DISPOSABLE399 ML (10:41)
== END 2018-03-20 13:55 | disposition home or self-care (01) | DRG 302 ==
LOC: ER 15:11 → PCU 17:10
PROVIDERS: Internal Medicine Gastroenterology; Internal Medicine Nephrology; Nurse Practitioner Acute Care; Physician Assistant; ADMIT Internal Medicine
PROC: 0DJ08ZZ Inspection of Upper Intestinal Tract, Via Natural or Artificial Opening Endoscopic (ICD-10-PCS; principal; 2018-03-19 15:30)
DX: I99.8 Other disorder of circulatory system (principal); N18.6 End stage renal disease; D62 Acute posthemorrhagic anemia; E87.1 Hypo-osmolality and hyponatremia; E11.40 Type 2 diabetes mellitus with diabetic neuropathy, unspecified; K21.9 Gastro-esophageal reflux disease without esophagitis; J44.9 Chronic obstructive pulmonary disease, unspecified; I25.10 Atherosclerotic heart disease of native coronary artery without angina pectoris; Z99.81 Dependence on supplemental oxygen; M19.90 Unspecified osteoarthritis, unspecified site; Z99.2 Dependence on renal dialysis; Z86.010 Personal history of colon polyps; G47.33 Obstructive sleep apnea (adult) (pediatric); Z79.82 Long term (current) use of aspirin; E11.22 Type 2 diabetes mellitus with diabetic chronic kidney disease; E86.1 Hypovolemia; E87.6 Hypokalemia; E61.1 Iron deficiency; I25.2 Old myocardial infarction; I05.0 Rheumatic mitral stenosis; I12.0 Hypertensive chronic kidney disease with stage 5 chronic kidney disease or end stage renal disease
CPT/HCPCS: 36415; 36430; 80048; 80053; 80069; 82272; 82607; 82746; 82947; 83540; 83550; 83735; 84100; 85014; 85018; 85025; 85027; 85610; 86850; 86900; 86901; 86923; 93005; 93010; 94660; 94762; 96360; 96361; 99285-25; C9113; J0881; J3480; J7030; P9016

== ENCOUNTER 2018-04-07 21:58 | Emergency (ER) | payer MEDICARE, BC ==
[~2018-04-07] VITALS: Ht 149.9 cm; Wt 106.6 kg
[~2018-04-07 21:58] MED LIST changes: +ATORVASTATIN CA10 MG PO; +Midodrine HCl5 MG PO
[2018-04-07 22:25] LABS: Chloride (POC) 93 mmol/L (98-108); Creatinine (POC) 5.1 mg/dL (0.6-1.0); Glucose (ISTAT POC) 161 mg/dL (70-99); Hemoglobin (POC) 10.9 g/dL (12.0-16.0); Potassium (POC) 4.8 mmol/L (3.5-5.5); Sodium (POC) 132 mmol/L (135-148); Total CO2 (POC) 29 mmol/L (21-32)
[2018-04-07 22:30] LABS: Source, Urine Catheter
[2018-04-07 22:35] LABS: BASOPHILS ABSOLUTE AUTO 0.02 K/mm3 (0.00-0.23); BASOPHILS PERCENT AUTO 0 % (0-2); EOSINOPHILS ABSOLUTE AUTO 0.58 K/mm3 (0.00-0.68); EOSINOPHILS PERCENT AUTO 12 % (0-6); Hematocrit 32.7 % (33.0-51.0); Hemoglobin 10.4 g/dL (11.5-16.0); IMMATURE GRAN ABSOLUTE AUTO 0.03 K/mm3 (0.00-0.10); IMMATURE GRAN PERCENT AUTO 1 % (0-1); LYMPHOCYTES ABSOLUTE AUTO 0.29 K/mm3 (0.84-5.20); LYMPHOCYTES PERCENT AUTO 6 % (21-46); MONOCYTES PERCENT AUTO 6 % (4-13); Mean Corpuscular HGB 34.2 pg (26.0-34.0); Mean Corpuscular HGB Conc 31.8 g/dL (31.5-36.5); Mean Corpuscular Volume 108 fL (80-100); Mean Platelet Volume 11.5 fL (9.1-12.4); NEUTROPHILS ABSOLUTE AUTO 3.45 K/mm3 (1.96-9.15); NEUTROPHILS PERCENT AUTO 74 % (41-73); Platelet Count 149 K/mm3 (150-400); RDW Coefficient Variation 15.2 % (11.7-14.2); RDW Standard Deviation 60.9 fL (35.1-46.3); Red Blood Cell Count 3.04 M/mm3 (3.80-5.20); White Blood Cell Count 4.67 K/mm3 (4.00-11.30)
[2018-04-07 22:37] LABS: Appearance, Urine Cloudy (Clear); Bilirubin, Urine Neg (Neg); Blood, Urine 4+ (Neg); Color, Urine Yellow (P-Yellow); Glucose Qualitative, Urine Neg (Neg); Ketones, Urine Neg (Neg); Leukocyte Esterase, Urine 3+ (Neg); Nitrite, Urine Neg (Neg); Protein, Urine 4+ (Neg); Urobilinogen, Urine NORM (Normal)
[2018-04-07 22:45] LABS: Bacteria Many /hpf; Squamous Epithelial Cells Not Seen /hpf (Few); White Blood Cells, Urine TNTC /hpf (0-5)
[2018-04-07 22:52] LABS: Alanine Aminotransfer (ALT/SGP 39 U/L (12-78); Albumin, Blood 3.2 g/dL (3.4-5.0); Albumin/Globulin Ratio 0.9 (0.8-1.8); Alk Phos 139 U/L (50-136); Anion Gap 15 mmol/L (6-16); Aspartate Aminotrans (AST/SGOT 91 U/L (12-37); Bilirubin, Total 0.8 mg/dL (0.1-1.0); Blood Urea Nitrogen 51 mg/dL (8-24); Bun/Creatinine Ratio 10.3 (12.0-20.0); CO2, Blood 26 mmol/L (21-32); Calcium, Blood 7.9 mg/dL (8.5-10.1); Chloride, Blood 94 mmol/L (98-108); Creatinine, Blood 4.96 mg/dL (0.40-1.00); Globulin, Blood 3.5 g/dL (2.2-4.0); Glomerular Filtration Rate 9 (60-); Glucose, Blood 159 mg/dL (70-99); Sodium, Blood 135 mmol/L (136-145); Total Protein, Blood 6.7 g/dL (6.4-8.2); Troponin I <0.015 ng/mL (0.000-0.040)
[2018-04-07] MEDS ORDERED: CEPH500 PO (23:15)
[2018-05-05] MEDS ORDERED: CVS DISPOSABLE399 ML (10:41)
== END 2018-04-08 01:01 | disposition home or self-care (01) ==
LOC: ER 21:58
PROVIDERS: Emergency Medicine
DX: N39.0 Urinary tract infection, site not specified (principal); Z88.8 Allergy status to other drugs, medicaments and biological substances; Z88.0 Allergy status to penicillin; Z88.5 Allergy status to narcotic agent; Z79.899 Other long term (current) drug therapy; E11.22 Type 2 diabetes mellitus with diabetic chronic kidney disease; N18.9 Chronic kidney disease, unspecified; D64.9 Anemia, unspecified; K21.9 Gastro-esophageal reflux disease without esophagitis; J44.9 Chronic obstructive pulmonary disease, unspecified; Z87.891 Personal history of nicotine dependence
CPT/HCPCS: 36415; 80047; 80053; 81001; 83690; 84484; 85014; 85025; 87086; 87147; 93005; 93010; 96361; 96374; 99285-25; J0696; J7030; P9612

== ENCOUNTER 2018-04-08 14:41 | Inpatient (IN) | payer MEDICARE, BC ==
[~2018-04-08] VITALS: Ht 132.1 cm; Wt 80.0 kg
[2018-04-08 16:33] LABS: BASOPHILS ABSOLUTE AUTO 0.03 K/mm3 (0.00-0.23); BASOPHILS PERCENT AUTO 1 % (0-2); EOSINOPHILS ABSOLUTE AUTO 0.46 K/mm3 (0.00-0.68); EOSINOPHILS PERCENT AUTO 9 % (0-6); Hemoglobin 9.9 g/dL (11.5-16.0); IMMATURE GRAN ABSOLUTE AUTO 0.03 K/mm3 (0.00-0.10); IMMATURE GRAN PERCENT AUTO 1 % (0-1); LYMPHOCYTES ABSOLUTE AUTO 0.39 K/mm3 (0.84-5.20); LYMPHOCYTES PERCENT AUTO 7 % (21-46); MONOCYTES PERCENT AUTO 6 % (4-13); Mean Corpuscular HGB 33.2 pg (26.0-34.0); Mean Corpuscular HGB Conc 31.9 g/dL (31.5-36.5); Mean Platelet Volume 11.3 fL (9.1-12.4); NEUTROPHILS ABSOLUTE AUTO 4.07 K/mm3 (1.96-9.15); NEUTROPHILS PERCENT AUTO 77 % (41-73); Platelet Count 109 K/mm3 (150-400); RDW Standard Deviation 57.5 fL (35.1-46.3); Red Blood Cell Count 2.98 M/mm3 (3.80-5.20); White Blood Cell Count 5.28 K/mm3 (4.00-11.30)
[2018-04-08 16:34] LABS: Mean Corpuscular Volume 104 fL (80-100)
[2018-04-08 16:47] LABS: Source, Urine Catheter
[2018-04-08 16:52] LABS: International Normalized Ratio 1.08; Prothrombin Time Results 11.4 Sec (9.7-11.5)
[2018-04-08 16:54] LABS: Bilirubin, Urine Neg (Neg); Blood, Urine 2+ (Neg); Glucose Qualitative, Urine Neg (Neg); Ketones, Urine 1+ (Neg); Leukocyte Esterase, Urine 3+ (Neg); Nitrite, Urine Neg (Neg); Protein, Urine 3+ (Neg); Urobilinogen, Urine NORM (Normal)
[2018-04-08 17:06] LABS: Color, Urine Yellow (P-Yellow)
[2018-04-08 17:07] LABS: Appearance, Urine Hazy (Clear)
[2018-04-08 17:08] LABS: White Blood Cells, Urine 50-100 /hpf (0-5)
[2018-04-08 17:09] LABS: Bacteria Mod /hpf; Squamous Epithelial Cells Rare /hpf (Few)
[2018-04-08 17:15] LABS: Albumin, Blood 3.1 g/dL (3.4-5.0); Albumin/Globulin Ratio 0.9 (0.8-1.8); Bilirubin, Total 0.7 mg/dL (0.1-1.0); Bun/Creatinine Ratio 8.6 (12.0-20.0); Calcium, Blood 7.9 mg/dL (8.5-10.1); Creatinine, Blood 3.48 mg/dL (0.40-1.00); Globulin, Blood 3.5 g/dL (2.2-4.0); Potassium, Blood 3.3 mmol/L (3.5-5.5); Total Protein, Blood 6.6 g/dL (6.4-8.2)
[2018-04-09 05:13] LABS: BASOPHILS ABSOLUTE AUTO 0.04 K/mm3 (0.00-0.23); BASOPHILS PERCENT AUTO 1 % (0-2); EOSINOPHILS ABSOLUTE AUTO 0.58 K/mm3 (0.00-0.68); EOSINOPHILS PERCENT AUTO 10 % (0-6); Hematocrit 31.9 % (33.0-51.0); Hemoglobin 9.9 g/dL (11.5-16.0); IMMATURE GRAN ABSOLUTE AUTO 0.02 K/mm3 (0.00-0.10); IMMATURE GRAN PERCENT AUTO 0 % (0-1); LYMPHOCYTES ABSOLUTE AUTO 0.44 K/mm3 (0.84-5.20); LYMPHOCYTES PERCENT AUTO 8 % (21-46); MONOCYTES ABSOLUTE AUTO 0.22 K/mm3 (0.16-1.47); MONOCYTES PERCENT AUTO 4 % (4-13); Mean Corpuscular HGB 32.9 pg (26.0-34.0); Mean Corpuscular Volume 106 fL (80-100); Mean Platelet Volume 11.5 fL (9.1-12.4); NEUTROPHILS PERCENT AUTO 77 % (41-73); Platelet Count 113 K/mm3 (150-400); RDW Standard Deviation 58.7 fL (35.1-46.3); Red Blood Cell Count 3.01 M/mm3 (3.80-5.20)
[2018-04-09 05:40] LABS: Albumin, Blood 2.9 g/dL (3.4-5.0); Anion Gap 12 mmol/L (6-16); Blood Urea Nitrogen 40 mg/dL (8-24); Bun/Creatinine Ratio 9.6 (12.0-20.0); CO2, Blood 30 mmol/L (21-32); Calcium, Blood 7.9 mg/dL (8.5-10.1); Chloride, Blood 97 mmol/L (98-108); Creatinine, Blood 4.16 mg/dL (0.40-1.00); Glomerular Filtration Rate 11 (60-); Glucose, Blood 134 mg/dL (70-99); Phosphorus, Blood 6.2 mg/dL (2.5-4.9); Potassium, Blood 3.7 mmol/L (3.5-5.5); Sodium, Blood 139 mmol/L (136-145)
--- NOTE | 2018-04-09 06:16 | NUR ---
SHIFT SUMMARY PT WAS A NEW ADMIT AT THE END OF THE PREVIOUS SHIFT. SHE IS AN 83 Y/O W, ADMITTED FOR SEPSIS AND UTI. SHE IS A&O X 3, THOUGH OCCASIONALLY FORGETFUL, AND ABLE TO MOVE 1PA TO A BSC. SHE REPORTED CHRONIC PAIN IN HER LEGS, FOR WHICH SHE WAS MEDICATED X 2 WITH PRN OXYCODONE. SHE DENIED ANY NAUSEA OR ACUTE SOB. VITAL SIGNS REMAINED STABLE. NO OTHER ACUTE CHANGES IN PT CONDITION NOTED. WILL CONTINUE TO MONITOR AND TREAT PER EMAR UNTIL HAND OFF TO DAY SHIFT.
--- NOTE | 2018-04-09 10:28 | NUR ---
Initial Visit: Palliative Care Consult for AD/POLST. Pt is A&O x 4 and reports 7/10 pain in her legs. Pt's nurse notified. Pt reports dyspnea as well. Engaged in therapeutic conversation of Pt's family and goals of treatment. Difficult to stay on topic due to Pt answering cell phone continuously. Pt reported she is of tenriism arlin and has 10 children between her and her current and many grandchildren and great grandchildren. She reports that she has adequate support at home. Attempted to discuss Pt's goals including advance directive and code status with no success due to distraction of phone calls. Spoke with Pt's nurse Robb and discussed Pt's gabapentin. Pt reports that she take 300mg twice a day and emar shows 300mg at bed time. She reports that she will discuss this with hospitalist. Plan is to have further discussion with Pt about goals of care and code status at a later date or time. Will remain available.
--- NOTE | 2018-04-09 14:20 | NUR ---
I entered room to find patient sitting up in bed with several family members and friends bedside. Patient and family are known to me from prior spiritual care visits. Patient easily told stories of family life, loss of loved ones and relationship complications. I listened empathically, conducted a life review, normalized patient's experince and provided prayer. Patient and family voiced appreciation and and showed signs of elevated hope and peace.
--- NOTE | 2018-04-09 17:28 | NUR ---
Pt visit this evening. Pt requested to be DNR and she added adendum to her advanced directive. Pt and report no other concerns. Placed DNR order in [facility] per V/O from Dr Addison. Spoke with Pt's nurse Hyacinth and she agrees with plan.
--- NOTE | 2018-04-09 18:38 | NUR ---
SHIFT SUMMARY NO ACUTE CHANGES. PATIENT MEDICATED FOR PAIN X 2 THIS SHIFT. PATIENT MET WITH PALLIATIVE CARE NURSE. PATIENT CODE STATUS CHANGED TO DNR. CALL LIGHT IN REACH, WILL CONTINUE TO MONITOR.
[2018-04-10 05:03] LABS: Hematocrit 31.8 % (33.0-51.0); Hemoglobin 10.3 g/dL (11.5-16.0)
[2018-04-10 05:33] LABS: Albumin, Blood 2.9 g/dL (3.4-5.0); Anion Gap 14 mmol/L (6-16); Blood Urea Nitrogen 57 mg/dL (8-24); Bun/Creatinine Ratio 10.5 (12.0-20.0); CO2, Blood 26 mmol/L (21-32); Calcium, Blood 8.1 mg/dL (8.5-10.1); Chloride, Blood 94 mmol/L (98-108); Creatinine, Blood 5.45 mg/dL (0.40-1.00); Glomerular Filtration Rate 8 (60-); Glucose, Blood 93 mg/dL (70-99); Magnesium, Blood 1.9 mg/dL (1.6-2.4); Phosphorus, Blood 6.2 mg/dL (2.5-4.9); Potassium, Blood 4.2 mmol/L (3.5-5.5); Sodium, Blood 134 mmol/L (136-145)
--- NOTE | 2018-04-10 06:01 | NUR ---
*SHIFT SUMMARY* PT IS ALERT AND ABLE TO ANSWER QUESTIONS, DOES HAVE INTERMITTEN CONFUSION AT TIMES. PATIENT WEARS CPAP AT NIGHT. PATIENT WOKE UP DURING THE NIGHT COMPLAINING OF PAIN, MEDICATED FOR PAIN- SEE EMAR. PATIENT'S OXYGEN SATURATIONS DID DECREASE INTO THE MID 80'S THROUGHOUT THE NIGHT WITH CPAP ON AND INCREASED WITH DEEP BREATHS. NO ACUTE CHANGES IN PATIENT STATUS. CALL LIGHT WITHIN REACH, BED LOWERED AND LOCKED.
--- NOTE | 2018-04-10 06:32 | NUR ---
PT IS CONCERNED THAT SHE HAS THRUSH AND WOULD LIKE THE [facility] DOCTOR TO KNOW ABOUT IT. SHE STATES IT IS PAINFUL AND SHE HAS HAD IT BEFORE. WILL NOTIFY [facility] PAUL.
--- NOTE | 2018-04-10 17:42 | NUR ---
SHIFT SUMMARY PT HAS HAD NO ACUTE CHANGES THIS SHIFT, MEDICATED 3X FOR PAIN. SPOUSE AT BEDSIDE AT THIS TIME, PT APPEARS TO BE SLEEPING AT THIS TIME, WILL CONT TO MONITOR UNTIL REPORT GIVEN TO NOC RN.
--- NOTE | 2018-04-11 05:24 | NUR ---
SHIFT SUMMARY PT UP TO BS FOR BM DURING SHIFT REPORT. VERY WEAK, 2P HEAVY ASSIST. PT SEEMED VERY MISERABLE AND NEEDY AT HS. C/O MID-EPIGASTRIC PAIN AFTER VS TAKEN. REPORTED PT DOES HAVE HX OF GERD. PT ALSO C/O NERVE PAIN IN HER LEGS. VS RECHECK'D; UNCHANGED. HS MEDS GIVEN PER EMAR. PT CALMED, BUT THEN SPILLED WATER ON GOWN AND LINENS. PT CLEANED AND CHANGED AND THEN FINALLY WENT TO SLEEP. PT HAS RESTED WELL, ONCE GOING TO SLEEP, BUT VERY NEEDY WHILE AWAKE. DIALYSIS YESTERDAY. PT REPORTED THAT SHE ONLY VOIDS A COUPLE OF TIMES A DAY R/T ESRD. 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 LUNGS T/O WITH CRACKLES IN THE BASES. CALL LT IN REACH.
[2018-04-11 05:34] LABS: Hematocrit 28.8 % (33.0-51.0); Hemoglobin 9.1 g/dL (11.5-16.0)
[2018-04-11 06:03] LABS: Albumin, Blood 2.5 g/dL (3.4-5.0); Anion Gap 11 mmol/L (6-16); Blood Urea Nitrogen 47 mg/dL (8-24); Bun/Creatinine Ratio 10.1 (12.0-20.0); CO2, Blood 28 mmol/L (21-32); Calcium, Blood 8.2 mg/dL (8.5-10.1); Chloride, Blood 99 mmol/L (98-108); Creatinine, Blood 4.65 mg/dL (0.40-1.00); Glomerular Filtration Rate 10 (60-); Glucose, Blood 124 mg/dL (70-99); Phosphorus, Blood 5.4 mg/dL (2.5-4.9); Sodium, Blood 138 mmol/L (136-145)
[2018-04-11 17:09] LABS: Source, Urine Catheter
[2018-04-11 17:14] LABS: Appearance, Urine Cloudy (Clear); Bilirubin, Urine Neg (Neg); Blood, Urine 4+ (Neg); Color, Urine Yellow (P-Yellow); Glucose Qualitative, Urine Neg (Neg); Ketones, Urine Neg (Neg); Leukocyte Esterase, Urine 3+ (Neg); Nitrite, Urine Neg (Neg); Protein, Urine 3+ (Neg); Specific Gravity, Urine 1.015 (1.003-1.022); Urobilinogen, Urine NORM (Normal)
--- NOTE | 2018-04-11 17:31 | NUR ---
PT AOX3 TO 4 AT TIME. PT WAS LETHARGIC IN THE AM AND PERKED UP LATER IN THE MORING. PT WAS THEN ABLE TO ANSWER QUESTIONS BETTER. PT RESTING IN BED MOST OF THE DAY AND TREATED FOR PAIN PER EMAR. PT WAS GOTTEN UP IN A CHAIR BY PHYSICAL THERAPY AND THIS HELPED PT DEAL WITH HER NEUROPATHY. NO DITSTRESS NOTED AT THIS TIME. UA WAS COLLECTED WITH A STRAIGHT CATH AND PT TOLERATED WELL.
[2018-04-11 17:42] LABS: White Blood Cells, Urine TNTC /hpf (0-5)
[2018-04-11 17:43] LABS: Bacteria Few /hpf; Squamous Epithelial Cells Few /hpf (Few)
--- NOTE | 2018-04-11 23:01 | NUR ---
*LATE ENTRY 2114 HRS* PT WILL NOT SWALLOW PILLS, POCKETS OR HOLDS THEM IN MOUTH. OFFERED WATER AND PUDDING TO NO EFFECT. PT WILL NOT FOLLOW INSTRUCTION TO SWALLOW. NOTIFIED CHARGE. WILL HOLD 0600 MEDICATION AND PASS THIS INFORMATION ALONG TO DAYSHIFT NURSE FOR FOLLOW-THRU.
--- NOTE | 2018-04-12 00:23 | NUR ---
BLADDER SCAN COMPLETE BLADDER SCAN COMPLETED - 0 (ZERO) CC'S OF URINE REMAIN IN THE BLADDER. THIS RESULT WAS VERIFIED TWICE BY DIFFERENT NURSING STAFF.
--- NOTE | 2018-04-12 04:37 | NUR ---
SHIFT SUMMARY PT ADMITTED FOR PNEUMONIA/SEPSIS/UTI. SHE IS ON DROPLET/CONTACT PRECAUTIONS FOR MDRO - SPUTUM, AND VRE - URINE. SHE IS ON 2 LPM O2 VIA NC. SHE USES CPAP AT NIGHT. SHE IS ON TELEMETRY: NSR PAC'S/PVC'S @92 BPM PER PCU CLIENT TECHNICAL SUPPORT ASSOCIATE. A SPUTUM CULTURE IS STILL NEEDED. FOR ME SHE DID NOT SWALLOW HER PO MEDICATIONS, BUT INSTEAD HELD THEM IN HER MOUTH. SHE WOULD NOT SWALLOW WATER OR PUDDING TO SWISH THEM DOWN, SHE WOULD NOT OPEN HER MOUTH. HER FAMILY STATED THAT HER MENTATION WAS WORSE THAN EVER. SHE DID NOT RESPOND TO ME OR NURSING STAFF THROUGHOUT SHIFT. SCD'S ARE IN PLACE. SHE HAS A HX OF ESRD/ANEMIA, NEUROPATHY, DIABETES, COPD, CAD, SLEEP APNEA, AND HYPERLIPIDEMIA. ACHS-LOW SS. PT/OT RECOMMEND DC TO A SNF.
[2018-04-12 05:28] LABS: BASOPHILS ABSOLUTE AUTO 0.03 K/mm3 (0.00-0.23); BASOPHILS PERCENT AUTO 0 % (0-2); EOSINOPHILS ABSOLUTE AUTO 0.47 K/mm3 (0.00-0.68); EOSINOPHILS PERCENT AUTO 5 % (0-6); IMMATURE GRAN ABSOLUTE AUTO 0.04 K/mm3 (0.00-0.10); IMMATURE GRAN PERCENT AUTO 0 % (0-1); LYMPHOCYTES ABSOLUTE AUTO 0.81 K/mm3 (0.84-5.20); LYMPHOCYTES PERCENT AUTO 9 % (21-46); MONOCYTES PERCENT AUTO 6 % (4-13); Mean Corpuscular HGB 33.6 pg (26.0-34.0); Mean Corpuscular HGB Conc 32.1 g/dL (31.5-36.5); Mean Corpuscular Volume 105 fL (80-100); Mean Platelet Volume 11.9 fL (9.1-12.4); NEUTROPHILS ABSOLUTE AUTO 7.31 K/mm3 (1.96-9.15); NEUTROPHILS PERCENT AUTO 80 % (41-73); Platelet Count 185 K/mm3 (150-400); RDW Coefficient Variation 15.4 % (11.7-14.2); RDW Standard Deviation 59.5 fL (35.1-46.3); Red Blood Cell Count 2.68 M/mm3 (3.80-5.20); White Blood Cell Count 9.16 K/mm3 (4.00-11.30)
[2018-04-12 05:54] LABS: Albumin, Blood 2.3 g/dL (3.4-5.0); Anion Gap 12 mmol/L (6-16); Blood Urea Nitrogen 63 mg/dL (8-24); Bun/Creatinine Ratio 10.6 (12.0-20.0); CO2, Blood 27 mmol/L (21-32); Calcium, Blood 8.3 mg/dL (8.5-10.1); Chloride, Blood 99 mmol/L (98-108); Creatinine, Blood 5.95 mg/dL (0.40-1.00); Glomerular Filtration Rate 7 (60-); Glucose, Blood 105 mg/dL (70-99); Magnesium, Blood 2.2 mg/dL (1.6-2.4); Phosphorus, Blood 7.1 mg/dL (2.5-4.9); Potassium, Blood 4.5 mmol/L (3.5-5.5); Sodium, Blood 138 mmol/L (136-145)
[2018-04-12 14:29] LABS: PCO2 Arterial 47.7 mmHg (35-45); PO2 Arterial 73.2 mmHg (80-100); pH Blood Arterial 7.37 (7.35-7.45)
--- NOTE | 2018-04-12 19:54 | NUR ---
NEW ONSET AFIB/SVT AT 1840 PATIENT'S CONT. PULSE OX WAS ALARMING HEART RATE OF 170 BPM. RN CALLED U DIAZO TECHNICIAN WHO CONFIRMED HR SUSTAINED 160-170 BPM IRREGULAR SVT. OTHER VITAL SIGNS WERE WNL. I CALLED DR. Agusto TINSLEY WHO GAVE ME PHONE ORDER 5 MG IVP METOPROLOL NOW. AFTER DOSE OF IVT METOPROLOL PATIENTS HEART RATE IS ABOUT 140 BPM IN AFIB PER DIAZO TECHNICIAN. PATIENTS FAMILY DENIES ANY HISTORY OF IRREGULAR HEART BEAT.
--- NOTE | 2018-04-12 19:58 | NUR ---
SHIFT SUMMARY DAYS 04/12/18 PATIENT VERY SOMNOLENT AT 0700 04/12/18. WONT OPEN EYES, RESPONDS SLIGHLY TO PAINFUL STIMULI ONLY. DELIVERY REPRESENTATIVE NURSE WHO GAVE ME REPORT REPORTED PATIENT HAD BEEN SOMNOLENT DURING ENTIRE DELIVERY REPRESENTATIVE 04/11-04/12. DR. Soco EASON SAW PATIENT AND AWARE OF THIS NEW AMS. DR. Wesly EASON STATED TO ME THAT HE THOUGHT THE DOSES OF PERCOCET 04/11/18 WERE TO BLAME. HE WANTED HER TO HAVE DIALYSIS HOPING IT WOULD HELP MENTATION. PATIENT RETURNED TO MEDICAL FLOOR FROM DIALYSIS ABOUT 1300 04/12/18 WITH UNCHANGED AMS. EYES CLOSED, UNABLE TO FOLLOW COMMANDS RESPONDS ONLY TO PAINFUL STIMULI. I CALLED DR. Agusto TINSLEY AT ABOUT 1330 TO SEE PATIENT AND CONCERNED FAMILY MEMBERS. ORDERED NARCAN AND DEXTROSE D/T A CONCERN ABOUT DECREASING BLOOD SUGAR AND NPO STATUS. PATIENT WOKE UP ABOUT 1800 04/12/18. SHE IS AMERT TO SELF, FAMILY AND PLACE. EYES OPEN AND MAINTAINING EYE CONTACT. FOLLOWING COMMANDS. ABLE TO EXPRESS NEEDS AND CONCERNS.
--- NOTE | 2018-04-12 20:06 | NUR ---
NARCAN RESPONSE- I GAVE NARCAN ORDERED AT ABOUT 1400. PATIENT QUICKLY WOKE UP A LITTLE EVIDENCED BY OPENING EYES, EXPRESSING PAIN SEVERITY AND LOCATION. HOWEVER, PATIENT WAS YELLING, CRYING AND TRYING TO JUMP OUT OF BED D/T SEVERE PAIN IN LEGS. PATIENT ABLE TO RESPOND WITH ONE WORD APPROPRIATE RESPONSES AFTER ADMINISTRATION OF NARCAN- SHE WAS UNABLE TO REPOSND AT ALL PREVIOUS TO ADMINISTRATION. DR. Agusto TINSLEY CALLED CONCERNING SEVERE PAIN AND TO UPDATE HER ON NARCAN REPOSNSE. ORDERED PAIN RELIEF CREAM TO TRY ON LEGS BEFORE TRYING MORE NARCOTICS. THE PAIN RELIEF CREAM ACTUALLY WORKED VERY WELL. AFTER BEING IN SEVERE PAIN FOR ABOUT 1.5 HOURS PATIENT WAS ABLE TO SETTLE BACK DOWN WITH ADEQUATE PAIN CONTROL WITHOUT NARCOTICS. MENTAL STATUS STAYED AT-RESPONDING TO VERBAL WITH ONE WORD ANSWERS APPROPRIATE ANSWERS. OPENS EYES WHEN ASKED. BUT UNABLE TO KEEP EYES OPEN OR FOLLOW COMMANDS. PATIENT WOULD FALL BACK ASLEEP AFTER ABOUT 30 SECONDS AWAKE.
--- NOTE | 2018-04-12 23:03 | NUR ---
*LATE ENTRY* CALLED PT'S . APPROX 1939 DURING HANDOFF FROM [facility] NURSE WAS TOLD PT HAD TACHYCARDIA TO 170 BPM. SHE GAVE PT IV METOPROLOL 5MG, WHICH DROPPED PT'S HR TO 130'S. PT SYMPTOMATIC WITH CHEST PAIN AND DIAPHORESIS APPROX 1929. VS: BP 114/86, TEMP 97.8, 96-98% O2 SAT ON 3 LPM O2 VIA NC. CALLED PCU TECHNICAL ASSISTANCE CONSULTANT - PCU BRAND MARKETING INTERN INFORMED ME THAT HR WAS 138-140 WITH DEFINITE NEW ONSET OF AFIB. CALLED AND HE ORDERED IV METOPROLOL, CARDIZEM DRIP W/TRANSFER OF CARE TO PCU. * GAVE HANDOFF REPORT TO PCU NURSE, MIGDALIA. GAVE PT HX, MEDICATIONS, DX, SYMPTOMS, AND THE DETAIL OF EVENTS LEADING TO THE NEED FOR A TRANSFER (SEE ABOVE). PCU NURSE MIGDALIA HAD NO FURTHER QUESTIONS. PT WAS TRANSFERED WITHOUT INCIDENT. PT MEDICATIONS, HOME CPAP DEVICE, AND PERSONAL EFFECTS WERE SENT WITH HER. FAMILY WAS PRESENT AND ACCOMPANIED THE PT TO PCU.
[2018-04-13 05:34] LABS: BASOPHILS ABSOLUTE AUTO 0.02 K/mm3 (0.00-0.23); BASOPHILS PERCENT AUTO 0 % (0-2); EOSINOPHILS ABSOLUTE AUTO 0.62 K/mm3 (0.00-0.68); EOSINOPHILS PERCENT AUTO 6 % (0-6); Hematocrit 29.4 % (33.0-51.0); Hemoglobin 9.6 g/dL (11.5-16.0); IMMATURE GRAN ABSOLUTE AUTO 0.05 K/mm3 (0.00-0.10); IMMATURE GRAN PERCENT AUTO 1 % (0-1); LYMPHOCYTES ABSOLUTE AUTO 0.91 K/mm3 (0.84-5.20); LYMPHOCYTES PERCENT AUTO 9 % (21-46); MONOCYTES ABSOLUTE AUTO 0.66 K/mm3 (0.16-1.47); MONOCYTES PERCENT AUTO 7 % (4-13); Mean Corpuscular HGB 32.5 pg (26.0-34.0); Mean Corpuscular HGB Conc 32.7 g/dL (31.5-36.5); Mean Platelet Volume 11.5 fL (9.1-12.4); NEUTROPHILS ABSOLUTE AUTO 7.69 K/mm3 (1.96-9.15); NEUTROPHILS PERCENT AUTO 77 % (41-73); Platelet Count 202 K/mm3 (150-400); RDW Coefficient Variation 15.1 % (11.7-14.2); RDW Standard Deviation 55.2 fL (35.1-46.3); Red Blood Cell Count 2.95 M/mm3 (3.80-5.20); White Blood Cell Count 9.95 K/mm3 (4.00-11.30)
[2018-04-13 05:35] LABS: Mean Corpuscular Volume 100 fL (80-100)
[2018-04-13 05:54] LABS: Albumin, Blood 2.3 g/dL (3.4-5.0); Anion Gap 14 mmol/L (6-16); Blood Urea Nitrogen 55 mg/dL (8-24); Bun/Creatinine Ratio 11.1 (12.0-20.0); CO2, Blood 28 mmol/L (21-32); Calcium, Blood 8.9 mg/dL (8.5-10.1); Chloride, Blood 95 mmol/L (98-108); Creatinine, Blood 4.97 mg/dL (0.40-1.00); Glomerular Filtration Rate 9 (60-); Glucose, Blood 131 mg/dL (70-99); Magnesium, Blood 2.1 mg/dL (1.6-2.4); Phosphorus, Blood 5.8 mg/dL (2.5-4.9); Sodium, Blood 137 mmol/L (136-145)
--- NOTE | 2018-04-13 06:00 | NUR ---
SHIFT SUMMARY. RECEIVED PT FROM MED 340 TO POCU 11. AWAKE AND FORGETFUL OR A LITTLE DISORIENTED. MANY FAMILY MEMBERS THERE TO COAX HER W/ ALL STATEMENTS AND ANSWER FOR HER . FAMILY FEEDING PT CHUNKS OF FRUIT AND ENC NOT TO GIVE HER THIS WHILE STAFF EVALUATES HER MENTATION AND SWALLOWING ISSUES. PT AND FAMILY ALL EXPRESSED UNDERSTANDING OF IV MED TO BE GIVEN FOR IRREGULAR HR AND NOTED TO BE 140. BP WNL AND STARTED CARDIZEM AT 10 THEN SOON TO 15 MG HR. LEFT AT 15 ALL NOC BUT DID TURN DOWN TO 10 AT ABOUT 0430. REPOSITIONING EXTREMELY PAINFUL DUE TO REPORT OF BILAT ROTATOR CUFF INJURYS. YELLS OUT THROUGH MOST OF TURN. REASSURED. ACTIVE ROM UPPER EXT VERY POOR TO NONE, RARELY MOVES LEGS ALSO DUE TO PAIN W/ REPORT OF NEUROPATHY. AGREES TO WEAR HOME CPAP. CONSTANTLY REPORTS NOT RIGHT AND RT DOESNT KNOW WHAT THEY ARE DOING. YELLS OUT A LOT AND CONFUSED STATEMENTS AND CALLS OUT AND DAUGHTERS NAME TO THE [facility]. THEN PT WANT THEM CALLED . THEN FORGETS SHE ASKED STAFF TO DO THIS. CONFUSED MOST OF NOC. REORIENTED CONSTANTLY AND CLEAR MENTATION FOR SHORT TIME. DENIES CP OR ACUTE DISCOMFORT. CHRONIC ONLY AND AWARE SHE WILL BE OFFERED ASPIRCREAM FOR PAIN AND AGREES WHEN EXPLAINED PAIN MED ISSUES. STAYS AWAKE ALL NOC. LOOKING AROUND AND SOMETIMES TALKS TO SELF. AF RATE MAINTAINED ON 10 MG SINCE ABOUT 0430.
--- NOTE | 2018-04-13 20:02 | NUR ---
Shift Summary No acute changes since initial shift assessment. VSS. In no apparent sign of distress. Pt is A&Ox2-3. C/o pain t/o the day. Pt has been repositioned approx Q2H. Pt has had an uneventful day. Currently resting in bed with call light within reach. Denies any further questions, complaints or requests at this time. Report given to ginger MILLER.
[2018-04-14 04:34] LABS: BASOPHILS ABSOLUTE AUTO 0.03 K/mm3 (0.00-0.23); BASOPHILS PERCENT AUTO 0 % (0-2); EOSINOPHILS ABSOLUTE AUTO 0.67 K/mm3 (0.00-0.68); EOSINOPHILS PERCENT AUTO 8 % (0-6); Hematocrit 31.6 % (33.0-51.0); Hemoglobin 10.3 g/dL (11.5-16.0); IMMATURE GRAN ABSOLUTE AUTO 0.04 K/mm3 (0.00-0.10); IMMATURE GRAN PERCENT AUTO 1 % (0-1); LYMPHOCYTES ABSOLUTE AUTO 0.88 K/mm3 (0.84-5.20); LYMPHOCYTES PERCENT AUTO 11 % (21-46); MONOCYTES ABSOLUTE AUTO 0.61 K/mm3 (0.16-1.47); MONOCYTES PERCENT AUTO 8 % (4-13); Mean Corpuscular HGB 32.4 pg (26.0-34.0); Mean Corpuscular HGB Conc 32.6 g/dL (31.5-36.5); Mean Corpuscular Volume 99 fL (80-100); Mean Platelet Volume 11.5 fL (9.1-12.4); NEUTROPHILS ABSOLUTE AUTO 5.91 K/mm3 (1.96-9.15); NEUTROPHILS PERCENT AUTO 73 % (41-73); Platelet Count 231 K/mm3 (150-400); RDW Coefficient Variation 15.4 % (11.7-14.2); RDW Standard Deviation 56.3 fL (35.1-46.3); Red Blood Cell Count 3.18 M/mm3 (3.80-5.20); White Blood Cell Count 8.14 K/mm3 (4.00-11.30)
[2018-04-14 04:54] LABS: Albumin, Blood 2.3 g/dL (3.4-5.0); Anion Gap 12 mmol/L (6-16); Blood Urea Nitrogen 71 mg/dL (8-24); Bun/Creatinine Ratio 11.8 (12.0-20.0); CO2, Blood 28 mmol/L (21-32); Calcium, Blood 9.2 mg/dL (8.5-10.1); Chloride, Blood 97 mmol/L (98-108); Glomerular Filtration Rate 7 (60-); Glucose, Blood 131 mg/dL (70-99); Magnesium, Blood 2.3 mg/dL (1.6-2.4); Potassium, Blood 4.3 mmol/L (3.5-5.5); Sodium, Blood 137 mmol/L (136-145)
--- NOTE | 2018-04-14 05:27 | NUR ---
ASSUMED CARE OF PATIENT AT APPROXIMATELY 1905 FROM KLAUS Liz RN. PATIENT ALERT AND ORIENTED TO SELF AND FAMILY. PATIENT CONFUSED ABOUT DATE. DROWSY AT TIMES. AFIB ON TELE W/ A RATE IN 90'S; OXYGEN SATURATION ABOVE 90% ON 2LPM VIA NC OR ON HOME CPAP; PATIENT WORE CPAP FOR APPROXIMATLEY 6 HOURS LAST NIGHT. Q2H TURN; INCONTINENT OF URINE; ATTENDS IN PLACE; PATIENT REPORT REPOSISTIONING IS PAINFUL AT TIMES; MOANS. PATIENT IS VERY WEAK; ASSISTS MINIMALLY DURING REPOSISTIONING. PIV S/L IN KAREN; DIALYSIS CATH TO R UPPER CHEST WNL. SON STAYED THE NIGHT IN ROOM. PATIENT CURRENTLY SLEEPING IN BED; CALL LIGHT IN REACH; BED IN LOWEST POSISTION; BED ALARM ON; WILL CONTINUE TO MONITOR AND ASSESS UNTIL END OF SHIFT.
--- NOTE | 2018-04-14 06:31 | NUR ---
DR. EASON BEDSIDE WITH PATIENT.
[2018-04-14 09:18] LABS: PCO2 Arterial 48.5 mmHg (35-45); PO2 Arterial 94.3 mmHg (80-100); pH Blood Arterial 7.34 (7.35-7.45)
--- NOTE | 2018-04-14 09:58 | NUR ---
The pt was taken to dialysis at approx 0930.
--- NOTE | 2018-04-14 12:50 | NUR ---
the pt returned from dialysis, and was promptly taken for a CT of her head at this time.
--- NOTE | 2018-04-14 14:24 | NUR ---
Spiritual care visit conducted. I entered the room and and greet the family members who were there (patient and family are known to me from prior visits). Patient was in bed and talking to herself and making no sense. Patient was fairly active in bed and appeared to be aggitated. Family said she is not doing well and seems to be declining and they are not sure why. They hope to be able to talk to a doctor, next day, for clarification concerning patient's prognosis. I rub patient's forhead and spoke quietly to her about God's love and the amazing love and support that she has from her family. I also provided prayer. I listened empathically to different family members share their struggles with patient's current decline in health. They all said that she has bounced back from similar situations but they all have concerns this time. I normalized their experience, provided anxiety containment and gave some inspirational quotes from the Bible. Family thanked me for the visit and stated that my time had been heplful.
--- NOTE | 2018-04-14 14:33 | NUR ---
Call to Dr. Márquez regarding results of the CT scan; she states she will come to see the patient and her family who are presently in the room.
--- NOTE | 2018-04-14 18:50 | NUR ---
This morning at 0930 while the hospitalist was also rounding the pt was noted on initial assessment to have left sided flaccidity of the arm, to be lethargic, and falling asleep without completing her sentences. Pupils were equal and reactive, but sluggish. No facial droop was noted at that time. She was also very confused. ABG was ordered and the pt was taken to dialysis. After dialysis a repeat CT of her head was done. After dialysis the pt was more alert, talkative, but still sleepy. Results of CT were read and Dr. Márquez notified. Dr. Márquez spoke with family regarding CVA. The pt was noted this afternoon to still be lethargic, confused, but more conversant after wearing her bipap. Left facial droop was noted without lateral tongue deviation. Pupils equal, but left pupil is not noted reactive. Left arm is flaccid and numb, and the left leg noticeably weaker than the right. Neurology consult was called to Dr. Dawson.
--- NOTE | 2018-04-14 19:28 | NUR ---
Primarily met with pt's spouse, Edilberto, at bedside. Pranav drifted in and out of sleep, but awakened when I prayed for her. Edilberto tends to want to keep focus on the positive. He tells me that the family is hoping Pranav will recover. They are devout Christianity, and I offered to call for a certified pediatric nurse practitioner to visit. Edilberto said this would be helpful. I will contact tomorrow per family request.
[2018-04-15 04:09] LABS: BASOPHILS ABSOLUTE AUTO 0.02 K/mm3 (0.00-0.23); BASOPHILS PERCENT AUTO 0 % (0-2); EOSINOPHILS ABSOLUTE AUTO 0.14 K/mm3 (0.00-0.68); EOSINOPHILS PERCENT AUTO 2 % (0-6); Hematocrit 29.9 % (33.0-51.0); Hemoglobin 9.9 g/dL (11.5-16.0); IMMATURE GRAN ABSOLUTE AUTO 0.07 K/mm3 (0.00-0.10); IMMATURE GRAN PERCENT AUTO 1 % (0-1); LYMPHOCYTES ABSOLUTE AUTO 0.59 K/mm3 (0.84-5.20); LYMPHOCYTES PERCENT AUTO 7 % (21-46); MONOCYTES ABSOLUTE AUTO 0.73 K/mm3 (0.16-1.47); MONOCYTES PERCENT AUTO 8 % (4-13); Mean Corpuscular HGB 32.9 pg (26.0-34.0); Mean Corpuscular HGB Conc 33.1 g/dL (31.5-36.5); Mean Corpuscular Volume 99 fL (80-100); Mean Platelet Volume 11.5 fL (9.1-12.4); NEUTROPHILS ABSOLUTE AUTO 7.37 K/mm3 (1.96-9.15); NEUTROPHILS PERCENT AUTO 83 % (41-73); Platelet Count 216 K/mm3 (150-400); RDW Coefficient Variation 15.6 % (11.7-14.2); RDW Standard Deviation 56.5 fL (35.1-46.3); Red Blood Cell Count 3.01 M/mm3 (3.80-5.20); White Blood Cell Count 8.92 K/mm3 (4.00-11.30)
[2018-04-15 04:26] LABS: Albumin, Blood 2.5 g/dL (3.4-5.0); Anion Gap 20 mmol/L (6-16); Blood Urea Nitrogen 51 mg/dL (8-24); Bun/Creatinine Ratio 11.3 (12.0-20.0); CO2, Blood 22 mmol/L (21-32); Calcium, Blood 9.1 mg/dL (8.5-10.1); Chloride, Blood 103 mmol/L (98-108); Creatinine, Blood 4.52 mg/dL (0.40-1.00); Glomerular Filtration Rate 10 (60-); Glucose, Blood 161 mg/dL (70-99); Magnesium, Blood 2.4 mg/dL (1.6-2.4); Phosphorus, Blood 5.4 mg/dL (2.5-4.9); Potassium, Blood 4.1 mmol/L (3.5-5.5); Sodium, Blood 145 mmol/L (136-145)
--- NOTE | 2018-04-15 05:56 | NUR ---
SHIFT SUMMARY PT SLEEPING IN ROOM COMFORTABLY. PT HEART RATE BECAME TACHY AT APROX 2300. PT AVERAGE HR WAS 130'S-160'S. PROVIDER WAS CALLED AND ORDERS WERE GIVEN FOR IV MEDS. PT CONTINUED TO HAVE TACHYCARDIA. PROVIDER CALLED AGAIN. PT STARTED ON CARDIZEM DRIP SEE EMAR. PT ALSO GIVEN IV PAIN MEDS FOR PAIN. PT NOW SLEEPING WELL ON BIPAP, VISIBLY MORE RELAXED AND CONFORTABLE. RESP EVEN UNLABORED W/ SATS >93%. PT HAS BEEN TURNED Q2 HOURS. ATTENDS CHANGED AND C/D/I. POWERGLIDE IV ATTEMPTED, UNSUCESSFUL. NEW IV PLACED. CALL LIGHT IN REACH. BED ALARM ON FOR SAFETY, FAMILY AT BEDSIDE.
--- NOTE | 2018-04-15 08:09 | NUR ---
BEGINNING OF SHIFT Assumed care at 0700. Bedside report recieved from Codie MILLER. Family in room at time of report. Shift assessment completed. Pt able to state name and date of with slurred speech. Pt was able to state "yes" when asked if she was in pain, but could not tell this RN where the pain was located. Some movement noted to LUE. Family states this is "encouraging". This RN discussed with family changes that occur after CVA with family. Bed in lowest position. Call light in reach. Family denies need at this time. Pt sleeping in bed.
--- NOTE | 2018-04-15 10:39 | NUR ---
Pt visit this AM. Pt is resting in bed with her eyes closed and appears comfortable. Pt's sons are present during visit. Engaged in therapeutic conversation about goals of care for Pt. Listened as son Desmond expressed frustration of Pt's care and altered mentation. He feels that the Dr's involved are not on the same page when it comes to her pain management. After summarizing family's goals they would like the Dr's to include in their notes for other Dr's that may assume care specific plans when it comes to her pain management and altered mentation. Family would like Pt to be alert enough to work with therapy. Reassured family the Dr's doing what they can and finding the happy medium is in process. Family report no other concerns at this time. Will remain available for symptom management and therapeutic visits.
--- NOTE | 2018-04-15 13:01 | NUR ---
Echocardiogram completed.
--- NOTE | 2018-04-15 14:32 | NUR ---
UPDATE This RN spoke to [facility]. Strict NPO at this time. This RN placed call to Dr Márquez to notify of results of eval and to notify that pt was not successfully titrated off diltiazem drip. Current BP discussed with Dr Márquez. Okay to keep pt on diltiazem drip until able to successfullly titrate off.
--- NOTE | 2018-04-15 16:19 | NUR ---
Spiritual care visit conducted. Patient had a room full of family and friends when I attempted to enter the room. I couldn't get into the room because the discussion that was going on with the room nurse and the door way being blocked with people. Patient's son, Peewee, came out of the room and talked with me in the hallway. He explained some of the family unit complications. He also shared about his caregiver fatigue, his arlin and the medical history of patient (more days in the hospital than at home over the last year). I listened empathically, encouraged self-care, and quoted a few Bible verses that line up with the patient's belief system. Peewee displayed signs of restored arlin.
--- NOTE | 2018-04-15 17:53 | NUR ---
SHIFT SUMMARY Since noon, pt has been restless. Constantly repositioning in bed and stating that she is uncomfortable. When asked about location of her pain, she repeatedly states "everywhere". Pt often moans, groans, and yells to express comfort. Pt maintained NPO. Swabs at bedside. Meaningful movement noted to LUE and LLE, weakness noted when compared to right side. Pt able to follow directions. Oral care performed Q4H. Oral cavity is dry with some bleeding noted. Pt also had a nosebleed this shift. O2 humidified. Pt's family has made "joking" comments about pt needed "a shot of whisky". They state that pt uses whisky daily to "help her swallow" and "her doctor told her to do it". When asked how much whisky the pt consumes, family answers "1-2 shots". Family educated about potential for alochol withdrawal as well as signs and symptoms. Several conversations with family today regarding pt's pain control. Family repeatedly states that pt takes oxycodone at home and asks why she isn't getting it here. Family educated about action of narcotics and how they can affect LOC. Family was also educated that NSAIDS are not appropriate for the pt due to her renal disease that requires dialysis. One tramadol pill given per rectum, as ordered by Dr Márquez. This RN spoke to pharmacist Isacc, who stated this was an appropriate delivery method for this medication. Will continue to closely monitor until care handoff and bedside report with oncoming RN.
--- NOTE | 2018-04-15 18:05 | NUR ---
Met with pt's son, I beleive it was Ramakrishna, outside of room at his request. This is the son who provides hand-on care for both his parents 07/10. Ramakrishna states that he "hates" seeing his mom suffer. He beleives her body is nearing end-of-life, and wishes the rest of his family would allow her to pass peacefully. I provided emotional affirmation and comfort through hugs and prayer. This son and I have had a good relationship from years of hospitalizations with his mom. We have an easy rapport. I will remain available.
[2018-04-16 05:14] LABS: BASOPHILS ABSOLUTE AUTO 0.01 K/mm3 (0.00-0.23); BASOPHILS PERCENT AUTO 0 % (0-2); EOSINOPHILS ABSOLUTE AUTO 0.13 K/mm3 (0.00-0.68); EOSINOPHILS PERCENT AUTO 1 % (0-6); Hemoglobin 9.3 g/dL (11.5-16.0); IMMATURE GRAN ABSOLUTE AUTO 0.06 K/mm3 (0.00-0.10); IMMATURE GRAN PERCENT AUTO 1 % (0-1); LYMPHOCYTES ABSOLUTE AUTO 0.84 K/mm3 (0.84-5.20); LYMPHOCYTES PERCENT AUTO 9 % (21-46); MONOCYTES ABSOLUTE AUTO 0.92 K/mm3 (0.16-1.47); MONOCYTES PERCENT AUTO 10 % (4-13); Mean Corpuscular HGB 33.2 pg (26.0-34.0); Mean Corpuscular HGB Conc 33.2 g/dL (31.5-36.5); Mean Corpuscular Volume 100 fL (80-100); Mean Platelet Volume 11.4 fL (9.1-12.4); NEUTROPHILS ABSOLUTE AUTO 7.13 K/mm3 (1.96-9.15); NEUTROPHILS PERCENT AUTO 79 % (41-73); Platelet Count 241 K/mm3 (150-400); RDW Coefficient Variation 15.8 % (11.7-14.2); White Blood Cell Count 9.09 K/mm3 (4.00-11.30)
[2018-04-16 05:44] LABS: Albumin, Blood 2.6 g/dL (3.4-5.0); Anion Gap 13 mmol/L (6-16); Blood Urea Nitrogen 72 mg/dL (8-24); Bun/Creatinine Ratio 12.9 (12.0-20.0); CO2, Blood 27 mmol/L (21-32); Calcium, Blood 9.3 mg/dL (8.5-10.1); Chloride, Blood 103 mmol/L (98-108); Glomerular Filtration Rate 8 (60-); Glucose, Blood 214 mg/dL (70-99); Magnesium, Blood 2.4 mg/dL (1.6-2.4); Phosphorus, Blood 5.9 mg/dL (2.5-4.9); Sodium, Blood 143 mmol/L (136-145)
--- NOTE | 2018-04-16 06:27 | NUR ---
SHIFT SUMMARY PT IS SLEEPING IN ROOM. OCCASIONALLY CALLS OUT. PT HAS HAD NO ACUTE CHANGES IN STATUS SINCE ASSESSMENT. PT CONTINUES TO BE CONFUSED AND CALLS OUT. PT WAS REORIENTED MULTIPLE TIMES T/O SHIFT. REMINDED OF NPO STATUS. PT WAS PROVIDED WITH LEMON MOUTH SWABS D/T USING SPONGES TO DRINK WATER BY ASKING FAMILY MEMBERS TO CONTINUOUSLY DIP THEM BACK INTO WATER. PT WORE CPAP T/O NIGHT. TOLERATED FAIR. CALL LIGHT IS IN REACH. BED ALARM ON FOR SAFETY. FAMILY AT BEDSIDE
--- NOTE | 2018-04-16 11:16 | NUR ---
PCU DAYSHIFT ASSUMED CARE OF PT APPROX. 0700. PT CURRENTLY SLEEPING AT THIS TIME. PT AWOKE AND IN TO SEE PT THIS MORNING APPROX. 0845. ASSESSMENT COMPLETED. VITALS SIGNS STABLE AT THIS TIME. HEART RHYTHM A. FIB WITH HEART RATE AVERAGING IN 120'S AT THIS TIME. PMD IN TO SEE PT AT THIS TIME AND AWARE OF THIS. CARDIZEM DRIP REMAISN RUNNING AT 5ML/HR AT THIS TIME. PT ABLE TO AWAKEN AND HOLD CONVERSATION. PT SLOW TO RESPOND A TIMES BUT ABLE TO ANSWERS QUESTIONS AND FOLLOW DIRECTIONS. PT ALERT TO PLACE, SELF. LEFT SIDED WEAKNESS REMAINS, ALTHOUGH AHS SOME MOVEMENT OF THE LEFT UPPPER EXTREMITIY. PT ABLE TO FOLLOW COMMANDS AND MOVE RIGHT SIDE NEEDED. PT CURRENLTY REPORT PAIN MANAGD AT THIS TIME WITH NO S/SX OF PAIN. PLACED CREAM ON JOINTS, AND HEATING PAD TO HELP KEEP PT COMFORTABLE. PT TAKEN TO DIALYSIS VIA BED APPROX. 0930 NO S/SX ACUTE DISTRESS. FAMILY AT BEDSIDE AT THIS TIME. BED IN LOW POSITION, CALL LIGHT IN REACH AND PT DENIES ANY NEEDS AT THIS TIME.
--- NOTE | 2018-04-16 12:10 | NUR ---
DIALYSIS PT HAS LABORED BREATHING WHICH WAS INCREASING THE VENOUS PRESSURE AMD CAUSING VENOUS ALARMS. DIALYZER STARTING TO CLOTT. TX DC'ED 15 EARLY
--- NOTE | 2018-04-16 12:38 | NUR ---
PT ESCORTED BACK TO UNIT VIT BED MY PEER STAFF AND SELF. PT VITAL SIGNS STABLE AT THIS TIME. NO S/SX OF ACUTE DISTRESS. JUAN F SOUNDS MORE CLEAR FROM MORNING ASSESSMENT.
--- NOTE | 2018-04-16 19:53 | NUR ---
SHIFT SUMMARY PT VITALS SIGNS REMAIN STABLE T/O SHIFT. PT MENTATION IMPROVED FROM MORNING. SPEECH BECAME MORE CLEAR THE SHIFT PROGRESSED AND PT WAS ABLE TO HOLD LONGER CONVERSATION AND ABLE TO FOLLOW CONVERSATION FOR THE DURATION. ABOUT HALF WAY THROUGH THE SHIFT PT WAS ABLE TO MOVE LEFT SIDE EXTREMITIES ON COMMAND. PT WORKED WITH PHYSICAL THERAPY TODAY AND WAS ABLE TO USE WALKER, GAIT BELT AND ONE PERSON ASSIST TO CHAIR AND ABLE TO SPEND A COUPLE OF HOURS SITTING UP IN THE CHAIR. AFTER RETURNING TO BED PT WAS SLEEPY AND HAS RESTED SINCE THEN. PT HAD INCREASED PAIN INTERMITENTLY MAD EUSE OF NON PHARMILOGICAL INTERVENTIONS TOLERABLE AND GAVE PRN PAIN TRAMADOL PER EMAR. WAS ABLE TO MAKE USE OF CONVERSATION, REPOSTIONING, HEAT, ICE AND PRESCRIBED CREAM FOR JOINT PER EMAR TO HELP DECREASE PAIN. THESE COMBINAITON OF INTERVENTIONS HELPED. ORAL CARE COMPLETED REGULARLY T/O SHIFT. PT FAMILY AT BEDSIDE T/O SHIFT. PT CURRENLTY IN BED AT THIS TIME. BED IN LOW POSITION, BED ALARM ON, CALL LIGHT IN REACH AND PT DENIES ANY NEEDS AT THIS TIME. WILL CONTINUE TO MONITOR UNTIL HANDOFF TO NIGHTSHIFT RN.
--- NOTE | 2018-04-17 04:09 | NUR ---
SHIFT SUMMARY PT A&O X4, COMMUNICATING CLEARLY. LEFT SIDED DEFICIT IMPROVING. PT FREQUENTLY CALLING OUT "NURSE!" T/O SHIFT TO COMMUNICATE NEEDS. FAMILY INTERMITTENTLY AT BEDSIDE T/O SHIFT ASSISTING PT W/ NEEDS PT STRUGGLES TO GRASP ITEMS IN HER HANDS. PT REMAINS NPO D/T FAILED SWALLOW EVAL ON 04/16/18. CLINIMIX INFUSING PER ORDERS. PT C/O DRY MOUTH T/O SHIFT, ORAL CARE AND MOUTH MOISTURIZER APPLIED ROUTINELY T/O SHIFT PER PT REQUEST. Q2H REPOSITIONING DONE FROM L SIDE TO SUPINE ONLY PER PT PREFERENCE D/T R SHOULDER PAIN. PT ALSO C/O PAIN T/O "ENTIRE BACK". RECTAL TRAMADOL GIVEN FOR PAIN PER EMAR X1 THIS SHIFT. PT STATES MEDICATION NOT TO HAVE HELPED. WHEN OFFERING AVAILABLE FENTANYL PT REFRAINS AND STATES "I'LL HOLD OFF." ICE PACK APPLIED TO MID BACK PER PT REQUEST. WILL CONTINUE TO MONITOR AND TREAT PER ORDERS AND PT REQUEST. LUNG SOUNDS COARSE T/O. SPO2 > 92% ON 2L NC OR CPAP. PT TOLERATING CPAP WELL T/O NIGHT. MONITOR SHOWS AFIB, HR 90'S-110. CARDIZEM GTT INFUSING @ 5 ML/HR. SCD'S TO BLE WORN T/O MAJORITY OF SHIFT. PT LYING IN BED, ASSISTED W/ BED DAVIES USE W/ NO OUTPUT, BUT WET ATTENDS. PRN HENRIETTA CARE/ATTENDS CHANGES PROVIDED. WILL CONTINUE TO MONITOR AND PROVIDE CARE UNTIL REPORT OFF TO DAY SHIFT RN.
[2018-04-17 04:13] LABS: BASOPHILS ABSOLUTE AUTO 0.02 K/mm3 (0.00-0.23); BASOPHILS PERCENT AUTO 0 % (0-2); EOSINOPHILS ABSOLUTE AUTO 0.27 K/mm3 (0.00-0.68); EOSINOPHILS PERCENT AUTO 3 % (0-6); Hematocrit 29.1 % (33.0-51.0); Hemoglobin 9.4 g/dL (11.5-16.0); IMMATURE GRAN ABSOLUTE AUTO 0.13 K/mm3 (0.00-0.10); IMMATURE GRAN PERCENT AUTO 2 % (0-1); LYMPHOCYTES PERCENT AUTO 10 % (21-46); MONOCYTES ABSOLUTE AUTO 0.85 K/mm3 (0.16-1.47); MONOCYTES PERCENT AUTO 10 % (4-13); Mean Corpuscular HGB Conc 32.3 g/dL (31.5-36.5); Mean Corpuscular Volume 102 fL (80-100); Mean Platelet Volume 11.1 fL (9.1-12.4); NEUTROPHILS ABSOLUTE AUTO 6.72 K/mm3 (1.96-9.15); NEUTROPHILS PERCENT AUTO 76 % (41-73); Platelet Count 218 K/mm3 (150-400); RDW Standard Deviation 59.4 fL (35.1-46.3); Red Blood Cell Count 2.85 M/mm3 (3.80-5.20); White Blood Cell Count 8.89 K/mm3 (4.00-11.30)
[2018-04-17 04:26] LABS: Albumin, Blood 2.6 g/dL (3.4-5.0); Anion Gap 12 mmol/L (6-16); Blood Urea Nitrogen 65 mg/dL (8-24); Bun/Creatinine Ratio 13.9 (12.0-20.0); CO2, Blood 29 mmol/L (21-32); Calcium, Blood 9.1 mg/dL (8.5-10.1); Chloride, Blood 104 mmol/L (98-108); Creatinine, Blood 4.66 mg/dL (0.40-1.00); Glomerular Filtration Rate 9 (60-); Glucose, Blood 200 mg/dL (70-99); Magnesium, Blood 2.3 mg/dL (1.6-2.4); Phosphorus, Blood 5.7 mg/dL (2.5-4.9); Potassium, Blood 4.1 mmol/L (3.5-5.5); Sodium, Blood 145 mmol/L (136-145)
--- NOTE | 2018-04-17 14:12 | NUR ---
Spiritual care visit conducted. Patient was sitting up in a chair and alert when I entered the room. Patient and family are known to me. I was greeted warmly. Patient expressed rebeca about her recent increase in strength and gratitude for the care she has received. I conducted a life review, reinforced helpful attitudes and practices and rejoiced with her and the family over her health improvements. Patient and famliy seemed genuinely grateful for my visit.
--- NOTE | 2018-04-17 18:11 | NUR ---
PT MORE ALERT AND IS ORIENTED TODAY. SOME SLURRING OF WORDS BUT ABLE TO EXPRESS HER NEEDS/WANTS AND BE UNDERSTOOD. PHYSICAL THERAPY ASSISTED PT TO BEDSIDE CHAIR WHERE SHE SPENT SEVERAL HOURS VISITING WITH FAMILY AND FRIENDS. TOLERATED WELL. ASSISTED BACK TO BED AT APPROX 1500. SPEECH THERAPY CLEARED PT TO HAVE HONEY THICK LIQUIDS BY SPOON WITH MEDS TO BE CRUSHED AND GIVEN WITH HONEY THICK LIQUIDS. PT HAS TOLERATED WELL. WILL CONTINUE TO MONITOR AND REPORT TO ONCOMING RN.
[2018-04-18 04:15] LABS: Albumin, Blood 2.7 g/dL (3.4-5.0); Anion Gap 15 mmol/L (6-16); Blood Urea Nitrogen 85 mg/dL (8-24); Bun/Creatinine Ratio 16.1 (12.0-20.0); CO2, Blood 24 mmol/L (21-32); Calcium, Blood 8.9 mg/dL (8.5-10.1); Chloride, Blood 101 mmol/L (98-108); Creatinine, Blood 5.28 mg/dL (0.40-1.00); Glomerular Filtration Rate 8 (60-); Glucose, Blood 217 mg/dL (70-99); Magnesium, Blood 2.3 mg/dL (1.6-2.4); Phosphorus, Blood 6.9 mg/dL (2.5-4.9); Potassium, Blood 4.5 mmol/L (3.5-5.5); Sodium, Blood 140 mmol/L (136-145)
--- NOTE | 2018-04-18 04:15 | NUR ---
SHIFT SUMMARY PT ALERT AND ORIENTED W/ EPISODES OF CONFUSION. PT STRENGTH IMPROVING, PT FOUND INDEPENDENTLY SITTING UP AT EDGE OF BED TRYING TO GET UP TO USE THE RESTROOM THIS SHIFT. PT ASSISTED W/ RESTROOM USE AND BED ALARM TURNED ON FROM THAT MOMENT ON. PT FREQUENTLY CALLING OUT VARIOUS STAFF MEMBERS NAMES THAT SHE'S LEARNED T/O THE SHIFT. PT REQUESTING HONEY THICK WATER AND MOUTH MOISTURIZER T/O SHIFT, BACK RUBS AND WARM BLANKETS W/ SUCH THINGS PROVIDED. DESPITE FREQUENT ROUNDING AND QUICK RESPONSES TO PT CALL OUTS, PT STATES "THIS IS THE WORST HOSPITAL I'VE EVER BEEN IN." PT STATES "I'VE BEEN WAITING AN HOUR" AFTER THIS NURSE RETURNED W/IN 5 MINUTES W/ PAIN MEDICATION FOR PT, AFTER ROUNDING ON PT AND LEARNING OF PT PAIN MED REQUEST. PT COMFORTED AND REDIRECTED. PT OFF AND ON OVERLY APPRECIATIVE OF CARE AND EXPRESSED DISSATISFACTION W/ "THIS HOSPITAL." PT TOLERATING HONEY LIKE WATER SPOON FED TO PT. CLINIMIX GTT INFUSING PER EMAR. CARDIZEM GTT INFUSING @ 5 ML/HR. MONITOR SHOWS AFIB, HR 100-110. WILL CONTINUE TO MONITOR AND PROVIDE CARE UNTIL REPORT OFF TO DAY SHIFT RN. RECTAL TRAMADOL GIVEN X1 THIS SHIFT.
[2018-04-18 05:22] LABS: BASOPHILS ABSOLUTE AUTO 0.03 K/mm3 (0.00-0.23); BASOPHILS PERCENT AUTO 0 % (0-2); EOSINOPHILS ABSOLUTE AUTO 0.32 K/mm3 (0.00-0.68); EOSINOPHILS PERCENT AUTO 3 % (0-6); Hematocrit 28.7 % (33.0-51.0); Hemoglobin 9.4 g/dL (11.5-16.0); IMMATURE GRAN ABSOLUTE AUTO 0.12 K/mm3 (0.00-0.10); IMMATURE GRAN PERCENT AUTO 1 % (0-1); LYMPHOCYTES ABSOLUTE AUTO 0.94 K/mm3 (0.84-5.20); LYMPHOCYTES PERCENT AUTO 10 % (21-46); MONOCYTES ABSOLUTE AUTO 0.86 K/mm3 (0.16-1.47); MONOCYTES PERCENT AUTO 9 % (4-13); Mean Corpuscular HGB 33.2 pg (26.0-34.0); Mean Corpuscular HGB Conc 32.8 g/dL (31.5-36.5); Mean Corpuscular Volume 101 fL (80-100); Mean Platelet Volume 11.4 fL (9.1-12.4); NEUTROPHILS ABSOLUTE AUTO 7.01 K/mm3 (1.96-9.15); NEUTROPHILS PERCENT AUTO 76 % (41-73); Platelet Count 219 K/mm3 (150-400); RDW Coefficient Variation 16.2 % (11.7-14.2); RDW Standard Deviation 59.1 fL (35.1-46.3); Red Blood Cell Count 2.83 M/mm3 (3.80-5.20); White Blood Cell Count 9.28 K/mm3 (4.00-11.30)
--- NOTE | 2018-04-18 18:24 | NUR ---
SHE HAS HER AT THE BEDSIDE AND HER SONS HAVE BEEN IN AND OUT. VSS. SHE HAD DIALYSIS THIS AFTERNOON IN HER ROOM. SHE HAS BEEN OOB X2 TODAY TO THE BSC AND CHAIR. SHE HAD A BM EACH TIME. LITTLE URINE OUTPUT. SHE HAD A BEDBATH THIS EVENING. LINENS WERE CHANGED TODAY EARLIER. SHE HAS MILD L-SIDED WEAKNESS. SHE HAS BEEN WEARING 2L NC O2. NO RESPIRATORY COMPLAINTS. SHE IS TOLERATING PUREE DIET WELL.
--- NOTE | 2018-04-19 04:39 | NUR ---
SHIFT SUMMARY PT A&O X4, CALM AND COOPERATIVE W/ EPISODES OF IRRITABILITY. PT MANAGING TO SLEEP MUCH OF NIGHT. 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 PT TOLERATING SWALLOWING NECTAR THICK LIQUIDS. LUNG SOUNDS COARSE T/O, SPO2 > 92% ON 2L NC OR CPAP W/ OCCASSIONAL DESATS 85% D/T PT REMOVAL OF O2. O2 REAPPLIED W/ INSTRUCTION FOR BREATHING, PT IGNORING COACHING ON 1 OCCASSION, TALKING DESPITE INSTRUCTION TO PAUSE CONVERSATION AND BREATHE. MONITOR SHOWS AFIB, HR 90'S-120. WILL CONTINUE TO MONITOR AND PROVIDE CARE UNTIL REPORT OFF TO DAY SHIFT RN.
[2018-04-19 04:45] LABS: BASOPHILS ABSOLUTE AUTO 0.02 K/mm3 (0.00-0.23); BASOPHILS PERCENT AUTO 0 % (0-2); EOSINOPHILS ABSOLUTE AUTO 0.28 K/mm3 (0.00-0.68); EOSINOPHILS PERCENT AUTO 3 % (0-6); Hematocrit 31.4 % (33.0-51.0); Hemoglobin 9.9 g/dL (11.5-16.0); IMMATURE GRAN ABSOLUTE AUTO 0.16 K/mm3 (0.00-0.10); IMMATURE GRAN PERCENT AUTO 2 % (0-1); LYMPHOCYTES ABSOLUTE AUTO 1.02 K/mm3 (0.84-5.20); LYMPHOCYTES PERCENT AUTO 13 % (21-46); MONOCYTES ABSOLUTE AUTO 0.85 K/mm3 (0.16-1.47); MONOCYTES PERCENT AUTO 10 % (4-13); Mean Corpuscular HGB 32.8 pg (26.0-34.0); Mean Corpuscular HGB Conc 31.5 g/dL (31.5-36.5); Mean Platelet Volume 11.6 fL (9.1-12.4); NEUTROPHILS ABSOLUTE AUTO 5.84 K/mm3 (1.96-9.15); NEUTROPHILS PERCENT AUTO 72 % (41-73); NRBC ABSOLUTE 0.02 K/mm3 (0.00-0.02); NRBC Auto 0.2 /100 WBC (0.0-0.2); Platelet Count 184 K/mm3 (150-400); RDW Coefficient Variation 16.5 % (11.7-14.2); RDW Standard Deviation 62.3 fL (35.1-46.3); Red Blood Cell Count 3.02 M/mm3 (3.80-5.20); White Blood Cell Count 8.17 K/mm3 (4.00-11.30)
[2018-04-19 04:48] LABS: Mean Corpuscular Volume 104 fL (80-100)
[2018-04-19 04:59] LABS: Albumin, Blood 2.5 g/dL (3.4-5.0); Anion Gap 10 mmol/L (6-16); Blood Urea Nitrogen 64 mg/dL (8-24); Bun/Creatinine Ratio 15.9 (12.0-20.0); CO2, Blood 27 mmol/L (21-32); Calcium, Blood 8.7 mg/dL (8.5-10.1); Chloride, Blood 103 mmol/L (98-108); Creatinine, Blood 4.02 mg/dL (0.40-1.00); Glomerular Filtration Rate 11 (60-); Glucose, Blood 192 mg/dL (70-99); Magnesium, Blood 2.3 mg/dL (1.6-2.4); Phosphorus, Blood 5.8 mg/dL (2.5-4.9); Potassium, Blood 4.8 mmol/L (3.5-5.5); Sodium, Blood 140 mmol/L (136-145)
--- NOTE | 2018-04-19 17:11 | NUR ---
SHIFT SUMMARY PT RESTING IN BED THROUGHOUT THE DAY. VSS. ALERT AND ORIENTED X3. C/O RIGHT SHOULDER AND BILATERAL LEG PAIN, MEDICATED WITH PRN PAIN MEDS, SEE EMAR. LUNG SOUNDS CLEAR, DIMINISHED BASES. AFIB WITH BBB RATE 90s-120s THROUGHOUT THE DAY. LEFT ARM WEAKNESS NOTED, BUT INDEPENDENT MOVEMENT AND ABLE TO USE FWW FOR TRANSFER FROM BED TO CHAIR. UP IN CHAIR FOR MEALS, PT CONTINUE TO TOLERATE PUREE FOOD WITH NECTAR THICK LIQUIDS, PT FED BY STAFF AND FAMILY. WLL CONTINUE TO MONITOR.
[2018-04-20 04:15] LABS: BASOPHILS ABSOLUTE AUTO 0.04 K/mm3 (0.00-0.23); BASOPHILS PERCENT AUTO 1 % (0-2); EOSINOPHILS ABSOLUTE AUTO 0.46 K/mm3 (0.00-0.68); EOSINOPHILS PERCENT AUTO 6 % (0-6); Hematocrit 29.1 % (33.0-51.0); Hemoglobin 9.1 g/dL (11.5-16.0); IMMATURE GRAN ABSOLUTE AUTO 0.13 K/mm3 (0.00-0.10); IMMATURE GRAN PERCENT AUTO 2 % (0-1); LYMPHOCYTES ABSOLUTE AUTO 1.13 K/mm3 (0.84-5.20); LYMPHOCYTES PERCENT AUTO 14 % (21-46); MONOCYTES ABSOLUTE AUTO 0.81 K/mm3 (0.16-1.47); MONOCYTES PERCENT AUTO 10 % (4-13); Mean Corpuscular HGB 32.4 pg (26.0-34.0); Mean Corpuscular HGB Conc 31.3 g/dL (31.5-36.5); Mean Corpuscular Volume 104 fL (80-100); Mean Platelet Volume 11.6 fL (9.1-12.4); NEUTROPHILS ABSOLUTE AUTO 5.69 K/mm3 (1.96-9.15); NEUTROPHILS PERCENT AUTO 69 % (41-73); Platelet Count 188 K/mm3 (150-400); RDW Coefficient Variation 16.7 % (11.7-14.2); RDW Standard Deviation 63.9 fL (35.1-46.3); Red Blood Cell Count 2.81 M/mm3 (3.80-5.20); White Blood Cell Count 8.26 K/mm3 (4.00-11.30)
[2018-04-20 04:30] LABS: Albumin, Blood 2.4 g/dL (3.4-5.0); Anion Gap 12 mmol/L (6-16); Blood Urea Nitrogen 89 mg/dL (8-24); Bun/Creatinine Ratio 17.6 (12.0-20.0); CO2, Blood 26 mmol/L (21-32); Calcium, Blood 8.3 mg/dL (8.5-10.1); Chloride, Blood 100 mmol/L (98-108); Creatinine, Blood 5.06 mg/dL (0.40-1.00); Glomerular Filtration Rate 9 (60-); Glucose, Blood 168 mg/dL (70-99); Magnesium, Blood 2.5 mg/dL (1.6-2.4); Potassium, Blood 5.1 mmol/L (3.5-5.5); Sodium, Blood 138 mmol/L (136-145)
[2018-04-20 05:11] LABS: Phosphorus, Blood 8.4 mg/dL (2.5-4.9)
--- NOTE | 2018-04-20 07:41 | NUR ---
SHIFT SUMMARY PT A&O X4, SLEEPING MUCH OF SHIFT. NO C/O PAIN TO THIS NURSE. 1 C/O PAIN REPORTED TO FLATTENING MACHINE OPERATOR W/ PT F/U BY THIS NURSE W/IN 10 MIN OF PAIN MED REQUEST BUT PT FOUND TO BE SLEEPING. NO REQUESTS FOR PAIN MEDICATION UPON PT WAKING. LUNG SOUNDS CLEAR, SPO2 > 92% ON 2L NC. MONITOR SHOWS AFIB, HR 90-120. REPORT GIVEN TO DAY SHIFT RN.
[2018-04-20] MEDS ORDERED: ASPI81CH PO (15:38)
[2018-04-20] MEDS ORDERED: CLOT10 PO (15:42)
[2018-04-20] MEDS ORDERED: LIDO700A20 TOP (15:44)
[2018-04-20] MEDS ORDERED: METO25 PO (15:45)
[2018-04-20] MEDS ORDERED: LIDOCAINE PLUS120 GM TOP (15:53)
[2018-04-20] MEDS ORDERED: Aspercreme 1035.4 GM TOP (15:54)
[2018-04-20] MEDS ORDERED: TRAM50 PO (15:55)
--- NOTE | 2018-04-20 18:44 | NUR ---
DISCHARGE NOTE PT STABLE FOR DISCHARGE TO [facility]. DISCHARGE INSTRUCTIONS AND DISCHARGE MEDICATION SENT WITH TRANSPORT TO [facility]. POWERGLIDE REMOVED. PT BELONGINGS SENT WITH FAMILY TO [facility]. PT DISCHARGED VIA [facility] WHEELCHAIR TO [facility]. REPORT CALLED TO [place] AT [facility].
[2018-05-05] MEDS ORDERED: CVS DISPOSABLE399 ML (10:41)
== END 2018-04-20 18:37 | DRG 871 ==
LOC: ER 14:41 → MEDS 17:13 → PCU 17:13 → MEDS 18:40 → PCU 04-12 20:56
PROVIDERS: Family Medicine; Internal Medicine Nephrology; Physician Assistant; ADMIT Internal Medicine
PROC: 5A09357 Assistance with Respiratory Ventilation, Less than 24 Consecutive Hours, Continuous Positive Airway Pressure (ICD-10-PCS; 2018-04-08)
PROC: 5A09457 Assistance with Respiratory Ventilation, 24-96 Consecutive Hours, Continuous Positive Airway Pressure (ICD-10-PCS; 2018-04-08)
PROC: 5A1D70Z Performance of Urinary Filtration, Intermittent, Less than 6 Hours Per Day (ICD-10-PCS; principal; 2018-04-10)
DX: A41.9 Sepsis, unspecified organism (principal); I63.311 Cerebral infarction due to thrombosis of right middle cerebral artery; G92 Toxic encephalopathy; J18.1 Lobar pneumonia, unspecified organism; N18.6 End stage renal disease; E87.2 Acidosis; E87.1 Hypo-osmolality and hyponatremia; J98.11 Atelectasis; B37.49 Other urogenital candidiasis; N25.81 Secondary hyperparathyroidism of renal origin; E11.22 Type 2 diabetes mellitus with diabetic chronic kidney disease; E11.40 Type 2 diabetes mellitus with diabetic neuropathy, unspecified; I95.3 Hypotension of hemodialysis; E88.09 Other disorders of plasma-protein metabolism, not elsewhere classified; I48.91 Unspecified atrial fibrillation; E87.70 Fluid overload, unspecified; E83.39 Other disorders of phosphorus metabolism; E66.01 Morbid (severe) obesity due to excess calories; D63.1 Anemia in chronic kidney disease; R06.89 Other abnormalities of breathing; N20.0 Calculus of kidney; K21.9 Gastro-esophageal reflux disease without esophagitis; B95.1 Streptococcus, group B, as the cause of diseases classified elsewhere; I12.9 Hypertensive chronic kidney disease with stage 1 through stage 4 chronic kidney disease, or unspecified chronic kidney disease; G47.33 Obstructive sleep apnea (adult) (pediatric); R79.89 Other specified abnormal findings of blood chemistry; E78.5 Hyperlipidemia, unspecified; R29.810 Facial weakness; G83.14 Monoplegia of lower limb affecting left nondominant side; R47.1 Dysarthria and anarthria; E87.6 Hypokalemia; R60.0 Localized edema; R53.1 Weakness; T40.605A Adverse effect of unspecified narcotics, initial encounter; Y92.230 Patient room in hospital as the place of occurrence of the external cause; M79.7 Fibromyalgia; Z96.659 Presence of unspecified artificial knee joint; Z87.891 Personal history of nicotine dependence; Z79.899 Other long term (current) drug therapy; Z79.890 Hormone replacement therapy; Z79.4 Long term (current) use of insulin; Z99.2 Dependence on renal dialysis; Z86.718 Personal history of other venous thrombosis and embolism; Z88.5 Allergy status to narcotic agent; Z88.0 Allergy status to penicillin; Z88.8 Allergy status to other drugs, medicaments and biological substances
CPT/HCPCS: 36415; 36600; 70450; 71045; 71046; 73130; 73502; 74150; 76705; 80048; 80053; 80069; 81001; 82803; 82947; 83605; 83735; 83880; 84145; 85014; 85018; 85025; 85610; 85730; 87040; 87086; 92526; 92610; 93005; 93010; 93306; 93880; 94660; 94762; 96365; 96367; 97110; 97162; 97164; 97166; 97530; 99284-25; C1751; C9113; J0456; J0696; J0881; J1956; J2310; J3010; J7050; J7120; P9612

== ENCOUNTER 2018-05-05 10:02 | Emergency (ER) | payer MEDICARE, BC ==
[~2018-05-05] VITALS: Ht 149.9 cm; Wt 74.8 kg
[~2018-05-05 10:02] MED LIST changes: +ASPI81CH PO; +Aspercreme 1035.4 GM TOP; +CLOT10 PO; +LIDOCAINE PLUS120 GM TOP; +METO25 PO
[2018-05-05] MEDS ORDERED: HYDR25SUP PR (10:40)
[2018-05-05] MEDS ORDERED: DESL5 PO (10:41)
[2018-05-05] MEDS ORDERED: CVS DISPOSABLE399 ML PR (10:41)
[2018-05-05] MEDS ORDERED: BISA10S PR (10:42)
[2018-05-05] MEDS ORDERED: ACET325 PO (10:42)
[2018-05-05] MEDS ORDERED: ACET120S PR (10:42)
[2018-05-05] MEDS ORDERED: PROHEAL (10:44)
[2018-05-05] MEDS ORDERED: GEMF600 PO (10:44)
[2018-05-24] MEDS ORDERED: SACC250C (08:27)
[2018-05-24] MEDS ORDERED: GABA300 PO (08:27)
[2018-05-24] MEDS ORDERED: GEMF600 PO (08:27)
[2018-05-24] MEDS ORDERED: ATOR10 PO (08:28)
[2018-05-24] MEDS ORDERED: METO25ER PO (08:28)
[2018-05-24] MEDS ORDERED: MIDO5 PO (08:28)
[2018-05-24] MEDS ORDERED: FAMO20 PO (08:29)
[2018-05-24] MEDS ORDERED: Pedi-Dri 100,0060 GM (08:29)
[2018-05-24] MEDS ORDERED: Milk Of Ma400 MG/5 M (08:29)
[2018-05-24] MEDS ORDERED: OMEPRAZOLE MAGN20 MG PO (08:29)
[2018-05-24] MEDS ORDERED: VELPHORO500 MG PO (08:30)
[2018-05-24] MEDS ORDERED: SEVE800 PO (08:30)
[2018-05-24] MEDS ORDERED: Percocet 5-3251 EACH (08:30)
[2018-05-24] MEDS ORDERED: CHOL10002 (08:31)
[2018-05-24] MEDS ORDERED: CYAN500 PO (08:31)
[2018-05-27] MEDS ORDERED: Tamiflu30 MG PO (10:47)
== END 2018-05-05 13:59 | disposition home or self-care (01) ==
LOC: ER 10:02
DX: S12.031A Nondisplaced posterior arch fracture of first cervical vertebra, initial encounter for closed fracture (principal); I12.9 Hypertensive chronic kidney disease with stage 1 through stage 4 chronic kidney disease, or unspecified chronic kidney disease; E11.22 Type 2 diabetes mellitus with diabetic chronic kidney disease; E11.42 Type 2 diabetes mellitus with diabetic polyneuropathy; N18.9 Chronic kidney disease, unspecified; J44.9 Chronic obstructive pulmonary disease, unspecified; I25.10 Atherosclerotic heart disease of native coronary artery without angina pectoris; Z86.73 Personal history of transient ischemic attack (TIA), and cerebral infarction without residual deficits; Z88.0 Allergy status to penicillin; Z88.5 Allergy status to narcotic agent; Z88.8 Allergy status to other drugs, medicaments and biological substances; Z79.82 Long term (current) use of aspirin; Z79.899 Other long term (current) drug therapy; X58.XXXA Exposure to other specified factors, initial encounter
CPT/HCPCS: 70450; 72125; 96374; 96375; 99284-25; J2405; J3010

== ENCOUNTER 2018-05-07 10:10 | Emergency (ER) | payer MEDICARE, BC ==
[~2018-05-07] VITALS: Ht 149.9 cm; Wt 74.8 kg
[~2018-05-07 10:10] MED LIST changes: +ACET120S PR; +BISA10S PR; +CVS DISPOSABLE399 ML; +HYDR25SUP PR; +PROHEAL
[2018-05-07] MEDS ORDERED: Percocet 5-3251 EACH PO (14:27)
[2018-05-08] MEDS ORDERED: HYDR1TAB94 PO (09:57)
[2018-05-08] MEDS ORDERED: FERRIC CITRATE210 MG PO (13:59)
[2018-05-08] MEDS ORDERED: BUME2 PO (14:01)
[2018-05-08] MEDS ORDERED: SACC250C PO (14:03)
[2018-05-08] MEDS ORDERED: SEVE800 PO (14:07)
[2018-05-08] MEDS ORDERED: ALBU4 PO (14:07)
[2018-05-08] MEDS ORDERED: VELPHORO500 MG PO (14:08)
== END 2018-05-07 16:03 | disposition home or self-care (01) ==
LOC: ER 10:10
DX: M50.30 Other cervical disc degeneration, unspecified cervical region (principal); I10 Essential (primary) hypertension; E11.9 Type 2 diabetes mellitus without complications; J44.9 Chronic obstructive pulmonary disease, unspecified; K21.9 Gastro-esophageal reflux disease without esophagitis; Z88.0 Allergy status to penicillin; Z88.5 Allergy status to narcotic agent; Z79.899 Other long term (current) drug therapy
CPT/HCPCS: 72141; 96374; 96375; 99284-25; J2405; J3010

== ENCOUNTER 2018-05-08 00:36 | Day surgery (SDC) | payer MEDICARE, BC ==
[~2018-05-08 00:36] MED LIST changes: +Percocet 5-3251 EACH PO
--- NOTE | 2018-05-08 08:41 | NUR ---
20 GA IV PRESENT ON NEDA ADMIT
[2018-05-08] MEDS ORDERED: HYDR1TAB94 PO (09:57)
[2018-05-08] MEDS ORDERED: FERRIC CITRATE210 MG PO (13:59)
[2018-05-08] MEDS ORDERED: BUME2 PO (14:01)
[2018-05-08] MEDS ORDERED: SACC250C PO (14:03)
[2018-05-08] MEDS ORDERED: SEVE800 PO (14:07)
[2018-05-08] MEDS ORDERED: ALBU4 PO (14:07)
[2018-05-08] MEDS ORDERED: VELPHORO500 MG PO (14:08)
== END 2018-05-08 11:56 | disposition home or self-care (01) ==
LOC: ATC 00:36
DX: D64.9 Anemia, unspecified (principal); N18.6 End stage renal disease; I63.411 Cerebral infarction due to embolism of right middle cerebral artery
CPT/HCPCS: 86850; 86900; 86901; 86923; J7050; P9016

== ENCOUNTER 2018-05-08 13:19 | Inpatient (IN) | payer MEDICARE, BC ==
[~2018-05-08] VITALS: Ht 149.9 cm; Wt 76.7 kg
[~2018-05-08 13:19] MED LIST changes: -CVS DISPOSABLE399 ML; +CVS DISPOSABLE399 ML PR; +HYDR1TAB94 PO
[2018-05-08] MEDS ORDERED: FERRIC CITRATE210 MG PO (13:59)
[2018-05-08] MEDS ORDERED: BUME2 PO (14:01)
[2018-05-08] MEDS ORDERED: SACC250C PO (14:03)
[2018-05-08] MEDS ORDERED: SEVE800 PO (14:07)
[2018-05-08] MEDS ORDERED: ALBU4 PO (14:07)
[2018-05-08] MEDS ORDERED: VELPHORO500 MG PO (14:08)
[2018-05-08 15:07] LABS: BASOPHILS ABSOLUTE AUTO 0.04 K/mm3 (0.00-0.23); BASOPHILS PERCENT AUTO 1 % (0-2); EOSINOPHILS ABSOLUTE AUTO 0.19 K/mm3 (0.00-0.68); EOSINOPHILS PERCENT AUTO 3 % (0-6); Hematocrit 32.5 % (33.0-51.0); Hemoglobin 10.1 g/dL (11.5-16.0); IMMATURE GRAN ABSOLUTE AUTO 0.04 K/mm3 (0.00-0.10); IMMATURE GRAN PERCENT AUTO 1 % (0-1); LYMPHOCYTES ABSOLUTE AUTO 0.53 K/mm3 (0.84-5.20); LYMPHOCYTES PERCENT AUTO 7 % (21-46); MONOCYTES ABSOLUTE AUTO 0.23 K/mm3 (0.16-1.47); MONOCYTES PERCENT AUTO 3 % (4-13); Mean Corpuscular HGB 31.2 pg (26.0-34.0); Mean Corpuscular HGB Conc 31.1 g/dL (31.5-36.5); Mean Platelet Volume 11.3 fL (9.1-12.4); NEUTROPHILS ABSOLUTE AUTO 6.34 K/mm3 (1.96-9.15); NEUTROPHILS PERCENT AUTO 86 % (41-73); NRBC ABSOLUTE 0.02 K/mm3 (0.00-0.02); NRBC Auto 0.3 /100 WBC (0.0-0.2); Platelet Count 167 K/mm3 (150-400); RDW Coefficient Variation 18.6 % (11.7-14.2); RDW Standard Deviation 66.2 fL (35.1-46.3); Red Blood Cell Count 3.24 M/mm3 (3.80-5.20); White Blood Cell Count 7.37 K/mm3 (4.00-11.30)
[2018-05-08 15:10] LABS: Mean Corpuscular Volume 100 fL (80-100)
[2018-05-08 15:22] LABS: International Normalized Ratio 1.06; Prothrombin Time Results 11.2 Sec (9.7-11.5)
[2018-05-08 15:31] LABS: Source, Urine Catheter
[2018-05-08 15:42] LABS: Albumin, Blood 2.8 g/dL (3.4-5.0); Albumin/Globulin Ratio 0.8 (0.8-1.8); Bilirubin, Total 0.6 mg/dL (0.1-1.0); Bun/Creatinine Ratio 10.5 (12.0-20.0); Creatinine, Blood 4.78 mg/dL (0.40-1.00); Globulin, Blood 3.6 g/dL (2.2-4.0); Potassium, Blood 5.3 mmol/L (3.5-5.5); Total Protein, Blood 6.4 g/dL (6.4-8.2)
[2018-05-08 15:52] LABS: Appearance, Urine Turbid (Clear); Bilirubin, Urine Neg (Neg); Blood, Urine 5+ (Neg); Color, Urine Yellow (P-Yellow); Glucose Qualitative, Urine 1+ (Neg); Ketones, Urine Neg (Neg); Leukocyte Esterase, Urine 3+ (Neg); Nitrite, Urine Neg (Neg); Protein, Urine 3+ (Neg); Urobilinogen, Urine NORM (Normal)
[2018-05-08 16:00] LABS: Squamous Epithelial Cells Many /hpf (Few)
[2018-05-08 16:01] LABS: White Blood Cells, Urine TNTC /hpf (0-5)
[2018-05-08 16:02] LABS: Bacteria Mod /hpf
[2018-05-08 16:35] LABS: Influenza A Negative (NEGATIVE); Influenza B Negative (NEGATIVE)
--- NOTE | 2018-05-08 21:28 | NUR ---
PATIENT IS A NEW ADMIT FROM THE ED. AXO X 3 AND BEDFAST. FAMILY PRESENT ON ADMIT. ON 2L O2 NC AND O2 BASELINE AT NIGHT. SPEECH SLURRED FROM REPORTED CVA TWO WEEKS AGO PER FAMILY W/ LS WEAKNESS. CABLE ASSEMBLER REPORTS AFIB 102. TAKES HER MEDS WHOLE WITH YOGURT. FAMILY AND PATIENT ORIENTED TO ROOM AND CALL LIGHT SYSTEM. PATIENT DENIES PAIN, SOB, AND N.V. DIALYSIS PATIENT. CALL LIGHT IN REACH. WILL CONTINUE TO MONITOR.
--- NOTE | 2018-05-09 02:57 | NUR ---
PATIENT REPORTED NECK/BACK PAIN AND RECEIVED PERCOCET 5 MG PO PER EMAR. PATIENT ABLE TO USE BSC WITH TWO ASSIST/FWW/GAIT BELT. PATIENT REPORTS BEING TIRED AND WANTING TO SLEEP. REPORTS OTHER FAMILY WILL BE IN IN A.M. NO VISUAL HALLUCINATIONS NOTED. ON 2L O2 NC. BED ALARM ACTIVATED. CALL LIGHT IN REACH.
--- NOTE | 2018-05-09 03:57 | NUR ---
SHIFT SUMMARY PATIENT HAD NO ACUTE CHANGES OBSERVED THIS SHIFT. FLIGHT CONTROL TOWER OPERATOR REPORTS AFIB 102. AXO 3 AND TWO ASSIST STAND PIVOT TO [facility] [place]. ON 2L O2 NC AND BASELINE O2 2L AT NIGHT. PATIENT HAS SLURRED SPEECH FROM REPORTED CVA FROM FAMILY TWO WEEKS AGO. LS WEAKNESS. TAKES MEDS 3-4 W/YOGURT.PIV REMAINS INTACT. IV BUMEX GIVEN X ONE PER EMAR. DAUGHTER/SON PRESENT ON ADMIT. REPORTED NECK PAIN AND RECEIVED PERCOCET PER EMAR. VSS/AFEBRILE. DENIES SOB AND N/V. PATIENT REPORTED BEING TIRED AND WANTING TO SLEEP. FALLING ASLEEP WHEN ASKING QUESTIONS. CALL LIGHT IN REACH. BED IN LOWEST POSITION. WILL CONTINUE TO MONITOR UNTIL DAY SHIFT NURSE ASSUMES CARE.
[2018-05-09 05:02] LABS: BASOPHILS ABSOLUTE AUTO 0.04 K/mm3 (0.00-0.23); BASOPHILS PERCENT AUTO 1 % (0-2); EOSINOPHILS ABSOLUTE AUTO 0.28 K/mm3 (0.00-0.68); EOSINOPHILS PERCENT AUTO 5 % (0-6); Hemoglobin 10.3 g/dL (11.5-16.0); IMMATURE GRAN ABSOLUTE AUTO 0.02 K/mm3 (0.00-0.10); IMMATURE GRAN PERCENT AUTO 0 % (0-1); LYMPHOCYTES ABSOLUTE AUTO 1.44 K/mm3 (0.84-5.20); LYMPHOCYTES PERCENT AUTO 28 % (21-46); MONOCYTES ABSOLUTE AUTO 0.36 K/mm3 (0.16-1.47); MONOCYTES PERCENT AUTO 7 % (4-13); Mean Corpuscular HGB 31.6 pg (26.0-34.0); Mean Corpuscular HGB Conc 31.2 g/dL (31.5-36.5); Mean Corpuscular Volume 101 fL (80-100); Mean Platelet Volume 11.4 fL (9.1-12.4); NEUTROPHILS ABSOLUTE AUTO 3.06 K/mm3 (1.96-9.15); NEUTROPHILS PERCENT AUTO 59 % (41-73); NRBC ABSOLUTE 0.03 K/mm3 (0.00-0.02); NRBC Auto 0.6 /100 WBC (0.0-0.2); Platelet Count 168 K/mm3 (150-400); RDW Coefficient Variation 18.5 % (11.7-14.2); RDW Standard Deviation 65.9 fL (35.1-46.3); Red Blood Cell Count 3.26 M/mm3 (3.80-5.20)
[2018-05-09 05:41] LABS: Alanine Aminotransfer (ALT/SGP 11 U/L (12-78); Albumin, Blood 2.9 g/dL (3.4-5.0); Albumin/Globulin Ratio 0.8 (0.8-1.8); Alk Phos 148 U/L (50-136); Anion Gap 10 mmol/L (6-16); Aspartate Aminotrans (AST/SGOT 12 U/L (12-37); Bilirubin, Total 0.3 mg/dL (0.1-1.0); Blood Urea Nitrogen 58 mg/dL (8-24); Bun/Creatinine Ratio 10.9 (12.0-20.0); CO2, Blood 28 mmol/L (21-32); Calcium, Blood 8.2 mg/dL (8.5-10.1); Chloride, Blood 99 mmol/L (98-108); Creatinine, Blood 5.31 mg/dL (0.40-1.00); Globulin, Blood 3.8 g/dL (2.2-4.0); Glomerular Filtration Rate 8 (60-); Glucose, Blood 115 mg/dL (70-99); Magnesium, Blood 2.2 mg/dL (1.6-2.4); Potassium, Blood 5.6 mmol/L (3.5-5.5); Sodium, Blood 137 mmol/L (136-145); Total Protein, Blood 6.7 g/dL (6.4-8.2)
[2018-05-09 05:45] LABS: Phosphorus, Blood 8.9 mg/dL (2.5-4.9)
--- NOTE | 2018-05-09 06:18 | NUR ---
[facility] PHOSPHOROUS 8.9. HOSPITALIST DR JOSHI NOTIFIED AND REPORTS TO CALL DR EASON. DR EASON CALLED AND REPORTS TO TALK TO FAMILY AND REPORT TO HIM WHAT BINDERS THE PATIENT IS ON. WILL NOTIFY DAY SHIFT NURSE AND HAVE THEM CALL BACK.
--- NOTE | 2018-05-09 10:10 | NUR ---
Echocardiogram performed.
--- NOTE | 2018-05-09 12:49 | NUR ---
CALLED DR. BRIGGS MIDODRINE WAS SCHEDULED TID, I CALLED DR BRIGGS TO REQUEST THIS MEDICATION BE CHANGED TO PRN - HYPOTENSION TO AVOID ANY POTENTIAL FUTURE MED ERRORS. DR BRIGGS AGREED AND MADE THE PARAMETER: PRN FOR SYSTOLIC BP OF LESS THAN 90 MMHG.
--- NOTE | 2018-05-09 16:41 | NUR ---
SHIFT SUMMARY PT ADMITTED FOR NEW ONSET A-FIB, HX OF RECENT STROKE IN PAST FEW WEEKS (LEFT SIDE WEAKNESS) . SHE IS A&O X3, PLEASANTLY SLIGHTLY CONFUSED PERIODICALLY. SHE IS ON 2 LPM AT HOME AT NIGHT. SHE HAD A CRITICAL HIGH PHOSPHORUS THIS MORNING. SHE WAS PUT ON RENVELLA PHOSPHATE BINDER WITH MEALS TODAY. SHE HAD A SPEECH/SWALLOW RE-EVAL: DYSPHAGIA PRECAUTIONS, ADVANCED TO MECH-SOFT DIET, UP IN CHAIR FOR MEALS, NO STRAWS. SHE TAKES HER MEDS WHOLE IN YOGURT. SHE IS REFUSING LIDODERM PATCHES SHE STATES THEY DO NOT WORK. SHE HAD DIALYSIS TODAY. SHE IS A 2 PERSON STANDBY PIVOT ASSIST TO BSC.
--- NOTE | 2018-05-09 23:32 | NUR ---
PATIENT REPORTS THEIR SON WILL STAY THE NIGHT IN THE ROOM. HE IS A CAREGIVER. LEFT AND SON IN THE ROOM. SON REPORTS HE IS FRUSTRATED WITH HIS MOM NOT LISTENING TO HIM AND CHOOSE TO LEAVE FOR THE NIGHT. CALL LIGHT IN REACH.
--- NOTE | 2018-05-10 03:41 | NUR ---
SHIFT SUMMARY PATIENT HAD NO ACUTE CHANGES OBSERVED DURING THE SHIFT. AXO X 3 W/SLURRED SPEECH AND LS WEAKNESS FROM PREVIOUS CVA THIS MONTH. ON 2L O2 NC. PATIENT IN CHAIR AT SHIFT CHANGE. REPORTS SON WILL STAY THE WHOLE NIGHT. SON REPORTS HE WAS FRUSTRATED WITH PATIENT. SON'S JOB IS A CAREGIVER. HE LEFT FOR HOME AND DID NOT STAY THE SHIFT. PATIENT UPSET WITH SON. PATIENT 1-2 PERSON ASSIST W/FWW/GAIT BELT TO BSC. ON DYSPHAGIA PRECAUTIONS. TAKES MEDS WHOLE WITH YOGURT. DENIES PAIN, SOB, AND N/V. VSS/AFEBRILE. PIV REMAINS INTACT. IV ABX INFUSED. DROPLET PRECAUTION. CALL LIGHT IN REACH. BED IN LOWEST POSITION. WILL CONTINUE TO MONITOR UNTIL DAY SHIFT NURSE ASSUMES CARE.
--- NOTE | 2018-05-10 05:09 | NUR ---
PATIENT REPORTS SHE IS STILL AGITATED WITH HER SON LEAVING LAST NIGHT WHEN HE SAID HE WOULD STAY. PATIENT WANTS TO SLEEP AT THIS TIME. BED ALARM ACITVATED.
[2018-05-10 05:31] LABS: Hematocrit 34.8 % (33.0-51.0); Hemoglobin 10.7 g/dL (11.5-16.0)
[2018-05-10 05:50] LABS: Anion Gap 11 mmol/L (6-16); Blood Urea Nitrogen 38 mg/dL (8-24); Bun/Creatinine Ratio 9.5 (12.0-20.0); CO2, Blood 27 mmol/L (21-32); Calcium, Blood 8.5 mg/dL (8.5-10.1); Chloride, Blood 93 mmol/L (98-108); Creatinine, Blood 3.99 mg/dL (0.40-1.00); Glomerular Filtration Rate 11 (60-); Glucose, Blood 100 mg/dL (70-99); Magnesium, Blood 2.1 mg/dL (1.6-2.4); Phosphorus, Blood 6.8 mg/dL (2.5-4.9); Potassium, Blood 5.4 mmol/L (3.5-5.5); Sodium, Blood 131 mmol/L (136-145)
--- NOTE | 2018-05-10 09:31 | NUR ---
DR EASON ROUNDED ON PT STATED POTASSIUM ON THE HIGH SIDE, PT SENT TO DIALYSIS AT APPROX 0900
--- NOTE | 2018-05-10 16:44 | NUR ---
SHIFT SUMMARY PT RECEIVED DIALYSIS TODAY. IF DIALYSIS CAN HAPPEN IN THE MORNING THE PT CAN BE DISCHARGED AFTER THAT. IF DIALYSIS IS DELAYED, THE PT CAN BE DC'D AND COMPLETE DIALYSIS OUTPATIENT ON WAY HOME. PT WISHES TO BE DC'D TO HER HOME INSTEAD OF REHAB FACILITY, HER SON STATES HE IS A LICENSED CAREGIVER. HAS ORDERED PT EVALUATION TO SEE WHERE WOULD BE SAFEST FOR HER TO DC TO. PT'S PHOSPHORUS LEVELS ARE IMPROVING. HER POTASSIUM IS ON THE HIGH SIDE OF THE NORMAL RANGE. PT DID REFUSE METAMUCIL TODAY, DENIES CONSTIPATION.
--- NOTE | 2018-05-10 22:27 | NUR ---
PATIENT REPORTS NECK/SHOULDER PAIN. PERCOCET 5 MG PO GIVEN PER EMAR. PATIENT ABLE TO GO TO SLEEP. IV ABX INFUSING X ONE. SON REPORTS HE WILL STAY THE NIGHT THIS SHIFT. BED ALARM ACTIVATED. CALL LIGHT IN REACH.
--- NOTE | 2018-05-11 02:44 | NUR ---
SHIFT SUMMARY PATIENT HAD NO ACUTE CHANGE OBSERVED THIS SHIFT. AXO X3 AND 1-2 PERSON ASSIST TO BSC. SLURRED SPEECH AND LS WEAKNESS FROM CVA THIS MONTH. DIALYSIS PATIENT [id number]. REPORTS NECK/SHOULDER PAIN AND RECEIVED PERCOCET X ONE. PIV REMAINS INTACT. IV ABX INFUSED. SON, LICENSED CAREGIVER STAYED FOR THE MIGHT. DROPLET PRECAUTIONS. TAKES MEDS WHOLE IN YOGURT/PUDDING. ON 2L 02 NC. CALL LIGHT IN REACH. BED IN LOWEST POSITION. WILL CONTINUE TO MONITOR UNTIL DAY SHIFT NURSE ASSUMES CARE.
[2018-05-11 06:17] LABS: Hematocrit 32.9 % (33.0-51.0); Hemoglobin 10.2 g/dL (11.5-16.0)
[2018-05-11 07:12] LABS: Anion Gap 10 mmol/L (6-16); Blood Urea Nitrogen 31 mg/dL (8-24); Bun/Creatinine Ratio 8.6 (12.0-20.0); CO2, Blood 27 mmol/L (21-32); Chloride, Blood 92 mmol/L (98-108); Creatinine, Blood 3.62 mg/dL (0.40-1.00); Glomerular Filtration Rate 12 (60-); Glucose, Blood 118 mg/dL (70-99); Potassium, Blood 4.9 mmol/L (3.5-5.5); Sodium, Blood 129 mmol/L (136-145)
[2018-05-11 07:13] LABS: Albumin, Blood 2.9 g/dL (3.4-5.0); Calcium, Blood 8.4 mg/dL (8.5-10.1); Phosphorus, Blood 5.6 mg/dL (2.5-4.9)
--- NOTE | 2018-05-11 10:13 | NUR ---
"DAY SURGERY RN | THIS RN HELPING PRIMARY RN The patient was complaining of pain that went behind ear and went down back. Patiet family in room discussed potentially getting prescription for migraine medication. Advised patient and family to discuss concerns with provider."
--- NOTE | 2018-05-11 15:58 | NUR ---
PATIENT A/OX4, UP WITH FWW AND 1 ASSIST TO BSC. PATIENT HAD PERSISTENT HEADACHE WITH NECK AND UPPER BACK PAIN. TREATING WITH PERCOCET, TYLENOL AND VALIUM X1. VSS. UP TO BSC WITH FWW AND 1 ASSIST. HR ELEVATED IN THE 130'S THIS AM, DR. ROMERO INCREASED METOPROLOL AND A SECOND DOSE WAS GIVEN. LUNGS CLEAR/DIM, 2LO2 TO MAINTAIN SATS. CALM AND COOPERATIVE WITH CARE, CALLS APPROPRIATELY FOR ASSISTANCE.
--- NOTE | 2018-05-12 04:54 | NUR ---
SENIOR CLINICAL PROJECT MANAGER SUMMARY NO ACUTE CHANGES THIS SHIFT. PT AAOX4 AND COOPERATIVE WITH CARE. TREATED FOR PAIN X1 WITH PERCOCET. BED ALARM REMAINS ON DUE TO PT NOT ALWAYS CALLING FOR ASSISTANCE. 1 PERSON ASSIST TO BSC, PT HAS URINATED X2 TONIGHT. PT STILL COMPLAINS OF OFF/ON HEADACHE SHE HAS HAD FOR SEVERAL MONTHS. VSS, WILL CONTINUE TO MONITOR.
[2018-05-12 06:25] LABS: Hemoglobin 10.5 g/dL (11.5-16.0)
[2018-05-12 06:35] LABS: Albumin, Blood 2.9 g/dL (3.4-5.0); Anion Gap 10 mmol/L (6-16); Blood Urea Nitrogen 42 mg/dL (8-24); Bun/Creatinine Ratio 9.6 (12.0-20.0); CO2, Blood 26 mmol/L (21-32); Calcium, Blood 8.7 mg/dL (8.5-10.1); Chloride, Blood 95 mmol/L (98-108); Creatinine, Blood 4.39 mg/dL (0.40-1.00); Glomerular Filtration Rate 10 (60-); Glucose, Blood 108 mg/dL (70-99); Magnesium, Blood 2.1 mg/dL (1.6-2.4); Phosphorus, Blood 6.9 mg/dL (2.5-4.9); Potassium, Blood 5.6 mmol/L (3.5-5.5); Sodium, Blood 131 mmol/L (136-145)
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
--- NOTE | 2018-05-12 19:30 | NUR ---
SHIFT SUMMARY SHAINA COMPLAINED OF PAIN TODAY AND WAS TREATED PER EMAR. HAD HEMO DIALYSIS THIS SHIFT. LOST IV ACCESS AND UNABLE TO GET NEW LINE SO FAR, SHE RECEIVED HER IV VANCO IN HD. DYSPHAGIA PRECAUTIONS FOLLOWED, TOOK MEDS WITH APPLESAUCE VERY WELL. AO1 WITH WALKER TO BR. ON ROOM AIR THIS SHIFT. HAD BM THIS SHIFT. HANDED OVER TO NIGHT NURSE
--- NOTE | 2018-05-13 05:52 | NUR ---
SHIFT SUMMARY PT HAS SLEPT WELL DURING THE NIGHT. MEDICATED FOR PAIN AT BEDTIME. NO ACUTE CHANGES NOTED. SON STAYED IN ROOM WITH PT. WILL CONTINUE TO MONITOR.
[2018-05-13 07:28] LABS: Anion Gap 8 mmol/L (6-16); Blood Urea Nitrogen 26 mg/dL (8-24); Bun/Creatinine Ratio 7.7 (12.0-20.0); CO2, Blood 30 mmol/L (21-32); Calcium, Blood 8.3 mg/dL (8.5-10.1); Chloride, Blood 99 mmol/L (98-108); Creatinine, Blood 3.36 mg/dL (0.40-1.00); Glomerular Filtration Rate 14 (60-); Glucose, Blood 90 mg/dL (70-99); Potassium, Blood 4.6 mmol/L (3.5-5.5); Sodium, Blood 137 mmol/L (136-145)
[2018-05-13 07:44] LABS: Vancomycin, Random 14.8 ug/mL
[2018-05-13] MEDS ORDERED: METO25 PO (12:54)
--- NOTE | 2018-05-13 13:50 | NUR ---
Met pt sitting in a chair and has her yo. phone on .pt. reports doing well, prayed for her.
--- NOTE | 2018-05-13 15:31 | NUR ---
PATIENT TO DISCHARGE TO [facility]. DAUGHTER AT BEDSIDE. THIS RN REMOVED HER IV. PATIENT SITTING IN CHAIR READY TO DISCHARGE.
--- NOTE | 2018-05-13 15:35 | NUR ---
Met with Edilberto, pt's son and caregiver. He is always appreciaitve of prayer and spiritual support. He also understands "my mom is suffering." However, it has always been the pt's wishes to recieve all medical interventions to sustain life. Son, Edilberto is trying to follow his mom's wishes. Pt is being transferred back to SNF this afternoon. No needs presented. Prayer appreciaited.
--- NOTE | 2018-05-13 16:44 | NUR ---
PATIENT DISCHARGED WITH [facility]. TRANSPORTED VIA W/C AND OXYGEN. [facility]PORT [facility] TO [facility].
== END 2018-05-13 16:36 | DRG 871 ==
LOC: ER 13:19 → MEDS 18:15
PROVIDERS: Emergency Medicine; Internal Medicine Nephrology; Pharmacist; ADMIT Internal Medicine
PROC: 5A1D70Z Performance of Urinary Filtration, Intermittent, Less than 6 Hours Per Day (ICD-10-PCS; principal; 2018-05-08)
PROC: 5A1D70Z Performance of Urinary Filtration, Intermittent, Less than 6 Hours Per Day (ICD-10-PCS; 2018-05-11)
PROC: 5A1D70Z Performance of Urinary Filtration, Intermittent, Less than 6 Hours Per Day (ICD-10-PCS; 2018-05-13)
DX: A41.9 Sepsis, unspecified organism (principal); N18.6 End stage renal disease; N39.0 Urinary tract infection, site not specified; I13.2 Hypertensive heart and chronic kidney disease with heart failure and with stage 5 chronic kidney disease, or end stage renal disease; E87.1 Hypo-osmolality and hyponatremia; A49.02 Methicillin resistant Staphylococcus aureus infection, unspecified site; E11.22 Type 2 diabetes mellitus with diabetic chronic kidney disease; I50.9 Heart failure, unspecified; Z99.2 Dependence on renal dialysis; D63.1 Anemia in chronic kidney disease; M47.9 Spondylosis, unspecified; J44.9 Chronic obstructive pulmonary disease, unspecified; E78.5 Hyperlipidemia, unspecified; E87.5 Hyperkalemia; G47.30 Sleep apnea, unspecified; I25.2 Old myocardial infarction; E87.70 Fluid overload, unspecified; I69.334 Monoplegia of upper limb following cerebral infarction affecting left non-dominant side; I69.392 Facial weakness following cerebral infarction; I25.10 Atherosclerotic heart disease of native coronary artery without angina pectoris; K21.9 Gastro-esophageal reflux disease without esophagitis; I48.0 Paroxysmal atrial fibrillation; G89.29 Other chronic pain; Z66 Do not resuscitate
CPT/HCPCS: 36415; 71046; 80053; 80069; 80202; 81001; 83605; 83735; 84100; 84145; 84484; 85014; 85018; 85025; 85610; 85730; 87040; 87077; 87086; 87147; 87186; 87804; 92526; 92610; 93005; 93010; 93308; 93321; 96365; 97124; 97161; 97530; 99285-25; J0696; J1885; J3370; J7050

== ENCOUNTER 2018-05-24 07:12 | Inpatient (IN) | payer MEDICARE, BC ==
[~2018-05-24] VITALS: Ht 149.9 cm; Wt 78.3 kg
[~2018-05-24 07:12] MED LIST changes: +ALBU4 PO; +FERRIC CITRATE210 MG PO; +SEVE800 PO; +VELPHORO500 MG PO
[2018-05-24 08:10] LABS: BASOPHILS ABSOLUTE AUTO 0.03 K/mm3 (0.00-0.23); BASOPHILS PERCENT AUTO 1 % (0-2); EOSINOPHILS ABSOLUTE AUTO 0.05 K/mm3 (0.00-0.68); EOSINOPHILS PERCENT AUTO 1 % (0-6); Hematocrit 33.1 % (33.0-51.0); IMMATURE GRAN ABSOLUTE AUTO 0.03 K/mm3 (0.00-0.10); IMMATURE GRAN PERCENT AUTO 1 % (0-1); LYMPHOCYTES ABSOLUTE AUTO 0.39 K/mm3 (0.84-5.20); LYMPHOCYTES PERCENT AUTO 6 % (21-46); MONOCYTES ABSOLUTE AUTO 0.35 K/mm3 (0.16-1.47); MONOCYTES PERCENT AUTO 5 % (4-13); Mean Corpuscular HGB 32.3 pg (26.0-34.0); Mean Corpuscular HGB Conc 30.2 g/dL (31.5-36.5); Mean Corpuscular Volume 107 fL (80-100); Mean Platelet Volume 11.2 fL (9.1-12.4); NEUTROPHILS ABSOLUTE AUTO 5.66 K/mm3 (1.96-9.15); NEUTROPHILS PERCENT AUTO 87 % (41-73); NRBC ABSOLUTE 0.02 K/mm3 (0.00-0.02); NRBC Auto 0.3 /100 WBC (0.0-0.2); Platelet Count 188 K/mm3 (150-400); RDW Standard Deviation 68.2 fL (35.1-46.3); White Blood Cell Count 6.51 K/mm3 (4.00-11.30)
[2018-05-24] MEDS ORDERED: GEMF600 PO ×2 (08:27)
[2018-05-24] MEDS ORDERED: GABA300 PO ×2 (08:27)
[2018-05-24] MEDS ORDERED: SACC250C ×2 (08:27)
[2018-05-24] MEDS ORDERED: MIDO5 PO ×2 (08:28)
[2018-05-24] MEDS ORDERED: ATOR10 PO ×2 (08:28)
[2018-05-24] MEDS ORDERED: METO25ER PO ×2 (08:28)
[2018-05-24] MEDS ORDERED: OMEPRAZOLE MAGN20 MG PO ×2 (08:29)
[2018-05-24] MEDS ORDERED: Milk Of Ma400 MG/5 M ×2 (08:29)
[2018-05-24] MEDS ORDERED: FAMO20 PO ×2 (08:29)
[2018-05-24] MEDS ORDERED: Pedi-Dri 100,0060 GM ×2 (08:29)
[2018-05-24] MEDS ORDERED: Percocet 5-3251 EACH ×2 (08:30)
[2018-05-24] MEDS ORDERED: SEVE800 PO ×2 (08:30)
[2018-05-24] MEDS ORDERED: VELPHORO500 MG PO ×2 (08:30)
[2018-05-24 08:31] LABS: Albumin, Blood 3.1 g/dL (3.4-5.0); Albumin/Globulin Ratio 0.8 (0.8-1.8); Bilirubin, Total 0.3 mg/dL (0.1-1.0); Bun/Creatinine Ratio 9.2 (12.0-20.0); Calcium, Blood 8.7 mg/dL (8.5-10.1); Creatinine, Blood 4.14 mg/dL (0.40-1.00); Globulin, Blood 3.7 g/dL (2.2-4.0); Potassium, Blood 4.7 mmol/L (3.5-5.5); Total Protein, Blood 6.8 g/dL (6.4-8.2)
[2018-05-24] MEDS ORDERED: CYAN500 PO ×2 (08:31)
[2018-05-24] MEDS ORDERED: CHOL10002 ×2 (08:31)
[2018-05-24 08:49] LABS: Source, Urine Catheter
[2018-05-24 09:00] LABS: Appearance, Urine Clear (Clear); Bilirubin, Urine Neg (Neg); Blood, Urine 1+ (Neg); Color, Urine Yellow (P-Yellow); Glucose Qualitative, Urine 1+ (Neg); Ketones, Urine Neg (Neg); Leukocyte Esterase, Urine 2+ (Neg); Nitrite, Urine Neg (Neg); Protein, Urine 3+ (Neg); Specific Gravity, Urine 1.015 (1.003-1.022); Urobilinogen, Urine NORM (Normal)
[2018-05-24 09:03] LABS: Vancomycin, Random 7.3 ug/mL
[2018-05-24 09:16] LABS: Bacteria Few /hpf; Squamous Epithelial Cells Few /hpf (Few)
[2018-05-24 09:18] LABS: Influenza A Positive (NEGATIVE); Influenza B Negative (NEGATIVE)
[2018-05-25 04:36] LABS: Hematocrit 32.7 % (33.0-51.0); Hemoglobin 9.9 g/dL (11.5-16.0); Mean Corpuscular HGB 31.6 pg (26.0-34.0); Mean Corpuscular HGB Conc 30.3 g/dL (31.5-36.5); Mean Corpuscular Volume 105 fL (80-100); Mean Platelet Volume 11.1 fL (9.1-12.4); Platelet Count 151 K/mm3 (150-400); RDW Coefficient Variation 18.5 % (11.7-14.2); RDW Standard Deviation 68.8 fL (35.1-46.3); Red Blood Cell Count 3.13 M/mm3 (3.80-5.20); White Blood Cell Count 7.61 K/mm3 (4.00-11.30)
[2018-05-25 04:53] LABS: Albumin, Blood 2.8 g/dL (3.4-5.0); Anion Gap 9 mmol/L (6-16); Blood Urea Nitrogen 29 mg/dL (8-24); Bun/Creatinine Ratio 9.9 (12.0-20.0); CO2, Blood 29 mmol/L (21-32); Calcium, Blood 8.2 mg/dL (8.5-10.1); Chloride, Blood 100 mmol/L (98-108); Creatinine, Blood 2.92 mg/dL (0.40-1.00); Glomerular Filtration Rate 16 (60-); Glucose, Blood 215 mg/dL (70-99); Magnesium, Blood 2.1 mg/dL (1.6-2.4); Sodium, Blood 138 mmol/L (136-145)
--- NOTE | 2018-05-25 06:37 | NUR ---
SOLAR MANAGER SUMMARY NEW ADMIT AT START OF SHIFT. PT ADMITTED WITH FLU WELL DECREASED KIDNEY FUNCTION AND PNA/FLUID OVERLOAD. DR EASON IN TO SEE PT AT START OF SHIFT AND ORDERED PT TO BE STARTED ON CLINDAMICIN AND VANCO WELL A 1X DOSE OF SOLUMEDROL. PT WAS DIALYZED TONIGHT WELL. DIALYSIS NURSE REPORTED SHE WAS ABLE TO PULL 1.5L OF FLUID OFF PT. PT LUNG SOUNDS COARSE AND CRACKLY, IMPROVED A BIT WITH DIALYSIS AND SOLUMEDROL. CRACKLES MORE FINE AT THIS POINT. O2 SATS REMAIN IN HIGH 90'S ON NORMAL 2L O2 VIA NC. PT AAOX2, KNOWS WHERE SHE IS AND WHY BUT IS FORGETFUL AT TIMES. PLEASANT AND FOLLOWS DIRECTION. TACHY AT START OF SHIFT BUT HR HAS IMPROVED TO 90'S AFTER DIALYSIS. GAVE TYLENOL FOR FEVER 101.1, NOW IN 97 RANGE. OTHER VSS, WILL CONTINUE TO MONITOR.
--- NOTE | 2018-05-25 16:41 | NUR ---
SHE HAS HAD A GOOD DAY. HER SON WAS AT BEDSIDE THIS MORNING AND HER IS AT BEDSIDE THIS AFTERNOON. SHE WAS DIALYSED TODAY. 1500 MLS REMOVED. VELPHORO ORDER CLARIFIED. SON BROUGHT THE BOTTLE IN AND PHARMACY VERIFIED IT. DROPLET CONTACT ISOLATION CONTINUES FOR FLU AND HX OF MRSA, VRE AND MDR PSEUDAMONAS. KNEE HIGH TEDS PLACED THIS AFTERNOON. SHE DOESN'T LIKE THEM BUT SAYS SHE WILL TRY TO WEAR THEM UNTIL HS. VSS. 1 LOW BP AT BEGINNING OF DIALYSIS TODAY, BUT REST OF BP'S STABLE. SHE HAS BEEN TACHY BETWEEN 98 AND 128. METOPROLOL GIVEN AFTER DIALYSIS. SHE KNOWS PERSON, PLACE AND TIME BUT HAS CONFUSION OVER LITTLE THINGS.
--- NOTE | 2018-05-26 05:25 | NUR ---
TRUCK JUMPER SUMMARY PT AAOX3 AND PLEASANT. LUNG SOUNDS IMPROVED AFTER 2ND DAY OF DIALYSIS, STILL COARSE IN BASES BUT CRACKLES GONE. PT HAS BEEN ON CONTINUOUS PULSE OX, O2 SATS REMAIN IN HIGH 90'S. PER CONT PULSE OX, HR HAS RANGED FROM 90-110'S. HR OCCASIONALLY GOES UP TO 130-140'S FOR A FEW SECONDS AND THEN BACK DOWN. CHRONIC PAIN WELL CONTROLLED WITH SCHEDULED PERCOCET. PT REPORTS THAT SHE HAS A SWALLOW EVALUATION SCHEDULED FOR TODAY OUTPATIENT AND IS CURIOUS IF IT COULD BE COMPLETED WHILE INPATIENT. WILL PASS ALONG INFORMATION TO DAY RN TO FOLLOW UP WITH HOSPITALIST REGARDING SWALLOW EVAL. NO OTHER COMPLAINTS FROM PT. VSS, WILL CONTINUE TO MONITOR.
[2018-05-26 05:31] LABS: Hematocrit 35.4 % (33.0-51.0); Hemoglobin 10.3 g/dL (11.5-16.0)
[2018-05-26 05:46] LABS: Albumin, Blood 2.8 g/dL (3.4-5.0); Anion Gap 11 mmol/L (6-16); Blood Urea Nitrogen 38 mg/dL (8-24); Bun/Creatinine Ratio 13.9 (12.0-20.0); CO2, Blood 25 mmol/L (21-32); Calcium, Blood 8.4 mg/dL (8.5-10.1); Chloride, Blood 100 mmol/L (98-108); Creatinine, Blood 2.73 mg/dL (0.40-1.00); Glomerular Filtration Rate 18 (60-); Glucose, Blood 131 mg/dL (70-99); Magnesium, Blood 2.2 mg/dL (1.6-2.4); Phosphorus, Blood 4.7 mg/dL (2.5-4.9); Potassium, Blood 4.8 mmol/L (3.5-5.5); Sodium, Blood 136 mmol/L (136-145)
--- NOTE | 2018-05-26 11:55 | NUR ---
Pt. is doing well sitting on a chaior and talking with her son in the room on visit offered prayer for the pt.
--- NOTE | 2018-05-26 14:55 | NUR ---
Spiritual care visit conducted. Patient was sitting on a chair eating lunch when I stood in the doorway to talk with the patient. Patient's , Edilberto and sons, Orlando and Peewee were bedside. Patient and family talked about patient current condition and their desire to bring her home after her stay in the hospital (instead of a nursing/rehabilitation facility). They also told stories about growing up with their mother and what she was like. There was much laughter as the stories unfolded. Patient was incredibly sharp, witty and warm. She appeared to be strengthened as she told stories. I listened empathically, provided companionship and a calming presence. Patient responded well and showed sings of an elevated mood.
--- NOTE | 2018-05-26 18:22 | NUR ---
SUMMARY PT SITTING UP IN THE CHAIR AT THE BEDSIDE EATING HER DINNER, PT HAS BEEN UP IN THE CHAIR FOR MOST OF THE DAY, DID NOT HAVE DIALYSIS TODAY, PT DID HAVE LOTS AND LOTS OF FAMILY IN TO VISIT T/O THE DAY, PT DID HAVE A SHOWER AND WORKED WITH PT/OT, PT ABLE TO WALK IN THE HALLS WITH ASSISTANCE, PT HAS BEEN PLEASANT AND COOPERATIVE WITH CARE, VSS, NO ACUTE CHANGES, WILL CONT TO MONITOR
[2018-05-27 05:34] LABS: Hematocrit 32.7 % (33.0-51.0); Hemoglobin 9.9 g/dL (11.5-16.0)
[2018-05-27 05:52] LABS: Anion Gap 11 mmol/L (6-16); Blood Urea Nitrogen 55 mg/dL (8-24); Bun/Creatinine Ratio 13.8 (12.0-20.0); CO2, Blood 29 mmol/L (21-32); Calcium, Blood 8.2 mg/dL (8.5-10.1); Chloride, Blood 97 mmol/L (98-108); Creatinine, Blood 3.99 mg/dL (0.40-1.00); Glomerular Filtration Rate 11 (60-); Glucose, Blood 89 mg/dL (70-99); Magnesium, Blood 2.3 mg/dL (1.6-2.4); Phosphorus, Blood 4.5 mg/dL (2.5-4.9); Potassium, Blood 4.7 mmol/L (3.5-5.5); Sodium, Blood 137 mmol/L (136-145)
--- NOTE | 2018-05-27 07:18 | NUR ---
SHIFT SUMMARY PT IS AN 83 Y/O FEMALE ADMITTED FOR THE FLU. SHE IS A&O X 2-3, THOUGH FORGETFUL AT TIMES. SHE REPORTED CHRONIC NECK PAIN, FOR WHICH SHE WAS MEDICATED ONCE WITH SCHEDULED OXYCODONE. SHE REPORTED THAT SHE NORMALLY TAKES FLEXERIL AT HOME FOR NECK PAIN. NONE WAS ORDERED, A HEATING PAD WAS TRIED, WHICH GREATLY HELPED WITH THE PT'S NECK PAIN, AND SHE WAS ABLE TO SLEEP THROUGH THE MORNING. PT'S HEART RATE WAS ELEVATED DURING THE NIGHT IN THE 110 TO 120S. ALL OTHER VITALS STABLE. NO OTHER ACUTE CHANGES IN PT CONDITION NOTED. WILL CONTINUE TO MONITOR AND TREAT PER EMAR.
[2018-05-27] MEDS ORDERED: Tamiflu30 MG PO ×2 (10:47)
--- NOTE | 2018-05-27 11:49 | NUR ---
Pt. is in dialysis and is doing well,pt may go home today or [place]ell offered prayers for pt.
--- NOTE | 2018-05-27 13:52 | NUR ---
SUMMARY/DISCHARGE PT DISCHARGED TO HOME WITH HOME HEALTH AFTER DIALYSIS TODAY, PT'S SON AND OTHER FAMILY MEMBERS VERBALIZED UNDERSTANDING OF DISCHARGE ORDERS AND FOLLOW UP APPOINTMENTS, PT TAKEN OUT SAFELY VIA WHEELCHAIR
== END 2018-05-27 13:34 | disposition home or self-care (01) | DRG 871 ==
LOC: ER 07:12 → MEDS 10:03 → ERHOLD 10:03 → MEDS 18:47 → ENPENDDIS 05-27 10:32 → MEDS 05-27 13:34
PROVIDERS: Emergency Medicine; Internal Medicine Nephrology; Pharmacist; ADMIT Hospitalist
DX: A41.9 Sepsis, unspecified organism (principal); J96.01 Acute respiratory failure with hypoxia; N18.6 End stage renal disease; G93.41 Metabolic encephalopathy; N25.81 Secondary hyperparathyroidism of renal origin; R65.20 Severe sepsis without septic shock; J10.1 Influenza due to other identified influenza virus with other respiratory manifestations; D63.1 Anemia in chronic kidney disease; I48.91 Unspecified atrial fibrillation; K21.9 Gastro-esophageal reflux disease without esophagitis; G47.30 Sleep apnea, unspecified; E11.40 Type 2 diabetes mellitus with diabetic neuropathy, unspecified; E11.22 Type 2 diabetes mellitus with diabetic chronic kidney disease; I95.9 Hypotension, unspecified; I10 Essential (primary) hypertension; E88.09 Other disorders of plasma-protein metabolism, not elsewhere classified; Z86.73 Personal history of transient ischemic attack (TIA), and cerebral infarction without residual deficits; Z99.2 Dependence on renal dialysis; Z88.5 Allergy status to narcotic agent; Z88.0 Allergy status to penicillin; Z88.8 Allergy status to other drugs, medicaments and biological substances; Z79.82 Long term (current) use of aspirin; Z79.899 Other long term (current) drug therapy
CPT/HCPCS: 36415; 71046; 80048; 80053; 80069; 80202; 81001; 83605; 83735; 84145; 85014; 85018; 85025; 85027; 87086; 87804; 93005; 93010; 94640; 94762; 96365; 97162; 97530; 99285-25; J0692; J1580; J2930; J3370; J7030; J7050; P9612

== ENCOUNTER 2018-06-06 13:04 | Emergency (ER) | payer MEDICARE, BC ==
[~2018-06-06] VITALS: Ht 149.9 cm; Wt 72.6 kg
[~2018-06-06 13:04] MED LIST changes: +CHOL10002; +METO25ER PO; +MIDO5 PO; +Milk Of Ma400 MG/5 M; +Pedi-Dri 100,0060 GM; +SACC250C; +Tamiflu30 MG PO
== END 2018-06-06 14:21 | disposition home or self-care (01) ==
LOC: ER 13:04
DX: S09.90XA Unspecified injury of head, initial encounter (principal); W18.30XA Fall on same level, unspecified, initial encounter; Z88.8 Allergy status to other drugs, medicaments and biological substances; Z88.5 Allergy status to narcotic agent; Z79.899 Other long term (current) drug therapy; Z79.891 Long term (current) use of opiate analgesic; E11.22 Type 2 diabetes mellitus with diabetic chronic kidney disease; D64.9 Anemia, unspecified; N18.9 Chronic kidney disease, unspecified; J44.9 Chronic obstructive pulmonary disease, unspecified; Z87.891 Personal history of nicotine dependence
CPT/HCPCS: 70450; 99284-25

== ENCOUNTER 2018-06-26 13:15 | Inpatient (IN) | payer MEDICARE, BC ==
[~2018-06-26] VITALS: Ht 149.9 cm; Wt 76.5 kg
[~2018-06-26 13:15] MED LIST changes: -Pedi-Dri 100,0060 GM; -SACC250C
[2018-06-26 13:56] LABS: BASOPHILS ABSOLUTE AUTO 0.06 K/mm3 (0.00-0.23); BASOPHILS PERCENT AUTO 2 % (0-2); EOSINOPHILS ABSOLUTE AUTO 0.18 K/mm3 (0.00-0.68); EOSINOPHILS PERCENT AUTO 5 % (0-6); Hematocrit 42.5 % (33.0-51.0); Hemoglobin 12.7 g/dL (11.5-16.0); IMMATURE GRAN ABSOLUTE AUTO 0.01 K/mm3 (0.00-0.10); IMMATURE GRAN PERCENT AUTO 0 % (0-1); LYMPHOCYTES PERCENT AUTO 40 % (21-46); MONOCYTES ABSOLUTE AUTO 0.25 K/mm3 (0.16-1.47); MONOCYTES PERCENT AUTO 6 % (4-13); Mean Corpuscular HGB Conc 29.9 g/dL (31.5-36.5); Mean Corpuscular Volume 107 fL (80-100); Mean Platelet Volume 11.5 fL (9.1-12.4); NEUTROPHILS ABSOLUTE AUTO 1.92 K/mm3 (1.96-9.15); NEUTROPHILS PERCENT AUTO 48 % (41-73); Platelet Count 104 K/mm3 (150-400); RDW Coefficient Variation 19.2 % (11.7-14.2); Red Blood Cell Count 3.97 M/mm3 (3.80-5.20); White Blood Cell Count 4.02 K/mm3 (4.00-11.30)
[2018-06-26] MEDS ORDERED: DESL5 PO (14:24)
[2018-06-26] MEDS ORDERED: TRIPHROCAPS SOFT1 MG PO (14:26)
[2018-06-26] MEDS ORDERED: METO5A PO (14:26)
[2018-06-26 14:27] LABS: Albumin, Blood 3.3 g/dL (3.4-5.0); Bilirubin, Total 0.3 mg/dL (0.1-1.0); Bun/Creatinine Ratio 8.6 (12.0-20.0); Calcium, Blood 8.3 mg/dL (8.5-10.1); Creatinine, Blood 3.47 mg/dL (0.40-1.00); Globulin, Blood 3.4 g/dL (2.2-4.0); Potassium, Blood 4.2 mmol/L (3.5-5.5); Total Protein, Blood 6.7 g/dL (6.4-8.2)
[2018-06-26] MEDS ORDERED: Ventolin/Prove6.7 GM INH (14:29)
[2018-06-26 16:20] LABS: Source, Urine Catheter
[2018-06-26 16:26] LABS: Bilirubin, Urine Neg (Neg); Blood, Urine 3+ (Neg); Glucose Qualitative, Urine Neg (Neg); Ketones, Urine Neg (Neg); Leukocyte Esterase, Urine 3+ (Neg); Nitrite, Urine Neg (Neg); Protein, Urine 3+ (Neg); Urobilinogen, Urine NORM (Normal)
[2018-06-26 16:35] LABS: Appearance, Urine Clear (Clear); Color, Urine Yellow (P-Yellow)
[2018-06-26 16:36] LABS: Bacteria Few /hpf; Squamous Epithelial Cells Not Seen /hpf (Few); Transitional Epithelial Cells Few /hpf (0-Rare); White Blood Cells, Urine 50-100 /hpf (0-5)
--- NOTE | 2018-06-26 21:00 | NUR ---
PCU ADMIT PT BROUGHT TO PCU [id number] FROM THE ER BY SAMANTHA @ 2024. PT SLID OVER FROM [facility] TO PCU BED BY 4 STAFF MEMBERS. PT A&O X4, CALM AND COOPERATIVE. LUNG SOUNDS CLEAR T/O, SPO2 > 92% ON 2L NC. MONITOR SHOWS AFIB, HR 80-120. PT C/O PAIN IN R SHOULDER, RECENTLY TX'D IN ER. AT BEDSIDE REQUESTS FENTANYL BE USED MINIMALLY, STATING "IT MAKES HER CRAZY". PT REQUESTING OXYCODONE. WILL CONTINUE TO MONITOR AND PROVIDE CARE T/O SHIFT.
--- NOTE | 2018-06-27 05:26 | NUR ---
SHIFT SUMMARY PT A&O X4, CALM AND COOPERATIVE. LUNG SOUNDS CLEAR. SPO2 > 90% ON 2L NC. MONITOR SHOWS AFIB, HR 80-120. PT FEBRILE UPON ARRIVAL TO UNIT. PT TEMP NOW WNL. VSS. PT AND PT'S REPORTING PT ABLE TO AMBULATE W/ FWW. 2 STAFF ATTEMPT TO GET PT OOB TO BSC W/ INABILITY D/T PT WEAKNESS. PT BRIEFLY STOOD AT BEDSIDE W/ GAITBELT AND 2 STAFF ASSIST. PT SON TO ROOM W/ REPORT THAT PT HAS NOT BEEN UP WALKING FOR PAST 4 DAYS. PT CONTINENT T/O SHIFT, REQUESTING BEDPAN APPROPRIATELY. ATTENDS IN PLACE FOR PRECAUTION. PT C/O PAIN IN R SHOULDER AND L FOOT. PT TX'D PER EMAR. PT IN BED W/ CALL LIGHT IN REACH. PT'S SON AT BEDSIDE T/O SHIFT. WILL CONTINUE TO MONITOR AND PROVIDE CARE UNTIL REPORT OFF TO DAY SHIFT RN.
[2018-06-27 06:31] LABS: Hematocrit 36.6 % (33.0-51.0); Hemoglobin 11.2 g/dL (11.5-16.0)
[2018-06-27] MEDS ORDERED: ASPI325 PO (06:41)
[2018-06-27 07:02] LABS: Anion Gap 10 mmol/L (6-16); Blood Urea Nitrogen 37 mg/dL (8-24); CO2, Blood 28 mmol/L (21-32); Calcium, Blood 7.8 mg/dL (8.5-10.1); Chloride, Blood 98 mmol/L (98-108); Creatinine, Blood 4.13 mg/dL (0.40-1.00); Glomerular Filtration Rate 11 (60-); Glucose, Blood 107 mg/dL (70-99); Magnesium, Blood 2.1 mg/dL (1.6-2.4); Phosphorus, Blood 5.7 mg/dL (2.5-4.9); Potassium, Blood 4.3 mmol/L (3.5-5.5); Sodium, Blood 136 mmol/L (136-145)
--- NOTE | 2018-06-27 09:05 | NUR ---
AM NOTE. ASSUMED CARE OF PT APROX 0700, PT IS A&Ox4 AND LIVES AT HOME WITH HER SON CAREGIVER. PT WAS ADMITTED DUE TO SEVERE SEPSIS. TELE INTACT, AFIB IN THE 90'S-100'S, PT'S BP 86/56, PT HAS TRACE EDEMA TO HER BLLE. L/S COARSE RHONCHI AND WHEEZES T/O, PT USES 2L NC WHILE SLEEPING AND IS ON RA WHEN AWAKE. BT PRESENT AND HYPOACTIVE, ABD IS SOFT AND NONTENDER TO PALP. FAMILY AT THE BED SIDE. CALL LIGHT IN REACH, BED IS LOCKED AND LOW WILL CONTINUE TO MONITOR.
--- NOTE | 2018-06-27 10:40 | NUR ---
PT UPDATE... PT'S BP 67/54, PROVIDER WAS CALLED AND ORDERS OBTAINED FOR 500 MLS BOLUS AND MIDODRENE TID, PT'S IV ACCESS WAS LOST AND NOT ABLE TO GET ACCESS, CHARGE NURSE NOTIFIED AND POWERGLIDE WAS PLACED. WILL MONITOR.
--- NOTE | 2018-06-27 18:24 | NUR ---
SHIFT SUMMARY. NO ACUTE CHANGES NOTED THIS SHIFT. PT HAS BEEN HYPOTENSIVE THIS SHIFT BUT NOT SYMPTOMATIC, MIDODRENE WAS ORDERED AND GIVEN PER EMAR TID. PT C/O OF PAIN AND HAS BEEN MEDICATED PER EMAR. PT'S AND SON HAVE BEEN AT THE BEDSIDE MOST OF THE DAY. S.T. EVALUATED PT TODAY, PER SPEECH PT IS TO BE ON A PUREE DIET WITH THIN LIQUIDS AND MEDS WHOLE WITH YOUGURT. POWER GLIDE WAS STARTED IN PT'S KAREN. CALL LIGHT IN REACH, BED IS LOCKED AND LOW WILL CONTINUE TO MONITOR UNTIL REPORT IS GIVEN TO ONCOMING RN.
--- NOTE | 2018-06-28 05:18 | NUR ---
SHIFT SUMMARY PT A&O X4, CALM AND COOPERATIVE. LUNG SOUNDS CLEAR. SPO2 > 92% ON RA. MONITOR SHOWS AFIB, HR 80-115. POWER GLIDE IN KAREN REMOVED BY CN D/T LOSS OF USABILITY. FAILED ATTEMPTS FOR NEW POWERGLIDE BY 2 QUALIFIED NURSES. NO IV ACCESS AT THIS TIME. DIALYSIS PORT TO R UPPER CHEST. 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 PT IN BED W/ CALL LIGHT IN REACH. WILL CONTINUE TO MONITOR AND PROVIDE CARE UNTIL REPORT OFF TO DAY SHIFT RN.
[2018-06-28 06:04] LABS: Albumin, Blood 3.2 g/dL (3.4-5.0); Anion Gap 8 mmol/L (6-16); Blood Urea Nitrogen 47 mg/dL (8-24); Bun/Creatinine Ratio 9.8 (12.0-20.0); CO2, Blood 29 mmol/L (21-32); Calcium, Blood 8.3 mg/dL (8.5-10.1); Chloride, Blood 98 mmol/L (98-108); Glomerular Filtration Rate 9 (60-); Glucose, Blood 99 mg/dL (70-99); Magnesium, Blood 2.3 mg/dL (1.6-2.4); Phosphorus, Blood 6.5 mg/dL (2.5-4.9); Potassium, Blood 5.4 mmol/L (3.5-5.5); Sodium, Blood 135 mmol/L (136-145)
[2018-06-28 06:46] LABS: Hematocrit 39.8 % (33.0-51.0); Hemoglobin 12.2 g/dL (11.5-16.0)
--- NOTE | 2018-06-28 10:54 | NUR ---
NO IV ACCESS MULTIPLE ATTEMPTS TO OBTAIN IV ACCESS WITH SONOSIGHT. MULTIPLE STAFF HAVE LOOKED AND TRIED. UNABLE TO OBTAIN IV ACCESS. TALKED WITH DR EASON WHO STATED THAT IT WAS OK TO USE THE DIALYSIS CATHETER LONG NORMAL SALINE KVO IS MAINTAINED LONG PT NEEDS ANTIBIOTIC TREATMENT. TALKED WITH NELLY MILLER IN DIALYSIS HE WILL COME DOWN AND ACCESS THE VENIOUS LINE AND START THE IVF. DIALYSIS WILL ALSO DRAW BLOOD FOR LABS IN AM. CONTINUE POT.
--- NOTE | 2018-06-29 06:22 | NUR ---
SHIFT SUMMARY PT A&0 X4. LUNG SOUNDS DIM T/O. SPO2 > 92% ON RA. MONITOR SHOWS AFIB, HR 100-130. NS INFUSING VIA DIALYSIS PORT W/ INSTRUCTION NOT TO STOP OR PAUSE INFUSION. NS INFUSIONG T/O SHIFT W/OUT INTERRUPTION. PT IN BED W/ CALL LIGHT IN REACH. Q2H REPOSITIONING. WILL CONTINUE TO MONITOR AND PROVIDE CARE UNTIL REPORT OFF TO DAY SHIFT RN.
[2018-06-29 08:44] LABS: Hematocrit 38.2 % (33.0-51.0); Hemoglobin 11.6 g/dL (11.5-16.0)
[2018-06-29 08:56] LABS: Albumin, Blood 3.2 g/dL (3.4-5.0); Anion Gap 8 mmol/L (6-16); Blood Urea Nitrogen 27 mg/dL (8-24); Bun/Creatinine Ratio 7.6 (12.0-20.0); CO2, Blood 31 mmol/L (21-32); Calcium, Blood 8.5 mg/dL (8.5-10.1); Chloride, Blood 96 mmol/L (98-108); Creatinine, Blood 3.56 mg/dL (0.40-1.00); Glomerular Filtration Rate 13 (60-); Glucose, Blood 96 mg/dL (70-99); Magnesium, Blood 2.2 mg/dL (1.6-2.4); Phosphorus, Blood 4.8 mg/dL (2.5-4.9); Potassium, Blood 4.4 mmol/L (3.5-5.5); Sodium, Blood 135 mmol/L (136-145)
--- NOTE | 2018-06-29 10:57 | NUR ---
PCU DAYSHIFT ASSUMED CARE OF PT APPROX. 0700. PT SLEEPING AT START OF SHIFT. PT ABLE TO WAKE UP FOR BREAKFAST. PT A&O X4. ASSESSMENT COMPLETED. VITAL SIGNS STABLE. SBP GREATER TAHN 130 SO MIDODRINE HELD THIS MORNING. PT HEART RHYTHM A. FIB IN 100'S. PT HAS GENERALIZED WEAKNESS, LEFT SIDE WEAKER THAN RIGHT. PT REPORTS HX OF STROKE THAT CAUSED THIS. RT FOOT HAS TRACE EDEMA AND RT FOOT AT +1 EDEMA. PT ABLE TO SWALLOW MEDICATIONS WITH APPLE SAUCE. BED IN LOW POSITION, CALL LIGHT IN REACH AND PT DENIES ANY NEEDS AT THIS TIME WILL CONTINUE TO MONITOR UNTIL HANDOFF TO NIGHTSHIFT RN.
--- NOTE | 2018-06-29 13:42 | NUR ---
Patient was lying in bed and alert when I entered the room with , Edilberto and son, Peewee benítez. Patient expressed frustration about the reoccurance of UTI. I listened epathically, provided emotional support and prayer. Patient and family responded well and showed signs of less stress.
--- NOTE | 2018-06-29 13:46 | NUR ---
Barrer And Tacker Pt consent to have Shiloh Rama provide care to her on 06/30/18
--- NOTE | 2018-06-29 19:45 | NUR ---
ASSUMED CARE PT SLEEPING IN ROOM COMFORTABLY AT THIS TIME. PER DAY SHIFT PT HAD NO ACUTE CHANGES IN STATUS T/O DAY. PT HAS NO IV ACCESS AFTER REPEATED ATTEMPTS. PER DAY SHIFT DIALYSIS PORT IS ACCESSED AND PER DIALYSIS MUST HAVE NS INFUSING CONTINUALLY, AND CANNOT BE STOPPED FOR ANYTHING WHILE PORT IS ACCESSED. DOPER OPERATOR WILL COME IN AM TO DRAW NEEDED BLOOD FOR MORNING LABS FROM PORT. RESP EVEN UNLBOARED ON RA W/ SATS >92%. PT REPORTS PAIN SI UNDER CONTROL AT THIS TIME, PAIN PATCH NOTED TO R SHOULDER. CALL LIGHT IS WITHIN REACH.
--- NOTE | 2018-06-29 19:49 | NUR ---
SHIFT SUMMARY PT PLEASANT, COOPERATIVE AND USES CALL LIGHT APPROPRIATELY. PT REMAINS A&O X4. ASSESSMENT FINDINGS REMAIN UNCHANGED FROM START OF SHIFT. HEART RHYTHM REMAINS A. FIB WITH HEART RATE RANGING FROM 80-100. PT ABLE TO SIT UP FOR MEALS AND HAD SOME APPETIE AND ABLE TO EAT SOME AT EACH MEAL. BED DAVIES UTILIZED NEEDED. FAMILY AT BEDSIDE INTERMITTENTLY. QUESTIONS ANSWERED CAME UP. N.S. CONTINUES TO RUN INTO DIALYSIS PORT AT THIS TIME PER ORDERS. PT ABLE TO ADJUST AND MOVE SELF IN BED WITH ENCORAGEMENT. BED IN LOW POSITION, BED ALARM ON AND CALL LIGHT IN REACH. PT DENIES ANY NEEDS AT THIS TIME. WILL CONTINUE TO MONITOR UNTIL HANDOFF TO NIGHTSHIFT RN.
--- NOTE | 2018-06-30 06:05 | NUR ---
SHIFT SUMMARY PT SLEEPING IN ROOM COMFORTABLY AT THIS TIME. NO ACUTE CHANGES T/O NIGHT. PT SLEPT WELL. USED CALL LIGHT APPROPRIATELY. RESP EVEN UNLBAORED ON RA W/ SATS >92%. PT REPORTS PAIN UNDER CONTROL T/O NIGHT. NS INFUSING IN DIALYSIS PORT AT THIS TIME. PER HEALTH/SAFETY JOB TITLES NS NOT TO BE STOPPED FOR ANYTHING. DENIES OTHER NEEDS. CALL LIGHT IN REACH.
--- NOTE | 2018-06-30 07:20 | NUR ---
AM ASSESSMENT: Pt resting in bed. A/O x4. LS clear. HR irregular. Tele shows afib 110-120's at this time. Bt positive. Pulses palp. Pt has permacath to r chest wall with NS running at 10ml/hr TKO. Trace edema in BLE. Pt C/O 09/23 pain to r shoulder that is chronic. Will medicate per orders. Plan for possible dialysis this afternoon. Pt has slight L side facial droop from previous CVA. L side slightly weaker than R. PT/OT ordered. No other changes at this time. Will continue to monitor.
[2018-06-30 09:42] LABS: Hematocrit 39.8 % (33.0-51.0); Hemoglobin 12.1 g/dL (11.5-16.0)
[2018-06-30 10:07] LABS: Albumin, Blood 3.2 g/dL (3.4-5.0); Anion Gap 8 mmol/L (6-16); Blood Urea Nitrogen 36 mg/dL (8-24); Bun/Creatinine Ratio 7.9 (12.0-20.0); CO2, Blood 29 mmol/L (21-32); Calcium, Blood 8.7 mg/dL (8.5-10.1); Chloride, Blood 100 mmol/L (98-108); Creatinine, Blood 4.56 mg/dL (0.40-1.00); Glomerular Filtration Rate 10 (60-); Glucose, Blood 122 mg/dL (70-99); Magnesium, Blood 2.3 mg/dL (1.6-2.4); Potassium, Blood 4.5 mmol/L (3.5-5.5); Sodium, Blood 137 mmol/L (136-145)
--- NOTE | 2018-06-30 16:04 | NUR ---
Patient is lying in bed and alert with her , Edilberto, bedside. Patient stated that she is finally feeling better after a rough start this morning. Patient's RN told me that OT was coming in soon but that I could spend a few minutes with patient before OT comes into patient room. Patient and Edilberto expressed their concern about their son, Peewee, who is having surgery next day. OT entered room and patient asked me to pray before I go and I provided prayer for patient, for Edilberto and Peewee. Patient thanked me for the prayer.
--- NOTE | 2018-06-30 19:52 | NUR ---
SHIFT ASSESSMENT: Pt resting in bed at this time with at bedside. Pt has done well this shift. She has worked with PT and OT and tolerated well. VSS throughout shift. LS clear. HR has remained in Afib at a rate of 80-120. No dialysis today, plan for dialysis tomorrow. NS running into permacath per orders. Pt states that she is hoping to be discharged tomorrow afternoon with home health. NO other changes this shift. Report given to night RN.
--- NOTE | 2018-07-01 04:53 | NUR ---
SHIFT SUMMARY: PATIENT ALERT AND ORIENTED, ATTEMPTING TO ASSIST WITH TURNING, SOME PAIN NOTED IN RIGHT SHOULDER WHICH PATIENT STATES IS CHRONIC. VSS, CALL LIGHT WITHIN REACH, BED LOW AND LOCKED WITH EXIT ALARM ON. NO OTHER ISSUES THIS SHIFT.
--- NOTE | 2018-07-01 08:10 | NUR ---
AM ASSESSMENT: Pt resting in bed with son at bedside. States that she is feeling pretty good. Requesting to get up to BSC. VSS. LS clear, dim in bases. HR irregular with murmur heard. Tele shows afib, rate 90-110. BT positive. PUlses palp. Trace edema in R LE and 1+ edema in LLE. Slight L side facial droop with tounge deveation. L side hand grasp slightly weaker then R. Hx CVA. Pt up to BSC then Chair with 2 person mod assist. Tolerated well. Call light in reach. Will continue to monitor.
[2018-07-01 10:40] LABS: Hematocrit 39.7 % (33.0-51.0); Hemoglobin 12.2 g/dL (11.5-16.0)
[2018-07-01 10:49] LABS: Albumin, Blood 3.4 g/dL (3.4-5.0); Anion Gap 10 mmol/L (6-16); Blood Urea Nitrogen 44 mg/dL (8-24); Bun/Creatinine Ratio 8.2 (12.0-20.0); CO2, Blood 28 mmol/L (21-32); Calcium, Blood 8.8 mg/dL (8.5-10.1); Chloride, Blood 100 mmol/L (98-108); Creatinine, Blood 5.36 mg/dL (0.40-1.00); Glomerular Filtration Rate 8 (60-); Glucose, Blood 151 mg/dL (70-99); Magnesium, Blood 2.6 mg/dL (1.6-2.4); Phosphorus, Blood 5.4 mg/dL (2.5-4.9); Potassium, Blood 4.8 mmol/L (3.5-5.5); Sodium, Blood 138 mmol/L (136-145)
--- NOTE | 2018-07-01 13:20 | NUR ---
pt taken to dialysis via bed. D/C orders written. Will follow through. Spoke with Pt and her about being discharged today. Pt excited to go home but pt seems frustrated and states that he thinks she is being discharged too early. When asked why he stated that she gets really tired after dialysis and that their son, who helps care for her, is also in the hospital and unable to help. Pt son has prearranged for someone to help take care of her at home, but still concerned. Pt has been able to get up and ambulate with 1-2 person minimal assist today. Pt states that she feels strong and wants to go home. Will await pt to return from dialysis.
--- NOTE | 2018-07-01 13:31 | NUR ---
Patient expressed in a prior visit that she was very concerned about her son's surgery this day. I entered patient's and prayed for family and specifically with patient's son about his surgery. I then walked son, Peewee over to admitting to get checked in.
--- NOTE | 2018-07-01 13:59 | NUR ---
Pt. in bed and is doing well encoursged pt and offered prayers and support.
[2018-07-01] MEDS ORDERED: LIDO700A20 TOP (15:48)
[2018-07-01] MEDS ORDERED: Merrem500 MG IV (15:49)
--- NOTE | 2018-07-01 18:39 | NUR ---
DISCHARGE: Pt and her given verbal and written discharge instructions. Verbalized understanding. Denies questions. Perma cath locked by PAUL Carrington. Pt knows to go to infusion clinic tomorrow for IV antibiotic infusions. Pt stable at time of discharge. Denies questions. Left via w/c.
== END 2018-07-01 19:00 | disposition home or self-care (01) | DRG 871 ==
LOC: ER 13:15 → PCU 17:28
PROVIDERS: Emergency Medicine; Internal Medicine; Internal Medicine Nephrology; ADMIT Hospitalist
DX: A41.9 Sepsis, unspecified organism (principal); N18.6 End stage renal disease; E87.1 Hypo-osmolality and hyponatremia; I69.354 Hemiplegia and hemiparesis following cerebral infarction affecting left non-dominant side; I12.0 Hypertensive chronic kidney disease with stage 5 chronic kidney disease or end stage renal disease; R65.20 Severe sepsis without septic shock; E11.42 Type 2 diabetes mellitus with diabetic polyneuropathy; Z87.891 Personal history of nicotine dependence; E11.22 Type 2 diabetes mellitus with diabetic chronic kidney disease; I48.0 Paroxysmal atrial fibrillation; Z99.2 Dependence on renal dialysis; J44.9 Chronic obstructive pulmonary disease, unspecified; E78.5 Hyperlipidemia, unspecified; I25.10 Atherosclerotic heart disease of native coronary artery without angina pectoris; M19.90 Unspecified osteoarthritis, unspecified site; I25.2 Old myocardial infarction; Z66 Do not resuscitate; Z79.891 Long term (current) use of opiate analgesic; I08.3 Combined rheumatic disorders of mitral, aortic and tricuspid valves; I69.391 Dysphagia following cerebral infarction; E83.39 Other disorders of phosphorus metabolism; E87.5 Hyperkalemia; E87.70 Fluid overload, unspecified; G47.33 Obstructive sleep apnea (adult) (pediatric)
CPT/HCPCS: 36415; 71045; 80053; 80069; 81001; 83605; 83735; 84145; 84484; 85014; 85018; 85025; 87040; 87077; 87086; 87186; 92526; 92610; 93005; 93010; 96361; 96365; 96367; 96375; 97162; 97166; 97530; 99285-25; J0692; J0696; J2185; J2405; J3010; J3370; J7030; J7040; J7050; P9612

== ENCOUNTER 2018-07-02 09:02 | Day surgery (SDC) | payer MEDICARE, BC ==
[~2018-07-02 09:02] MED LIST changes: +METO5A PO; +Merrem500 MG IV; +TRIPHROCAPS SOFT1 MG PO; +Ventolin/Prove6.7 GM INH
== END 2018-07-02 15:55 | disposition home or self-care (01) ==
LOC: ATC 09:02
DX: N39.0 Urinary tract infection, site not specified (principal); B96.29 Other Escherichia coli [E. coli] as the cause of diseases classified elsewhere; N13.0 Hydronephrosis with ureteropelvic junction obstruction; Z79.899 Other long term (current) drug therapy; Z79.82 Long term (current) use of aspirin; Z88.0 Allergy status to penicillin; Z88.5 Allergy status to narcotic agent; Z88.1 Allergy status to other antibiotic agents; Z88.8 Allergy status to other drugs, medicaments and biological substances
CPT/HCPCS: 96365; J2185

== ENCOUNTER 2018-07-04 15:03 | Day surgery (SDC) | payer MEDICARE, BC | END 2018-07-04 16:22 | disposition home or self-care (01) | LOC: ATC 15:03 | DX: N39.0 Urinary tract infection, site not specified (principal); B96.29 Other Escherichia coli [E. coli] as the cause of diseases classified elsewhere; N13.0 Hydronephrosis with ureteropelvic junction obstruction; Z79.899 Other long term (current) drug therapy; Z88.0 Allergy status to penicillin; Z88.5 Allergy status to narcotic agent; Z88.8 Allergy status to other drugs, medicaments and biological substances | CPT/HCPCS: J2185 ==

== ENCOUNTER 2018-07-05 14:38 | Day surgery (SDC) | payer MEDICARE, BC | END 2018-07-05 15:40 | disposition home or self-care (01) | LOC: ATC 14:38 | DX: N39.0 Urinary tract infection, site not specified (principal); B96.29 Other Escherichia coli [E. coli] as the cause of diseases classified elsewhere; N13.0 Hydronephrosis with ureteropelvic junction obstruction; Z79.899 Other long term (current) drug therapy; Z88.0 Allergy status to penicillin; Z88.5 Allergy status to narcotic agent; Z88.8 Allergy status to other drugs, medicaments and biological substances | CPT/HCPCS: 96365; J2185 ==

== ENCOUNTER 2018-07-06 07:39 | Day surgery (SDC) | payer MEDICARE, BC | END 2018-07-06 16:09 | disposition home or self-care (01) | LOC: ATC 07:39 | DX: N13.0 Hydronephrosis with ureteropelvic junction obstruction (principal); Z79.899 Other long term (current) drug therapy; Z88.0 Allergy status to penicillin; Z88.5 Allergy status to narcotic agent; Z88.8 Allergy status to other drugs, medicaments and biological substances | CPT/HCPCS: 96365; J2185 ==

== ENCOUNTER 2018-09-14 20:01 | Inpatient (IN) | payer MEDICARE, BC ==
[~2018-09-14] VITALS: Ht 149.9 cm; Wt 75.2 kg
[~2018-09-14 20:01] MED LIST changes: +ATOR10 PT; +Aspir-Low81 MG PT; -CHOL10002; +CHOL10002 PT; +CYAN500 PT; +DESL5 PT; +GABA300 PT; -MIDO5 PO; +MIDO5 PT; +Percocet 5-3251 EACH PT; -TRIPHROCAPS SOFT1 MG PO; +TRIPHROCAPS SOFT1 MG PT
[2018-09-14] MEDS ORDERED: SEVEC800 PT (20:29)
[2018-09-14] MEDS ORDERED: FERRIC CITRATE210 MG PT (20:32)
[2018-09-14] MEDS ORDERED: FEBU40TA PT (20:33)
[2018-09-14] MEDS ORDERED: DULO60 PT (20:34)
[2018-09-14 20:49] LABS: BASOPHILS ABSOLUTE AUTO 0.05 K/mm3 (0.00-0.23); BASOPHILS PERCENT AUTO 1 % (0-2); EOSINOPHILS ABSOLUTE AUTO 0.15 K/mm3 (0.00-0.68); EOSINOPHILS PERCENT AUTO 2 % (0-6); Hematocrit 39.5 % (33.0-51.0); Hemoglobin 12.7 g/dL (11.5-16.0); IMMATURE GRAN ABSOLUTE AUTO 0.03 K/mm3 (0.00-0.10); IMMATURE GRAN PERCENT AUTO 0 % (0-1); LYMPHOCYTES ABSOLUTE AUTO 1.19 K/mm3 (0.84-5.20); LYMPHOCYTES PERCENT AUTO 16 % (21-46); MONOCYTES PERCENT AUTO 7 % (4-13); Mean Corpuscular HGB 32.1 pg (26.0-34.0); Mean Corpuscular HGB Conc 32.2 g/dL (31.5-36.5); Mean Corpuscular Volume 100 fL (80-100); Mean Platelet Volume 12.3 fL (9.1-12.4); NEUTROPHILS ABSOLUTE AUTO 5.75 K/mm3 (1.96-9.15); NEUTROPHILS PERCENT AUTO 75 % (41-73); Platelet Count 179 K/mm3 (150-400); RDW Coefficient Variation 16.2 % (11.7-14.2); RDW Standard Deviation 59.8 fL (35.1-46.3); Red Blood Cell Count 3.96 M/mm3 (3.80-5.20); White Blood Cell Count 7.67 K/mm3 (4.00-11.30)
[2018-09-14 20:55] LABS: Source, Urine Clean Catch
[2018-09-14 20:57] LABS: Appearance, Urine Cloudy (Clear); Bilirubin, Urine Neg (Neg); Blood, Urine 4+ (Neg); Color, Urine Yellow (P-Yellow); Glucose Qualitative, Urine Neg (Neg); Ketones, Urine 3+ (Neg); Leukocyte Esterase, Urine 3+ (Neg); Nitrite, Urine Neg (Neg); Protein, Urine 3+ (Neg); Specific Gravity, Urine 1.015 (1.003-1.022); Urobilinogen, Urine NORM (Normal); pH, Urine 6.5 (5.0-8.0)
[2018-09-14 21:02] LABS: Red Blood Cells, Urine 0-2 /hpf (0-2); White Blood Cells, Urine TNTC /hpf (0-5)
[2018-09-14 21:03] LABS: Bacteria Many /hpf; Squamous Epithelial Cells Rare /hpf (Few)
[2018-09-14 21:39] LABS: Albumin/Globulin Ratio 1.2 (0.8-1.8); Bilirubin, Total 0.7 mg/dL (0.1-1.0); Bun/Creatinine Ratio 12.7 (12.0-20.0); Calcium, Blood 9.2 mg/dL (8.5-10.1); Creatinine, Blood 4.97 mg/dL (0.40-1.00); Globulin, Blood 3.2 g/dL (2.2-4.0); Potassium, Blood 4.3 mmol/L (3.5-5.5); Total Protein, Blood 7.2 g/dL (6.4-8.2)
[2018-09-15] MEDS ORDERED: DESL5 PO (03:38)
--- NOTE | 2018-09-15 03:45 | NUR ---
ASSUMED CARE PT ARRIVES TO PCU 13 FROM ER VIA GURNEY. PT CURRENTLY AOX4 AND VSS. PT SLID TO HOSPITAL BED WITH SLIDER SHEET. LUNG SOUNDS CLEAR IN UPPERS AND RLL WITH FINE CRACKLES TO LLL. PT NOTED TO HAVE L FACIAL DROOP AND L GLOBAL CHIEF CREATIVE OFFICER MORE WEAK THAN R- PT STATES THIS IS BASELINE R/T PREVIOUS CVA. AMBULATES WITH ONE PERSON ASSIST AND FWW AT BASELINE DUE TO L LEG WEAKNESS. PERMA CATH TO R CHEST WALL. PT REPORTS THAT SHE GETS DIALYSIS EVERY M//, BUT MISSED DIALYSIS TODAY DUE TO INCREASING WEAKNESS. PRIMARY COMPLAINT IS INABILITY TO SWALLOW AT HOME. PT STATES THAT SHE HAS HAD MULTIPLE ESOPHAGEAL DILATIONS. REPORTING SOME PAIN TO R SHOULDER THAT IS CHRONIC FOR "TORN ROTATOR CUFFS"- LIDOCAINE PATCH IN PLACE. O2 SATS OF 99% ON 2L VIA NASAL CANNULA. PT REPORTS THAT SHE WEARS 2L VIA NASAL CANNULA AT HOME WHILE SLEEPING. PT ORIENTED TO ROOM AND CALL LIGHT SYSTEM. ENCOURAGED TO CALL FOR ASSISTANCE WITH AMBULATION DUE TO IMPAIRED GAIT. CALL LIGHT IN REACH. BED ALARM SET FOR SAFETY. WILL CONTINUE WITH ADMISSION AND MONITORING.
[2018-09-15 04:00] LABS: BASOPHILS ABSOLUTE AUTO 0.08 K/mm3 (0.00-0.23); BASOPHILS PERCENT AUTO 1 % (0-2); EOSINOPHILS ABSOLUTE AUTO 0.11 K/mm3 (0.00-0.68); EOSINOPHILS PERCENT AUTO 1 % (0-6); Hemoglobin 12.6 g/dL (11.5-16.0); IMMATURE GRAN ABSOLUTE AUTO 0.03 K/mm3 (0.00-0.10); IMMATURE GRAN PERCENT AUTO 0 % (0-1); LYMPHOCYTES ABSOLUTE AUTO 1.43 K/mm3 (0.84-5.20); LYMPHOCYTES PERCENT AUTO 15 % (21-46); MONOCYTES ABSOLUTE AUTO 0.62 K/mm3 (0.16-1.47); MONOCYTES PERCENT AUTO 7 % (4-13); Mean Corpuscular HGB 32.1 pg (26.0-34.0); Mean Corpuscular HGB Conc 31.5 g/dL (31.5-36.5); Mean Corpuscular Volume 102 fL (80-100); Mean Platelet Volume 11.4 fL (9.1-12.4); NEUTROPHILS ABSOLUTE AUTO 7.19 K/mm3 (1.96-9.15); NEUTROPHILS PERCENT AUTO 76 % (41-73); Platelet Count 179 K/mm3 (150-400); RDW Coefficient Variation 16.2 % (11.7-14.2); RDW Standard Deviation 61.3 fL (35.1-46.3); Red Blood Cell Count 3.93 M/mm3 (3.80-5.20); White Blood Cell Count 9.46 K/mm3 (4.00-11.30)
[2018-09-15 04:24] LABS: Bun/Creatinine Ratio 12.7 (12.0-20.0); Calcium, Blood 9.1 mg/dL (8.5-10.1); Creatinine, Blood 5.1 mg/dL (0.40-1.00); Potassium, Blood 4.4 mmol/L (3.5-5.5)
--- NOTE | 2018-09-15 06:17 | NUR ---
SHIFT SUMMARY PT HAS REMAINED AOX4 THROUGHOUT REMAINDER OF SHIFT. VSS. PLEASANT AND COOPERATIVE WITH CARE. PT CONTINUES TO AMBULATE WITH 1 PERSON ASSIST AND FWW TO BS. PT HAS RESTED THROUGHOUT THE REST OF THE NIGHT. O2 SATS HAVE REMAINED >90% ON 2L VIA NASAL CANNULA. LIDOCAINE PATCH REMAINS IN PLACE TO R SHOULDER- PT HAS NOT REPORTED INCREASED PAIN. CARDIAC RHYTHM REMAINS IN ATRIAL FIBRILLATION WITH A RATE IN THE 90-100'S. NO OTHER CHANGES NOTED FROM INITIAL ASSESSMENT. WILL CONTINUE TO MONITOR AND REPORT TO ONCOMING RN. BED IN LOW POSITION, CALL LIGHT IN REACH.
--- NOTE | 2018-09-15 08:39 | NUR ---
Dr. Hurst here; states will probably take the pt for endoscopy early afternoon today to visualize the esphagus and check for obstruction.
--- NOTE | 2018-09-15 11:47 | NUR ---
Pt states that the lidocaine patch is working. She states that she feels sleepy.
--- NOTE | 2018-09-15 13:08 | NUR ---
DR HANSON AT BEDSIDE FOR PATIENT CONSULT NOW. History, Chart, Medications and Allergies reviewed before start of procedure. Patient confirms NPO status and agrees with scheduled surgery. FAMILY TO COME AND SIGN CONSENT DUE TO PHYSICAL LIMITATIONS PER PATIENT.
--- NOTE | 2018-09-15 13:16 | NUR ---
PER DR HANSON NO CBG IS NEEDED PREPROCEDURALLY.
--- NOTE | 2018-09-15 13:35 | NUR ---
09/15/[address] HERE TO PROVIDE ANESTHESIA CARE, SEE RECORD FOR DETAILS. History, Chart, Medications and Allergies reviewed before start of procedure. PATIENT CONFIRMS NPO STATUS AND AGREES WITH SCHEDULED PROCEDURE. MONITOR INTACT WITH CONTINUOUS PULSE OXIMETRY AND INTERMITTENT BP. O2 VIA N/C INTACT THROUGHOUT SEDATION/PROCEDURE VIA POM MASK AT 10 L WITH ENDO TIDAL CO2 MONITORING INTACT.
--- NOTE | 2018-09-15 14:34 | NUR ---
Patient is out of patient's room for procedure but her , Edilberto, is sitting in the dark in patient's room eating his lunch. I talk with Edilberto for about his 's condition, about the family unit complications and about Edilberto's own health issues. I then walk with Edilberto and patient's son, Peewee, over to the surgical area, helping them find their way, because Edilberto's signiture is needed for the manager application. I then sit in the waiting room with Edilberto and Peewee and facilitate a life review, normalize their experience and provide emotional support. They thank me for my visit. I continue to remain available to patient and family.
--- NOTE | 2018-09-15 14:54 | NUR ---
RECEIVED THE PT FROM DAY SURGERY POST ENDOSCOPY. aSSISTED FROM STRETCHER TO THE BEDSIDE COMMODE TO VOID.Lab is here to draw blood; pt's is also here.
--- NOTE | 2018-09-15 15:10 | NUR ---
Pranav is getting blood cultures drawn at this time. She is a little sleepy now that she is back in bed. Oxygen applied as she stated this morning that she uses it while sleeping. is at the bedside. Oral care provided, luis m moore is in pt's hand for small amounts of brown foul-smelling mucoid substance that she is frequently spitting out.
--- NOTE | 2018-09-15 16:31 | NUR ---
LACTIC ACID noted 1.1 at this time.
--- NOTE | 2018-09-15 18:33 | NUR ---
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 Her has remained at her bedside since her EGD was completed.
[2018-09-16 04:13] LABS: Hematocrit 35.9 % (33.0-51.0); Hemoglobin 11.5 g/dL (11.5-16.0)
[2018-09-16 04:34] LABS: Albumin, Blood 3.2 g/dL (3.4-5.0); Anion Gap 18 mmol/L (6-16); Blood Urea Nitrogen 75 mg/dL (8-24); Bun/Creatinine Ratio 13.5 (12.0-20.0); CO2, Blood 20 mmol/L (21-32); Calcium, Blood 8.6 mg/dL (8.5-10.1); Chloride, Blood 103 mmol/L (98-108); Creatinine, Blood 5.57 mg/dL (0.40-1.00); Glomerular Filtration Rate 8 (60-); Glucose, Blood 80 mg/dL (70-99); Magnesium, Blood 2.2 mg/dL (1.6-2.4); Potassium, Blood 4.6 mmol/L (3.5-5.5); Sodium, Blood 141 mmol/L (136-145)
[2018-09-16 04:52] LABS: Phosphorus, Blood 8.2 mg/dL (2.5-4.9)
--- NOTE | 2018-09-16 06:36 | NUR ---
SHIFT SUMMARY PT HAS REMAINED AOX4 THROUGHOUT SHIFT. VSS. PLEASANT AND COOPERATIVE WITH CARE. PT CONTINUES TO AMBULATE WITH ONE PERSON ASSIST AND FWW TO RESTROOM AND BSC. NO FURTHER NOTED BROWN SPIT THROUGHOUT THE NIGHT. PT REPORTING SOME PAIN TO SHOULDERS. KPAD PROVIDED FOR PAIN RELIEF, PAIN MEDICATION OFFERED, PT REFUSING AT THIS TIME. NO OTHER CHANGES NOTED FROM INITIAL ASSESSMENT. WILL CONTINUE TO MONITOR AND REPORT TO ONCOMING SHIFT RN. BED IN LOW POSITION, CALL LIGHT IN REACH.
--- NOTE | 2018-09-16 09:23 | NUR ---
The pt was taken in her bed to the dialysis unit.
--- NOTE | 2018-09-16 13:05 | NUR ---
NOTIFIED DR TINSLEY THAT PT HAS BEEN CLEARED FOR CLEAR LIQUIDS THIS AFTERNOON; NEW ORDERS NO NEED TO CALL DR EASON IF PATIENT IS EATING.
--- NOTE | 2018-09-16 13:36 | NUR ---
Pt. is on dialysis and is making some improvement. encouraged pt.m ands Pt. is in bed and on dialysis,,she is doing much better encouraged pt. ,offered some prayers and support.
--- NOTE | 2018-09-16 16:03 | NUR ---
supportive visit with son. pt to get possible barium bowel study.
--- NOTE | 2018-09-16 19:53 | NUR ---
SHIFT SUMMARY PT A&Ox4. CALM AND COOPERATIVE WITH CARE. PT RESTING IN BED DURING SHIFT. [address] BOWDEN COMPLETED THIS AM, NEW ORDERS FOR CLEAR LIQUIDS BY ALYSHA, TOLERATED LUNCH WELL, PT STARTED AHVING EMESIS DURING SHIFT DINNER, CLEAR WITH UNDIGUSTED FOOD PARTICLES NOTED, NOTIFIED DR HANCOCK, BRAND STRATEGY MANAGER GI, NEW ORDERS FOR PT TO BE NPO AND TO NOTIFY DR TINSLEY. NOTIFIED DR EASON AND DISCUSSED NEED FOR IV FLUIDS WHILE NPO PER DR DELGADO NURSE NOTIFY, DR EASON TO INPUT ORDERS FOR CLINIMIX. UPDATED DR TINSLEY, OF NPO STATUS AND CLINIMIX ORDERS. PT DENIES NAUSEA AND COUGHING WHILE EATING. PT REPORTS PAIN IN RIGHT SHOULDER, LIDO PATCH IN PLACE. PT ON 2L O2 THIS AM, >92% ON RA WHILE AWAKE, SOB WITH EXERTION NOTED. PT RECEIVING IV ANTIBIOTICS. VSS. NO OTHER ACUTE CHANGES NOTED DURING SHIFT. REPORT GIVEN TO ONCOMING RN.
--- NOTE | 2018-09-17 01:36 | NUR ---
HEART RATE IN THE 120'S-130'S: PATIENT'S HEART RATE CONTINUED TO RUN IN THE 120'S-130'S AFTER THE SECOND DOSE OF IV LOPRESSOR ORDERED BY BRIAN. AT APPROX 0055 DR RAMIREZ NOTIFIED OF PATIENT'S HEART RATE CONTINUING TO RUN 120'S-130'S. DR RAMIREZ SAID THAT IT WAS FINE IF PATIENT'S HEART RATE MAINTAINED IN THE 120'S THROUGHOUT THE NIGHT. AN ORDER FOR ADDITONAL IV LOPRESSOR WAS ORDERED FOR ONLY IF PATIENT'S HEART RATE MAINTAINS IN THE 130'S. WILL CONTINUE TO MONITOR.
[2018-09-17 05:16] LABS: Hematocrit 35.1 % (33.0-51.0); Hemoglobin 11.4 g/dL (11.5-16.0)
[2018-09-17 05:40] LABS: Anion Gap 11 mmol/L (6-16); Blood Urea Nitrogen 53 mg/dL (8-24); Bun/Creatinine Ratio 12.4 (12.0-20.0); CO2, Blood 27 mmol/L (21-32); Chloride, Blood 102 mmol/L (98-108); Creatinine, Blood 4.28 mg/dL (0.40-1.00); Glomerular Filtration Rate 10 (60-); Glucose, Blood 105 mg/dL (70-99); Magnesium, Blood 2.1 mg/dL (1.6-2.4); Phosphorus, Blood 6.1 mg/dL (2.5-4.9); Potassium, Blood 3.9 mmol/L (3.5-5.5); Sodium, Blood 140 mmol/L (136-145)
--- NOTE | 2018-09-17 06:44 | NUR ---
SHIFT SUMMARY PATIENT PLEASENT AND COOPERATIVE THROUGHOUT THE NIGHT. PATIENT MEDICATED FOR PAIN PER EMAR. PATIENT APPEARED TO BE AWAKE UNTIL APPROX 0100 WHEN SHE SEEMED TO BE ABLE TO NAP ON AND OFF THROUGHOUT THE REST OF THE NIGHT. CLINIMIX RUNNING PER ORDERS. PATIENT'S HEART RATE HAS CONTINUED TO RUN FROM THE ONE TEENS TO THE 120'S AND TOUCHED UP TO THE 130'S BUT DID NOT SUSTAIN IN THE 130'S. PATIENT'S SON STAYED THE NIGHT AT THE BEDSIDE. CALL LIGHT WITHIN REACH. WILL CONTINUE TO MONITOR PATIENT AND REPORT TO ONCOMING RN.
--- NOTE | 2018-09-17 09:07 | NUR ---
to radiology per wheelchair
--- NOTE | 2018-09-17 09:44 | NUR ---
return to [facility]
--- NOTE | 2018-09-17 11:01 | NUR ---
ASSESSMENT ASSESSMENT UNCHANGED FROM THIS AM ASSESSMENT
--- NOTE | 2018-09-17 16:19 | NUR ---
UP TO SIT IN CHAIR, ASSESSMENT UNCHANGED FROM EARLIER ASSESSMENT. PATIENTS HERE TO VISIT
--- NOTE | 2018-09-17 17:50 | NUR ---
LOPRESSOR X1 FOR HR PARAMETERS. PATIENT STATES SHE FEELS LIKE SHE IS A BIT STRONGER TODAY. ONE PWERSON STANDBY UP TO CHAIR AND RESTROOM. PATIENTS FAMILY HERE TO VISIT MUCH OF SHIFT. PATIENT IN A FIB THROUGHOUT SHIFT. PATIENT REMAINS NPO UNTIL RE EVALUATED BY SPEECH THERAPY.
--- NOTE | 2018-09-17 21:53 | NUR ---
CALLED HOSPITALIST DUE TO PATIENT HEART RATE MAINTAINING IN THE 120'S WITH POP UPS IN THE 140'S. GIVEN ONE TIME DOSE OF METOPROLOL 5MG IV.
--- NOTE | 2018-09-18 05:52 | NUR ---
Patient has been needy and on the call light frequently tonight. Family not at bedside. Patient anxious. Patient complained of neuropathy pain given PRN fentyanl. Patient has closed her eyes but has not had any real sleep. Patient now becoming emotional because she has not fully slept. Given PRN fentyanl again.
[2018-09-18 07:11] LABS: Magnesium, Blood 2.1 mg/dL (1.6-2.4)
[2018-09-18 07:12] LABS: Albumin, Blood 3.2 g/dL (3.4-5.0); Anion Gap 13 mmol/L (6-16); Blood Urea Nitrogen 71 mg/dL (8-24); Bun/Creatinine Ratio 15.8 (12.0-20.0); CO2, Blood 21 mmol/L (21-32); Calcium, Blood 9.2 mg/dL (8.5-10.1); Chloride, Blood 108 mmol/L (98-108); Creatinine, Blood 4.49 mg/dL (0.40-1.00); Glomerular Filtration Rate 10 (60-); Glucose, Blood 157 mg/dL (70-99); Phosphorus, Blood 5.5 mg/dL (2.5-4.9); Potassium, Blood 4.1 mmol/L (3.5-5.5); Sodium, Blood 142 mmol/L (136-145)
[2018-09-18 13:14] LABS: Hematocrit 36.3 % (33.0-51.0)
--- NOTE | 2018-09-18 17:43 | NUR ---
SHIFT SUMMARY PT ALERT AND ORIENTED. VS STABLE. O2 SATS REMAIN ABOVE 90% ON RA. HR HAS BEEN 90-100 WITH CARDIZEM GTT AT 10MLS/H. BP STABLE. PT ABLE TO TRANSFER TO BSC TO VOID NEEDED. PT COMPLAINS OF PAIN IN HER LEGS THAT IS RELIEVED WITH MEDICATION ADMINISTRATION. FAMILY AT BEDSIDE. PLAN FOR GENERAL SURGERY TO CONSULT TO DISCUSS PEG TUBE PLACEMENT. WILL CONTINUE TO MONITOR CLOSLEY AND REPORT TO ONCOMING RN. CALL LIGHT IN REACH.
--- NOTE | 2018-09-18 19:24 | NUR ---
Pt's son approached this RN in guan way. He reports sugical consult for possible peg tube placement. Asked if this is Pt's wishes and he states he guzman not think his mom wants a peg tube placed. Suggested to son having a conversation with Pt regarding her wishes. Son inquires about happens if Pt chooses to not have peg tube placement. Suggested end of life care would then need to be discussed. Educated son on the importance of respecting choices with V/U made by son. No other concerns reported at this time.
[2018-09-19 05:34] LABS: Hematocrit 33.7 % (33.0-51.0)
--- NOTE | 2018-09-19 05:40 | NUR ---
PATIENT ANXIOUS AT THE BEGINNING OF THE NIGHT DUE TO THE FACT SHE WAS ALONE IN THE ROOM. FAMILY HAD GONE HOME AND SON WAS SUPPOSE TO COME BACK. PATIENT BECAME ANXIOUS BECAUSE SHE THOUGHT HE WAS NOT COMING BACK. SON CAME IN AROUND 2300 AND STAYED THE NIGHT WITH HER. PATIENT SLEPT THE REST OF THE NIGHT. PATIENT COMPLAINED OF PAIN ONCE JUST BEFORE FALLING ASLEEP PRN GIVEN. PATIENT CONTINUES ON DILTIAZEM DRIP AT 5MG/HR TO CONTROL HEART RATE.
[2018-09-19 06:15] LABS: Albumin, Blood 3.1 g/dL (3.4-5.0); Anion Gap 10 mmol/L (6-16); Blood Urea Nitrogen 78 mg/dL (8-24); Bun/Creatinine Ratio 16.9 (12.0-20.0); CO2, Blood 24 mmol/L (21-32); Chloride, Blood 112 mmol/L (98-108); Creatinine, Blood 4.61 mg/dL (0.40-1.00); Glomerular Filtration Rate 10 (60-); Glucose, Blood 145 mg/dL (70-99); Magnesium, Blood 2.2 mg/dL (1.6-2.4); Phosphorus, Blood 5.5 mg/dL (2.5-4.9); Potassium, Blood 3.9 mmol/L (3.5-5.5); Sodium, Blood 146 mmol/L (136-145)
--- NOTE | 2018-09-19 09:15 | NUR ---
PT TAKEN TO DIALYSIS. WILL AWAIT RETURN.
--- NOTE | 2018-09-19 12:20 | NUR ---
PT RETURNED FROM DIALYSIS. VS STABLE. HR 90-100'S AFIB. PT COMPLAINED OF PAIN IN HER LEGS THAT WAS RELEIVED WITH MEDICATION ADMINISTRATION. CLINIMIX INFUSING PER ORDERS. WILL CONITNUE TO MONITOR.
--- NOTE | 2018-09-19 17:41 | NUR ---
SHIFT SUMMARY PT ALERT AND ORIENTED. VS STABLE. O2 SATS REMAIN ABOVE 90% ON RA. PT COMPLAINS OF NERVE PAIN IN LEGS THROUGHOUT SHIFT AND MEDICATED PER EMAR. PT RECEIVED DIALYSIS TODAY. PT DISCUSSED PEG TUBE PLACEMENT WITH DR. SOLORIO TODAY, BUT PT STATES SHE WOULD LIKE ANOTHER OPINION. PT STATES SHE IS NOT READY TO HAVE PEG TUBE AT THIS TIME. CARDIZEM GTT WAS DISCONTINUED THIS SHIFT. HR HAS BEEN 90'S TO 110'S. FAMILY AT BEDSIDE. WILL CONTINUE TO MONITOR CLOSELY. CALL LIGHT IN REACH.
--- NOTE | 2018-09-20 05:09 | NUR ---
PATIENT SMILING AND LAUGHING WITH FAMILY AND STAFF AT THE BEGINNING OF THE NIGHT. PATIENT'S FAMILY LEFT FOR THE NIGHT. PATIENT SLIGHTLY ANXIOUS IN ROOM BY HERSELF. PATIENT UP AND DOWN TO THE BATHROOM WITH ONE ASSIST AND FWW. PATIENT COMPLAINS OF PAIN AND RECIEVING FENTANYL PRN. PATIENT STATES THIS IS NOT ENOUGH BUT IS FALLING ASLEEP SHORTLY AFTER ADMINISTRATION. PATIENT NURSE STAFF LIGHT FREQUENTLY.
[2018-09-20 05:56] LABS: Hematocrit 35.9 % (33.0-51.0); Hemoglobin 11.6 g/dL (11.5-16.0)
[2018-09-20 07:23] LABS: Albumin, Blood 3.5 g/dL (3.4-5.0); Anion Gap 8 mmol/L (6-16); Blood Urea Nitrogen 53 mg/dL (8-24); Bun/Creatinine Ratio 16.1 (12.0-20.0); CO2, Blood 27 mmol/L (21-32); Calcium, Blood 9.2 mg/dL (8.5-10.1); Chloride, Blood 107 mmol/L (98-108); Glomerular Filtration Rate 14 (60-); Glucose, Blood 139 mg/dL (70-99); Magnesium, Blood 2.1 mg/dL (1.6-2.4); Sodium, Blood 142 mmol/L (136-145)
--- NOTE | 2018-09-20 18:06 | NUR ---
SHIFT SUMMARY PT ALERT AND ORIENTED. VS STABLE. HR HAS BEEN 100-120'S AFIB. PT COMPLAINED OF PAIN IN HER LEGS AND WAS MEDICATED PER EMAR. O2 SATS REMAIN ABOVE 90% ON RA. CLINIMIX INFUSING PER ORDERS. PT STILL DISCUSSING PEG TUBE PLACEMENT AND IS UNDECIDED. [facility] PROVIDED PT REQUESTS. PT ABLE TO TRANSFER TO BATHROOM NEEDED WITH 1 ASSIST. WILL CONTINUE TO MONITOR AND REPORT TO ONCOMING RN. CALL LIGHT IN REACH.
[2018-09-21 04:04] LABS: Hematocrit 37.4 % (33.0-51.0); Hemoglobin 12.1 g/dL (11.5-16.0)
[2018-09-21 04:19] LABS: Albumin, Blood 3.3 g/dL (3.4-5.0); Anion Gap 7 mmol/L (6-16); Blood Urea Nitrogen 69 mg/dL (8-24); Bun/Creatinine Ratio 18.1 (12.0-20.0); CO2, Blood 26 mmol/L (21-32); Calcium, Blood 9.4 mg/dL (8.5-10.1); Chloride, Blood 111 mmol/L (98-108); Creatinine, Blood 3.81 mg/dL (0.40-1.00); Glomerular Filtration Rate 12 (60-); Glucose, Blood 144 mg/dL (70-99); Magnesium, Blood 2.3 mg/dL (1.6-2.4); Phosphorus, Blood 4.4 mg/dL (2.5-4.9); Potassium, Blood 4.1 mmol/L (3.5-5.5); Sodium, Blood 144 mmol/L (136-145)
--- NOTE | 2018-09-21 07:52 | NUR ---
SUMMARY NO ACUTE CHANGES NOTED THROUGH THE NIGHT. PT REMAINS NPO. 1 ASSIST. ROM AND BED MOBILITY ENC. REPORT GIVEN TO DAY RN
--- NOTE | 2018-09-21 13:16 | NUR ---
DR. BAEZA CALLED THIS AM. HE REPORTED THAT DR. VERA WOULD BE DELAYED UNTIL FRIDAY FOR A SECOND OPINION. PT AND HER NOTIFIED OF THIS CHANGED.
--- NOTE | 2018-09-21 19:23 | NUR ---
SHIFT SUMMARY PAIN HAS BEEN MANAGED WITH IV FENTANYL THIS SHIFT. PT HAD DIALYSIS THIS AM. PT IS A 1 PERSON ASSIST WHEN OOB. PT IS WAITING FOR SECOND OPINION ABOUT PEG TUBE PLACEMENT FROM DR. VERA. VSS. REPORT GIVEN TO EFRAIN MILLER.
[2018-09-22 05:58] LABS: Hematocrit 36.2 % (33.0-51.0); Hemoglobin 11.9 g/dL (11.5-16.0)
[2018-09-22 06:14] LABS: Albumin, Blood 3.2 g/dL (3.4-5.0); Anion Gap 8 mmol/L (6-16); Blood Urea Nitrogen 46 mg/dL (8-24); Bun/Creatinine Ratio 15.2 (12.0-20.0); CO2, Blood 28 mmol/L (21-32); Calcium, Blood 8.9 mg/dL (8.5-10.1); Chloride, Blood 103 mmol/L (98-108); Creatinine, Blood 3.02 mg/dL (0.40-1.00); Glomerular Filtration Rate 16 (60-); Glucose, Blood 143 mg/dL (70-99); Phosphorus, Blood 3.9 mg/dL (2.5-4.9); Potassium, Blood 3.7 mmol/L (3.5-5.5); Sodium, Blood 139 mmol/L (136-145)
--- NOTE | 2018-09-22 07:41 | NUR ---
SHIFT SUMMARY PATIENT PLEASENT THROUGHOUT THE NIGHT. PATIENT HAD DIFFICULTY FALLING ASLEEP LAST NIGHT. PATIENT MEDICATED FOR SHOULDER/LEG/NECK PAIN PER EMAR. WARM BLANKETS PROVIDED FOR PAIN RELEIF WELL AND APPEARED TO WORK WELL. PATIENT FINALLY ABLE TO RELAX AND FALL ASLEEP AND HAS SLEPT FOR SEVERAL HOURS NOW. PATIENT'S SON STAYED THE NIGHT AT THE BEDSIDE. CLINIMIX RUNNING PER ORDERS. REPORT GIVEN TO ONCOMING RN.
--- NOTE | 2018-09-22 14:02 | NUR ---
Pt. is lying in bed and talking with family members and her nurse in the room Pt. is doing much better offered prayers
--- NOTE | 2018-09-22 14:03 | NUR ---
Patient is lying in bed and alert. Patient immediately shares about the depression she has been struggling with due to the doctors suggestion that she will need a peg tube and that she may not ever be able to eat orally again. Patient stated that food is one of the last/few things she enjoys in life. We talked about the many other things she does enjoy and that food is only the vehicle to the family and fellowship of the table. We also talked about the rebeca of the taste of food itself and how their are still other activities she can enjoy. I listened empathically, provided spiritual guidance and prayer. Patient responds well and gets very tearful during the prayer and thanks me.
--- NOTE | 2018-09-22 18:44 | NUR ---
PT HAD A GOOD DAY TODAY, SHE HAS HAD FAMILY AT BEDSIDE FOR MOST OF THE DAY. DR ROMERO AND THIS RN DISCUSSED PEG TUBE WITH FAMILY AT LENGTH. FAMILY UNDERSTANDS THE OPTIONS FOR CONTINUED NUTRITION THROUGH THE PEG TUBE AND THE PATIENT EXPRESSED THAT SHE WOULD LIKE TO HAVE THE TUBE PLACED. THIS RN EXPLAINED THAT DR GRIMES WOULD NOT BE AVALIABLE FOR HOSPITAL METALLURGIST HELPER UNTIL THE , PT AND UNDERSTAND AND PT IS PLANNING TO DISCUSS THE PEG TUBE OPTION WITH THE DR TOMORROW. WILL CONTINUE TO MONITOR AND GIVE REPORT TO NOC RN.
--- NOTE | 2018-09-23 03:21 | NUR ---
SHIFT SUMMARY: PATIENT WANTED PAIN MEDICATION EVERY 2 HOURS, UNABLE TO GET COMFORTABLE. PATIENT VSS, CALL LIGHT WITHIN REACH, BED LOW AND LOCKED.
[2018-09-23 07:09] LABS: Hematocrit 38.7 % (33.0-51.0); Hemoglobin 12.6 g/dL (11.5-16.0)
[2018-09-23 07:27] LABS: Albumin, Blood 3.4 g/dL (3.4-5.0); Anion Gap 12 mmol/L (6-16); Blood Urea Nitrogen 67 mg/dL (8-24); Bun/Creatinine Ratio 19.2 (12.0-20.0); CO2, Blood 23 mmol/L (21-32); Calcium, Blood 9.1 mg/dL (8.5-10.1); Chloride, Blood 106 mmol/L (98-108); Creatinine, Blood 3.49 mg/dL (0.40-1.00); Glomerular Filtration Rate 13 (60-); Glucose, Blood 160 mg/dL (70-99); Magnesium, Blood 2.3 mg/dL (1.6-2.4); Phosphorus, Blood 5.6 mg/dL (2.5-4.9); Potassium, Blood 4.2 mmol/L (3.5-5.5); Sodium, Blood 141 mmol/L (136-145)
--- NOTE | 2018-09-23 15:29 | NUR ---
Patient immediately told me that she is going to have a procedure done, most likely today to have a peg tube installed. Patient stated that she is miserable and that because she can't swallow she has been 10 days without certain meds. Patient is nervous about surgery and is not wanting to give up the food and the pleasure of eating but understands the need. I listened empathically, provided companionship and pre-surgical prayer. Patient thanked me, as did patient's Son Peewee who was present for the entire visit.
--- NOTE | 2018-09-23 18:10 | NUR ---
SHIFT SUMMARY PT RESTING IN BED THROUGHOUT THE DAY. VSS EXCEPT AFIB WITH ELEVATED HEART RATE 100-130s, MEDICATED WITH SCHEDULED AND PRN MEDS. C/O 6-12/24 ALL OVER PAIN, MEDICATED WTIH PRN PAIN MEDS THROUGHOUT THE DAY. ALERT AND ORIENTED X3. LUNG SOUNDS CLEAR, DIMINISHED BASES. PT AMBULATING TO BATHROOM WITH SBA AND FWW. LEFT POWERGLIDE FLUSHING WELL, CLINIMIX AND ANTIBIOTICS INFUSING PER ORDERS. PT AGREEABLE FOR PEG TUBE, BUT HEART RATE IS TOO ELEVATED PER DR. BLANCO AND ANESTHESIOLOGIST. GOAL HEART RATE IS LESS THAN 100. INCREASED IV METOPROLOL TO Q6 HOURS TO HELP WITH RATE CONTROL. PT TOLERATING ICE CHIPS WELL. PT FRUSTRATED WITH HER PAIN MEDS AND ASKING FOR SLEEPING MEDS. DR. ROMERO AWARE. FAMILY AT BEDSIDE TODAY. WILL CONTINUE TO MONITOR.
--- NOTE | 2018-09-24 02:57 | NUR ---
PT NOT TOLERATING CPAP WELL. PT HAS REQUESTED MASK TO BE OFF. MAY TRY AND USE HOME CPAP TOMORROW NIGHT. PT HAS USED THE CALL LIGHT FREQUENTLY TO ASK TO BE REPOSITIONED, UP TO BSC, BLANKET ADJUSTING, ETC. DESPITE ORDERED AND PRN IV METOPROLOL, HR HAS NOT MAINTAINED >100. HR AVERAGE 110'S CURRENTLY.
[2018-09-24 04:02] LABS: Hematocrit 35.8 % (33.0-51.0); Hemoglobin 11.9 g/dL (11.5-16.0)
[2018-09-24 04:18] LABS: Albumin, Blood 3.3 g/dL (3.4-5.0); Anion Gap 10 mmol/L (6-16); Blood Urea Nitrogen 73 mg/dL (8-24); Bun/Creatinine Ratio 18.9 (12.0-20.0); CO2, Blood 22 mmol/L (21-32); Calcium, Blood 8.9 mg/dL (8.5-10.1); Chloride, Blood 110 mmol/L (98-108); Creatinine, Blood 3.87 mg/dL (0.40-1.00); Glomerular Filtration Rate 12 (60-); Glucose, Blood 176 mg/dL (70-99); Magnesium, Blood 2.1 mg/dL (1.6-2.4); Phosphorus, Blood 5.9 mg/dL (2.5-4.9); Potassium, Blood 4.5 mmol/L (3.5-5.5); Sodium, Blood 142 mmol/L (136-145)
--- NOTE | 2018-09-24 05:04 | NUR ---
END OF SHIFT SUMMARY PT HAS REQUIRED MUCH ATTENTION THIS SHIFT. PRT HAS BEEN REPOSITIONED MULTIPLE TIMES PER PT REQUEST. PT RECEIVING PAIN MEDICATION PER EMAR. PT HAS BEEN UP TO BSC MULTIPLE TIMES THIS SHIFT. CLINIMIX CONTINUOUSLY INFUSING. PICC DRESSING CHANGED. PT HAS BEEN EATING ICE CHIPS. NPO PAST MIDNIGHT FOR POSSIBLE PROCEDURE. PT RECEIVING MULTIPLE DOSES OF SCHEDULED AND PRN METOPROLOL IN ORDER TO MAINTAIN HR UNDER 100. PT'S HR HAS NOW JUST BEGAN TO MAINTAIN IN THE 90'S TO 100'S @ 0507. BP HAS TOLERATED THIS METOPROL DOSING WELL. CONTINUES TO REMAIN AFIB. PT DID NOT TOLERATE CPAP THIS SHIFT AND HAS BEEN ON RA SINCE REQUESTING THE MASK TO BE TAKEN OFF. CALL LIGHT WITHIN REACH AND USES MORE THAN APPROPRIATELY. WILL CONTINUE TO MONITOR PT UNTIL SHIFT CHANGE.
--- NOTE | 2018-09-24 06:43 | NUR ---
HR @0640 HR AVERAGE IS NOW 88BPM
--- NOTE | 2018-09-24 09:02 | NUR ---
PCU DAYSHIFT ASSUMED CARE OF PT APPROX. 1900. PT A&OX4. ASSESSMENT COMPLETED. VITAL SIGNS STABLE. HEART RHYTHMM REMAINS A. FIB AVERAGING 90'S AT THIS TIME. PT CURRENLTY RESTING IN BED AT THIS TIME. PT REPORTS NUMBNESS AND TINGLING IN BLE. PT REPORTS PAIN TOELRABLE AT THIS TIME. SURGERY CENTER NOTIFIED THAT PT TO GO IN FOR SURGERY THIS AM. BIT SHARPENER OPERATOR ON THERE WAY AT THIS TIME TO EMAIL CAMPAIGN MANAGER PT VIA [employer]. WILL CONTINUE TO MONITOR UNTIL PT DEPARTS UNIT.
--- NOTE | 2018-09-24 09:15 | NUR ---
NOTE PT DEPARTED UNIT AUREA REZA WITH LUCERNE FARMER
--- NOTE | 2018-09-24 10:07 | NUR ---
09/24/18 Darien Chu History, Chart, Medications and Allergies reviewed before start of procedure.MONITOR INTACT WITH CONTINUOUS PULSE OXIMETRY AND INTERMITTENT BP.3-LEAD EKG REVIEWED WITH PHYSICIAN PRIOR TO START OF PROCEDURE.O2 VIA N/C INTACT THROUGHOUT SEDATION/PROCEDURE. Patient confirms NPO status and agrees with scheduled surgery.See Anesthesia record.
--- NOTE | 2018-09-24 11:41 | NUR ---
RETURN TO UNIT PT ARRIVED BACK TO UNIT VIA JUAQUIN WITH MIXER PIGMENT. PT WAS STAFFERED TO NEW BED VIA STAFF. PT AWAKE AND TALKING. PT A&OX4. PT REPORTS SOME INCREASED PAIN IN SHOULDERS. PRN PAIN MEDICAITONS GIVEN PER EMAR. PT REPROTS ABDOMEN FEELS SLIGHTLY "GASY". ABDOMEN MILD DISTENT AND NON TENDER TO PALPITATION JUST WAS START OF SHIFT. PT FAMILY AT BEDSIDE. PEG TUBE IN PLACE. SKIN IN AREA C,D,I AND NO S/SX BLEEDING, HEMATOMA OR SWELLING. AREA NON TENDER AT THIS TIME. PT VITAL SIGNS STBALE AND HEART RHYTM A FIB. AVERAGING 100'S AT THIS TIME. BED IN LOW POSITION, CALL LIGHT IN REACH AND PT DENIES ANY NEEDS AT THIS TIME. WILL CONTINUE TO MONITOR.
--- NOTE | 2018-09-24 14:56 | NUR ---
NOTE PEG TUBE PATENT INTACT AND FLUSHING WELL. FLUSHED TUBE AND THEN FLUSHED MEDICATIONS. PT TUBE FEEDING WAS STARTED APPROX. 1445. CURRENTLY RUNNING.
--- NOTE | 2018-09-24 15:46 | NUR ---
Patient's son Peewee, stopped me in hallway outside of patient's room and explained that patient was not able to be seen at this moment. Peewee explained that the peg tube is a success and that patient is doing better emotionally as she continues to process what it all means. I asked Peewee how he is holding up with the many trips to the hospital with his mom and he stated that he gets weary but he is hanging in there. We talked about the next steps and the discharge plan. I will continue to remain available to patient and patient's family.
--- NOTE | 2018-09-24 17:38 | NUR ---
SHIFT SUMMARY PT PLEASANT, COOPERATIVE AND USES CALL LIGHT APPROPRIATELY. PT REMAINS A&OX4. PT VITAL SIGNS STABLE. HEART RHYTHM REMAIN A. FIB. WITH HEART RATE RANGING FROM 90'S-120'S. ASSESSMENT FINDINGS REMAIN UNCHANGED, ALTHOUGH PT HAD PEG TUBE PLACED TODAY. PEG TUBE INTACT, PATENT AND INFUSING TUBE FEEDINGS AT THIS TIME. PT HAD INCREASED PAIN INTERMITENTLY PRN PAIN MEDICATION GIVEN PER EMAR ALONG WITH USE OF REPOSTION NEEDED. PT ABLE TO AMBULATE TO BEDSDIE COMMODE NEEDED WITH USE OF FWW. PT FAMILY REMAINS AT BEDSIDE. BED IN LOW POSITION, CALL LIGHT IN REACH AND PT DENIES ANY NEEDS AT THIS TIME. WILL CONTINUE TO MONITOR UNTIL HANDOFF TO NIGHTSHIFT RN.
--- NOTE | 2018-09-25 00:42 | NUR ---
ASSUMED CARE - PCU NOC SHIFT PATIENT ALERT AND ORIENTED X4. RESP E/U ON ROOM AIR. PATIENT REPORTS CHRONIC SHOULDER AND BLE PAIN - MEDICATED PER EMAR AND WITH HOME ANELGISIC CREAM. PATIENT REMAINS IN AFIB IN THE 90'S. POWER GLIDE FLUSHED WELL. PATIENT HAS LIQUID STOOL. PEG TUB IN LEFT UPPER ABD WNL WITH SURGICAL DRESSING IN PLACE AND CONTINUOUS FEEDING RUNNING - 0 RESIDUAL NOTED. PATIENT EDUCATED ON TRANSFER TEACH. FAMILY REMAINS AT BEDSIDE T/O SHIFT. CALL LIGHT W/I REACH.
[2018-09-25 03:57] LABS: Hematocrit 34.4 % (33.0-51.0); Hemoglobin 11.3 g/dL (11.5-16.0)
[2018-09-25 04:14] LABS: Albumin, Blood 2.9 g/dL (3.4-5.0); Anion Gap 10 mmol/L (6-16); Blood Urea Nitrogen 83 mg/dL (8-24); Bun/Creatinine Ratio 19.9 (12.0-20.0); CO2, Blood 22 mmol/L (21-32); Calcium, Blood 8.5 mg/dL (8.5-10.1); Chloride, Blood 111 mmol/L (98-108); Creatinine, Blood 4.17 mg/dL (0.40-1.00); Glomerular Filtration Rate 11 (60-); Glucose, Blood 142 mg/dL (70-99); Magnesium, Blood 2.2 mg/dL (1.6-2.4); Phosphorus, Blood 5.3 mg/dL (2.5-4.9); Potassium, Blood 4.2 mmol/L (3.5-5.5); Sodium, Blood 143 mmol/L (136-145)
--- NOTE | 2018-09-25 06:22 | NUR ---
PCU NOC SHIFT SUMMARY NO ACUTE CHANGES NOTED T/O THE SHIFT. PATIENT HAS DNR BAND ON LEFT WRIST. POWER GLIDE IN PLACE WNL BUT DOES NOT DRAW. PATIENT ABLE TO STAND WITH FWW AND TRANSFER TO BEDSIDE COMMODE. PATIENT REMAINS IN AFIB IN THE 90'S WITH NO CHANGES NOTED. WILL CONTINUE TO MONITOR AND REPORT TO DAYSHIFT RN.
--- NOTE | 2018-09-25 10:16 | NUR ---
DIALYSIS ORDERED AND SHEDULED FOR [address] EASON. PCU STAFF AWARE OF TIME FRAME AND CONTACTED REGARDING PENDING TREATMENT. PATIENT DELIVERED TO TREATMENT ROOM AT 1005 THUS PROMPTING ASSESMENT OF ONE UNIT WAIT TIME.
--- NOTE | 2018-09-25 14:27 | NUR ---
Spiritual care visit conducted. Patient is lying in bed and alert, Edilberto and son Peewee are bedside. Patient states that she is doing well and that since this has been her longest stay she more than ready to go home. I celebrate with family that patient is showing signs of improvement, I reinforce helpful attitudes and practices and I provide companionship. I will continue to remain available to patient and family.
--- NOTE | 2018-09-25 14:44 | NUR ---
0745: CARE ASSUMED, PT WOKEN FOR ASSESSMENT. JEVITY 1.5 INFUSING VIA PEG TUBE AT GOAL OF 50ML/HR, PT TOLERATING WELL. ABD INCISION TENDER TO PALPATION, PT REPORTS OTHER CHRONIC PAIN IN SHOULDERS AND NECK. PT ASSISTED TO BSC TO VOID AND STOOL, GAIT STEADY WITH WALKER, GAIT BELT, AND SBA, PT'S MOVEMENTS ARE SLOW. 1000: MEDICATIONS ADMINISTERED VIA PEG TUBE WITHOUT DIFFICULTY. PT TO DIALYSIS AT THIS TIME. 1255: PT RETURNED TO PCU 13 FROM DIALYSIS, IS TIRED BUT ORIENTED X4. AND SON AT BEDSIDE. 1445: PT SITTING UP IN CHAIR SLEEPING ON AND OFF. HEATING PAD TO SHOULDERS. PEG TUBE TEACHING GIVEN TO , SON IS NAPPING, PLAN TO TEACH SON AT 1600 FEEDING AND HAVE SON AND DEMONSTRATE, AND PT AGREEABLE TO PLAN.
--- NOTE | 2018-09-25 19:30 | NUR ---
1700: ASSISTED TO ADMINISTER BOLUS FEEDING, DID WELL BUT WILL CONTINUE TO ASSIST AND TEACH. PT TOLERATING FEEDINGS WELL, DENIES NAUSEA OR ABD PAIN. 1900: SON ADMINISTERED METOPROLOL WITH ASSISTANCE, ALSO DID WELL AND DEMONSTRATED KNOWLEDGE. PT IN BED RESTING, HAS BEEN UP TO [facility] TO VOID/STOOL MULTIPLE TIMES, IS WEAK BUT GAIT IS STEADY WITH ASSIST, GAIT BELT, AND WALKER. PT/OT REQUESTED BY FAMILY, REPORTED TO NIGHT NURSE. VSS T/O SHIFT, PT TOLERATING ICE CHIPS WELL WITHOUT CHOKING OR OBVIOUS ASPIRATION. PT ORIENTED X4, DROWSY AT TIMES BUT WAKES EASILY. MEDICATED X2 FOR PAIN, TOLERATED PAIN MEDICATION WELL. REPORT TO CRITICAL CARE REGISTERED NURSE.
--- NOTE | 2018-09-25 22:08 | NUR ---
TRANSFER SUMMARY PATIENT ALERT AND ORIENTED X4. RESP E/U ON ROOM AIR; BIOX IN PLACE WITH SPO2 98-100%. PATIENT TOLERATES AMBULATION WELL WITH SLOW STEADY GAIT TO BATHROOM WITH FRONT WHEEL WALKER. PATIENT TOLERATED PM BOLUS FEEDING WELL - CBG CHECKED PRIOR SHOWED NO ACUTE NEED FOR INSULIN. PATIENT AND PATIENTS FAMILY EDUCATED TO TRANSFER TO ROOM 364. REPORTED TO MEDICAL FLOOR PAUL Guerrero. PATIENT TRANSFERED IN NO ACUTE DISTRESS. VSS.
[2018-09-26 07:00] LABS: Hematocrit 34.6 % (33.0-51.0)
[2018-09-26 07:17] LABS: Albumin, Blood 2.6 g/dL (3.4-5.0); Anion Gap 10 mmol/L (6-16); Blood Urea Nitrogen 56 mg/dL (8-24); Bun/Creatinine Ratio 16.6 (12.0-20.0); CO2, Blood 25 mmol/L (21-32); Calcium, Blood 7.8 mg/dL (8.5-10.1); Chloride, Blood 105 mmol/L (98-108); Creatinine, Blood 3.38 mg/dL (0.40-1.00); Glomerular Filtration Rate 14 (60-); Glucose, Blood 125 mg/dL (70-99); Magnesium, Blood 1.9 mg/dL (1.6-2.4); Phosphorus, Blood 3.6 mg/dL (2.5-4.9); Potassium, Blood 3.9 mmol/L (3.5-5.5); Sodium, Blood 140 mmol/L (136-145)
--- NOTE | 2018-09-26 17:48 | NUR ---
PATIENT TOLERATED FEEDINGS WELL THIS SHIFT. FAMILY AT BEDSIDE THROUGH OUT THE DAY. NO ACUTE CHANGES TO PATIENT. FAMILY IS REQUESTING PT AND OT PRIOR TO DC
[2018-09-27 05:06] LABS: Hematocrit 35.5 % (33.0-51.0); Hemoglobin 11.7 g/dL (11.5-16.0)
[2018-09-27 05:38] LABS: Albumin, Blood 2.7 g/dL (3.4-5.0); Anion Gap 12 mmol/L (6-16); Blood Urea Nitrogen 63 mg/dL (8-24); Bun/Creatinine Ratio 16.2 (12.0-20.0); CO2, Blood 25 mmol/L (21-32); Calcium, Blood 8.4 mg/dL (8.5-10.1); Chloride, Blood 101 mmol/L (98-108); Creatinine, Blood 3.88 mg/dL (0.40-1.00); Glomerular Filtration Rate 12 (60-); Glucose, Blood 149 mg/dL (70-99); Phosphorus, Blood 4.1 mg/dL (2.5-4.9); Sodium, Blood 138 mmol/L (136-145)
--- NOTE | 2018-09-27 07:36 | NUR ---
Shift summary> Pt had a good evening and was able to sleep most of shift. Tolerating peg tube feeding well. Residual before feedings 20 cc last pm. pt npo but can have ice chips. I was unable to draw blood from picc line but it will flush ok.
--- NOTE | 2018-09-27 11:21 | NUR ---
pt sitting up talking with son on cell valencia eating an ice chip. Questioning if paln was to go home. States sons are concerned she satates she pretty much knows what to do at this point. Affect bright voice strong today. no nausea.
--- NOTE | 2018-09-27 18:29 | NUR ---
NO ACUTE CHANGES TO PATIENT. SHE CONTINUES TO TOLERATE THE PEGG FEEDINGS. THIS NURSE CONTINUES TO EDUCATE THE FAMILY ON CARE OF THE TUBE AND HOW TO DO THE FEEDINGS. PATIENT IS ABLE TO COMMUNICATE HER NEEDS AND IS COMPLIANT WITH CARES. HER DIARRHEA HAS IMPROVED TO SOFT STOOLS.
--- NOTE | 2018-09-27 22:54 | NUR ---
PT PULLED IV LINE FROM POWER GLIDE. DRESSING, CATHETER, HUB INTACT. NO BLOOD NOTED. CLEANED AREA, REPLACED STATLOCK, ATTACHED NEW IV TUBING TO HUB. APPLIED NEW TEGADERM CHG USING STERILE TECHNIQUE. CAPS CHANGED, PORTS FLUSHED WITH 20 ML. NO BLOOD RETURN. PER RN UNABLE TO DRAW BLOOD FROM PORTS.
[2018-09-28 05:27] LABS: Hematocrit 34.3 % (33.0-51.0); Hemoglobin 11.3 g/dL (11.5-16.0)
--- NOTE | 2018-09-28 05:33 | NUR ---
Shift summary.Pt had good evening and was able to sleep most of shift. Pt tolerating tube feedings well with minimal residual. Pt alert, oriented and appropriate with cares.
[2018-09-28 05:59] LABS: Albumin, Blood 2.5 g/dL (3.4-5.0); Anion Gap 9 mmol/L (6-16); Blood Urea Nitrogen 72 mg/dL (8-24); Bun/Creatinine Ratio 17.1 (12.0-20.0); CO2, Blood 27 mmol/L (21-32); Calcium, Blood 8.2 mg/dL (8.5-10.1); Chloride, Blood 97 mmol/L (98-108); Creatinine, Blood 4.22 mg/dL (0.40-1.00); Glomerular Filtration Rate 11 (60-); Glucose, Blood 149 mg/dL (70-99); Magnesium, Blood 2.1 mg/dL (1.6-2.4); Potassium, Blood 4.5 mmol/L (3.5-5.5); Sodium, Blood 133 mmol/L (136-145)
[2018-09-28] MEDS ORDERED: HIGH POTENCY P1 EACH PT (12:02)
--- NOTE | 2018-09-28 17:41 | NUR ---
SUMMARY PT RESTING QUIETLY IN BED, PT HAD DIALYSIS TODAY, IS WEAK, FAMILY WILL BE TAKING THE PT HOME TOMORROW, PT IS DISCHARGED TODAY, DISCUSSED WITH THE MECHANICAL DESIGN ENGINEER AND DR SAMUEL, FAMILY MORE COMFORTABLE TAKING THE PT HOME TOMORROW, PT WORKED WITH PT/OT TODAY, HAS TOLERATED HER TUBE FEEDS WITH NO RESIDUAL, MED PER EMAR FOR PAIN, WILL CONT TO MONITOR
[2018-09-29 04:35] LABS: Hematocrit 34.1 % (33.0-51.0); Hemoglobin 11.1 g/dL (11.5-16.0)
[2018-09-29 04:55] LABS: Albumin, Blood 2.4 g/dL (3.4-5.0); Anion Gap 5 mmol/L (6-16); Blood Urea Nitrogen 52 mg/dL (8-24); Bun/Creatinine Ratio 15.4 (12.0-20.0); CO2, Blood 33 mmol/L (21-32); Calcium, Blood 8.2 mg/dL (8.5-10.1); Chloride, Blood 96 mmol/L (98-108); Creatinine, Blood 3.38 mg/dL (0.40-1.00); Glomerular Filtration Rate 14 (60-); Glucose, Blood 139 mg/dL (70-99); Magnesium, Blood 2.1 mg/dL (1.6-2.4); Phosphorus, Blood 3.5 mg/dL (2.5-4.9); Potassium, Blood 4.7 mmol/L (3.5-5.5); Sodium, Blood 134 mmol/L (136-145)
--- NOTE | 2018-09-29 05:56 | NUR ---
Shift summary. Pt extremely weak last pm. Could not get pt to bedside commode. Pt will not bear weight or straighten back up. Pt will require lift to get her out of bed. Right shoulder very painful- will not let anyone touch that shoulder. Tolerating peg tube feedings well with minimal residual.
[2018-09-29] MEDS ORDERED: METO25 PT (11:14)
--- NOTE | 2018-09-29 13:29 | NUR ---
SUMMARY/DISCHARGE PT DISCHARGED TO HOME, PT AND FAMILY VERBALIZED UNDERSTANDING OF DISCHARGE PLANS, PT AND FAMILY GIVEN EDUCATION REGARDING MEDICATIONS AND PEG TUBE FEEDING, PT CONT TO BE WEAK AND REFUSE SNF, EDUCATED PT AND FAMILY ABOUT SAFETY AT HOME, PT TAKEN OUT VIA WHEELCHAIR
[2018-09-30] MEDS ORDERED: ASCO500 PT (12:42)
== END 2018-09-29 13:00 | disposition home health service (06) | DRG 177 ==
LOC: ER 20:01 → PCU 22:45 → MEDS 22:45 → ERHOLD 22:45 → PCU 09-15 03:07 → MEDS 09-25 21:45
PROVIDERS: Emergency Medicine; Internal Medicine Nephrology; Surgery; ADMIT Internal Medicine
PROC: 0DC58ZZ Extirpation of Matter from Esophagus, Via Natural or Artificial Opening Endoscopic (ICD-10-PCS; 2018-09-15)
PROC: 5A1D70Z Performance of Urinary Filtration, Intermittent, Less than 6 Hours Per Day (ICD-10-PCS; 2018-09-16)
PROC: 5A1D70Z Performance of Urinary Filtration, Intermittent, Less than 6 Hours Per Day (ICD-10-PCS; 2018-09-18)
PROC: 5A1D70Z Performance of Urinary Filtration, Intermittent, Less than 6 Hours Per Day (ICD-10-PCS; 2018-09-22)
PROC: 5A1D70Z Performance of Urinary Filtration, Intermittent, Less than 6 Hours Per Day (ICD-10-PCS; 2018-09-23)
PROC: 0DH63UZ Insertion of Feeding Device into Stomach, Percutaneous Approach (ICD-10-PCS; principal; 2018-09-24 10:15)
PROC: 5A1D70Z Performance of Urinary Filtration, Intermittent, Less than 6 Hours Per Day (ICD-10-PCS; 2018-09-25)
PROC: 5A1D70Z Performance of Urinary Filtration, Intermittent, Less than 6 Hours Per Day (ICD-10-PCS; 2018-09-28)
PROC: 5A1D70Z Performance of Urinary Filtration, Intermittent, Less than 6 Hours Per Day (ICD-10-PCS; 2018-09-29)
DX: J69.0 Pneumonitis due to inhalation of food and vomit (principal); N18.6 End stage renal disease; I12.0 Hypertensive chronic kidney disease with stage 5 chronic kidney disease or end stage renal disease; N17.9 Acute kidney failure, unspecified; E11.22 Type 2 diabetes mellitus with diabetic chronic kidney disease; Z99.2 Dependence on renal dialysis; Z79.4 Long term (current) use of insulin; I48.0 Paroxysmal atrial fibrillation; G47.33 Obstructive sleep apnea (adult) (pediatric); J44.9 Chronic obstructive pulmonary disease, unspecified; I25.10 Atherosclerotic heart disease of native coronary artery without angina pectoris; I95.9 Hypotension, unspecified; E78.5 Hyperlipidemia, unspecified; K21.9 Gastro-esophageal reflux disease without esophagitis; M48.00 Spinal stenosis, site unspecified; E11.42 Type 2 diabetes mellitus with diabetic polyneuropathy; F32.9 Major depressive disorder, single episode, unspecified; Z79.82 Long term (current) use of aspirin; Z86.73 Personal history of transient ischemic attack (TIA), and cerebral infarction without residual deficits
CPT/HCPCS: 36415; 71046; 74220; 80048; 80053; 80069; 81001; 82947; 83605; 83735; 85014; 85018; 85025; 87040; 87086; 92526; 92610; 93005; 93010; 94660; 94664; 94760; 94762; 96365; 97116; 97162; 97166; 97530; 98960; 99285-25; A9270-GY; C1769; C9113; J0696; J1815; J1956; J2405; J2704; J3010; J7030; J7050; J7131

== ENCOUNTER 2018-09-30 10:19 | Emergency (ER) | payer MEDICARE, BC ==
[~2018-09-30] VITALS: Ht 149.9 cm; Wt 70.8 kg
[~2018-09-30 10:19] MED LIST changes: +DULO60 PT; +FEBU40TA PT; +FERRIC CITRATE210 MG PT; +HIGH POTENCY P1 EACH PT; +METO25 PT; +SEVEC800 PT
[2018-09-30 11:17] LABS: BASOPHILS ABSOLUTE AUTO 0.06 K/mm3 (0.00-0.23); BASOPHILS PERCENT AUTO 1 % (0-2); EOSINOPHILS ABSOLUTE AUTO 0.19 K/mm3 (0.00-0.68); EOSINOPHILS PERCENT AUTO 2 % (0-6); Hematocrit 32.7 % (33.0-51.0); Hemoglobin 10.5 g/dL (11.5-16.0); IMMATURE GRAN ABSOLUTE AUTO 0.05 K/mm3 (0.00-0.10); IMMATURE GRAN PERCENT AUTO 1 % (0-1); LYMPHOCYTES ABSOLUTE AUTO 0.92 K/mm3 (0.84-5.20); LYMPHOCYTES PERCENT AUTO 9 % (21-46); MONOCYTES ABSOLUTE AUTO 0.75 K/mm3 (0.16-1.47); MONOCYTES PERCENT AUTO 8 % (4-13); Mean Corpuscular HGB 31.9 pg (26.0-34.0); Mean Corpuscular HGB Conc 32.1 g/dL (31.5-36.5); Mean Corpuscular Volume 99 fL (80-100); Mean Platelet Volume 11.4 fL (9.1-12.4); NEUTROPHILS ABSOLUTE AUTO 7.83 K/mm3 (1.96-9.15); NEUTROPHILS PERCENT AUTO 80 % (41-73); Platelet Count 153 K/mm3 (150-400); RDW Coefficient Variation 17.5 % (11.7-14.2); RDW Standard Deviation 64.4 fL (35.1-46.3); Red Blood Cell Count 3.29 M/mm3 (3.80-5.20)
[2018-09-30 11:38] LABS: Albumin, Blood 2.3 g/dL (3.4-5.0); Albumin/Globulin Ratio 0.6 (0.8-1.8); Bilirubin, Total 0.3 mg/dL (0.1-1.0); Bun/Creatinine Ratio 15.6 (12.0-20.0); Calcium, Blood 8.4 mg/dL (8.5-10.1); Creatinine, Blood 4.41 mg/dL (0.40-1.00); Globulin, Blood 3.9 g/dL (2.2-4.0); Potassium, Blood 5.4 mmol/L (3.5-5.5); Total Protein, Blood 6.2 g/dL (6.4-8.2)
[2018-09-30] MEDS ORDERED: ASCO500 PT (12:42)
== END 2018-09-30 15:22 | disposition home or self-care (01) ==
LOC: ER 10:19 → PCU 12:48 → ER 15:22
PROVIDERS: Emergency Medicine
DX: R53.1 Weakness (principal); R53.81 Other malaise; J44.9 Chronic obstructive pulmonary disease, unspecified; I48.0 Paroxysmal atrial fibrillation; N18.6 End stage renal disease; E78.5 Hyperlipidemia, unspecified; I25.10 Atherosclerotic heart disease of native coronary artery without angina pectoris; I25.2 Old myocardial infarction; Z87.891 Personal history of nicotine dependence; Z88.0 Allergy status to penicillin; Z88.1 Allergy status to other antibiotic agents; Z88.5 Allergy status to narcotic agent; Z88.8 Allergy status to other drugs, medicaments and biological substances; Z79.899 Other long term (current) drug therapy; Z79.82 Long term (current) use of aspirin; M19.90 Unspecified osteoarthritis, unspecified site
CPT/HCPCS: 71045; 80053; 82947; 84145; 85025; 93005; 93010; 96360; 99284-25; J7030

== ENCOUNTER → 2018-10-12 | Outpatient (CLI) | payer MEDICARE, BC ==
[~2018-10-12] MED LIST changes: +ASCO500 PT
[2018-10-12 12:07] LABS: BASOPHILS ABSOLUTE AUTO 0.06 K/mm3 (0.00-0.23); BASOPHILS PERCENT AUTO 1 % (0-2); EOSINOPHILS ABSOLUTE AUTO 0.23 K/mm3 (0.00-0.68); EOSINOPHILS PERCENT AUTO 3 % (0-6); Hematocrit 30.9 % (33.0-51.0); Hemoglobin 9.8 g/dL (11.5-16.0); IMMATURE GRAN ABSOLUTE AUTO 0.03 K/mm3 (0.00-0.10); IMMATURE GRAN PERCENT AUTO 0 % (0-1); LYMPHOCYTES ABSOLUTE AUTO 0.97 K/mm3 (0.84-5.20); LYMPHOCYTES PERCENT AUTO 13 % (21-46); MONOCYTES ABSOLUTE AUTO 0.64 K/mm3 (0.16-1.47); MONOCYTES PERCENT AUTO 9 % (4-13); Mean Corpuscular HGB 31.4 pg (26.0-34.0); Mean Corpuscular HGB Conc 31.7 g/dL (31.5-36.5); Mean Corpuscular Volume 99 fL (80-100); Mean Platelet Volume 11.6 fL (9.1-12.4); NEUTROPHILS ABSOLUTE AUTO 5.31 K/mm3 (1.96-9.15); NEUTROPHILS PERCENT AUTO 73 % (41-73); Platelet Count 203 K/mm3 (150-400); RDW Coefficient Variation 16.4 % (11.7-14.2); RDW Standard Deviation 59.5 fL (35.1-46.3); Red Blood Cell Count 3.12 M/mm3 (3.80-5.20); White Blood Cell Count 7.24 K/mm3 (4.00-11.30)
[2018-10-12 12:18] LABS: Albumin/Globulin Ratio 0.8 (0.8-1.8); Bilirubin, Direct 0.1 mg/dL (0.0-0.3); Bilirubin, Indirect 0.4 mg/dL (0.1-0.7); Bilirubin, Total 0.5 mg/dL (0.1-1.0); Calcium, Blood 8.4 mg/dL (8.5-10.1); Creatinine, Blood 3.18 mg/dL (0.40-1.00); Globulin, Blood 3.6 g/dL (2.2-4.0); Phosphorus, Blood 5.9 mg/dL (2.5-4.9); Potassium, Blood 5.6 mmol/L (3.5-5.5); Total Protein, Blood 6.6 g/dL (6.4-8.2)
== END | disposition home or self-care (01) ==
LOC: LAB DAV 11:55
PROVIDERS: Internal Medicine Nephrology
DX: N18.6 End stage renal disease (principal)
CPT/HCPCS: 80053; 82140; 82248; 84100; 85025

== ENCOUNTER → 2018-10-22 | Outpatient (CLI) | payer MEDICARE, BC | END | disposition home or self-care (01) | LOC: PLD 11:50 → LAB SHORT 11:50 | DX: D04.61 Carcinoma in situ of skin of right upper limb, including shoulder (principal) | CPT/HCPCS: 88305 ==

== ENCOUNTER 2018-11-03 12:04 | Emergency (ER) | payer MEDICARE, BC ==
[~2018-11-03] VITALS: Ht 149.9 cm; Wt 72.6 kg
== END 2018-11-03 15:30 | disposition home or self-care (01) ==
LOC: ER 12:04
DX: K94.23 Gastrostomy malfunction (principal); E11.22 Type 2 diabetes mellitus with diabetic chronic kidney disease; N18.9 Chronic kidney disease, unspecified; E11.40 Type 2 diabetes mellitus with diabetic neuropathy, unspecified; D64.9 Anemia, unspecified; J44.9 Chronic obstructive pulmonary disease, unspecified; K21.9 Gastro-esophageal reflux disease without esophagitis; G47.30 Sleep apnea, unspecified; Z87.891 Personal history of nicotine dependence; Z99.2 Dependence on renal dialysis
CPT/HCPCS: 82947; 99283

== ENCOUNTER 2018-11-05 12:27 | Day surgery (SDC) | payer MEDICARE, BC ==
[~2018-11-05] VITALS: Ht 149.9 cm; Wt 71.4 kg
--- NOTE | 2018-11-05 15:14 | NUR ---
PT DRESSED, DC'D BY WC WITH SON TAKING HER TO ED TO VISIT HER , IV DC'D INTACT. G TUBE SITE DRY, DRESSING INTACT
== END 2018-11-05 23:31 | disposition home or self-care (01) ==
LOC: MHTC 12:27 → ORSCMMR 12:28 → MHTC 13:00
DX: R13.19 Other dysphagia (principal); I10 Essential (primary) hypertension; E11.9 Type 2 diabetes mellitus without complications; J45.909 Unspecified asthma, uncomplicated; M10.9 Gout, unspecified; E66.01 Morbid (severe) obesity due to excess calories; Z88.0 Allergy status to penicillin; Z88.5 Allergy status to narcotic agent; Z88.8 Allergy status to other drugs, medicaments and biological substances
CPT/HCPCS: 49450; C1769; C1887; Q9967

== ENCOUNTER → 2019-01-12 | Outpatient (CLI) | payer MEDICARE, BC | END | disposition home or self-care (01) | LOC: LAB SHORT 18:11 → LAB 18:11 | DX: N39.0 Urinary tract infection, site not specified (principal) | CPT/HCPCS: 87086 ==

== ENCOUNTER 2019-01-19 17:15 | Emergency (ER) | payer MEDICARE, BC ==
[~2019-01-19] VITALS: Ht 149.9 cm; Wt 72.6 kg
== END 2019-01-19 19:00 | disposition home or self-care (01) ==
LOC: ER 17:15
DX: S09.90XA Unspecified injury of head, initial encounter (principal); M54.2 Cervicalgia; G89.29 Other chronic pain; I48.91 Unspecified atrial fibrillation; E11.22 Type 2 diabetes mellitus with diabetic chronic kidney disease; N18.6 End stage renal disease; F32.9 Major depressive disorder, single episode, unspecified; J44.9 Chronic obstructive pulmonary disease, unspecified; Z86.73 Personal history of transient ischemic attack (TIA), and cerebral infarction without residual deficits; Z95.818 Presence of other cardiac implants and grafts; Z88.0 Allergy status to penicillin; Z88.5 Allergy status to narcotic agent; Z91.048 Other nonmedicinal substance allergy status; Z88.2 Allergy status to sulfonamides; W19.XXXA Unspecified fall, initial encounter
CPT/HCPCS: 70450; 72125; 99283-25

== ENCOUNTER 2019-02-14 14:06 | Emergency (ER) | payer MEDICARE, BC ==
[~2019-02-14] VITALS: Ht 149.9 cm; Wt 72.6 kg
== END 2019-02-14 15:20 | disposition home or self-care (01) ==
LOC: ER 14:06
DX: K94.23 Gastrostomy malfunction (principal); E11.22 Type 2 diabetes mellitus with diabetic chronic kidney disease; N18.6 End stage renal disease; I48.91 Unspecified atrial fibrillation; F32.9 Major depressive disorder, single episode, unspecified; J44.9 Chronic obstructive pulmonary disease, unspecified; Z88.0 Allergy status to penicillin; Z88.5 Allergy status to narcotic agent; Z79.899 Other long term (current) drug therapy; Z87.891 Personal history of nicotine dependence
CPT/HCPCS: 99282

== ENCOUNTER 2019-02-25 12:50 | Emergency (ER) | payer MEDICARE, BC ==
[~2019-02-25] VITALS: Ht 149.9 cm; Wt 72.6 kg
== END 2019-02-25 16:51 | disposition home or self-care (01) ==
LOC: ER 12:50
DX: Z43.1 Encounter for attention to gastrostomy (principal); E11.22 Type 2 diabetes mellitus with diabetic chronic kidney disease; N18.9 Chronic kidney disease, unspecified; E11.40 Type 2 diabetes mellitus with diabetic neuropathy, unspecified; D64.9 Anemia, unspecified; K21.9 Gastro-esophageal reflux disease without esophagitis; G47.30 Sleep apnea, unspecified; J44.9 Chronic obstructive pulmonary disease, unspecified; Z79.82 Long term (current) use of aspirin; Z79.899 Other long term (current) drug therapy; Z88.0 Allergy status to penicillin; Z88.8 Allergy status to other drugs, medicaments and biological substances; Z86.73 Personal history of transient ischemic attack (TIA), and cerebral infarction without residual deficits
CPT/HCPCS: 43762; 99282-25

== ENCOUNTER 2019-04-16 15:49 | Emergency (ER) | payer MEDICARE, BC ==
[~2019-04-16] VITALS: Ht 149.9 cm; Wt 72.1 kg
[~2019-04-16 15:49] MED LIST changes: +CEFD300 PO; +Cefdinir250 MG/5 M PO; -GABA300 PT; +GABAPENTIN300 MG/6 M PT; -MIDO5 PT; +Midodrine HCl10 MG PO
[2019-04-17] MEDS ORDERED: RENVELA PO (20:13)
[2019-04-17] MEDS ORDERED: FLURBIPROFEN (20:15)
[2019-04-17] MEDS ORDERED: SERT25 PT (20:16)
[2019-04-18] MEDS ORDERED: TRIPHROCAPS SOFT1 MG PT (13:09)
[2019-04-18] MEDS ORDERED: CEFD300 PT (13:11)
== END 2019-04-16 20:10 | disposition home or self-care (01) ==
LOC: ER 15:49
DX: T82.898A Other specified complication of vascular prosthetic devices, implants and grafts, initial encounter (principal); I12.0 Hypertensive chronic kidney disease with stage 5 chronic kidney disease or end stage renal disease; N18.6 End stage renal disease; I48.0 Paroxysmal atrial fibrillation; I25.10 Atherosclerotic heart disease of native coronary artery without angina pectoris; I25.2 Old myocardial infarction; J44.9 Chronic obstructive pulmonary disease, unspecified; K21.9 Gastro-esophageal reflux disease without esophagitis; G47.30 Sleep apnea, unspecified; Z88.8 Allergy status to other drugs, medicaments and biological substances; Z88.5 Allergy status to narcotic agent; Z88.0 Allergy status to penicillin; Z79.899 Other long term (current) drug therapy; Z79.82 Long term (current) use of aspirin; Z79.51 Long term (current) use of inhaled steroids; Z86.73 Personal history of transient ischemic attack (TIA), and cerebral infarction without residual deficits; Z99.2 Dependence on renal dialysis; Z87.891 Personal history of nicotine dependence
CPT/HCPCS: 96523; 99283-25; J2997

== ENCOUNTER 2019-04-28 09:18 | Day surgery (SDC) | payer MEDICARE, BC ==
[~2019-04-28] VITALS: Ht 149.9 cm; Wt 72.0 kg
[~2019-04-28 09:18] MED LIST changes: +CEFD300 PT; +FLURBIPROFEN; +RENVELA PO; +SERT25 PT
[2019-04-28] MEDS ORDERED: Pedi-Dri 100,0060 GM TOP (10:14)
[2019-04-28] MEDS ORDERED: JEVITY PO (10:15)
--- NOTE | 2019-04-28 13:20 | NUR ---
PT TO RECOVERY POST PROCEUDRE. PT IS DROWSY, BUT EASILY ROUSABLE, ANSWERING QUESTIONS APPROPRIATELY. PT DENIES PAIN OR DISCOMFORT POST PROEDURE. MONITOR AFIB 80-90'S, B/P 135/74, AFEBRILE, SPO2 96-98% RA. R CHEST PERMCATH SITE NO SWELLING/HEMATOMA, GAUZE DRSG IN PLACE. LUQ ABD PEG TUBE SITE SOFT, SKIN EXCORIATED (PRESENT UPON ARRIVAL), GAUZE DRSG IN PLACE. PT'S FAMILY AT THE BEDSIDE.
--- NOTE | 2019-04-28 15:37 | NUR ---
DISCHARGE PT ASSISTED TO BEDSIDE COMMODE AND THEN ASSISTED TO DRESS. NO BLEEDING, OOZING OR HEMATOMA NOTED AROUND NEW PERMACATH OR PEG TUBE SITES. PT ATE HER LUNCH WITH NO COMPLICATIONS. WAS ABLE TO SWALLOW HER FOOD WITHOUT ANY COMPLICATIONS. PT HAD NO COUGH DURING STAY IN RECOVERY ROOM. PTS PEG TUBE SITE WAS CLEAN WITH NO SIGNS OF INFECTIONS. PT DID HAVE A LITTLE BLOODY NOSE THAT RESOLVED QUICKLY. PTS IV WAS DCD'D WITH CATH IN TACT. PT AND SPOUSE BOTH STATE THEIR UNDERSTANDINGS OF SITE CARE INSTRUCTIONS AND DISCHARGE INSTRUCTIONS AND BOT DENY ANY QUESTIONS OR CONCERNS. BOTH PT AND SPOUSE WERE VERY GRATEFUL UPON DISCHARGE. PT TAKEN BY WHEELCHAIR TO FRONT ENTERENCE WHERE WAS WAITING WITH VEHICLE.
== END 2019-04-28 15:15 | disposition home or self-care (01) ==
LOC: MHTC 09:18
DX: Z45.2 Encounter for adjustment and management of vascular access device (principal); I12.0 Hypertensive chronic kidney disease with stage 5 chronic kidney disease or end stage renal disease; E11.22 Type 2 diabetes mellitus with diabetic chronic kidney disease; N18.6 End stage renal disease; E66.01 Morbid (severe) obesity due to excess calories; J44.9 Chronic obstructive pulmonary disease, unspecified; I25.2 Old myocardial infarction; Z87.891 Personal history of nicotine dependence; Z88.0 Allergy status to penicillin; Z88.5 Allergy status to narcotic agent; Z88.8 Allergy status to other drugs, medicaments and biological substances; Z79.82 Long term (current) use of aspirin; Z79.899 Other long term (current) drug therapy
CPT/HCPCS: 99152; 99153; J1644; J2250; J3010; J7030; J7040; Q9967

== ENCOUNTER 2019-08-20 09:06 | Emergency (ER) | payer MEDICARE, BC ==
[~2019-08-20] VITALS: Ht 149.9 cm; Wt 72.6 kg
[~2019-08-20 09:06] MED LIST changes: +Aspir 8181 MG PT; -Aspir-Low81 MG PT; +B Complex-Foli1 EACH PT; -CHOL10002 PT; +JEVITY 1.5 CAL237 ML PT; -RENVELA PO; +RENVELA PT; +VITAMIN D325 MCG PT
[2019-08-20 10:05] LABS: BASOPHILS ABSOLUTE AUTO 0.08 K/mm3 (0.00-0.23); BASOPHILS PERCENT AUTO 1 % (0-2); EOSINOPHILS ABSOLUTE AUTO 0.43 K/mm3 (0.00-0.68); EOSINOPHILS PERCENT AUTO 3 % (0-6); Hematocrit 41.1 % (33.0-51.0); Hemoglobin 13.8 g/dL (11.5-16.0); IMMATURE GRAN ABSOLUTE AUTO 0.07 K/mm3 (0.00-0.10); IMMATURE GRAN PERCENT AUTO 1 % (0-1); LYMPHOCYTES ABSOLUTE AUTO 1.66 K/mm3 (0.84-5.20); LYMPHOCYTES PERCENT AUTO 13 % (21-46); MONOCYTES PERCENT AUTO 5 % (4-13); Mean Corpuscular HGB Conc 33.6 g/dL (31.5-36.5); Mean Corpuscular Volume 98 fL (80-100); NEUTROPHILS ABSOLUTE AUTO 9.98 K/mm3 (1.96-9.15); NEUTROPHILS PERCENT AUTO 77 % (41-73); RDW Coefficient Variation 14.9 % (11.7-14.2); RDW Standard Deviation 53.8 fL (35.1-46.3); Red Blood Cell Count 4.18 M/mm3 (3.80-5.20); White Blood Cell Count 12.92 K/mm3 (4.00-11.30)
[2019-08-20 10:09] LABS: Mean Platelet Volume 12.9 fL (9.1-12.4)
[2019-08-20 10:19] LABS: Albumin, Blood 4.3 g/dL (3.4-5.0); Albumin/Globulin Ratio 1.2 (0.8-1.8); Bilirubin, Total 0.4 mg/dL (0.1-1.0); Bun/Creatinine Ratio 16.6 (12.0-20.0); Calcium, Blood 9.4 mg/dL (8.5-10.1); Creatinine, Blood 4.99 mg/dL (0.40-1.00); Globulin, Blood 3.6 g/dL (2.2-4.0); Potassium, Blood 4.2 mmol/L (3.5-5.5); Total Protein, Blood 7.9 g/dL (6.4-8.2)
== END 2019-08-20 11:05 | disposition home or self-care (01) ==
LOC: ER 09:06
PROVIDERS: Emergency Medicine
DX: I12.0 Hypertensive chronic kidney disease with stage 5 chronic kidney disease or end stage renal disease (principal); N18.6 End stage renal disease; R53.1 Weakness; Z88.0 Allergy status to penicillin; Z88.5 Allergy status to narcotic agent; Z88.8 Allergy status to other drugs, medicaments and biological substances; Z79.899 Other long term (current) drug therapy; Z79.82 Long term (current) use of aspirin; I25.2 Old myocardial infarction; I48.0 Paroxysmal atrial fibrillation; Z86.73 Personal history of transient ischemic attack (TIA), and cerebral infarction without residual deficits; J44.9 Chronic obstructive pulmonary disease, unspecified; I25.10 Atherosclerotic heart disease of native coronary artery without angina pectoris; K21.9 Gastro-esophageal reflux disease without esophagitis; G47.30 Sleep apnea, unspecified; E78.5 Hyperlipidemia, unspecified; Z99.2 Dependence on renal dialysis
CPT/HCPCS: 36415; 71045; 80053; 85025; 93005; 93010; 99285-25

== ENCOUNTER 2019-10-28 17:56 | Observation (INO) | payer MEDICARE, BC ==
[~2019-10-28] VITALS: Ht 149.9 cm; Wt 71.0 kg
[~2019-10-28 17:56] MED LIST changes: +VITAMIN D31000 UNI1 PO; -VITAMIN D325 MCG PT
[2019-10-28] MEDS ORDERED: AURYXIA210 MG PO (19:15)
[2019-10-28] MEDS ORDERED: ZOLOFT50 MG PO (19:15)
[2019-10-28] MEDS ORDERED: METOPROLOL TART25 MG PO (19:15)
[2019-10-28] MEDS ORDERED: OXYCODONE-ACET1 EAC3 PO (19:16)
[2019-10-28] MEDS ORDERED: FENTANYL1 EA10 TOP (19:16)
[2019-10-28] MEDS ORDERED: ATOR10 PO (19:17)
[2019-10-28] MEDS ORDERED: Bumetanide2 MG PO (19:17)
[2019-10-28] MEDS ORDERED: FEBUXOSTAT40 MG PO (19:17)
[2019-10-28] MEDS ORDERED: GABAPENTIN PO (19:17)
[2019-10-28 22:20] LABS: BASOPHILS ABSOLUTE AUTO 0.06 K/mm3 (0.00-0.23); BASOPHILS PERCENT AUTO 1 % (0-2); EOSINOPHILS ABSOLUTE AUTO 0.46 K/mm3 (0.00-0.68); EOSINOPHILS PERCENT AUTO 8 % (0-6); Hematocrit 24.2 % (33.0-51.0); Hemoglobin 7.7 g/dL (11.5-16.0); IMMATURE GRAN ABSOLUTE AUTO 0.01 K/mm3 (0.00-0.10); IMMATURE GRAN PERCENT AUTO 0 % (0-1); LYMPHOCYTES ABSOLUTE AUTO 2.28 K/mm3 (0.84-5.20); LYMPHOCYTES PERCENT AUTO 40 % (21-46); MONOCYTES ABSOLUTE AUTO 0.43 K/mm3 (0.16-1.47); MONOCYTES PERCENT AUTO 8 % (4-13); Mean Corpuscular HGB 34.1 pg (26.0-34.0); Mean Corpuscular HGB Conc 31.8 g/dL (31.5-36.5); Mean Corpuscular Volume 107 fL (80-100); NEUTROPHILS ABSOLUTE AUTO 2.52 K/mm3 (1.96-9.15); NEUTROPHILS PERCENT AUTO 44 % (41-73); RDW Standard Deviation 67.7 fL (35.1-46.3); Red Blood Cell Count 2.26 M/mm3 (3.80-5.20); White Blood Cell Count 5.76 K/mm3 (4.00-11.30)
[2019-10-28 22:49] LABS: Percent Saturation 51.5 % (15.0-50.0)
[2019-10-28 23:49] LABS: Albumin, Blood 3.5 g/dL (3.4-5.0); Albumin/Globulin Ratio 1.3 (0.8-1.8); Bilirubin, Total 0.3 mg/dL (0.1-1.0); Bun/Creatinine Ratio 16.7 (12.0-20.0); Calcium, Blood 8.3 mg/dL (8.5-10.1); Creatinine, Blood 4.2 mg/dL (0.40-1.00); Globulin, Blood 2.7 g/dL (2.2-4.0); Total Protein, Blood 6.2 g/dL (6.4-8.2)
--- NOTE | 2019-10-29 00:13 | NUR ---
PATIENT IS A NEW ADMIT FROM THE ED. AXO X3, TWO PERSON TRANSFER FROM [facility] TO BED. NO IV ACCESS. LAB IN AND ABLE TO DRAW. DAILYSIS PATIENT AND DIALYSIS NURSE PRESENT. TWO UNITS OF PRBC ORDERED TO GIVE WITH DIALYSIS. PATIENT ON RA FOR DAY AND 2L O2 NC NIGHT. PATIENT REPORTS PEG TUBE WITHOUT EXTENTION FOR MEDICATION ADMINISTRATION. REPORTS ABLE TO TAKE MEDICATION CRUSHED IN YOGURT TONIGHT. DENIES PAIN AND N/V. PATIENT ORIENTED TO ROOM AND CALL LIGHT SYSTEM. PRESENT ON ADMIT AND LEFT FOR EVENING. CALL LIGHT IN REACH.
--- NOTE | 2019-10-29 01:19 | NUR ---
DIALYSIS COMPLETE WITH TWO UNITS PRBC GIVEN. TOLERATED WELL.
--- NOTE | 2019-10-29 03:31 | NUR ---
GI CONSULT CALLED INTO ANSWERING SERVICE. SERVICE REPORTS DR SAXENA COMBINATION PRESSER 08:00.
[2019-10-29 04:59] LABS: Source, Urine Clean Catch
[2019-10-29 05:02] LABS: Bilirubin, Urine Neg (Neg); Blood, Urine 3+ (Neg); Glucose Qualitative, Urine Neg (Neg); Ketones, Urine Neg (Neg); Leukocyte Esterase, Urine 3+ (Neg); Nitrite, Urine Neg (Neg); Protein, Urine 3+ (Neg); Urobilinogen, Urine NORM (Normal)
[2019-10-29 05:03] LABS: Bilirubin, Urine Neg (Neg); Blood, Urine 3+ (Neg); Glucose Qualitative, Urine Neg (Neg); Ketones, Urine Neg (Neg); Leukocyte Esterase, Urine 3+ (Neg); Nitrite, Urine Neg (Neg); Protein, Urine 3+ (Neg); Specific Gravity, Urine 1.005 (1.003-1.022); Urobilinogen, Urine NORM (Normal)
--- NOTE | 2019-10-29 05:10 | NUR ---
SHIFT SUMMARY PATIENT HAD NO ACUTE CHANGES OBSERVED. DIALYSIS NURSE PRESENT FOR DIALYSIS AND TWO UNITS PRBC ADMINISTERED W/DIALYSIS. TOLERATED WELL. AXOX 3 AND 1-2 ASSIST TO BSC. ON ROOM DAY AND 2L O2 NC NOC. REFUSED PULSE OXIMETRY PER RT. VSS/AFEBRILE. DENIES SOB AND N/V. REPORTED GENERAL BACK/SHOULDER PAIN AND NORCO GIVEN PER EMAR. PATIENT TAKES MEDICATION CRUSHED IN YOGURT. PEG TUBE AND PERMACATH INTACT. NO IV ACCESS. GI CONSULT CALLED IN. DROPLET PRECAUTIONS. CALL LIGHT IN REACH. BED IN LOWEST POSITION. WILL CONTINUE TO MONITOR UNTIL DAY SHIFT NURSE ASSUMES CARE.
[2019-10-29 05:27] LABS: Appearance, Urine Turbid (Clear); Color, Urine Yellow (P-Yellow)
[2019-10-29 05:28] LABS: Appearance, Urine Turbid (Clear); Bacteria Many /hpf; Color, Urine Yellow (P-Yellow); Squamous Epithelial Cells Rare /hpf (Few); White Blood Cells, Urine 50-100 /hpf (0-5)
[2019-10-29 05:58] LABS: BASOPHILS ABSOLUTE AUTO 0.07 K/mm3 (0.00-0.23); BASOPHILS PERCENT AUTO 1 % (0-2); EOSINOPHILS ABSOLUTE AUTO 0.45 K/mm3 (0.00-0.68); EOSINOPHILS PERCENT AUTO 9 % (0-6); Hematocrit 30.4 % (33.0-51.0); Hemoglobin 10.2 g/dL (11.5-16.0); IMMATURE GRAN ABSOLUTE AUTO 0.01 K/mm3 (0.00-0.10); IMMATURE GRAN PERCENT AUTO 0 % (0-1); LYMPHOCYTES ABSOLUTE AUTO 1.33 K/mm3 (0.84-5.20); LYMPHOCYTES PERCENT AUTO 26 % (21-46); MONOCYTES ABSOLUTE AUTO 0.39 K/mm3 (0.16-1.47); MONOCYTES PERCENT AUTO 8 % (4-13); Mean Corpuscular HGB 33.7 pg (26.0-34.0); Mean Corpuscular HGB Conc 33.6 g/dL (31.5-36.5); Mean Platelet Volume 11.3 fL (9.1-12.4); NEUTROPHILS ABSOLUTE AUTO 2.91 K/mm3 (1.96-9.15); NEUTROPHILS PERCENT AUTO 56 % (41-73); Platelet Count 130 K/mm3 (150-400); RDW Coefficient Variation 17.6 % (11.7-14.2); RDW Standard Deviation 64.7 fL (35.1-46.3); Red Blood Cell Count 3.03 M/mm3 (3.80-5.20); White Blood Cell Count 5.16 K/mm3 (4.00-11.30)
[2019-10-29 06:11] LABS: Albumin, Blood 3.3 g/dL (3.4-5.0); Anion Gap 6 mmol/L (6-16); Blood Urea Nitrogen 37 mg/dL (8-24); Bun/Creatinine Ratio 13.6 (12.0-20.0); CO2, Blood 31 mmol/L (21-32); Calcium, Blood 8.1 mg/dL (8.5-10.1); Chloride, Blood 99 mmol/L (98-108); Creatinine, Blood 2.72 mg/dL (0.40-1.00); Glomerular Filtration Rate 18 (60-); Glucose, Blood 99 mg/dL (70-99); Magnesium, Blood 2.1 mg/dL (1.6-2.4); Phosphorus, Blood 3.8 mg/dL (2.5-4.9); Potassium, Blood 3.3 mmol/L (3.5-5.5); Sodium, Blood 136 mmol/L (136-145)
[2019-10-29 06:22] LABS: Mean Corpuscular Volume 100 fL (80-100)
[2019-10-29] MEDS ORDERED: FAMO20 PO (14:44)
--- NOTE | 2019-10-29 14:52 | NUR ---
Spiritual care visit conducted. Patient tells me about her medical issues, her family and her Hoahaoism ralin. I provide therapeutic listening and companionship. Patient responds well and shows signs of an elevated mood.
--- NOTE | 2019-10-29 15:48 | NUR ---
DISCHARGE DISCHARGE INSTRUCTIONS, MEDICATION LIST AND FOLLOW UP APPOINTMENT REVIEWED WITH PT AND HER SON, QUESTIONS/CONCERNS ANSWERED. T/C TO DR KNOWLES TO CONFIRM THAT H/H FOR PHYSICAL THERAPY. DR KNOWLES DID SAY HE WOULD SO ORDER. PT ESCORTED OUT BY KELP OR SEAGRASS GATHERER VIA W/C
== END 2019-10-29 15:47 | disposition home or self-care (01) ==
LOC: ER 17:56 → MEDS 17:57 → ER 21:33 → MEDS 21:43
PROVIDERS: Emergency Medicine; Internal Medicine Nephrology; ADMIT Internal Medicine
DX: D50.0 Iron deficiency anemia secondary to blood loss (chronic) (principal); K92.2 Gastrointestinal hemorrhage, unspecified; E11.22 Type 2 diabetes mellitus with diabetic chronic kidney disease; E11.42 Type 2 diabetes mellitus with diabetic polyneuropathy; R53.1 Weakness; N18.6 End stage renal disease; D63.1 Anemia in chronic kidney disease; I69.354 Hemiplegia and hemiparesis following cerebral infarction affecting left non-dominant side; E78.5 Hyperlipidemia, unspecified; F32.9 Major depressive disorder, single episode, unspecified; J44.9 Chronic obstructive pulmonary disease, unspecified; Z99.2 Dependence on renal dialysis; I25.10 Atherosclerotic heart disease of native coronary artery without angina pectoris; I25.2 Old myocardial infarction; M19.91 Primary osteoarthritis, unspecified site; E66.9 Obesity, unspecified; Z88.5 Allergy status to narcotic agent; Z88.0 Allergy status to penicillin; Z88.8 Allergy status to other drugs, medicaments and biological substances; Z66 Do not resuscitate; Z79.899 Other long term (current) drug therapy; Z79.82 Long term (current) use of aspirin; Z87.891 Personal history of nicotine dependence; Z68.32 Body mass index [BMI] 32.0-32.9, adult
CPT/HCPCS: 36415; 36430; 80053; 80069; 81001; 82272; 82607; 82728; 82746; 83540; 83550; 83735; 85025; 86850; 86900; 86901; 86923; 87077; 87086; 87186; 93005; 93010; 97112; 97161; 99284-25; C9113; G0257; G0378; J0881; P9016

== ENCOUNTER → 2019-11-05 | Outpatient (CLI) | payer MEDICARE, BC ==
[~2019-11-05] MED LIST changes: +AURYXIA210 MG PO; +Bumetanide2 MG PO; +FEBUXOSTAT40 MG PO; +FENTANYL1 EA10 TOP; +GABAPENTIN PO; +LEVFLO500 PO; +METOPROLOL TART25 MG PO; +NYSTOP15 GM TOP; +OXYCODONE-ACET1 EAC3 PO; +SERTRALINE HCL50 MG PO; +TRAZ50 PO; +ZOLOFT50 MG PO
== END | disposition home or self-care (01) ==
LOC: LAB 14:45 → LAB SHORT 14:45
DX: D64.9 Anemia, unspecified (principal)
CPT/HCPCS: 85018

== ENCOUNTER 2019-11-08 16:11 | Observation (INO) | payer MEDICARE, BC, OTHER ==
[~2019-11-08] VITALS: Ht 149.9 cm; Wt 75.5 kg
[~2019-11-08 16:11] MED LIST changes: -LEVFLO500 PO; -NYSTOP15 GM TOP; -SERTRALINE HCL50 MG PO; -TRAZ50 PO
[2019-11-08 19:08] LABS: Anion Gap 6 mmol/L (6-16); Blood Urea Nitrogen 22 mg/dL (8-24); Bun/Creatinine Ratio 12.2 (12.0-20.0); CO2, Blood 33 mmol/L (21-32); Chloride, Blood 98 mmol/L (98-108); Creatinine, Blood 1.81 mg/dL (0.40-1.00); Glomerular Filtration Rate 28 (60-); Glucose, Blood 112 mg/dL (70-99); Phosphorus, Blood 2.1 mg/dL (2.5-4.9); Potassium, Blood 3.2 mmol/L (3.5-5.5); Sodium, Blood 137 mmol/L (136-145)
[2019-11-09 05:36] LABS: Source, Urine Clean Catch
--- NOTE | 2019-11-09 05:47 | NUR ---
GLOVE BOARDER SUMMARY NEW ADMIT FROM THE ED TONIGHT. PT AAOX4 AND PLEASANT. CALLS APPROPRIATELY FOR ASSISTANCE. 1 ASSIST TO BSC W/ FWW. PT ADMITTED FOR BLOOD TRANSFUSION HOWEVER PT WAS REFUSING IV PLACEMENT ON DAY SHIFT AND REQUESTED BLOOD BE GIVEN WITH DIALYSIS. PT HAD ALREADY RECIEVED DIALYSIS YESTERDAY SO TRANSFUSIONS WILL HAPPEN TODAY WITH DIALYSIS. PT ALSO REFUSING LAB DRAWS SO LABS WITH BE DRAWN DURING DIALYSIS WELL. MEDICATED FOR PAIN X1 PER EMAR. PT'S SON BROUGHT IN LEG OINTMENT THAT PT USES FOR NERVE PAIN IN HER LEGS. BECAUSE OF THIS PT REFUSED SCD'S THAT WERE ORDERED. RECIEVED ORDER FROM DR GUERRERO TO CONTINUE OINTMENT HERE. CONCERN FOR GI BLEED PER MD H&P, PT HAS NOT HAD BM TONIGHT AND NO SIGNS OF BLEEDING NOTED. GI CONSULT WITH DR PALM LATER TODAY. VSS, WILL CONTINUE TO MONITOR.
[2019-11-09 05:49] LABS: Appearance, Urine Hazy (Clear); Bilirubin, Urine Neg (Neg); Blood, Urine 2+ (Neg); Color, Urine Yellow (P-Yellow); Glucose Qualitative, Urine Neg (Neg); Ketones, Urine Neg (Neg); Leukocyte Esterase, Urine 3+ (Neg); Nitrite, Urine Neg (Neg); Protein, Urine 2+ (Neg); Urobilinogen, Urine NORM (Normal)
[2019-11-09 05:57] LABS: White Blood Cells, Urine 25-50 /hpf (0-5)
[2019-11-09 05:58] LABS: Bacteria Few /hpf; Squamous Epithelial Cells Few /hpf (Few)
[2019-11-09 05:59] LABS: Transitional Epithelial Cells Few /hpf (0-Rare)
[2019-11-09 06:51] LABS: BASOPHILS ABSOLUTE AUTO 0.05 K/mm3 (0.00-0.23); BASOPHILS PERCENT AUTO 1 % (0-2); EOSINOPHILS ABSOLUTE AUTO 0.45 K/mm3 (0.00-0.68); EOSINOPHILS PERCENT AUTO 12 % (0-6); Hematocrit 24.5 % (33.0-51.0); Hemoglobin 7.8 g/dL (11.5-16.0); IMMATURE GRAN ABSOLUTE AUTO 0.01 K/mm3 (0.00-0.10); IMMATURE GRAN PERCENT AUTO 0 % (0-1); LYMPHOCYTES ABSOLUTE AUTO 1.14 K/mm3 (0.84-5.20); LYMPHOCYTES PERCENT AUTO 31 % (21-46); MONOCYTES ABSOLUTE AUTO 0.42 K/mm3 (0.16-1.47); MONOCYTES PERCENT AUTO 11 % (4-13); Mean Corpuscular HGB 33.2 pg (26.0-34.0); Mean Corpuscular HGB Conc 31.8 g/dL (31.5-36.5); Mean Corpuscular Volume 104 fL (80-100); Mean Platelet Volume 11.5 fL (9.1-12.4); NEUTROPHILS ABSOLUTE AUTO 1.64 K/mm3 (1.96-9.15); NEUTROPHILS PERCENT AUTO 44 % (41-73); Platelet Count 125 K/mm3 (150-400); RDW Coefficient Variation 15.5 % (11.7-14.2); RDW Standard Deviation 58.6 fL (35.1-46.3); Red Blood Cell Count 2.35 M/mm3 (3.80-5.20); White Blood Cell Count 3.71 K/mm3 (4.00-11.30)
[2019-11-09 07:06] LABS: Albumin, Blood 3.1 g/dL (3.4-5.0); Albumin/Globulin Ratio 1.2 (0.8-1.8); Bilirubin, Total 0.4 mg/dL (0.1-1.0); Bun/Creatinine Ratio 10.9 (12.0-20.0); Calcium, Blood 8.4 mg/dL (8.5-10.1); Creatinine, Blood 2.56 mg/dL (0.40-1.00); Globulin, Blood 2.6 g/dL (2.2-4.0); Magnesium, Blood 2.1 mg/dL (1.6-2.4); Potassium, Blood 3.2 mmol/L (3.5-5.5); Total Protein, Blood 5.7 g/dL (6.4-8.2)
--- NOTE | 2019-11-09 09:58 | NUR ---
PT DOWN TO DIALYSIS
--- NOTE | 2019-11-09 10:37 | NUR ---
SPOKE WITH DR PALM ON THE PHONE, PLAN TO SCOPE PT TOMORROW
[2019-11-09 13:51] LABS: Stool Occult Blood Guaiac 1 Pos (Neg)
--- NOTE | 2019-11-09 15:17 | NUR ---
Spiritual care visit conducted. Patient tells me about her pain and about the search for the cause of her GI Bleed. Patient is tearful at times and makes statements about how exhausted she is by the pain and that this struggle is more than she can bare. I listen empathically, normalize patient's experience and provide pastoral director of group counseling program, companionship and prayer. Patient responds well and shows signs of an elevated mood. I will coninue to help patient talk through her feelings on end of life care and what is on her heart to do and not do.
--- NOTE | 2019-11-09 16:38 | NUR ---
met with son to [facility] care and theraputic visit will follow form a distance.
--- NOTE | 2019-11-09 17:51 | NUR ---
SUMMARY PT SITTING UP IN BED EATING DINNER, PT HAS BEEN PLEASANT AND COOPERATIVE WITH CARE T/O THE DAY, PT'S FAMILY, SPOUSE OR SON, HAS BEEN AT THE BEDSIDE FOR MOST OF THE DAY AND ASSIST WITH HER CARE, PT DID HAVE DIALYSIS TODAY AND RECIEVED 2 UNITS OF PRBC'S, PT CONT TO REFUSE IV PLACEMENT, DR PALM IN TO SEE THE PT, PLAN TO SCOPE THE PT TOMORROW, WILL ATTEMPT TO PLACE IV AFTER DINNER, PT UP TO THE COMMODE WITH 1P ASSIST AND THE WALKER, PT VERY SLOW WITH MOVEMENT, PT MED PER EMAR FOR PAIN, NO COMPLAINTS, WILL CONT TO MONITOR
[2019-11-10 08:14] LABS: Source, Urine Clean Catch
[2019-11-10 08:19] LABS: Hematocrit 32.8 % (33.0-51.0); Hemoglobin 10.6 g/dL (11.5-16.0)
[2019-11-10 08:27] LABS: Appearance, Urine Clear (Clear); Bilirubin, Urine Neg (Neg); Blood, Urine Neg (Neg); Color, Urine Yellow (P-Yellow); Glucose Qualitative, Urine Neg (Neg); Ketones, Urine Neg (Neg); Leukocyte Esterase, Urine 3+ (Neg); Nitrite, Urine Neg (Neg); Protein, Urine 2+ (Neg); Urobilinogen, Urine NORM (Normal)
[2019-11-10 08:30] LABS: Albumin, Blood 3.3 g/dL (3.4-5.0); Anion Gap 5 mmol/L (6-16); Blood Urea Nitrogen 25 mg/dL (8-24); Bun/Creatinine Ratio 10.4 (12.0-20.0); CO2, Blood 33 mmol/L (21-32); Calcium, Blood 9.1 mg/dL (8.5-10.1); Chloride, Blood 104 mmol/L (98-108); Glomerular Filtration Rate 20 (60-); Glucose, Blood 119 mg/dL (70-99); Magnesium, Blood 2.1 mg/dL (1.6-2.4); Phosphorus, Blood 2.5 mg/dL (2.5-4.9); Potassium, Blood 3.9 mmol/L (3.5-5.5); Sodium, Blood 142 mmol/L (136-145)
[2019-11-10 08:36] LABS: Bacteria Few /hpf; Red Blood Cells, Urine 0-2 /hpf (0-2); Squamous Epithelial Cells Few /hpf (Few)
[2019-11-10] MEDS ORDERED: SERTRALINE HCL50 MG PO (10:35)
--- NOTE | 2019-11-10 12:43 | NUR ---
PT DOWN TO DAY SURGERY FOR PROCEDURE
--- NOTE | 2019-11-10 12:51 | NUR ---
History, Chart, Medications and Allergies reviewed before start of procedure. Patient confirms NPO status and agrees with scheduled surgery. Pre-Op teaching done. Pt verbalizes understanding. Lungs clear T/O to Auscultation DIMINISHED IN THE BASES.
[2019-11-10 13:14] LABS: Percent Saturation 31.6 % (15.0-50.0)
--- NOTE | 2019-11-10 13:42 | NUR ---
pt. is in bed resting and her spouse in the room with her , pt reports to be doing much better , prayed for pt.
--- NOTE | 2019-11-10 15:37 | NUR ---
Spiritual care visit conducted. Patient is out for an endoscopy. I sit with patient's son Peewee outside the rm and I ask him about the new shift in patient's conversation. I ask him about her tearfulness, her talk of exhaustion and her statements of not wanting to live "like this." I later have the same conversation with patient's spouse, Edilberto, in patient's rm. Both Peewee and Edilberto state that she has been talking about these types of themes and with these kinds of emotions for several weeks now. Peewee and Edilberto tell me their stories and how they are impacted by what they are seeing. Peewee states that he will need to have some conversations with his brothers. I will continue to remain available to patient and family and assist in negotiating through these tough topics.
--- NOTE | 2019-11-10 15:43 | NUR ---
11/10/19 1543 TYRELL NELSON History, Chart, Medications and Allergies reviewed before start of procedure. 3-LEAD EKG REVIEWED WITH PHYSICIAN PRIOR TO START OF PROCEDURE. O2 VIA N/C INTACT THROUGHOUT SEDATION/PROCEDURE. MONITOR INTACT WITH CONTINUOUS PULSE OXIMETRY AND INTERMITTENT BP. MAC WITH DR. MEDEIROS.
--- NOTE | 2019-11-10 17:21 | NUR ---
SUMMARY PT RESTING IN BED VISITING WITH HER SPOUSE, PT HAD AN UPPER ENDOSCOPY TODAY, NO S/S BLEEDING, PT MARCELO WELL, PT HAS HAD FAMILY AT THE BEDSIDE FOR MOST OF THE DAY, PT UP WITH 1-2 P ASSIST TO THE BATHROOM, PT DID NOT HAVE DIALYSIS TODAY, PLAN TO DC IN AM, VSS, WILL CONT TO MONITOR
--- NOTE | 2019-11-11 03:43 | NUR ---
SHIFT SUMMARY PATIENT HAD NO ACUTE CHANGES OBSERVED. AXOX 3 AND SLOW ONE ASSIST TO BSC. TAKES MEDICATION WHOLE WITH WATER. PIV REMAINS INTACT. PLANT ELECTRICIAN REPORTS A-FIB AVERAGE 100. PERMA CATH RC WALL. DENIES SOB AND AND N/V. REPORTED NECK PAIN X ONE AND RECEIVED OXYCODONE 5 MG PER EMAR. REPORTED INSOMNIA AND DESYREL 25 MG GIVEN PER EMAR. VSS/AFEBRILE. SPOUSE PRESENT AT SHIFT CHANGE AND WENT HOME. COOPERATIVE WITH CARE. CALL LIGHT IN REACH. BED IN LOWEST POSITION. WILL CONTINUE TO MONITOR UNTIL DAY SHIFT NURSE ASSUMES CARE.
[2019-11-11 05:51] LABS: Hematocrit 27.9 % (33.0-51.0); Hemoglobin 8.9 g/dL (11.5-16.0)
[2019-11-11 06:13] LABS: Albumin, Blood 2.9 g/dL (3.4-5.0); Anion Gap 4 mmol/L (6-16); Blood Urea Nitrogen 32 mg/dL (8-24); Bun/Creatinine Ratio 10.7 (12.0-20.0); CO2, Blood 32 mmol/L (21-32); Calcium, Blood 8.9 mg/dL (8.5-10.1); Chloride, Blood 104 mmol/L (98-108); Glomerular Filtration Rate 16 (60-); Glucose, Blood 82 mg/dL (70-99); Phosphorus, Blood 3.3 mg/dL (2.5-4.9); Potassium, Blood 3.9 mmol/L (3.5-5.5); Sodium, Blood 140 mmol/L (136-145)
[2019-11-11] MEDS ORDERED: ACET325 PO (11:54)
[2019-11-11] MEDS ORDERED: NYSTOP15 GM TOP (11:56)
[2019-11-11] MEDS ORDERED: TRAZ50 PO (11:56)
[2019-11-11] MEDS ORDERED: LEVFLO500 PO (11:57)
--- NOTE | 2019-11-11 13:09 | NUR ---
Spiritual care visit conducted. Patient is sitting up in bed and alert and she has her spouse, Edilberto, and son, Peewee bedside. Patient tells stories of how patient and Edilberto met, about some of the funny things that have happened in life and about some of the current family unit complications. I normalize patient's concerns and provide therapeutic listening, companionship and prayer. Patient responds well and shows signs of an elevated mood. Patient and family verbalize their appreciation for the time and care.
[2019-11-16 14:09] LABS: A/G RATIO 1.8 (0.7-1.7); ALBUMIN 3.1 g/dL (2.9-4.4); ALPHA-1-GLOBULIN 0.3 g/dL (0.0-0.4); ALPHA-2-GLOBULIN 0.6 g/dL (0.4-1.0); BETA GLOBULIN 0.5 g/dL (0.7-1.3); GAMMA GLOBULIN 0.4 g/dL (0.4-1.8); GLOBULIN, TOTAL 1.8 g/dL (2.2-3.9); IMMUNOGLOBULIN A, QN, SERUM 76 mg/dL (64-422); IMMUNOGLOBULIN G, QN, SERUM 482 mg/dL (586-1602); IMMUNOGLOBULIN M, QN, SERUM 18 mg/dL (26-217); M-SPIKE Not Observed g/dL (Not Observed); PROTEIN, TOTAL, SERUM 4.9 g/dL (6.0-8.5)
== END 2019-11-11 13:55 | disposition home health service (06) ==
LOC: MEDS 16:11
PROVIDERS: Internal Medicine; Internal Medicine Gastroenterology; Internal Medicine Nephrology; ADMIT Family Medicine
PROC: 0DB98ZZ Excision of Duodenum, Via Natural or Artificial Opening Endoscopic (ICD-10-PCS; principal; 2019-11-10 11:15)
DX: D50.9 Iron deficiency anemia, unspecified (principal); K29.50 Unspecified chronic gastritis without bleeding; Z20.828 Contact with and (suspected) exposure to other viral communicable diseases; K26.9 Duodenal ulcer, unspecified as acute or chronic, without hemorrhage or perforation; I48.0 Paroxysmal atrial fibrillation; E11.22 Type 2 diabetes mellitus with diabetic chronic kidney disease; E11.42 Type 2 diabetes mellitus with diabetic polyneuropathy; I25.10 Atherosclerotic heart disease of native coronary artery without angina pectoris; I13.2 Hypertensive heart and chronic kidney disease with heart failure and with stage 5 chronic kidney disease, or end stage renal disease; N18.6 End stage renal disease; M47.812 Spondylosis without myelopathy or radiculopathy, cervical region; E87.6 Hypokalemia; G47.33 Obstructive sleep apnea (adult) (pediatric); D63.1 Anemia in chronic kidney disease; Z66 Do not resuscitate; Z99.2 Dependence on renal dialysis; E83.39 Other disorders of phosphorus metabolism; Z88.5 Allergy status to narcotic agent; Z88.0 Allergy status to penicillin; Z88.8 Allergy status to other drugs, medicaments and biological substances; I69.934 Monoplegia of upper limb following unspecified cerebrovascular disease affecting left non-dominant side; E66.9 Obesity, unspecified; J44.9 Chronic obstructive pulmonary disease, unspecified; I25.2 Old myocardial infarction; Z87.891 Personal history of nicotine dependence; Z79.899 Other long term (current) drug therapy; I50.9 Heart failure, unspecified
CPT/HCPCS: 36415; 36430; 74176; 80053; 80069; 81001; 82272; 82607; 82728; 82746; 82784; 82947; 83540; 83550; 83735; 84100; 84165; 85014; 85018; 85025; 86334; 86850; 86900; 86901; 86923; 87077; 87086; 87186; 88305; 88342; 96374; 96376; G0257; G0378; J1956; J2704; P9016; U0002

== ENCOUNTER → 2020-03-09 | Outpatient (CLI) | payer MEDICARE, BC ==
[~2020-03-09] MED LIST changes: +ATOR80 PO; +BANATROL PLUS1 EAC1 PO; +DICLOFENAC SODIUM TOP; +DOXY100 PO; -FEBU40TA PT; +FEBUXOSTAT80 MG PO; -GABAPENTIN PO; +Hair, Skin & N1 EACH PO; +LACT PO; +LACT PT; +LEVFLO500 PO; +MIDO5 PO; +NYSTOP15 GM TOP; +PYRI100 PO; +Rena-Vite Tabl0.8 MG PO; +SERTRALINE HCL50 MG PO; +SEVELAMER CARB PO; +TRAZ50 PO; +VANCOMYCIN HCL750 MG IV
[2020-03-09 16:46] LABS: Appearance, Urine Cloudy (Clear); Bilirubin, Urine Neg (Neg); Blood, Urine 3+ (Neg); Color, Urine Yellow (P-Yellow); Glucose Qualitative, Urine Neg (Neg); Ketones, Urine 1+ (Neg); Leukocyte Esterase, Urine 3+ (Neg); Nitrite, Urine Neg (Neg); Protein, Urine 3+ (Neg); Specific Gravity, Urine 1.015 (1.003-1.022); Urobilinogen, Urine NORM (Normal)
[2020-03-09 16:56] LABS: Bacteria Many /hpf; Red Blood Cells, Urine 0-2 /hpf (0-2); Squamous Epithelial Cells Not Seen /hpf (Few); White Blood Cells, Urine TNTC /hpf (0-5)
== END | disposition home or self-care (01) ==
LOC: LAB SHORT 15:53
PROVIDERS: Internal Medicine Nephrology
DX: R30.0 Dysuria (principal)
CPT/HCPCS: 81001; 87077; 87086; 87186

== ENCOUNTER 2020-05-11 10:08 | Day surgery (SDC) | payer MEDICARE, BC ==
[~2020-05-11] VITALS: Ht 147.3 cm; Wt 66.2 kg
[~2020-05-11 10:08] MED LIST changes: -ATOR80 PO; -AURYXIA210 MG PO; -BANATROL PLUS1 EAC1 PO; -DICLOFENAC SODIUM TOP; -DOXY100 PO; -FEBUXOSTAT80 MG PO; -Hair, Skin & N1 EACH PO; -LACT PO; -METO25 PT; -MIDO5 PO; -NYSTOP15 GM TOP; -OXYCODONE-ACET1 EAC3 PO; -PYRI100 PO; -Rena-Vite Tabl0.8 MG PO; -SERTRALINE HCL50 MG PO; -SEVELAMER CARB PO; -VANCOMYCIN HCL750 MG IV; -Ventolin/Prove6.7 GM INH
--- NOTE | 2020-05-11 16:40 | NUR ---
PATIENT RETURNED TO [facility] A&O. LEFT GROIN SITE SOFT AND DRESSING INTACT. PATIENT ON BEDPAN TO VOID
--- NOTE | 2020-05-11 17:13 | NUR ---
DR GRIFFIN IN TO SEE PATIENT AND DISCUSS PROCEDURE WITH . PATIENT WILL BE ADMITTED FOR EXTENDED STAY. DR EASON CALLED TO CONSULT FOR DIALYSIS ORDERS FOR TOMORROW.
--- NOTE | 2020-05-11 17:40 | NUR ---
DR EASON HERE TO SEE PATIENT.
--- NOTE | 2020-05-11 17:45 | NUR ---
PATIENT UNABLE TO VOID ON BEDPAN. ATTEMP TO START NOWAK BY MARK ANTHONY MILLER UNSUCCESSFUL. LEFT GROIN SITE UNCHANGED
[2020-05-11 19:09] LABS: Source, Urine Catheter
[2020-05-11 19:24] LABS: Appearance, Urine Hazy (Clear); Bilirubin, Urine Neg (Neg); Blood, Urine 2+ (Neg); Color, Urine Yellow (P-Yellow); Glucose Qualitative, Urine Neg (Neg); Ketones, Urine Neg (Neg); Leukocyte Esterase, Urine 3+ (Neg); Nitrite, Urine Neg (Neg); Protein, Urine 3+ (Neg); Specific Gravity, Urine 1.005 (1.003-1.022); Urobilinogen, Urine NORM (Normal)
[2020-05-11 19:50] LABS: Bacteria Many /hpf; Squamous Epithelial Cells Not Seen /hpf (Few); White Blood Cells, Urine 25-50 /hpf (0-5)
[2020-05-12 05:07] LABS: Hematocrit 29.5 % (33.0-51.0); Hemoglobin 9.9 g/dL (11.5-16.0)
[2020-05-12 05:28] LABS: Albumin, Blood 3.1 g/dL (3.4-5.0); Anion Gap 10 mmol/L (6-16); Blood Urea Nitrogen 40 mg/dL (8-24); Bun/Creatinine Ratio 9.1 (12.0-20.0); CO2, Blood 27 mmol/L (21-32); Calcium, Blood 8.9 mg/dL (8.5-10.1); Chloride, Blood 96 mmol/L (98-108); Creatinine, Blood 4.41 mg/dL (0.40-1.00); Glomerular Filtration Rate 10 (60-); Glucose, Blood 91 mg/dL (70-99); Magnesium, Blood 2.4 mg/dL (1.6-2.4); Phosphorus, Blood 4.9 mg/dL (2.5-4.9); Potassium, Blood 4.3 mmol/L (3.5-5.5); Sodium, Blood 133 mmol/L (136-145)
--- NOTE | 2020-05-12 08:17 | NUR ---
SHIFT SUMMARY PATIENT PLEASENT AND COOPERATIVE THROUGHOUT THE NIGHT. PATIENT'S GROIN SITE APPEARED TO RECOVER WELL. THERE WAS A SLIGHT LUMP PRESENT AT THE BEGINNING OF THE SHIFT THAT HAS NOT CHANGED THROUGHOUT THE NIGHT. PEDAL PULSES PRESENT BILATERALLY THROUGHOUT THE SHIFT. NO CHANGES NOTED TO RIGHT INNER ANKLE. PATIENT'S HOME WOUND VAC IN PLACE TO RIGHT HEEL AND REENFORED NEEDED. PATIENT APPEARED TO SLEEP WELL LAST NIGHT. PATIENT MEDICATED FOR PAIN PER EMAR. REPORT GIVEN TO ONCOMING RN.
--- NOTE | 2020-05-12 11:07 | NUR ---
Patient is not present in so I visit her in dialysis. Patient tells me about her medical issues, her family unit complications and about the positive aspects of her family. Patient explains that she is not doing well emotionally with the constant physical pain and 4yrs of trips into town 3xs a wk for dialysis. She shares that she has dark moments and that she just feels "spent." I normalize patient's experience, reinforce helpful attitudes and provide therapeutic listening and prayer. Patient responds well and displays evidence of being encouraged in her arlin. I will continue to remain available to patient to assist with the emotional and spiritual aspects of her medical issues.
--- NOTE | 2020-05-12 14:23 | NUR ---
DIALYSIS PT NEEDED TO HAVE A BM. REFUSED TO TRY TO BED DAVIES. RETURNED BLODD AND SENT THE PT BACK TO HER ROOM.
--- NOTE | 2020-05-12 15:41 | NUR ---
NO ACUTE CHANGES T/OUT SHIFT TODAY. PT TO AND FROM DIALYSIS, WAS HYPOTENSIVE DURING TX, BP WNL UPON RETURN TO ROOM. PT SLEEPY AFTER RETURNING TO ROOM, BUT IS AROUSABLE AND CONTINUES TO BE ORIENTED. PT ARRIVES TO BEDSIDE, DC PAPERWORK IS REVIEWED AND QUESTIONS ANSWERED. PT DISCHARGED HOME IN NAD.
== END 2020-05-12 15:46 | disposition home or self-care (01) ==
LOC: MHTC 10:08 → ORSCMMR 10:10 → MHTC 10:13 → PCU 18:54 → MHTC 05-12 15:46 → PCU 05-12 15:46
PROVIDERS: Internal Medicine Nephrology; Radiology Diagnostic Radiology
DX: I70.213 Atherosclerosis of native arteries of extremities with intermittent claudication, bilateral legs (principal); L97.411 Non-pressure chronic ulcer of right heel and midfoot limited to breakdown of skin; E11.621 Type 2 diabetes mellitus with foot ulcer; N18.6 End stage renal disease; E05.90 Thyrotoxicosis, unspecified without thyrotoxic crisis or storm; N13.9 Obstructive and reflux uropathy, unspecified; I48.91 Unspecified atrial fibrillation; E87.1 Hypo-osmolality and hyponatremia; D64.9 Anemia, unspecified; I12.0 Hypertensive chronic kidney disease with stage 5 chronic kidney disease or end stage renal disease; K21.9 Gastro-esophageal reflux disease without esophagitis; J44.9 Chronic obstructive pulmonary disease, unspecified; E11.22 Type 2 diabetes mellitus with diabetic chronic kidney disease; Z23 Encounter for immunization; G47.30 Sleep apnea, unspecified; Z86.73 Personal history of transient ischemic attack (TIA), and cerebral infarction without residual deficits; Z99.2 Dependence on renal dialysis; Z88.0 Allergy status to penicillin; Z88.6 Allergy status to analgesic agent; Z88.8 Allergy status to other drugs, medicaments and biological substances; Z93.1 Gastrostomy status; Z96.653 Presence of artificial knee joint, bilateral; R13.10 Dysphagia, unspecified; E87.79 Other fluid overload; R60.0 Localized edema
CPT/HCPCS: 36415; 37224; 37230; 37232; 49450; 51703; 75625; 75716; 75774; 76937; 80069; 81001; 83735; 85014; 85018; 99152; 99153; A9270; C1725; C1769; C1874; C1887; C1894; G0008; G0257; J0881; J1644; J2250; J3010; J7030; J7050; Q2038; Q9967

== ENCOUNTER 2020-05-27 13:08 | Inpatient (IN) | payer MEDICARE, BC ==
[~2020-05-27] VITALS: Ht 152.4 cm; Wt 69.9 kg
[2020-05-27 14:09] LABS: BASOPHILS ABSOLUTE AUTO 0.11 K/mm3 (0.00-0.23); BASOPHILS PERCENT AUTO 0 % (0-2); EOSINOPHILS ABSOLUTE AUTO 0.03 K/mm3 (0.00-0.68); EOSINOPHILS PERCENT AUTO 0 % (0-6); Hematocrit 29.5 % (33.0-51.0); Hemoglobin 10.1 g/dL (11.5-16.0); IMMATURE GRAN ABSOLUTE AUTO 0.55 K/mm3 (0.00-0.10); IMMATURE GRAN PERCENT AUTO 2 % (0-1); LYMPHOCYTES ABSOLUTE AUTO 0.71 K/mm3 (0.84-5.20); LYMPHOCYTES PERCENT AUTO 2 % (21-46); MONOCYTES ABSOLUTE AUTO 0.72 K/mm3 (0.16-1.47); MONOCYTES PERCENT AUTO 2 % (4-13); Mean Corpuscular HGB 35.8 pg (26.0-34.0); Mean Corpuscular HGB Conc 34.2 g/dL (31.5-36.5); Mean Corpuscular Volume 105 fL (80-100); Mean Platelet Volume 11.7 fL (9.1-12.4); NEUTROPHILS ABSOLUTE AUTO 27.79 K/mm3 (1.96-9.15); NEUTROPHILS PERCENT AUTO 93 % (41-73); Platelet Count 83 K/mm3 (150-400); RDW Coefficient Variation 15.3 % (11.7-14.2); RDW Standard Deviation 58.6 fL (35.1-46.3); Red Blood Cell Count 2.82 M/mm3 (3.80-5.20); White Blood Cell Count 29.91 K/mm3 (4.00-11.30)
[2020-05-27 14:41] LABS: Albumin, Blood 3.2 g/dL (3.4-5.0); Bilirubin, Total 0.7 mg/dL (0.1-1.0); Bun/Creatinine Ratio 10.5 (12.0-20.0); Calcium, Blood 9.2 mg/dL (8.5-10.1); Creatinine, Blood 3.13 mg/dL (0.40-1.00); Globulin, Blood 3.3 g/dL (2.2-4.0); Phosphorus, Blood 2.4 mg/dL (2.5-4.9); Potassium, Blood 3.5 mmol/L (3.5-5.5); Total Protein, Blood 6.5 g/dL (6.4-8.2)
[2020-05-27] MEDS ORDERED: ATOR80 PO (16:20)
[2020-05-27] MEDS ORDERED: OXYCODONE-ACET1 EAC3 PO (16:21)
[2020-05-27] MEDS ORDERED: SEVELAMER CARB PO (16:23)
[2020-05-27] MEDS ORDERED: FEBUXOSTAT80 MG PO (16:27)
[2020-05-27] MEDS ORDERED: SERTRALINE HCL50 MG PO (16:29)
[2020-05-27] MEDS ORDERED: NYSTOP15 GM TOP (16:29)
[2020-05-27] MEDS ORDERED: DICLOFENAC SODIUM TOP (16:32)
[2020-05-27] MEDS ORDERED: Ventolin/Prove6.7 GM INH (17:33)
[2020-05-27] MEDS ORDERED: GABA300 PO (18:08)
[2020-05-27] MEDS ORDERED: AURYXIA210 MG PO (18:08)
[2020-05-27] MEDS ORDERED: Hair, Skin & N1 EACH PO (18:08)
[2020-05-27] MEDS ORDERED: LACT PO (18:09)
[2020-05-27] MEDS ORDERED: METO25 PT (18:09)
[2020-05-27] MEDS ORDERED: MIDO5 PO (18:10)
[2020-05-27] MEDS ORDERED: DESL5 PO (18:11)
[2020-05-27] MEDS ORDERED: PYRI100 PO (18:11)
[2020-05-27] MEDS ORDERED: Rena-Vite Tabl0.8 MG PO (18:11)
[2020-05-28 07:00] LABS: BASOPHILS PERCENT AUTO 0 % (0-2); EOSINOPHILS ABSOLUTE AUTO 0.07 K/mm3 (0.00-0.68); EOSINOPHILS PERCENT AUTO 0 % (0-6); Hematocrit 25.4 % (33.0-51.0); Hemoglobin 8.9 g/dL (11.5-16.0); IMMATURE GRAN ABSOLUTE AUTO 0.38 K/mm3 (0.00-0.10); IMMATURE GRAN PERCENT AUTO 2 % (0-1); LYMPHOCYTES ABSOLUTE AUTO 0.45 K/mm3 (0.84-5.20); LYMPHOCYTES PERCENT AUTO 2 % (21-46); MONOCYTES ABSOLUTE AUTO 0.34 K/mm3 (0.16-1.47); MONOCYTES PERCENT AUTO 1 % (4-13); Mean Corpuscular Volume 103 fL (80-100); Mean Platelet Volume 12.3 fL (9.1-12.4); NEUTROPHILS ABSOLUTE AUTO 23.25 K/mm3 (1.96-9.15); NEUTROPHILS PERCENT AUTO 95 % (41-73); Platelet Count 81 K/mm3 (150-400); RDW Coefficient Variation 15.4 % (11.7-14.2); RDW Standard Deviation 58.3 fL (35.1-46.3); Red Blood Cell Count 2.47 M/mm3 (3.80-5.20); White Blood Cell Count 24.59 K/mm3 (4.00-11.30)
[2020-05-28 07:05] LABS: Alanine Aminotransfer (ALT/SGP 13 U/L (12-78); Albumin, Blood 2.5 g/dL (3.4-5.0); Albumin/Globulin Ratio 0.8 (0.8-1.8); Alk Phos 60 U/L (50-136); Anion Gap 15 mmol/L (6-16); Aspartate Aminotrans (AST/SGOT 19 U/L (12-37); Bilirubin, Total 0.3 mg/dL (0.1-1.0); Blood Urea Nitrogen 39 mg/dL (8-24); Bun/Creatinine Ratio 11.2 (12.0-20.0); CO2, Blood 25 mmol/L (21-32); Calcium, Blood 8.7 mg/dL (8.5-10.1); Chloride, Blood 101 mmol/L (98-108); Creatinine, Blood 3.47 mg/dL (0.40-1.00); Globulin, Blood 3.1 g/dL (2.2-4.0); Glomerular Filtration Rate 13 (60-); Glucose, Blood 107 mg/dL (70-99); Potassium, Blood 3.7 mmol/L (3.5-5.5); Sodium, Blood 141 mmol/L (136-145); Total Protein, Blood 5.6 g/dL (6.4-8.2); Vancomycin, Random 14.3 ug/mL
[2020-05-28 08:59] LABS: Source, Urine Catheter
[2020-05-28 09:10] LABS: Appearance, Urine Hazy (Clear); Bilirubin, Urine Neg (Neg); Blood, Urine 2+ (Neg); Color, Urine Yellow (P-Yellow); Glucose Qualitative, Urine Neg (Neg); Ketones, Urine Neg (Neg); Leukocyte Esterase, Urine 3+ (Neg); Nitrite, Urine Neg (Neg); Protein, Urine 2+ (Neg); Urobilinogen, Urine NORM (Normal)
[2020-05-28 09:28] LABS: White Blood Cells, Urine TNTC /hpf (0-5)
[2020-05-28 09:29] LABS: Bacteria Many /hpf; Squamous Epithelial Cells Not Seen /hpf (Few)
--- NOTE | 2020-05-28 19:24 | NUR ---
PT SUMMARY: PT ARRIVED IN THE UNIT FROM [facility] VIA STRETCHER. PT IS ALERT AND ORIENTED AT BASELINE, AND IS HERE AFTER GLF AT HOME AND OSTEOMYELITIS. VITALS HRR AFIB 90-110'S, SOFT BP SYSTOLIC 90-100'S TAKES MIDODRINE ON SCHEDULE, SATS ABOVE 95% ON RA, AFEBRILE. PT IS A DIALYSIS PT GOES TO [facility] EVERY MON AND FRI FOR DIALYSIS SESSION HAS PERMACATH ON RIGHT UPPER CHEST WITH DRESSING INTACT. PT HAS PEG TUBE IN PLACE ON LEFT ABDOMEN FOR OCCASIONAL USE PER IF PT IS UNABLE TO SWALLOW AND MEDS ADMINISTRATION AT HOME. PT NORMALLY EATS REGULAR FOOD AT HOME, CURRENTLY ON SOFT DIET, TOLERATING WELL MEDS CRUSHED IN APPLESAUCE. HAS LEFT SIDE DEFICIT D/T CVA. HAS MULTIPLE WOUND AND BRUISES D/T FALL, PICS IN THE CHART. PT ALSO HAS WOUND VAC ON RIGHT HEEL THAT WAS NOT IN THE RIGHT PLACE ON THE WOUND, WOUND VAC WAS REMOVED WET TO DRY DRESSING WAS APPLIED IN THE WOUNDS, DR ALEJANDRO CONSULTED FOR OSTEOMYELITIS, TO REPLACE WOUND VAC TOMORROW IF ABLE TO PROVIDE SUPPLIES FROM WOUND CENTER. PT IS ON VANCO AND ROCEPHIN FOR IV ABO. ON CONTACT ISO FOR HX OF MRSA IN THE WOUNDS AND ESBL IN URINE. PT HAS A NOWAK DRAINING PATENT VIA GRAVITY, ATTENDS IN PLACE. PT ABLE TO MAKE NEEDS KNOWN, CALL LIGHTS IN REACH WILL REPORT TO ONCOMING SHIFT
[2020-05-29 04:48] LABS: Hematocrit 24.6 % (33.0-51.0); Hemoglobin 8.5 g/dL (11.5-16.0)
[2020-05-29 05:11] LABS: Albumin, Blood 2.5 g/dL (3.4-5.0); Anion Gap 19 mmol/L (6-16); Blood Urea Nitrogen 55 mg/dL (8-24); Bun/Creatinine Ratio 13.8 (12.0-20.0); CO2, Blood 24 mmol/L (21-32); Calcium, Blood 9.1 mg/dL (8.5-10.1); Chloride, Blood 96 mmol/L (98-108); Creatinine, Blood 3.99 mg/dL (0.40-1.00); Glomerular Filtration Rate 11 (60-); Glucose, Blood 101 mg/dL (70-99); Phosphorus, Blood 4.2 mg/dL (2.5-4.9); Potassium, Blood 3.9 mmol/L (3.5-5.5); Sodium, Blood 139 mmol/L (136-145)
--- NOTE | 2020-05-29 06:04 | NUR ---
SHIFT SUMMARY PT ALERT, ORIENTED. AWAKENED WITH SOME CONFUSION IN THE MIDDLE OF SHIFT. REORIENTED EASILY. SP02>90% ON RA DURING DAY, 2L NC DURING NIGHT. TELEMETRY READ AFIB, 100'S-130'S. PT C/O OF HEADACHE PAIN, GIVEN PAIN MEDICATION PER EMAR X1. PT HAS NOWAK CATHETER DRAINING CLOUDY YELLOW URINE WITH SOME SEDIMENT. PT ATTEMPTED UNSUCCESSFULLY TO HAVE BM. PT TOOK MEDS CRUSHED IN PUDDING. PT USES CALL LIGHT APPROPRIATELY. CALL LIGHT IN REACH. WILL GIVE REPORT TO ONCOMING NURSE.
[2020-05-29 08:52] LABS: Hematocrit 25.9 % (33.0-51.0); Hemoglobin 8.9 g/dL (11.5-16.0); Mean Corpuscular HGB 35.6 pg (26.0-34.0); Mean Corpuscular HGB Conc 34.4 g/dL (31.5-36.5); Mean Corpuscular Volume 104 fL (80-100); Mean Platelet Volume 12.2 fL (9.1-12.4); Platelet Count 107 K/mm3 (150-400); RDW Coefficient Variation 15.8 % (11.7-14.2); RDW Standard Deviation 59.6 fL (35.1-46.3)
[2020-05-29 09:40] LABS: BAND PERCENT MAN 5 % (0-8); BASOPHILS PERCENT MAN 0 % (0-2); EOSINOPHILS ABSOLUTE MAN 0.37 K/mm3 (0.00-0.68); EOSINOPHILS PERCENT MAN 2 % (0-6); LYMPHOCYTES PERCENT MAN 7 % (21-46); MONOCYTES ABSOLUTE MAN 0.37 K/mm3 (0.16-1.47); MONOCYTES PERCENT MAN 2 % (4-13); NEUTROPHILS ABSOLUTE MAN 16.64 K/mm3 (1.96-9.15); SEG NEUTROPHILS PERCENT MAN 84 % (41-73); TOTAL CELLS COUNTED 100
[2020-05-29 12:04] LABS: Vancomycin, Random 11.5 ug/mL
--- NOTE | 2020-05-29 16:01 | NUR ---
Spiritual care visit conducted. Patient is sitting up in bed and alert. Patient's spouse, Edilberto, is bedside. They explain about the events that led to patient's hospitalization and about the family unit complications. They discuss the possibility of an upcoming amputation and how disappointing that is. I listen empathically, reinforce helpful attitudes and practices and provide companionship. I will continue to remain available to patient and family.
--- NOTE | 2020-05-29 18:27 | NUR ---
PT SUMMARY: PT NOTICED TO HAVE OCCASIONAL CONFUSION FOR THE SHIFT THAN YESTERDAY PT KEEPS FORGETTING SHE'S IN THE HOSPITAL, REPORTS TERRIBLE HEAD ACHES AND STATED SHE DIDNT GET MUCH SLEEP LAST NIGHT, PAIN MEDS GIVEN TWICE FOR THE SHIFT ANT TYLENOL IN BETWEEN. VITALS HRR AFIB 90-110'S, BP SYSTOLIC 100-130'S, SATS ABOVE 95% ON RA, AFEBRILE. PT HAD DIALYSIS TODAY WITH 2L OUTPUT. PT RECEIVED A BED BATH AFTER DIALYSIS, WOUND DRESSINGS WERE CHANGED, WOUND VAC SUPPLIES WAS BROUGHT IN BY FROM HOME, WOUND VAC APPLIED ON RIGHT HEEL AT 125MMHG. DR ALEJANDRO TO EITHER COME SEE PT TONIGHT OR TOMORROW MORNING. AT BEDSIDE DURING VISITING HOURS AWARE. PT REPOSITIONED IN BED, LEGS ELEVATED ON PILLOWS. TOLERATED DIET WELL, TAKE PILLS CRUSHED IN APPLESAUCE, NO OTHER ISSUES REPORTED FOR THE SHIFT, ABLE TO MAKE NEEDS KNOWN, WILL REPORT TO ONCOMING SHIFT.
[2020-05-30 04:08] LABS: BASOPHILS ABSOLUTE AUTO 0.07 K/mm3 (0.00-0.23); BASOPHILS PERCENT AUTO 1 % (0-2); EOSINOPHILS ABSOLUTE AUTO 0.53 K/mm3 (0.00-0.68); EOSINOPHILS PERCENT AUTO 5 % (0-6); Hematocrit 25.7 % (33.0-51.0); Hemoglobin 8.8 g/dL (11.5-16.0); IMMATURE GRAN ABSOLUTE AUTO 0.05 K/mm3 (0.00-0.10); IMMATURE GRAN PERCENT AUTO 1 % (0-1); LYMPHOCYTES ABSOLUTE AUTO 1.37 K/mm3 (0.84-5.20); LYMPHOCYTES PERCENT AUTO 13 % (21-46); MONOCYTES ABSOLUTE AUTO 0.53 K/mm3 (0.16-1.47); MONOCYTES PERCENT AUTO 5 % (4-13); Mean Corpuscular HGB 35.6 pg (26.0-34.0); Mean Corpuscular HGB Conc 34.2 g/dL (31.5-36.5); Mean Corpuscular Volume 104 fL (80-100); Mean Platelet Volume 12.5 fL (9.1-12.4); NEUTROPHILS ABSOLUTE AUTO 8.31 K/mm3 (1.96-9.15); NEUTROPHILS PERCENT AUTO 77 % (41-73); NRBC ABSOLUTE 0.04 K/mm3 (0.00-0.02); NRBC Auto 0.4 /100 WBC (0.0-0.2); Platelet Count 117 K/mm3 (150-400); RDW Coefficient Variation 15.7 % (11.7-14.2); Red Blood Cell Count 2.47 M/mm3 (3.80-5.20); White Blood Cell Count 10.86 K/mm3 (4.00-11.30)
[2020-05-30 04:26] LABS: Albumin, Blood 2.6 g/dL (3.4-5.0); Anion Gap 14 mmol/L (6-16); Blood Urea Nitrogen 37 mg/dL (8-24); Bun/Creatinine Ratio 11.2 (12.0-20.0); CO2, Blood 25 mmol/L (21-32); Calcium, Blood 8.8 mg/dL (8.5-10.1); Chloride, Blood 97 mmol/L (98-108); Creatinine, Blood 3.31 mg/dL (0.40-1.00); Glomerular Filtration Rate 14 (60-); Glucose, Blood 86 mg/dL (70-99); Magnesium, Blood 2.1 mg/dL (1.6-2.4); Phosphorus, Blood 3.7 mg/dL (2.5-4.9); Potassium, Blood 4.3 mmol/L (3.5-5.5); Sodium, Blood 136 mmol/L (136-145)
--- NOTE | 2020-05-30 05:03 | NUR ---
SHIFT SUMMARY PT ALERT AND ORIENTED TO SELF, PLACE, AND SITUATION. PT CONFUSED AT TIMES UPON WAKING. VS STABLE. O2 SATS HAVE REMAINED ABOVE 90% ON 2L NC. PT COMPLAINED OF PAIN TO BLE, BUT DENIES A NEED FOR MEDICATION. REPOSITIONED Q2H. NOWAK PATENT AND DRAINING MINIMAL URINE OUTPUT. WILL CONTINUE TO MONITOR AND REPORT TO ONCOMING RN. CALL LIGHT IN REACH.
[2020-05-30] MEDS ORDERED: VANCOMYCIN HCL750 MG IV (13:46)
[2020-05-30] MEDS ORDERED: DOXY100 PO (13:54)
[2020-05-30] MEDS ORDERED: BANATROL PLUS1 EAC1 PO (13:54)
--- NOTE | 2020-05-30 14:11 | NUR ---
Met pt. in bed relaxed she reeports to be doing much better encouraged pt. nd prayed for
--- NOTE | 2020-05-30 14:16 | NUR ---
Spiritual care visit conducted. Patient talks about her family and their achievements and about how she hates all these visits to the hospital and having to be away from her , Edilberto. I provide companionship and prayer. Patient responds well and shows signs of an elevated mood. While I am still in the patient's rm, Edilberto arrives and patient gets the news that she will be going home today. Patient perks up even farther.
[2020-05-30 15:18] LABS: Vancomycin, Random 24.8 ug/mL
--- NOTE | 2020-05-30 16:05 | NUR ---
PT DISCHARGED TO HOME TODAY WITH DISCHARGE ORDERS, PT TO FOLLOW-UP WITH DR EASON AT [facility]. PT TO CONTINUE ORAL ABO VIBRAMYCIN AND VANCOMYCIN INFUSION AT [facility]. DISCHARGE ORDER AND INSTRUCTIONS DISCLOSED WITH THE PT AND AT BEDSIDE. NO ISSUES ENCOUNTERED FOR THE SHIFT, VITALS WERE STABLE. WOUND VAC DRESSING REMAINED INTACT AND RUNNING. PT WAS ABLE TO STAND TRANSFER 2PA VIA WALKER, WAS ABLE TO TAKE STEPS TO WALK TO THE WHEELCHAIR. ALL BELONGINGS SENT WITH PT MEDS AND WOUND DRESSINGS THAT BROUGHT IN. ACCOMPANIED BY PCT VIA WHEELCHAIR.
== END 2020-05-30 15:15 | disposition home or self-care (01) | DRG 637 ==
LOC: ER 13:08 → ERHOLD 19:39 → PCU 19:39
PROVIDERS: Family Medicine; Internal Medicine; Internal Medicine Nephrology; Pharmacist; Physician Assistant; ADMIT Internal Medicine
DX: E11.69 Type 2 diabetes mellitus with other specified complication (principal); G93.41 Metabolic encephalopathy; I12.0 Hypertensive chronic kidney disease with stage 5 chronic kidney disease or end stage renal disease; L97.419 Non-pressure chronic ulcer of right heel and midfoot with unspecified severity; L03.115 Cellulitis of right lower limb; M86.8X7 Other osteomyelitis, ankle and foot; N39.0 Urinary tract infection, site not specified; N18.6 End stage renal disease; N25.81 Secondary hyperparathyroidism of renal origin; Z66 Do not resuscitate; J44.9 Chronic obstructive pulmonary disease, unspecified; K21.9 Gastro-esophageal reflux disease without esophagitis; G47.33 Obstructive sleep apnea (adult) (pediatric); E11.22 Type 2 diabetes mellitus with diabetic chronic kidney disease; D63.1 Anemia in chronic kidney disease; M47.812 Spondylosis without myelopathy or radiculopathy, cervical region; I25.10 Atherosclerotic heart disease of native coronary artery without angina pectoris; E88.09 Other disorders of plasma-protein metabolism, not elsewhere classified; I48.0 Paroxysmal atrial fibrillation; F32.9 Major depressive disorder, single episode, unspecified; M1A.9XX0 Chronic gout, unspecified, without tophus (tophi); B96.20 Unspecified Escherichia coli [E. coli] as the cause of diseases classified elsewhere; N13.9 Obstructive and reflux uropathy, unspecified; E11.621 Type 2 diabetes mellitus with foot ulcer; M48.00 Spinal stenosis, site unspecified; Z96.653 Presence of artificial knee joint, bilateral; I69.392 Facial weakness following cerebral infarction; I25.2 Old myocardial infarction; Z87.442 Personal history of urinary calculi; Z90.49 Acquired absence of other specified parts of digestive tract; Z99.2 Dependence on renal dialysis; Z98.890 Other specified postprocedural states; Z87.891 Personal history of nicotine dependence; Z88.0 Allergy status to penicillin; Z88.5 Allergy status to narcotic agent; Z88.6 Allergy status to analgesic agent; Z79.899 Other long term (current) drug therapy; Z90.710 Acquired absence of both cervix and uterus; Z90.721 Acquired absence of ovaries, unilateral; W06.XXXA Fall from bed, initial encounter
CPT/HCPCS: 36415; 51702; 70450; 71045; 73630; 80053; 80069; 80202; 81001; 83605; 83735; 84100; 85014; 85018; 85025; 85027; 85651; 87040; 87077; 87086; 87186; 93005; 93010; 94760; 96365-59; 99285-25; A9270; J0696; J0881; J1644; J3370; J7030

== ENCOUNTER 2020-07-09 12:26 | Emergency (ER) | payer MEDICARE, BC ==
[~2020-07-09] VITALS: Ht 157.5 cm; Wt 72.6 kg
[~2020-07-09 12:26] MED LIST changes: +ATOR80 PO; +AURYXIA210 MG PO; +BANATROL PLUS1 EAC1 PO; +DICLOFENAC SODIUM TOP; +DOXY100 PO; +FEBUXOSTAT80 MG PO; +Hair, Skin & N1 EACH PO; +LACT PO; +METO25 PT; +MIDO5 PO; +NYSTOP15 GM TOP; +OXYCODONE-ACET1 EAC3 PO; +PYRI100 PO; +Rena-Vite Tabl0.8 MG PO; +SERTRALINE HCL50 MG PO; +SEVELAMER CARB PO; +VANCOMYCIN HCL750 MG IV; +Ventolin/Prove6.7 GM INH
[2020-07-09 13:27] LABS: BASOPHILS ABSOLUTE AUTO 0.05 K/mm3 (0.00-0.23); BASOPHILS PERCENT AUTO 1 % (0-2); EOSINOPHILS ABSOLUTE AUTO 0.27 K/mm3 (0.00-0.68); EOSINOPHILS PERCENT AUTO 7 % (0-6); Hematocrit 30.7 % (33.0-51.0); IMMATURE GRAN PERCENT AUTO 0 % (0-1); LYMPHOCYTES PERCENT AUTO 32 % (21-46); MONOCYTES PERCENT AUTO 10 % (4-13); Mean Corpuscular HGB 34.1 pg (26.0-34.0); Mean Corpuscular HGB Conc 32.6 g/dL (31.5-36.5); Mean Corpuscular Volume 105 fL (80-100); Mean Platelet Volume 12.5 fL (9.1-12.4); NEUTROPHILS PERCENT AUTO 51 % (41-73); Platelet Count 81 K/mm3 (150-400); RDW Coefficient Variation 14.8 % (11.7-14.2); RDW Standard Deviation 57.9 fL (35.1-46.3); Red Blood Cell Count 2.93 M/mm3 (3.80-5.20); White Blood Cell Count 4.12 K/mm3 (4.00-11.30)
[2020-07-09 13:53] LABS: Albumin, Blood 3.9 g/dL (3.4-5.0); Albumin/Globulin Ratio 1.1 (0.8-1.8); Bilirubin, Total 0.4 mg/dL (0.1-1.0); Bun/Creatinine Ratio 9.1 (12.0-20.0); Calcium, Blood 9.6 mg/dL (8.5-10.1); Creatinine, Blood 3.84 mg/dL (0.40-1.00); Globulin, Blood 3.5 g/dL (2.2-4.0); Potassium, Blood 4.2 mmol/L (3.5-5.5); Total Protein, Blood 7.4 g/dL (6.4-8.2)
== END 2020-07-09 16:11 | disposition home or self-care (01) ==
LOC: ER 12:26
PROVIDERS: Physician Assistant
DX: M79.604 Pain in right leg (principal); E87.1 Hypo-osmolality and hyponatremia; I12.0 Hypertensive chronic kidney disease with stage 5 chronic kidney disease or end stage renal disease; N18.6 End stage renal disease; J44.9 Chronic obstructive pulmonary disease, unspecified; K21.9 Gastro-esophageal reflux disease without esophagitis; I48.0 Paroxysmal atrial fibrillation; Z87.891 Personal history of nicotine dependence; Z88.8 Allergy status to other drugs, medicaments and biological substances; Z79.899 Other long term (current) drug therapy
CPT/HCPCS: 36415; 80053; 85025; 93971; 99284-25

== ENCOUNTER 2020-09-02 13:26 | Emergency (ER) | payer MEDICARE, BC ==
[~2020-09-02] VITALS: Ht 157.5 cm; Wt 59.0 kg
== END 2020-09-02 14:56 | disposition home or self-care (01) ==
LOC: ER 13:26
DX: R04.0 Epistaxis (principal); Z79.899 Other long term (current) drug therapy
CPT/HCPCS: 99283; A9270

== ENCOUNTER 2020-09-21 08:44 | Day surgery (SDC) | payer MEDICARE, BC ==
[~2020-09-21] VITALS: Ht 149.9 cm; Wt 63.0 kg
--- NOTE | 2020-09-21 11:04 | NUR ---
PT AND S/O VERBALIZES UNDERSTANDING WRITTEN AND VERABL ORDERS. PT DC TO HOME VIA S/O BY WC.
== END 2020-09-21 11:23 | disposition home or self-care (01) ==
LOC: MHTC 08:44
DX: Z43.1 Encounter for attention to gastrostomy (principal); R13.10 Dysphagia, unspecified; N17.9 Acute kidney failure, unspecified; E11.22 Type 2 diabetes mellitus with diabetic chronic kidney disease; I12.9 Hypertensive chronic kidney disease with stage 1 through stage 4 chronic kidney disease, or unspecified chronic kidney disease; N18.9 Chronic kidney disease, unspecified; E11.51 Type 2 diabetes mellitus with diabetic peripheral angiopathy without gangrene; I70.213 Atherosclerosis of native arteries of extremities with intermittent claudication, bilateral legs; J44.9 Chronic obstructive pulmonary disease, unspecified; E11.40 Type 2 diabetes mellitus with diabetic neuropathy, unspecified; M10.9 Gout, unspecified; I25.2 Old myocardial infarction; Z88.5 Allergy status to narcotic agent; Z88.8 Allergy status to other drugs, medicaments and biological substances; Z88.0 Allergy status to penicillin; Z86.73 Personal history of transient ischemic attack (TIA), and cerebral infarction without residual deficits; Z95.820 Peripheral vascular angioplasty status with implants and grafts; Z96.653 Presence of artificial knee joint, bilateral; Z87.891 Personal history of nicotine dependence
CPT/HCPCS: 49450; C1769; Q9967

== ENCOUNTER → 2020-09-26 | Outpatient (CLI) | payer MEDICARE, BC | END | disposition home or self-care (01) | LOC: LAB SHORT 07:58 | DX: D04.4 Carcinoma in situ of skin of scalp and neck (principal); L98.499 Non-pressure chronic ulcer of skin of other sites with unspecified severity | CPT/HCPCS: 88305 ==

== ENCOUNTER 2020-10-08 08:10 | Inpatient (IN) | payer MEDICARE, BC ==
[~2020-10-08] VITALS: Ht 152.4 cm; Wt 66.2 kg
[~2020-10-08 08:10] MED LIST changes: -METO25 PT
[2020-10-08 08:35] LABS: BASOPHILS ABSOLUTE AUTO 0.03 K/mm3 (0.00-0.23); BASOPHILS PERCENT AUTO 0 % (0-2); EOSINOPHILS ABSOLUTE AUTO 0.07 K/mm3 (0.00-0.68); EOSINOPHILS PERCENT AUTO 0 % (0-6); Hematocrit 34.6 % (33.0-51.0); Hemoglobin 11.3 g/dL (11.5-16.0); IMMATURE GRAN ABSOLUTE AUTO 0.13 K/mm3 (0.00-0.10); IMMATURE GRAN PERCENT AUTO 1 % (0-1); LYMPHOCYTES ABSOLUTE AUTO 0.33 K/mm3 (0.84-5.20); LYMPHOCYTES PERCENT AUTO 2 % (21-46); MONOCYTES ABSOLUTE AUTO 0.47 K/mm3 (0.16-1.47); MONOCYTES PERCENT AUTO 3 % (4-13); Mean Corpuscular HGB 31.7 pg (26.0-34.0); Mean Corpuscular HGB Conc 32.7 g/dL (31.5-36.5); Mean Corpuscular Volume 97 fL (80-100); Mean Platelet Volume 12.9 fL (9.1-12.4); NEUTROPHILS ABSOLUTE AUTO 16.03 K/mm3 (1.96-9.15); NEUTROPHILS PERCENT AUTO 94 % (41-73); Platelet Count 124 K/mm3 (150-400); RDW Coefficient Variation 15.4 % (11.7-14.2); Red Blood Cell Count 3.56 M/mm3 (3.80-5.20); White Blood Cell Count 17.06 K/mm3 (4.00-11.30)
[2020-10-08 08:51] LABS: Source, Urine Catheter
[2020-10-08 08:55] LABS: Bilirubin, Urine Neg (Neg); Blood, Urine 4+ (Neg); Glucose Qualitative, Urine Neg (Neg); Ketones, Urine Neg (Neg); Leukocyte Esterase, Urine 3+ (Neg); Nitrite, Urine Neg (Neg); Protein, Urine 2+ (Neg); Urobilinogen, Urine NORM (Normal)
[2020-10-08 08:59] LABS: Albumin, Blood 3.8 g/dL (3.4-5.0); Albumin/Globulin Ratio 1.1 (0.8-1.8); Bilirubin, Total 0.5 mg/dL (0.1-1.0); Bun/Creatinine Ratio 11.4 (12.0-20.0); Calcium, Blood 9.9 mg/dL (8.5-10.1); Creatinine, Blood 3.96 mg/dL (0.40-1.00); Globulin, Blood 3.6 g/dL (2.2-4.0); Potassium, Blood 4.6 mmol/L (3.5-5.5); Total Protein, Blood 7.4 g/dL (6.4-8.2); Troponin I 0.097 ng/mL (0.000-0.040)
[2020-10-08 09:01] LABS: Appearance, Urine Cloudy (Clear); Color, Urine Yellow (P-Yellow)
[2020-10-08 09:05] LABS: Bacteria Few /hpf; Red Blood Cells, Urine 0-2 /hpf (0-2); Squamous Epithelial Cells Few /hpf (Few); White Blood Cells, Urine TNTC /hpf (0-5)
[2020-10-08 09:43] LABS: International Normalized Ratio 1.16; Prothrombin Time Results 12.4 Sec (9.7-11.5)
--- NOTE | 2020-10-08 17:49 | NUR ---
SHIFT SUMMARY. ER ADMIT TODAY FOR UROSEPSIS. PT WITH SEVERAL WOUNDS, PHOTO AND COMPUTER DOCUMENTED, ALL WOUNDS CLEANSED AND DRESSED. AT BEDSIDE AT TIME OF ADMIT AND THROUGHOUT AFTERNOON. DR. EASON CONSULTED TODAY AND REPORTED PT WILL BE DIALYZED TOMORROW. PERMCATH TO L CHEST. SEE ADMISSION ASSESSMENT FOR FURTHER ASSESSMENT DETAILES.
[2020-10-09 05:31] LABS: BASOPHILS ABSOLUTE AUTO 0.04 K/mm3 (0.00-0.23); BASOPHILS PERCENT AUTO 0 % (0-2); EOSINOPHILS PERCENT AUTO 0 % (0-6); Hematocrit 31.6 % (33.0-51.0); Hemoglobin 10.5 g/dL (11.5-16.0); IMMATURE GRAN ABSOLUTE AUTO 0.07 K/mm3 (0.00-0.10); IMMATURE GRAN PERCENT AUTO 1 % (0-1); LYMPHOCYTES ABSOLUTE AUTO 1.11 K/mm3 (0.84-5.20); LYMPHOCYTES PERCENT AUTO 7 % (21-46); MONOCYTES ABSOLUTE AUTO 0.47 K/mm3 (0.16-1.47); MONOCYTES PERCENT AUTO 3 % (4-13); Mean Corpuscular HGB 31.5 pg (26.0-34.0); Mean Corpuscular HGB Conc 33.2 g/dL (31.5-36.5); Mean Corpuscular Volume 95 fL (80-100); NEUTROPHILS ABSOLUTE AUTO 13.35 K/mm3 (1.96-9.15); NEUTROPHILS PERCENT AUTO 89 % (41-73); Platelet Count 115 K/mm3 (150-400); RDW Coefficient Variation 15.7 % (11.7-14.2); RDW Standard Deviation 53.7 fL (35.1-46.3); Red Blood Cell Count 3.33 M/mm3 (3.80-5.20); White Blood Cell Count 15.04 K/mm3 (4.00-11.30)
[2020-10-09 05:35] LABS: Mean Platelet Volume 13.9 fL (9.1-12.4)
[2020-10-09 05:52] LABS: Albumin, Blood 3.1 g/dL (3.4-5.0); Albumin/Globulin Ratio 0.9 (0.8-1.8); Bilirubin, Total 0.3 mg/dL (0.1-1.0); Bun/Creatinine Ratio 12.3 (12.0-20.0); Calcium, Blood 9.6 mg/dL (8.5-10.1); Creatinine, Blood 4.38 mg/dL (0.40-1.00); Globulin, Blood 3.5 g/dL (2.2-4.0); Magnesium, Blood 2.3 mg/dL (1.6-2.4); Potassium, Blood 4.8 mmol/L (3.5-5.5); Total Protein, Blood 6.6 g/dL (6.4-8.2)
--- NOTE | 2020-10-09 06:00 | NUR ---
elderly Female PT with recent hx of MRSA in rt foot 05/07 & ESBL, MDRO in sputum continues in droplet contact isolation. PT is very very weak unsteady & confused. Lives with Spouse Edilberto who provides assist. Son is caregiver for PT & her Spouse. PT poor historian, has AMS & severe sepsis with critical lactic acid on refux redraw with inital lactic 2.6 on ER presentation. CXR shows pulmonary edema versus pneumonia. PT has peg tube vauge about use. Stanley soft bite sized renal diet ordered. Needs fed. 2 l o2 at HS baseline. Poor mobility, rotator cuff tears, lt knee replacement with large bruise lt le with multiple wounds scattered & rt heel decub ulcer nonhealing. HX of rt le revascularization remote & MDRO in sputum. Coughing productive & sats greater than 90% on room air but uses oxygen at night for SULAIMAN CPAP intolerant. PT is high fall risk 2 max for pivot transfer & unaware of how unsteady she is. On hemodialysis via rt chestwall perm cath. PT says for 4.[address] Palmer following. Calls out repeatedly able to read staff name on board & just calls name repeatedly with no unmet needs. Fall & aspiration risk , poor safety awareness. Will have to verify when & what PT gets on tube feed & what she is allowed to eat & drink. Support offered. Discussed heparin use in PT with coumadin & lovenox allergy.
--- NOTE | 2020-10-09 07:50 | NUR ---
PT is confused & poor historian on meds diet, tube feeds etc. Order for peg tube management ST PT OT & dietary eval. MSRA swabs nares orders wounds & sputum culture obtained. Clarified PT gets heparin at dialysis without acute reaction & has heparin in past hospitalization without acute reaction. held nephrovite, has ST eval pending. wound care orders photodoc wounds order, pictures in chart.
--- NOTE | 2020-10-09 15:56 | NUR ---
Andrea is lying in bed and asleep. I visit with patient's spouse, Edilberto. He tells me about patient's slow decline in her weight, strength, hrs of being awake and speech. He also talks about his family unit complications and his "mistrust in the hospital's administration." I normalize Edilberto's feelings, reinforce helpful attitudes and provide therapeutic listening. I will continue to remain available to patient and family.
--- NOTE | 2020-10-09 19:28 | NUR ---
PT ALERT AND ORIENTED X4 WITH MILD CONFUSION THIS SHIFT. PT RESTING IN BED WITH AT SIDE. MEDICATIONS PER PEG AND PO. NO OTHER ACUTE CHANGES NOTED. IV ABT'S TO CONT. WELL DIALYSIS. BED IN LOW POSITION AND CALL NIGHT WITHIN REACH, WILL CONTINUE TO MONITOR.
--- NOTE | 2020-10-09 19:31 | NUR ---
FAMILY BX NOTE... THIS ADOPTION SERVICES MANAGER SPOKE WITH SON LANCE AT BEDSIDE AT START OF SHIFT. LANCE STATED THAT SSW OR HOMEHEALTH SHOULD BE INVOLVED IN THIS CASE SINCE THE IS CHAIRBOUND WELL. CONSULT ORDERS PLACED. SHYANN AT BEDSIDE THIS SHIFT, AMBULATES WELL AND IND. SHYANN WAS VERY UPSET, STATING WE ARE TAKING PICURES OF HIS WIFES WOUNDS BECAUSE WE BELIEVE HE IS THE CAUSE. SHYANN WOULD NOT ALLOW ME TO SWAB WOUNDS FOR SAMPLE ORDERS PER DR. EASON. AFTER CALMING DOWN, SHYANN ALLOWED ME TO SWAB PT AND SAMPLES SENT.
[2020-10-10 06:36] LABS: BASOPHILS ABSOLUTE AUTO 0.03 K/mm3 (0.00-0.23); BASOPHILS PERCENT AUTO 0 % (0-2); EOSINOPHILS ABSOLUTE AUTO 0.07 K/mm3 (0.00-0.68); EOSINOPHILS PERCENT AUTO 1 % (0-6); Hematocrit 31.4 % (33.0-51.0); Hemoglobin 10.2 g/dL (11.5-16.0); IMMATURE GRAN ABSOLUTE AUTO 0.05 K/mm3 (0.00-0.10); IMMATURE GRAN PERCENT AUTO 1 % (0-1); LYMPHOCYTES ABSOLUTE AUTO 0.85 K/mm3 (0.84-5.20); LYMPHOCYTES PERCENT AUTO 8 % (21-46); MONOCYTES ABSOLUTE AUTO 0.45 K/mm3 (0.16-1.47); MONOCYTES PERCENT AUTO 4 % (4-13); Mean Corpuscular HGB 31.4 pg (26.0-34.0); Mean Corpuscular HGB Conc 32.5 g/dL (31.5-36.5); Mean Corpuscular Volume 97 fL (80-100); NEUTROPHILS ABSOLUTE AUTO 9.44 K/mm3 (1.96-9.15); NEUTROPHILS PERCENT AUTO 87 % (41-73); NRBC ABSOLUTE 0.02 K/mm3 (0.00-0.02); NRBC Auto 0.2 /100 WBC (0.0-0.2); Platelet Count 136 K/mm3 (150-400); RDW Coefficient Variation 15.9 % (11.7-14.2); RDW Standard Deviation 55.9 fL (35.1-46.3); Red Blood Cell Count 3.25 M/mm3 (3.80-5.20); White Blood Cell Count 10.89 K/mm3 (4.00-11.30)
[2020-10-10 06:43] LABS: Mean Platelet Volume 14.1 fL (9.1-12.4)
[2020-10-10 07:13] LABS: Albumin, Blood 3.1 g/dL (3.4-5.0); Anion Gap 9 mmol/L (6-16); Blood Urea Nitrogen 34 mg/dL (8-24); Bun/Creatinine Ratio 10.1 (12.0-20.0); CO2, Blood 27 mmol/L (21-32); Calcium, Blood 9.3 mg/dL (8.5-10.1); Chloride, Blood 102 mmol/L (98-108); Creatinine, Blood 3.37 mg/dL (0.40-1.00); Glomerular Filtration Rate 13 (60-); Glucose, Blood 153 mg/dL (70-99); Magnesium, Blood 2.2 mg/dL (1.6-2.4); Phosphorus, Blood 3.2 mg/dL (2.5-4.9); Sodium, Blood 138 mmol/L (136-145)
[2020-10-10 14:21] LABS: SARS-Cov-2 (COVID-19) PCR, MMC NEGATIVE (NEGATIVE)
--- NOTE | 2020-10-10 14:22 | NUR ---
pt.is in bed resting and is doing fine offered for her.
--- NOTE | 2020-10-10 14:56 | NUR ---
PATIENT ABLE TO ANSWER ALL ORIENTATION QUESTIONS APPROPRIATELY HOWEVER IS EASILY CONFUSED AND FORGETFUL; JUST EASILY RE-ORIENTED. VITALS HAVE BEEN STABLE. NO DIALYSIS TODAY. PEG TUBE TO LUQ PATENT AND FLUSHES WELL TO GRAVITY; PATIENT GIVEN ONE CAN OF NEPRO AT 1100 THIS MORNING SHE DID NOT EAT MUCH FOR BREAKFAST. CONTINUES ON IV AB WITHOUT S/SX ADVERSE REACTIONS NOTED OR REPORTED. TESTED FOR COVID PER DR GUERRERO: NEGATIVE. IS VISITING AT BEDSIDE AT THIS TIME. CALL LIGHT IS WITHIN REACH.
--- NOTE | 2020-10-10 15:29 | NUR ---
Patient is lying in bed and alert. Silvia's spouse, Edilberto, is bedside. Patient talks about her struggles with depression from dealing with the symptoms of her medical issues and medical treatments. She shares that she is emotionally, physically and mentally exhausted. We talk about her arlin, her supprt system and her motives to continue inspite of pain and weariness. I reinforce helpful attitudes and practices, normalize her fatigue and provide companionship and prayer. Patient responds well and shows signs of increased hope. I will continue to meter repairer helper the emotional/spiritual needs of patient and hopefully link those discussions with her medical decisions and plans.
--- NOTE | 2020-10-11 04:13 | NUR ---
SHIFT SUMMARY ADMITTED FOR UTI/SEPSIS. DNR CODE. DROPLET CONTACT PRECAUTIONS FOR MRSA IN WOUND/URINE, AND ESBL IN URINE. IV ANTIB RX ARE SCHEDULED. LEFT LEG HAS CELLULITIS. PEG TUBE IN PLACE IN CASE OF POOR INTAKE. SHE HAS BEEN CONFUSED THROUGHOUT THIS SHIFT. DR EASON IS NEPHROLOGY CONSULT
[2020-10-11 05:51] LABS: BASOPHILS ABSOLUTE AUTO 0.04 K/mm3 (0.00-0.23); BASOPHILS PERCENT AUTO 0 % (0-2); EOSINOPHILS ABSOLUTE AUTO 0.07 K/mm3 (0.00-0.68); EOSINOPHILS PERCENT AUTO 1 % (0-6); Hematocrit 33.5 % (33.0-51.0); Hemoglobin 10.8 g/dL (11.5-16.0); IMMATURE GRAN ABSOLUTE AUTO 0.05 K/mm3 (0.00-0.10); IMMATURE GRAN PERCENT AUTO 1 % (0-1); LYMPHOCYTES ABSOLUTE AUTO 0.87 K/mm3 (0.84-5.20); LYMPHOCYTES PERCENT AUTO 9 % (21-46); MONOCYTES ABSOLUTE AUTO 0.51 K/mm3 (0.16-1.47); MONOCYTES PERCENT AUTO 5 % (4-13); Mean Corpuscular HGB 30.9 pg (26.0-34.0); Mean Corpuscular HGB Conc 32.2 g/dL (31.5-36.5); Mean Corpuscular Volume 96 fL (80-100); NEUTROPHILS ABSOLUTE AUTO 8.59 K/mm3 (1.96-9.15); NEUTROPHILS PERCENT AUTO 85 % (41-73); NRBC ABSOLUTE 0.05 K/mm3 (0.00-0.02); NRBC Auto 0.5 /100 WBC (0.0-0.2); Platelet Count 145 K/mm3 (150-400); Red Blood Cell Count 3.49 M/mm3 (3.80-5.20); White Blood Cell Count 10.13 K/mm3 (4.00-11.30)
[2020-10-11 05:53] LABS: Mean Platelet Volume 14.2 fL (9.1-12.4)
--- NOTE | 2020-10-11 06:03 | NUR ---
CALLED HOSPITALIST INFORMED HER OF PT'S TACHYCARDIA. NEW ORDER TO MONITOR VIA TELEMETRY. TELEMETRY IN PLACE. TELEMETRY: AFIB @ 103.
[2020-10-11 06:22] LABS: Albumin, Blood 3.2 g/dL (3.4-5.0); Anion Gap 13 mmol/L (6-16); Blood Urea Nitrogen 46 mg/dL (8-24); Bun/Creatinine Ratio 11.8 (12.0-20.0); CO2, Blood 25 mmol/L (21-32); Calcium, Blood 9.7 mg/dL (8.5-10.1); Chloride, Blood 97 mmol/L (98-108); Glomerular Filtration Rate 11 (60-); Glucose, Blood 148 mg/dL (70-99); Magnesium, Blood 2.5 mg/dL (1.6-2.4); Phosphorus, Blood 3.3 mg/dL (2.5-4.9); Potassium, Blood 4.5 mmol/L (3.5-5.5); Sodium, Blood 135 mmol/L (136-145)
[2020-10-11 08:43] LABS: Vancomycin, Random 13.9 ug/mL
--- NOTE | 2020-10-11 17:47 | NUR ---
PATIENT CONTINUES ON IV ABX. ORIENTED TIMES FOUR AT TIMES BUT QUICKLY AND EASILY DISORIENTED. HAD DIALYSIS TODAY. HAD SEVERE HEADACHE/MIGRAINE THIS MORNING THAT EXCEDRINE AND PERCOCET DID NOT SEEM TO RESOLVE SO DR GUERRERO ORDERED A ONE TIME DOSE OF IMITREX AND IT SEEMED TO BE EFFECTIVE AFTER A WHILE. PATIENT WORKED WITH PT AND OT; IT REQUIRED BOTH TEAMS TO TRANSFER PATIENT TO HER BEDSIDE CHAIR. PATIENT IS VERY WEAK AND DIFFICULT TO FOLLOW DIRECTIONS. PATIENT ENDED UP FALLING TO SLEEP AND TAKING A GOOD, RESTFUL NAP IN RECLINER. MEDS ADMINISTERED VIA PEG TUBE PER PATIENT CHOICE; SHE TAKES A LOT OF MEDICATIONS AND HAS A HARD TIME WITH SWALLOWING. PATIENT REQUIRED SUPPLEMENTAL NEPRO VIA PEG AT BREAKFAST BUT ATE SUFFICIENTLY AT LUNCH. IS CURRENTLY IN ROOM ASSISTING PATIENT WITH DINNER. BANDAGES TO LLE AND L FOREARM CHANGED TODAY. CALL LIGHT WITHIN REACH.
--- NOTE | 2020-10-12 04:29 | NUR ---
SHIFT SUMMARY ADMITTED FOR UTI/SEPSIS/PNEUMONIA. FULL CODE. ALSO HAS LLL CELLULITIS. TELEMETRY: AFIB @ 96 BPM. IV ANTIBIOTICS ARE SCHEDULED. PEG TUBE FOR SUPPLEMENTAL FEEDINGS/CRUSHED MEDS. PT HAS PEG DUE TO HX OF CVA & ESOPHAGEAL STRICTURES, AT TIMES SHE FINDS IT DIFFICULT TO SWALLOW. PLAN IS FOR DC W/HH. SHE LIVES WITH HER AND SONS. SHE IS A DIALYSIS PT. DR EASON IS RENAL CONSULT. SHE WAS CONFUSED AGAIN THIS SHIFT, CALLING OUT FAMILY NAMES AND THINKING SHE WAS HOME. PHYSICAL AND OCCUPATIONAL THERAPIES ARE ASSISTING WITH THIS PT. WE FOUND HER TO BE A HEAVY 2 ASSIST - PIVOT TRANSFER TO GET HER FROM THE CHAIR TO THE BED, SHE DID NOT COOPERATE DURING THE TRANSFER.
[2020-10-12 05:33] LABS: BASOPHILS ABSOLUTE AUTO 0.07 K/mm3 (0.00-0.23); BASOPHILS PERCENT AUTO 1 % (0-2); EOSINOPHILS ABSOLUTE AUTO 0.13 K/mm3 (0.00-0.68); EOSINOPHILS PERCENT AUTO 1 % (0-6); Hematocrit 32.7 % (33.0-51.0); Hemoglobin 10.5 g/dL (11.5-16.0); IMMATURE GRAN ABSOLUTE AUTO 0.08 K/mm3 (0.00-0.10); IMMATURE GRAN PERCENT AUTO 1 % (0-1); LYMPHOCYTES ABSOLUTE AUTO 0.95 K/mm3 (0.84-5.20); LYMPHOCYTES PERCENT AUTO 9 % (21-46); MONOCYTES ABSOLUTE AUTO 0.73 K/mm3 (0.16-1.47); MONOCYTES PERCENT AUTO 7 % (4-13); Mean Corpuscular HGB 31.2 pg (26.0-34.0); Mean Corpuscular HGB Conc 32.1 g/dL (31.5-36.5); Mean Corpuscular Volume 97 fL (80-100); NEUTROPHILS ABSOLUTE AUTO 9.12 K/mm3 (1.96-9.15); NEUTROPHILS PERCENT AUTO 82 % (41-73); NRBC Auto 0.9 /100 WBC (0.0-0.2); Platelet Count 163 K/mm3 (150-400); RDW Standard Deviation 56.1 fL (35.1-46.3); Red Blood Cell Count 3.37 M/mm3 (3.80-5.20); White Blood Cell Count 11.08 K/mm3 (4.00-11.30)
[2020-10-12 06:06] LABS: Magnesium, Blood 2.2 mg/dL (1.6-2.4)
[2020-10-12 06:07] LABS: Anion Gap 12 mmol/L (6-16); Blood Urea Nitrogen 32 mg/dL (8-24); CO2, Blood 25 mmol/L (21-32); Calcium, Blood 9.2 mg/dL (8.5-10.1); Chloride, Blood 94 mmol/L (98-108); Creatinine, Blood 2.91 mg/dL (0.40-1.00); Globulin, Blood 3.1 g/dL (2.2-4.0); Glomerular Filtration Rate 15 (60-); Glucose, Blood 131 mg/dL (70-99); Phosphorus, Blood 2.3 mg/dL (2.5-4.9); Sodium, Blood 131 mmol/L (136-145); Total Protein, Blood 6.1 g/dL (6.4-8.2)
[2020-10-12 06:08] LABS: Alanine Aminotransfer (ALT/SGP 24 U/L (12-78); Alk Phos 94 U/L (50-136); Aspartate Aminotrans (AST/SGOT 22 U/L (12-37); Bilirubin, Direct 0.1 mg/dL (0.0-0.3); Bilirubin, Indirect 0.2 mg/dL (0.1-0.7); Bilirubin, Total 0.3 mg/dL (0.1-1.0); Vancomycin, Random 23.4 ug/mL
--- NOTE | 2020-10-12 15:42 | NUR ---
Patient had mentioned in a prior visit that she was terribly depressed and exhausted emotionally as well as physically. We discussed these feeling, what they might mean and what the options might be (Besides continuing with dialysis, which she hates going through). We explored sources of meaning and purpose, quality vs. quantity and right that she has to make her own medical wishes known and followed if they are or will be different than her current course. She decides to keep on the path she is on for now but states that she is getting closer to a change in direction in terms of code status stating, "I still want to fight a little while longer." I reinforce helpful attitudes and practices and provide therapeutic listening and prayer. Patient responds well and voices apprecitation for the visit.
--- NOTE | 2020-10-12 18:18 | NUR ---
PT AOX3 AND MILDLY CONFUSED. PT CALLS OUT AT TIMES WHEN SHE NEEDS SOMETHING. PT HAS BEEN VERY TIRED TODAY AND DID NOT EAT BREAKFAST OR LUNCH AND WAS GIVEN HER NUTRITION THROUGH PEG TUBE. PT COOPERATIVE OF CARE AND WOKE UP MUCH MORE WITH AT BEDSIDE. TREATED FOR PAN PER EMAR. WILL CONTINUE TO MONITOR.
--- NOTE | 2020-10-13 04:11 | NUR ---
SHIFT SUMMARY ADMITTED FOR UTI/SEPSIS. DNR CODE. ALSO HAS PNEUMONIA AND LEFT LEG CELLULITIS. PLAN IS FOR DC W/HH. SHE LIVES WITH SONS AND . PEG TUBE IN PLACE FOR SUPPLEMENTAL FEEDING AND MEDS. SHE IS A DIALYSIS PT, DR EASON IS RENAL CONSULT. IV ANTIB RX ARE SCHEDULED. TELEMETRY: AFIB @ 77 BPM. HER PO INTAKE IS NOT GREAT BUT SHE CAN HAVE A RENAL/SOFT DIET.
[2020-10-13] MEDS ORDERED: Acetaminophen650 M1 PO (12:46)
[2020-10-13] MEDS ORDERED: BISA10S PR (12:47)
[2020-10-13] MEDS ORDERED: LEVOTHYROXINE25 MC3 PO (12:49)
[2020-10-13] MEDS ORDERED: [UNRECOGNIZED DRUG - REMARK] PO (12:52)
--- NOTE | 2020-10-13 18:56 | NUR ---
PT DISCHARGED WITH TO TRANSPORT. PT HAD DIALYSIS PRIOR TO DISCHARGE. AOX3 AND COOPERATIVE OF CARE. PT MUCH MORE ALERT TODAY AND WAS HAPPY TO GO HOME. PAN TREATED PER EMAR. NO DISTRESS NOTED. ALL PAPERWORK REVIEWED AND EDUCATIONAL MATERIAL SENT WITH PT. PERSONAL ITEMS COLLECTED AND TAKEN WITH PT. PT WAS EVALUATED FOR ABILITY TO AMBULATE AND GET INTO WHEEL CHAIR PRIOR TO LEAVING. PT DID WELL AND WAS TAKEN DOWN TO CAR AND ASSISTED IN. PT DID WELL ASSISITING GETTING INTO CAR.
== END 2020-10-13 17:19 | disposition home health service (06) | DRG 871 ==
LOC: ER 08:10 → MEDS 10:26 → ENPENDDIS 10-13 10:49 → MEDS 10-13 17:19
PROVIDERS: Internal Medicine Nephrology; Physician Assistant; ADMIT Family Medicine
DX: A41.51 Sepsis due to Escherichia coli [E. coli] (principal); N18.6 End stage renal disease; J18.9 Pneumonia, unspecified organism; Z66 Do not resuscitate; G93.41 Metabolic encephalopathy; E87.1 Hypo-osmolality and hyponatremia; E87.2 Acidosis; J91.8 Pleural effusion in other conditions classified elsewhere; L03.116 Cellulitis of left lower limb; N13.6 Pyonephrosis; I12.0 Hypertensive chronic kidney disease with stage 5 chronic kidney disease or end stage renal disease; I69.354 Hemiplegia and hemiparesis following cerebral infarction affecting left non-dominant side; Z20.822 Contact with and (suspected) exposure to COVID-19; A41.02 Sepsis due to Methicillin resistant Staphylococcus aureus; R65.20 Severe sepsis without septic shock; I48.0 Paroxysmal atrial fibrillation; M19.90 Unspecified osteoarthritis, unspecified site; D50.9 Iron deficiency anemia, unspecified; D63.1 Anemia in chronic kidney disease; E11.22 Type 2 diabetes mellitus with diabetic chronic kidney disease; K21.9 Gastro-esophageal reflux disease without esophagitis; G43.909 Migraine, unspecified, not intractable, without status migrainosus; E03.9 Hypothyroidism, unspecified; G47.33 Obstructive sleep apnea (adult) (pediatric); J44.9 Chronic obstructive pulmonary disease, unspecified; E11.42 Type 2 diabetes mellitus with diabetic polyneuropathy; F32.9 Major depressive disorder, single episode, unspecified; E88.09 Other disorders of plasma-protein metabolism, not elsewhere classified; E66.9 Obesity, unspecified; E78.5 Hyperlipidemia, unspecified; Z96.653 Presence of artificial knee joint, bilateral; Z79.01 Long term (current) use of anticoagulants; Z99.81 Dependence on supplemental oxygen; Z87.891 Personal history of nicotine dependence; Z99.2 Dependence on renal dialysis; Z90.710 Acquired absence of both cervix and uterus; Z79.899 Other long term (current) drug therapy; Z88.0 Allergy status to penicillin; Z88.5 Allergy status to narcotic agent; Z88.6 Allergy status to analgesic agent; Z88.8 Allergy status to other drugs, medicaments and biological substances; Z98.890 Other specified postprocedural states; Z90.49 Acquired absence of other specified parts of digestive tract
CPT/HCPCS: 36415; 71045; 74176; 80053; 80069; 80202; 81001; 82248; 83605; 83735; 84100; 84132; 84145; 84443; 84484; 85018; 85025; 85610; 85730; 86140; 87040; 87077; 87081; 87086; 87186; 92610; 93005; 93010; 94760; 96374; 97110; 97162; 97166; 97535; 99285-25; A9270; J0696; J1644; J2185; J3370; J7030; J7050; U0004

== ENCOUNTER 2020-10-16 07:40 | Inpatient (IN) | payer MEDICARE, BC ==
[~2020-10-16] VITALS: Ht 160 cm; Wt 54.4 kg
[~2020-10-16 07:40] MED LIST changes: +Acetaminophen650 M1 PO; +LEVOTHYROXINE25 MC3 PO; +[UNRECOGNIZED DRUG - REMARK] PO
[2020-10-16 10:10] LABS: Calcium, Ionized (POC) 1.15 mmol/L (1.10-1.46); Chloride (POC) 93 mmol/L (98-108); Glucose (ISTAT POC) 108 mg/dL (70-99); Hemoglobin (POC) 12.6 g/dL (12.0-16.0); Potassium (POC) 4.2 mmol/L (3.5-5.5); Sodium (POC) 132 mmol/L (135-148); Total CO2 (POC) 26 mmol/L (21-32)
[2020-10-16] MEDS ORDERED: ROPINIROLE HC PO (12:44)
[2020-10-16] MEDS ORDERED: GABAPENTIN250 MG/59 PO (12:46)
[2020-10-16] MEDS ORDERED: DESLORATADINE5 MG PO (12:47)
[2020-10-16 13:23] LABS: Albumin, Blood 3.3 g/dL (3.4-5.0); Albumin/Globulin Ratio 0.9 (0.8-1.8); Bilirubin, Total 0.4 mg/dL (0.1-1.0); Bun/Creatinine Ratio 10.1 (12.0-20.0); Calcium, Blood 9.2 mg/dL (8.5-10.1); Creatinine, Blood 4.47 mg/dL (0.40-1.00); Globulin, Blood 3.8 g/dL (2.2-4.0); Potassium, Blood 4.2 mmol/L (3.5-5.5); Total Protein, Blood 7.1 g/dL (6.4-8.2)
[2020-10-16 20:41] LABS: BASOPHILS ABSOLUTE AUTO 0.04 K/mm3 (0.00-0.23); BASOPHILS PERCENT AUTO 1 % (0-2); EOSINOPHILS ABSOLUTE AUTO 0.21 K/mm3 (0.00-0.68); EOSINOPHILS PERCENT AUTO 3 % (0-6); Hemoglobin 9.1 g/dL (11.5-16.0); IMMATURE GRAN ABSOLUTE AUTO 0.05 K/mm3 (0.00-0.10); IMMATURE GRAN PERCENT AUTO 1 % (0-1); LYMPHOCYTES ABSOLUTE AUTO 0.89 K/mm3 (0.84-5.20); LYMPHOCYTES PERCENT AUTO 13 % (21-46); MONOCYTES ABSOLUTE AUTO 0.85 K/mm3 (0.16-1.47); MONOCYTES PERCENT AUTO 13 % (4-13); Mean Corpuscular HGB 31.4 pg (26.0-34.0); Mean Corpuscular HGB Conc 31.4 g/dL (31.5-36.5); Mean Corpuscular Volume 100 fL (80-100); Mean Platelet Volume 11.9 fL (9.1-12.4); NEUTROPHILS PERCENT AUTO 70 % (41-73); NRBC ABSOLUTE 0.02 K/mm3 (0.00-0.02); NRBC Auto 0.3 /100 WBC (0.0-0.2); Platelet Count 191 K/mm3 (150-400); White Blood Cell Count 6.74 K/mm3 (4.00-11.30)
[2020-10-16 20:53] LABS: International Normalized Ratio 1.1; Prothrombin Time Results 11.8 Sec (9.7-11.5)
[2020-10-17 05:21] LABS: Albumin, Blood 3.1 g/dL (3.4-5.0); Albumin/Globulin Ratio 0.8 (0.8-1.8); Bilirubin, Total 0.5 mg/dL (0.1-1.0); Bun/Creatinine Ratio 8.9 (12.0-20.0); Calcium, Blood 8.5 mg/dL (8.5-10.1); Creatinine, Blood 3.15 mg/dL (0.40-1.00); Globulin, Blood 3.7 g/dL (2.2-4.0); Magnesium, Blood 2.4 mg/dL (1.6-2.4); Phosphorus, Blood 3.9 mg/dL (2.5-4.9); Total Protein, Blood 6.8 g/dL (6.4-8.2)
[2020-10-17 05:44] LABS: BASOPHILS ABSOLUTE AUTO 0.04 K/mm3 (0.00-0.23); BASOPHILS PERCENT AUTO 1 % (0-2); EOSINOPHILS ABSOLUTE AUTO 0.23 K/mm3 (0.00-0.68); EOSINOPHILS PERCENT AUTO 4 % (0-6); Hematocrit 29.2 % (33.0-51.0); Hemoglobin 9.2 g/dL (11.5-16.0); IMMATURE GRAN ABSOLUTE AUTO 0.04 K/mm3 (0.00-0.10); IMMATURE GRAN PERCENT AUTO 1 % (0-1); LYMPHOCYTES ABSOLUTE AUTO 0.86 K/mm3 (0.84-5.20); LYMPHOCYTES PERCENT AUTO 15 % (21-46); MONOCYTES ABSOLUTE AUTO 0.76 K/mm3 (0.16-1.47); MONOCYTES PERCENT AUTO 13 % (4-13); Mean Corpuscular HGB 31.6 pg (26.0-34.0); Mean Corpuscular HGB Conc 31.5 g/dL (31.5-36.5); Mean Corpuscular Volume 100 fL (80-100); Mean Platelet Volume 12.5 fL (9.1-12.4); NEUTROPHILS ABSOLUTE AUTO 3.91 K/mm3 (1.96-9.15); NEUTROPHILS PERCENT AUTO 67 % (41-73); NRBC ABSOLUTE 0.02 K/mm3 (0.00-0.02); NRBC Auto 0.3 /100 WBC (0.0-0.2); Platelet Count 171 K/mm3 (150-400); RDW Coefficient Variation 17.3 % (11.7-14.2); RDW Standard Deviation 58.6 fL (35.1-46.3); Red Blood Cell Count 2.91 M/mm3 (3.80-5.20); White Blood Cell Count 5.84 K/mm3 (4.00-11.30)
[2020-10-18 05:13] LABS: Hematocrit 29.6 % (33.0-51.0); Hemoglobin 9.4 g/dL (11.5-16.0)
[2020-10-18 05:26] LABS: Albumin, Blood 2.9 g/dL (3.4-5.0); Anion Gap 5 mmol/L (6-16); Blood Urea Nitrogen 29 mg/dL (8-24); Bun/Creatinine Ratio 9.5 (12.0-20.0); CO2, Blood 31 mmol/L (21-32); Calcium, Blood 8.6 mg/dL (8.5-10.1); Chloride, Blood 97 mmol/L (98-108); Creatinine, Blood 3.06 mg/dL (0.40-1.00); Glomerular Filtration Rate 14 (60-); Glucose, Blood 103 mg/dL (70-99); Magnesium, Blood 2.3 mg/dL (1.6-2.4); Phosphorus, Blood 3.8 mg/dL (2.5-4.9); Potassium, Blood 4.1 mmol/L (3.5-5.5); Sodium, Blood 133 mmol/L (136-145)
[2020-10-18] MEDS ORDERED: ALLO100 PO (10:08)
[2020-10-18] MEDS ORDERED: LINE600 PO (10:11)
[2020-10-19 04:38] LABS: Hematocrit 28.8 % (33.0-51.0); Hemoglobin 9.2 g/dL (11.5-16.0)
[2020-10-19 05:25] LABS: Albumin, Blood 2.8 g/dL (3.4-5.0); Anion Gap 8 mmol/L (6-16); Blood Urea Nitrogen 42 mg/dL (8-24); Bun/Creatinine Ratio 10.9 (12.0-20.0); CO2, Blood 29 mmol/L (21-32); Calcium, Blood 8.6 mg/dL (8.5-10.1); Chloride, Blood 96 mmol/L (98-108); Creatinine, Blood 3.85 mg/dL (0.40-1.00); Glomerular Filtration Rate 11 (60-); Glucose, Blood 120 mg/dL (70-99); Magnesium, Blood 2.4 mg/dL (1.6-2.4); Phosphorus, Blood 4.2 mg/dL (2.5-4.9); Potassium, Blood 4.4 mmol/L (3.5-5.5); Sodium, Blood 133 mmol/L (136-145)
[2020-10-20 05:07] LABS: Hematocrit 30.7 % (33.0-51.0); Hemoglobin 9.8 g/dL (11.5-16.0)
[2020-10-20 05:28] LABS: Albumin, Blood 2.9 g/dL (3.4-5.0); Anion Gap 7 mmol/L (6-16); Blood Urea Nitrogen 50 mg/dL (8-24); Bun/Creatinine Ratio 11.5 (12.0-20.0); CO2, Blood 28 mmol/L (21-32); Calcium, Blood 9.1 mg/dL (8.5-10.1); Chloride, Blood 96 mmol/L (98-108); Creatinine, Blood 4.33 mg/dL (0.40-1.00); Glomerular Filtration Rate 10 (60-); Glucose, Blood 108 mg/dL (70-99); Magnesium, Blood 2.5 mg/dL (1.6-2.4); Phosphorus, Blood 5.3 mg/dL (2.5-4.9); Sodium, Blood 131 mmol/L (136-145)
[2020-10-21 08:28] LABS: Magnesium, Blood 2.3 mg/dL (1.6-2.4)
[2020-10-21 08:29] LABS: Albumin, Blood 2.8 g/dL (3.4-5.0); Anion Gap 7 mmol/L (6-16); Blood Urea Nitrogen 37 mg/dL (8-24); Bun/Creatinine Ratio 11.9 (12.0-20.0); CO2, Blood 31 mmol/L (21-32); Calcium, Blood 8.8 mg/dL (8.5-10.1); Chloride, Blood 103 mmol/L (98-108); Creatinine, Blood 3.11 mg/dL (0.40-1.00); Glomerular Filtration Rate 14 (60-); Glucose, Blood 122 mg/dL (70-99); Phosphorus, Blood 3.4 mg/dL (2.5-4.9); Potassium, Blood 3.9 mmol/L (3.5-5.5)
[2020-10-21 08:33] LABS: Sodium, Blood 141 mmol/L (136-145)
[2020-10-22 04:49] LABS: Hemoglobin 9.6 g/dL (11.5-16.0)
[2020-10-22 05:26] LABS: Albumin, Blood 2.7 g/dL (3.4-5.0); Anion Gap 6 mmol/L (6-16); Blood Urea Nitrogen 45 mg/dL (8-24); Bun/Creatinine Ratio 11.9 (12.0-20.0); CO2, Blood 30 mmol/L (21-32); Calcium, Blood 9.2 mg/dL (8.5-10.1); Chloride, Blood 101 mmol/L (98-108); Creatinine, Blood 3.79 mg/dL (0.40-1.00); Glomerular Filtration Rate 11 (60-); Glucose, Blood 114 mg/dL (70-99); Magnesium, Blood 2.5 mg/dL (1.6-2.4); Phosphorus, Blood 3.7 mg/dL (2.5-4.9); Potassium, Blood 4.1 mmol/L (3.5-5.5); Sodium, Blood 137 mmol/L (136-145)
[2020-10-22] MEDS ORDERED: ATOR20 PO (11:22)
== END 2020-10-22 15:30 | disposition home health service (06) | DRG 533 ==
LOC: ER 07:40 → SURS 12:59
PROVIDERS: Emergency Medicine; Internal Medicine Nephrology; Nurse Practitioner Acute Care; ADMIT Internal Medicine
PROC: 5A1D70Z Performance of Urinary Filtration, Intermittent, Less than 6 Hours Per Day (ICD-10-PCS; principal; 2020-10-16)
DX: S72.492A Other fracture of lower end of left femur, initial encounter for closed fracture (principal); N18.6 End stage renal disease; M97.02XA Periprosthetic fracture around internal prosthetic left hip joint, initial encounter; L03.116 Cellulitis of left lower limb; I13.2 Hypertensive heart and chronic kidney disease with heart failure and with stage 5 chronic kidney disease, or end stage renal disease; N25.81 Secondary hyperparathyroidism of renal origin; E87.1 Hypo-osmolality and hyponatremia; I48.0 Paroxysmal atrial fibrillation; Z66 Do not resuscitate; E78.5 Hyperlipidemia, unspecified; J44.9 Chronic obstructive pulmonary disease, unspecified; G47.33 Obstructive sleep apnea (adult) (pediatric); I25.10 Atherosclerotic heart disease of native coronary artery without angina pectoris; K21.9 Gastro-esophageal reflux disease without esophagitis; Z87.442 Personal history of urinary calculi; M48.00 Spinal stenosis, site unspecified; Z96.653 Presence of artificial knee joint, bilateral; M19.90 Unspecified osteoarthritis, unspecified site; W18.11XA Fall from or off toilet without subsequent striking against object, initial encounter; E11.42 Type 2 diabetes mellitus with diabetic polyneuropathy; E66.9 Obesity, unspecified; E11.22 Type 2 diabetes mellitus with diabetic chronic kidney disease; D63.1 Anemia in chronic kidney disease; I50.9 Heart failure, unspecified; G89.29 Other chronic pain; R13.10 Dysphagia, unspecified; F32.9 Major depressive disorder, single episode, unspecified; M54.2 Cervicalgia; M10.9 Gout, unspecified; Y92.002 Bathroom of unspecified non-institutional (private) residence as the place of occurrence of the external cause; Z88.3 Allergy status to other anti-infective agents; Z88.5 Allergy status to narcotic agent; Z88.0 Allergy status to penicillin; Z99.2 Dependence on renal dialysis; Z88.8 Allergy status to other drugs, medicaments and biological substances; I25.2 Old myocardial infarction; Z90.49 Acquired absence of other specified parts of digestive tract; Z98.890 Other specified postprocedural states; Z90.710 Acquired absence of both cervix and uterus; Z90.722 Acquired absence of ovaries, bilateral; Z90.79 Acquired absence of other genital organ(s); Z86.010 Personal history of colon polyps; Z98.42 Cataract extraction status, left eye; Z98.41 Cataract extraction status, right eye; Z79.899 Other long term (current) drug therapy; Z87.440 Personal history of urinary (tract) infections; Z93.1 Gastrostomy status; I69.334 Monoplegia of upper limb following cerebral infarction affecting left non-dominant side
CPT/HCPCS: 29505; 36415; 70450; 71045; 73552; 73560-LT; 74176; 80047; 80053; 80069; 80162; 82947; 83735; 83880; 84100; 84484; 85014; 85018; 85025; 85610; 85651; 86140; 93005; 93010; 94760; 99285-25; A9270; J0881